=== PATIENT | male | born 1975 | race Caucasian/White ===

== ENCOUNTER 2020-03-30 16:48 | Emergency (ER) | payer SELFPAY ==
[2020-03-30 16:49] VITALS: BP 132/79; PULSE 85; RESP 17; TEMP 36.9; O2SAT 99; BMI 22.1
--- NOTE | 2020-03-30 17:17 | RAD_ITS ---
STUDY: X-RAY - RIGHT TIBIA AND FIBULA REASON FOR EXAM: Male, 44 years old. Distal leg pain TECHNIQUE: 2 view(s) of the tibia and fibula were obtained. COMPARISON: None. FINDINGS: Normal visualized tibia. Normal visualized fibula. The soft tissue structures are unremarkable. RAD/Tibia & Fibula 2 Views IMPRESSION: Normal x-ray examination of the tibia and fibula. Electronically Signed: Hany Santana MD at 18:23 EDT , Service support ,
[2020-03-30] MEDS: HYDROcodone Bitartrate/Apap 5/325 Tablet PO (17:20)
--- NOTE | 2020-03-30 17:36 | RAD_ITS ---
STUDY: X-RAY - RIGHT FEMUR REASON FOR STUDY: Male, 44 years old. Pain TECHNIQUE: 4 view(s) of the femur. COMPARISON: None. FINDINGS: Normal visualized femur. Normal visualized soft tissue structure. RAD/Femur Min 2 Views IMPRESSION: Normal x-ray examination of the femur. Electronically Signed: Hany Santana MD at 18:06 EDT , Service support ,
--- NOTE | 2020-03-30 18:14 | ED.VISSUMM ---
- ER Visit Summary Date of Service: 03/30/20 Chief Complaint: Back pain, right hip pain, right leg pain History of Present Illness: The patient is a 44 M with no primary care physician. He reports that he is had multiple surgeries to his lumbar spine. States the last 2 of these have been spinal fusions by Dr. Marcus and he is spoken with the office and reports that they cannot do anything more for me. He states that his back pain is chronic and typically 3 out of 10 in severity. The past 2 weeks it is been 7 out of 10 in severity at worst and 5-10 currently. Scribes it is an aching pain that is worsened by nothing. Is taken Tylenol and ibuprofen with some relief. Patient reports that his right hip pain is been present for 2 months. It is 9 at 10 at worst and 5-10 currently. He describes it as a dull pain. Is increased with laying or sitting. Is decreased with walking. Patient reports that he is right lateral leg pain that is a sharp pain is 10 of 10 at worst and 7 out of 10 currently. It is increased with laying down and decreased with walking. He states this is not similar to when he is had sciatica in the past. Patient denies any radiation of his back pain into his legs. He denies any numbness or weakness in his legs. He denies any problems with his bowels or his bladder. No groin numbness. He denies any recent trauma. No fall, MVA or change in activity. Physical Examination: Vitals: Stable. Afebrile. General: A&O x 3. NAD. Cardiovascular exam: Regular rate and rhythm, no murmur, rub or gallop. Respiratory exam: Clear to auscultation bilaterally. No wheezes or stridor. Abdominal exam: Soft, nontender, nondistended, normal bowel sounds. No peritoneal signs. Back: Diffuse moderate tenderness to palpation over the lumbar spine and the paraspinous musculature in the lumbar region. No point tenderness. Negative straight leg bilaterally. 5/5 DF, PF, EHL bilaterally. Normal sensation to light touch throughout. Extremity: Distal third of his fibula. There is no erythema or warmth. He has a 2+ dorsalis pedis pulse bilaterally. No clubbing, cyanosis, or edema. Mild tenderness to palpation over the right greater trochanter. No pain with internal or external rotation of his leg. Moderate tenderness to palpation over the distal third of his right fibula. He has no pain over the lateral malleolus. He has a 2+ dorsalis pedis pulse bilaterally. Test Results: Clinical Impression(s) from Imaging Studies Tibia/Fibula X-Ray 03/30/20 17:17 IMPRESSION: Normal x-ray examination of the tibia and fibula. Electronically Signed: Hany Santana MD at 18:23 EDT , Service support , Femur X-Ray 03/30/20 17:36 IMPRESSION: Normal x-ray examination of the femur. Electronically Signed: Hany Santana MD at 18:06 EDT , Service support , Emergency Department Course and Treatment: An OARRS report was obtained which was negative. He was given a dose of [place] here. Treatment Plan: Discussed the patient I suspect that his hip and leg pain is due to him altering his gait because of his back pain. He will be discharged instructed to follow-up with Julee Ardon and/or Dr. Calvo in 1 to 2 weeks if not improving. He will be given a prescription for 10 [place]. Return to the emergency department for any worsening symptoms. Disposition: To home in improved and stable condition. Impression: 1. Low back pain, chronic. 2. Right hip pain, chronic. 3. Right leg pain. This note was generated with [employer] dictation software. It may contain incorrect words, spelling, and punctuation that were not noted in review of the chart prior to signing ED Disposition - Plan for ED Patient: Disposition: Home or Assisted Living Instructions: ED Osteoarthritis Prescriptions: Naproxen [Naprosyn] 500 mg PO BID #14 tab Prescription Printed Hydrocodone Bitart/Apap 5-325 [[place] 5MG-325MG] 1 tab PO Q4H PRN PRN 2 Days #10 tab PRN Reason: Pain Prescription Printed Referrals: Julee Shields [NON-STAFF] - 1 Week if not improving Veto Nielson DO [STAFF PHYSICIAN] - 1 Week if not improving
== END 2020-03-30 18:31 | disposition home or self-care (01) ==
LOC: ED 18:04
PROVIDERS: Emergency Provider Emergency Medicine
DX: M54.5 Low back pain (principal); G89.29 Other chronic pain; M25.551 Pain in right hip; M79.604 Pain in right leg; Z98.1 Arthrodesis status; Z72.0 Tobacco use
CPT/HCPCS: 73552; 73590; 99281; 99282

== ENCOUNTER 2020-04-14 05:36 | Emergency (ER) | payer SELFPAY ==
[2020-04-14 05:37] VITALS: BP 125/63; PULSE 62; RESP 19; TEMP 36.7; O2SAT 99; BMI 22.8
--- NOTE | 2020-04-14 05:49 | ED.DCSUM_ITS ---
History of Present Illness Chief Complaint: Back Informant: Patient Onset: Weeks - 2 Context: Gradual Onset Chronic pain exacerbated by: unk Timing: Continuous Quality: Aching, Burning Location: Lumbar, Right Leg Current Severity: Severe Maximum Severity: Severe Worsened by: improves with: - - sitting position Relieved by: Nothing Associated Symptoms: Numbness, Tingling, Radiation to Right Leg, - - No abdominal pain, dysuria, bowel or bladder dysfunction, perineal numbness Narrative: Patient seen here around 2 weeks ago with acute exacerbation of his low back pain that he has chronically since his back fusion with [facility] [address], states that within a couple of days after he was here he started having numbness and tingling down the right lower extremity to the foot as well and that has been persistent. He is able to get around but it is painful. States he was prescribed [place], took 1 or 2 a day to try to make them last, they were helping some with the pain but he is out and the pain is severe. He has a doctor's appointment tomorrow with primary care that he is trying to establish with, he has not yet called and try to follow-up with his back surgeon because the last time he spoke with them they told him nothing else we can do for you. Prior similar symptoms: Yes, With Prior Back Pain - But not recently with regards to the sciatica symptoms until now Past Medical History - Allergies and Home Meds Allergies/Adverse Reactions: Allergies hydromorphone HCl [From Dilaudid] Adverse Reaction (Verified 04/14/20 05:42) Upset Stomach Primary Care Physician: Care Physician,No Primary [Primary Care Provider] - Surgical History: - - back lumbar fusion Lives: With Family Smoking Status: Current every day smoker Review of Systems General: Denies: Chills, Fever, Sweats Gastrointestinal: Denies: Abdominal pain, Nausea, Vomiting, Diarrhea, Constipation, Melena, Hematochezia Genitourinary: Denies: Dysuria, Hematuria, Frequency, - - Denies incontinence or retention Musculoskeletal: Reports: Back pain, Extremity Pain. Denies: Neck pain Skin: Denies: Rash, Wounds Neurological: Reports: Numbness. Denies: Headache Physical Exam Vital Signs/Narrative: Vital Signs Temp Pulse Resp BP Pulse Ox 04/14/20 05:37 98.1 F 62 19 H 125/63 H 99 Inital Vital Signs reviewed: Yes General: Well nourished, Well developed, - - NAD but uncomfortable Head: Normocephalic, Atraumatic Eyes: Perrl, EOMI Abdomen: Soft, Nontender, Nondistended Back: Normal Inspection, Nontender, Surgical Scar, Well-Healed, Negative SLR - Right, Negative SLR - Left. Negative for: CVA tenderness Extremeties: Nontender, No edema Skin: Normal color, No rash, No Trauma Neuro: Alert, Oriented, Normal Strength, Normal Sensation, Normal Reflexes, - - Antalgic gait Psychological: Normal affect, Normal Mood Diagnostic/Tx/Re-eval - Medical Decision Making Patient is without signs or symptoms of cauda equina syndrome. I reviewed his oars report, he has a single entry from when he was here around 2 weeks ago in the past couple years. He seems to be legitimately in discomfort and is not asking for anything specific, I do not think he is malingering. He does not meet any criteria for emergent MRI, he will need to follow-up for that with either PCP or his back surgeon. Discussed that with him, treated his pain here, and give him a refill on his analgesic prescription. He took baclofen prior to coming here couple hours ago, so I am holding off on Norflex. He is getting morphine and Toradol. ED Disposition - Plan for ED Patient: Disposition: Home or Assisted Living Diagnosis: Acute exacerbation of chronic low back pain, Sciatica, right side Instructions: ED Back Pain Acute or Chronic Prescriptions: Hydrocodone Bitart/Apap 5-325 [[place]send 5MG-325MG] 1 - 2 tab PO Q4H PRN PRN 2 Days #12 tab PRN Reason: Pain Prescription Printed Referrals: Doctor,Your [STAFF PHYSICIAN] - Keep Hans appointment (and/or your back surgeon)
[2020-04-14] MEDS: Ketorolac 30 MG/ML Syringe IM (05:52)
[2020-04-14] MEDS: morphine 10 MG/ML Syringe 8 MG IM (05:52)
[2020-04-14 06:08] VITALS: BP 132/78; PULSE 84; RESP 17; O2SAT 98
== END 2020-04-14 06:10 | disposition home or self-care (01) ==
LOC: ED 06:02
PROVIDERS: Emergency Provider Emergency Medicine
DX: M54.41 Lumbago with sciatica, right side (principal); G89.29 Other chronic pain; F17.200 Nicotine dependence, unspecified, uncomplicated; Z98.1 Arthrodesis status
CPT/HCPCS: 96372; 99282

== ENCOUNTER 2020-05-05 15:05 | Emergency (ER) | payer OTHER, SELFPAY ==
[2020-05-05 15:06] VITALS: BP 145/81; PULSE 76; RESP 16; TEMP 36.4; O2SAT 97; BMI 20.7
--- NOTE | 2020-05-05 15:29 | ED.DCSUM_ITS ---
History of Present Illness Chief Complaint: Back Narrative: 45-year-old male presenting with back pain. He states that radiating down his right leg. This is not a new issue. He has been seen by his PCP who referred him to a back specialist and to pain management. He has had his first interview with the pain management nurse but is not fully integrated into their system and therefore they did not prescribe any pain medication. The spinal specialist also refused to give him pain medication until he got his MRI and x-rays done tomorrow. He has no loss of bladder or bowel control. No urinary retention. No saddle paresthesias. Past Medical History - Allergies and Home Meds Allergies/Adverse Reactions: Allergies hydromorphone HCl [From Dilaudid] Adverse Reaction (Verified 05/05/20 15:05) Upset Stomach Primary Care Physician: Care Physician,No Primary [Primary Care Provider] - Prior records reviewed: Yes Surgical History: - - back lumbar fusion Lives: Spouse/ Significant Other Smoking Status: Current every day smoker Alcohol: Occasional Review of Systems General: Denies: Fever Eyes: Denies: Visual changes - bilaterally, Diplopia ENT: Denies: Rhinorrhea, Sore throat Cardiovascular: Denies: Chest pain, Palpitations Respiratory: Denies: Dyspnea, Cough, Dyspnea on exertion Gastrointestinal: Denies: Abdominal pain, Nausea, Vomiting, Diarrhea, Melena, Hematochezia Genitourinary: Denies: Dysuria, Hematuria, Frequency Musculoskeletal: Reports: Back pain, Extremity Pain Skin: Denies: Rash, Abscess Neurological: Denies: Headache Psych: Denies: Depression, Anxiety Physical Exam Vital Signs/Narrative: Vital Signs Temp Pulse Resp BP Pulse Ox 05/05/20 15:06 97.6 F L 76 16 145/81 H 97 General: Well nourished, No Acute Distress Head: Normocephalic Cardiovascular: Regular rate, Regular rhythm Respiratory: No distress Back: - - Tenderness to palpation bilateral paraspinal muscular future. There is a midline scar which is well-healed from previous spinal fusion. Extremities: Nontender Skin: Normal color Neurological: Alert, Oriented x3 Psychological: Normal affect Diagnostic/Tx/Re-eval - Medical Decision Making She was seen and evaluated on arrival for back pain. This is a chronic issue. He was treated with morphine and Toradol in the ED. His OARRS report shows that he just received [place] 2 days ago #10 from [facility] emergency room. When I asked him about this he stated that he did not have a prescription that he just took some of his friend's Percocet. I then told him that I have a report that shows he did receive a prescription and fill it and then he recalled he received a them. 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 I did treat him in the ED. He has follow-up tomorrow for MRI and he can follow-up with pain management and command and control specialist. ED Disposition - Plan for ED Patient: Disposition: Home or Assisted Living Instructions: ED Back Pain Acute or Chronic Prescriptions: Oxycodone HCl/Acetaminophen [Percocet 5/325] 1 tab PO Q6H PRN PRN 3 Days #12 tab PRN Reason: Pain Prescription Printed Referrals: Care Physician,No Primary [Primary Care Provider] -
[2020-05-05] MEDS: morphine 8 MG/ML Syringe 6 MG SC (15:48)
[2020-05-05] MEDS: Ketorolac 30 MG/ML Syringe IM (15:49)
--- NOTE | 2020-05-05 16:31 | ED.RN ---
THE PT GIRLFRIEND INQUIRING ABOUT THE PERCOCET PRESCRIPTION THAT IS ON THE D/C INSTRUCTIONS. THIS NURSE SPOKE WITH DR LOBATO, PER DR LOBATO THE PT WAS NOT TRUTHFUL ABOUT THE PRESCRIPTION HE RECEIVED FROM ANOTHER HOSPITAL 2 DAYS AGO. UNABLE TO GIVE THE PT ANOTHER PRESCRIPTION FOR NARCOTICS
== END 2020-05-05 16:37 | disposition home or self-care (01) ==
PROVIDERS: Emergency Provider Student in an Organized Health Care Education/Training Program
DX: M54.9 Dorsalgia, unspecified (principal); F17.200 Nicotine dependence, unspecified, uncomplicated
CPT/HCPCS: 96372; 99282

== ENCOUNTER → 2020-05-06 13:19 | Outpatient (CLI) | payer OTHER, SELFPAY ==
[2020-04-14 05:37] VITALS: BMI 22.8
[2020-05-05 15:06] VITALS: BMI 20.7
--- NOTE | 2020-05-06 13:32 | MRI_ITS ---
STUDY: MRI LUMBAR SPINE WITH AND WITHOUT CONTRAST REASON FOR EXAM: Male, 45 years old. recurrent disc herniation, multiple back sx TECHNIQUE: Standardized fat and water weighted pulse sequences were obtained in the sagittal and axial planes. IV yes yes was administered for the contrast portion of the examination. COMPARISON: 10/29/2014 FINDINGS: T12-L1: Normal endplates. Normal disc height, hydration and morphology. Normal bilateral facet joints. Normal central canal and bilateral lateral recesses. Normal bilateral intervertebral neural foramina. Normal lumbar lordosis. There is no substantial scoliosis. Normal conus medullaris that terminates at the T12/L1. L1-2: Normal endplates. Normal disc height, hydration and morphology. Normal bilateral facet joints. Normal central canal and bilateral lateral recesses. Normal bilateral intervertebral neural foramina. L2-3: No change in a mild bilobed disc protrusion which produces a mild spinal stenosis and mild bilateral neural foraminal stenosis. L3-4: No change in the mild broad disc protrusion asymmetric to the right which produces mild spinal stenosis, mild right lateral recess stenosis and mild bilateral neural foraminal stenosis. L4-5: Continued mild broad disc protrusion but with interval development of a moderate-sized right paracentral and foraminal protrusion which produces a moderate spinal stenosis, severe right lateral recess stenosis with effacement of the right L5 nerve root and mild right neural foraminal stenosis. L5-S1: Interval discectomy and transpedicular fixation with anatomic alignment and no spinal stenosis or neural foraminal stenosis. Normal visualized sacral ala. Normal visualized paraspinous soft tissue structures. There is no demonstrated abnormal enhancement. MRI/Spine Lumbar W/WO Contrast IMPRESSION: Interval discectomy and transpedicular fixation at L5/S1 with development of a large right paracentral and foraminal protrusion at L4/L5 producing severe right lateral recess stenosis with effacement right L5 nerve root. Electronically Signed: Jonathan Brewer MD at 16:11 EDT Tel , Service support ,
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
== END ==
DX: M51.37 Other intervertebral disc degeneration, lumbosacral region (principal)
CPT/HCPCS: 72110; 72158; A9575

== ENCOUNTER 2023-06-24 11:48 | Emergency (ER) | payer BC, SELFPAY ==
[2023-06-24 11:49] VITALS: BP 124/74; PULSE 93; RESP 18; TEMP 35.5; O2SAT 97; BMI 23.6
[2023-06-24 12:35] VITALS: O2SAT 98
--- NOTE | 2023-06-24 12:35 | RAD_ITS ---
INDICATION: cough EXAMINATION/TECHNIQUE: X-RAY - XR Chest 2 Views COMPARISON: Prior study dated: December 08, 2016 FINDINGS: LINES/DEVICES: None. LUNGS: No consolidation, edema or effusion. No pneumothorax. MEDIASTINUM AND CARDIOVASCULAR STRUCTURES: Cardiac silhouette not enlarged. Central airways and mediastinal contour are unremarkable. BONES AND SOFT TISSUES: Unremarkable. RAD/Chest PA and Lateral IMPRESSION: No radiographic evidence of acute cardiopulmonary disease. Electronically Signed: Yana Webb MD at 13:13 EDT ,
--- NOTE | 2023-06-24 12:36 | EDS_ITS ---
<Statement entered by Christiane Hackett MD - 06/24/23 16:00> I have personally performed a face to face assessment of the patient and have reviewed the MECHELLE Note. Patient presents with continued cough and congestion after recently being seen in urgent care for similar. He does have a smoking history. Patient lying in bed no acute distress. Head and neck examination unremarkable. Heart is regular rate and rhythm. Lung sounds are grossly clear at this time. (I saw the patient after aerosols had already been given) Abdomen is soft and nontender. Neuro exam is normal Patient reports feeling improved after aerosols. Chest x-ray reveals no evidence of focal infiltrate. COVID and influenza test is negative. Patient be given prednisone, albuterol, and doxycycline. He likely is having a COPD exacerbation given his smoking history. Return instructions provided. HPI History of Present Illness Chief Complaint: Chest Other Narrative Narrative: Patient is a 48-year-old male with history of tobacco use 1 pack/day who presents to the emergency department with 1 week of worsening cough, body aches. Patient was seen at urgent care 3 to 4 days ago, he was also seen with his partner. They diagnosed him with a viral-like infection, the is getting be tter however the patient has not. Patient states the cough is getting worse, he is feeling more short of breath and is here for evaluation. Denies any other fever or chills. He states he does not bring up anything. He states his back is hurting secondary to the ongoing coughing. [facility] Medical History no medical history Home Medications ibuprofen 200 mg tablet 800 mg PO PRN PRN Pain 09/25/17 [History Last Taken 09/25/17] albuterol sulfate 1.25 mg/3 mL solution for nebulization 1.25 mg (3 mL) inhalation Q4H #75 mL 06/24/23 [Rx Last Taken Unknown] albuterol sulfate 90 mcg/actuation aerosol inhaler (Ventolin HFA) 2 puff inhalation Q4H PRN PRN Wheezing #6.7 grams 06/24/23 [Rx Last Taken Unknown] doxycycline hyclate 100 mg capsule 100 mg PO DAILY #14 caps 06/24/23 [Rx Last Taken Unknown] prednisone 50 mg tablet 50 mg PO DAILY #5 tabs 06/24/23 [Rx Last Taken Unknown] Allergy/AdvReac Type Severity Reaction Status Date / Time hydromorphone HCl AdvReac Upset Verified 06/24/23 11:50 [From Dilaudid] Stomach Social History Smoking Status: Current every day smoker tobacco type: cigarettes ROS ROS ED ROS Narrative Constitutional: Negative for fever, chills, weight loss, weakness Eyes: Negative for vision loss, vision change, double vision ENT: Negative for any sore throat, ear pain, congestion Cardiovascular: Negative for any chest pain, tightness, palpitations Respiratory: Negative for any sputum production, hemoptysis. Positive for cough, dyspnea, dyspnea on exertion, orthopnea Gastrointestinal: Negative for any abdominal pain, nausea, vomiting, diarrhea, constipation, blood in stool, blood in vomit : Negative for any urinary frequency, dysuria, retention, blood in urine Muscle skeletal: Negative for any muscle joint pain, stiffness, myalgias, arth ralgias, neck pain. Positive for back pain Neurological: Negative for any headache, syncope, numbness or tingling, dizziness Skin: Negative for any rashes, lumps, itching, abrasions, lacerations Psychiatric: Negative for any depression, anxiety, stress, suicidal ideation, homicidal ideation Hematologic: Negative for any easy bruising, excessive bruising, easy bleeding Allergies: Negative for any eczema, hives, rash EXAM Physical Exam Narrative Exam Narrative: Vital signs reviewed. Patient on initial examination did have multiple coughing fits. No sputum production. HEET: Head normocephalic atraumatic, TMs clear bilaterally. Posterior pharynx is clear, moist mucous membranes. Nares clear bilaterally. Neck: Supple with no lymphadenopathy or tenderness. No signs of meningismus, negative jolt sign. Cardiac: Regular rate and rhythm no murmurs gallops or rubs, equal peripheral pulses bilaterally. Respiratory: Inspiratory and expiratory wheezes, crackles to left lower lobe, worse on the left than the right. No chest tenderness. Abdomen: Soft, nontender, nondistended. No abdominal bruit or pulsatile masses. No hepatosplenomegaly Extremities: No peripheral edema, no signs of gross trauma or deformity. Active full range of motion of all extremities. Neuro: Cranial nerves II through XII intact, no focal neurological deficits. Skin: Clean dry and intact with no rash, purpura, petechiae, vesicles or pustules. Backs/flank: No CVA tenderness, no midline spinal tenderness, no deformity. Psych: Normal mood and affect. No SI, HI or acute psychosis. Const Vital Signs: 06/24/23 11:49 06/24/23 13:06 06/24/23 13:06 Temperature 96 F L Temperature Source Temporal Pulse Rate 93 Respiratory Rate 18 Respiratory Effort Short of Breath Respiratory Pattern Normal Blood Pressure 124/74 H Blood Pressure Mean 90 Pulse Ox 97 Oxygen Delivery Method Room Air 06/24/23 12:35 Temperature Temperature Source Pulse Rate Respiratory Rate Respiratory Effort Respiratory Pattern Blood Pressure Blood Pressure Mean Pulse Ox 98 Oxygen Delivery Method Room Air MDM MDM Radiography Diagnostic Testing: Clinical Impression(s) from Imaging Studies Chest X-Ray 06/24/23 12:35 IMPRESSION: No radiographic evidence of acute cardiopulmonary disease. Electronically Signed: Yana Webb MD at 13:13 EDT , Treatment and Re-Evaluation :: Patient, shortness of breath has been going on for 1 week. Patient is in no obvious respiratory distress, negative for any signs of sepsis. Patient will receive a respiratory work-up including a two-view chest x-ray concerning for any pneumonia, pleural effusion. Patient will receive breathing treatments as well as prednisone, differential diagnosis include pneumonia, COVID, influenza, COPD exacerbation. Patient is never been diagnosed with COPD however patient does have wheezing as well as smokes 1 pack/day for multiple years. Patient's chest x-ray two-view inter by ER physician shows no radiographic evidence of acute cardiopulmonary disease. Patient's COVID, influenza was negative. Patient with breathing treatments did improve. On reevaluation, the patient was doing much better. I do believe the patient is currently 7 from a COPD exacerbation. Patient be placed on a short course of steroids, doxycycline, he will be given albuterol inhaler, he will also be given albuterol nebulizer packet. The patient's does have nebulizer machine. Patient was instructed to quit smoking, as this could be worsening his lung disease. Patient verbally understands. He will be given return precautions. All questions answered, patient stable for discharge. At this time, patient does not require any admission secondary to no hypoxia. Discharge Plan Triage Chief Complaint: Chest Other Other Complaint: Cold Sx ED Midlevel Provider: Vaibhav Young ED Provider: Christiane Hackett Dx/Rx/DC Orders Clinical Impression: Cough, Acute exacerbation of chronic obstructive pulmonary disease Instructions: Asthma and COPD Prescriptions: New doxycycline hyclate 100 mg capsule 100 mg PO DAILY Qty: 14 0RF prednisone 50 mg tablet 50 mg PO DAILY Qty: 5 0RF albuterol sulfate [Ventolin HFA] 90 mcg/actuation HFA aerosol inhaler 2 puff inhalation Q4H PRN PRN (Reason: Wheezing) Qty: 6.7 0RF albuterol sulfate 1.25 mg/3 mL solution for nebulization 1.25 mg inhalation Q4H Qty: 75 0RF No Action ibuprofen 200 MG tablet 800 mg PO PRN PRN (Reason: Pain) Patient Comments: PT REPORTS TAKING 1200MG MOTRIN 1-4 TIMES A DAY. Primary Care Provider: Joshua Portillo Referrals: Care Physician,No Primary [Non-Staff] - Activity Restrictions/Additional Instructions: Please take antibiotics until finished. Use the albuterol inhaler as needed. Use the albuterol nebulizers every 6-8 hours. Try to quit smoking. Disposition Disposition: Home, Self Care
[2023-06-24] MEDS: predniSONE 20 MG Tablet 60 MG PO (12:44)
[2023-06-24] MEDS: Albuterol 2.5 MG/3 ML VIAL.NEB. INHALATION (12:49)
[2023-06-24] MEDS: Ipratropium/Albuterol Sulfate 3 ML AMPUL.NEB INHALATION (12:49)
[2023-06-24 14:44] VITALS: BP 144/90; PULSE 87; RESP 16; O2SAT 96
== END 2023-06-24 14:45 | disposition home or self-care (01) ==
PROVIDERS: Emergency Provider Emergency Medicine; PCP Internal Medicine; Visit Provider Emergency Medicine
DX: J44.1 Chronic obstructive pulmonary disease with (acute) exacerbation (principal); R05.9 Cough, unspecified; F17.210 Nicotine dependence, cigarettes, uncomplicated
CPT/HCPCS: 71046; 87428; 94640; 99282

== ENCOUNTER 2023-08-25 12:09 | Emergency (ER) | payer BC, SELFPAY ==
[2023-08-25 12:10] VITALS: BP 124/83; PULSE 67; RESP 16; TEMP 36.1; O2SAT 100; BMI 24.3
[2023-08-25] MEDS: Morphine 4 MG/ML Syringe IV (12:47)
[2023-08-25] MEDS: Ondansetron 4 MG/2 ML Vial IV (12:47)
[2023-08-25] MEDS: Ketorolac 15 MG/ML Vial IV (12:47)
--- NOTE | 2023-08-25 13:06 | EDS_ITS ---
HPI History of Present Illness Chief Complaint: Back Detail of Chief Complaint: Acute on chronic low back pain Informant: patient Onset/Context/Timing Onset: Days (Onset August 21, Monday) Context: Sudden Onset Timing: Continuous and Waxes and wanes Quality: Dull and Aching Location: Lumbar Current Severity: Severe Maximum Severity: Severe Worsened by: improves with Movement, Ambulation, Bending and Lifting Relieved by: Nothing Associated Symptoms Associated Symptoms: - (Denies saddle anesthesia or paresthesia, denies foot drop. Denies buckling of knees with going up or down steps.); Negative for Numbness, Tingling, Radiation to Right Leg, Radiation to Left Leg, Fever, Abdominal Pain, Dysuria, Unable to Ambulate, Unable to Transfer, Urinary Retention, Urinary Incontinence, Constipation or Fecal Incontinence Narrative Narrative: Patient is a 48-year-old male with chronic back pain. Last several days had increased pain. He denies fever, chills night sweats. Denies weight gain or weight loss. He denies radicular pain. He denies foot drop. Denies buckling of his knees going up or down steps. He denies saddle paresthesia or anes thesia. He denies recent dental procedure or any type of procedure. There is no history of direct trauma. He denies urologic symptoms i.e. dysuria, frequency, urgency or hematuria. Prior similar symptoms: Yes Recent Illness/Hospitalization: No PFSH PFSH Home Medications ibuprofen 200 mg tablet 800 mg PO PRN PRN Pain 09/25/17 [History Last Taken 09/25/17] albuterol sulfate 1.25 mg/3 mL solution for nebulization 1.25 mg (3 mL) inhalation Q4H #75 mL 06/24/23 [Rx Last Taken Unknown] albuterol sulfate 90 mcg/actuation aerosol inhaler (Ventolin HFA) 2 puff inhalation Q4H PRN PRN Wheezing #6.7 grams 06/24/23 [Rx Last Taken Unknown] Allergy/AdvReac Type Severity Reaction Status Date / Time hydromorphone HCl AdvReac Upset Verified 06/24/23 11:50 [From Dilaudid] Stomach Family History no significant family his Surgical History H/O hand surgery History of back surgery History of hernia surgery History of tonsillectomy Social History household members: spouse, family and children housing: house Smoking Status: Current every day smoker tobacco type: cigarettes ROS ROS ED Constitutional Constitutional ED: Denies chills, fever(s), subjective or sweats Eyes Eyes: Denies blurry vision, change in vision or diplopia ENT ENT ED: Denies ear pain, rhinorrhea or sore throat Cardiovascular Cardiovascular: Denies chest pain, orthopnea, palpitations or racing heartbeat Respiratory/Chest Respiratory/Chest: Denies dyspnea, dyspnea on exertion or orthopnea Gastrointestinal Gastrointestinal: Denies abdominal pain, constipation, diarrhea, melena, nausea or vomiting Genitourinary Genitourinary ED: Denies dysuria, hematuria or urinary frequency Musculoskeletal Musculoskeletal: Reports back pain; Denies arthralgias, myalgias or neck pain Integumentary Denies rash Neurologic Neurologic: Denies paresthesias or weakness Endocrine Endocrinology: Denies cold intolerance or heat intolerance Hematologic/Lymphatic Hematologic/Lymphatic: Denies easy bleeding, easy bruising or lymphadenopathy EXAM Physical Exam Const Vital Signs: 08/25/23 12:10 Temperature 97.0 F L Temperature Source Temporal Pulse Rate 67 Respiratory Rate 16 Blood Pressure 124/83 H Blood Pressure Mean 96 Pulse Ox 100 Oxygen Delivery Method Room Air Positive well nourished and well developed General Appearance ED: well developed; Negative for NAD or pallor HEENT Reports moist mucous membranes HEENT Narrative: Head is atraumatic and normocephalic. Nares patent. Posterior pharynx is normal Eyes PERRL and EOMs intact bilaterally General Eye ED: Negative for pale conjunctiva or scleral icterus Neck no lymphadenopathy, supple and no JVD Neck Narrative: There are no carotid bruits. Resp normal respiratory effort and clear to auscultation bilaterally Cardio regular rate, regular rhythm, S1 normal heart sound, S2 normal heart sound and no murmurs GI normal to inspection, nondistended, normoactive bowel sounds, soft to palpation, non-tender, non-distended and no masses Back/Spine normal to inspection; Negative for no thoracic nor lumbar tenderness Back/Spine Narrative: EHL is intact. 5/5 strength with plantar and dorsiflexion of the foot. Lumbar Spine / Lower Back: ROM limited and straight leg raise negative bilaterally Extremity normal to inspection and no clubbing, cyanosis or edema Neuro oriented x3 and no sensory deficits noted Neuro Narrative: DP and PT pulse are palpable. Sensorium / Orientation: alert Motor Exam: strength 5/5 throughout Deep Tendon Reflexes: Rt Patellar (L4): 1+, Lt Patellar (L4): 1+, Rt Ankle (S1): 1+ and Lt Ankle (S1): 1+ Deep Tendon Reflexes Back: Rt Patellar (L4): 1+, Lt Patellar (L4): 1+, Rt Ankle (S1): 1+ and Lt Ankle (S1): 1+ Plantar Reflex: Downgoing: bilateral (There is no clonus at the ankles.) Skin no rashes or lesions noted and no wounds General Skin Exam: Negative for jaundice or pallor MDM MDM MDM Narrative Medical decision making narrative: Patient with low back pain. Differential is muscle skeletal i.e. degenerative disc, myofascial strain, herniated disc, cauda equina, spontaneous epidural hematoma, epidural abscess. Need to also consider pathologic fracture due to steroid use for COPD. Based on patient's history and physical findings are consistent with myofascial strain. Since patient has a family member who can take him home he was ordered IV Toradol and morphine. Will reassess in 30 to 60 minutes after the administration of meds. Since there is no history of trauma imaging was not obtained. Since he has no constitutional symptoms specifically fever or chills laboratory studies were not obtained. History & Record Review Additional record(s) reviewed:: Prior ED visit (COPD exacerbation, and multiple visits for back pain.) Treatment and Re-Evaluation Narrative: Patient was reassessed at 1424. He had a 50% reduction in pain. Plan is to discharge with pain medicine. Patient was discharged home with appropriate home-going structure. His mother is here to drive him home since he was given opiate analgesic. Discharge Plan Triage Chief Complaint: Back ED Provider: Jose Howard Dx/Rx/DC Orders Clinical Impression: History of COPD, Acute exacerbation of chronic low back pain Instructions: ED Back Pain (Acute or Chronic) Prescriptions: No Action ibuprofen 200 MG tablet 800 mg PO PRN PRN (Reason: Pain) Patient Comments: PT REPORTS TAKING 1200MG MOTRIN 1-4 TIMES A DAY. albuterol sulfate [Ventolin HFA] 90 mcg/actuation HFA aerosol inhaler 2 puff inhalation Q4H PRN PRN (Reason: Wheezing) Qty: 6.7 0RF albuterol sulfate 1.25 mg/3 mL solution for nebulization 1.25 mg inhalation Q4H Qty: 75 0RF Primary Care Provider: Joshua Portillo Referrals: Joshua Portillo MD [Primary Care Provider] - 1 Week if not improving Disposition Disposition: Home, Self Care
[2023-08-25 14:34] VITALS: RESP 16
== END 2023-08-25 14:35 | disposition home or self-care (01) ==
PROVIDERS: Emergency Provider Emergency Medicine; PCP Internal Medicine; Visit Provider Emergency Medicine
DX: M54.50 Low back pain, unspecified (principal); J44.9 Chronic obstructive pulmonary disease, unspecified; G89.29 Other chronic pain; F17.210 Nicotine dependence, cigarettes, uncomplicated
CPT/HCPCS: 96374; 96375; 99284; A4216; J2405

== ENCOUNTER 2023-10-20 08:39 | Emergency (ER) | payer BC, SELFPAY ==
[2023-10-20 08:41] VITALS: BP 128/82; PULSE 87; RESP 14; TEMP 37.2; O2SAT 99; BMI 24.1
--- NOTE | 2023-10-20 08:54 | RAD_ITS ---
HISTORY: cough. TECHNIQUE: XR Chest 2 Views. COMPARISON: 06/24/2023. FINDINGS: CARDIOMEDIASTINAL BORDERS: Cardiac silhouette within normal limits in size. Mediastinal contour unremarkable. LUNGS: Radiographically clear. PLEURA: No pleural effusion or pneumothorax seen. OSSEOUS STRUCTURES: Unremarkable. RAD/Chest PA and Lateral IMPRESSION: No acute cardiopulmonary process identified. Electronically Signed: Daina Porter MD at 9:09 EST ,
--- NOTE | 2023-10-20 08:54 | EX.ED.VIS.UR ---
HPI HPI - URI History of Present Illness Chief Complaint: Headache Detail of Chief Complaint: URI symptoms with a cough for the last 5 days. Informant: patient Onset/Context/Timing Onset: Days Context: Gradual Onset Timing: Continuous Current Severity: Mild Maximum Severity: Moderate Associated Symptoms Associated Symptoms: Positive for Nasal Congestion, Headache, Myalgias and Nonproductive cough; Negative for Sinus Pressure, Nausea, Vomiting, Diarrhea, Shortness of Breath, Chest Pain, Hemoptysis or Productive Cough Narrative Narrative: Healthy 48-year-old male. Currently on no chronic medications. URI symptoms since Monday. Headache. Increased sleep. Nonproductive cough. Subjective fever and chills. No vomiting or diarrhea. No dysuria. No abdominal pain. Treated in urgent care on Monday placed on a cough medication. Called his primary care's office today who sent him to the emergency department. Prior similar symptoms: Yes Recent Illness/Hospitalization: No ROS ROS ED ROS Narrative Cough. Subjective fever and chills. Myalgias. Headache. Constitutional Constitutional ED: Reports chills, fever(s) and subjective Eyes Eyes: Denies blurry vision ENT ENT ED: Denies ear pain, rhinorrhea or sore throat Cardiovascular Cardiovascular: Denies chest pain or palpitations Respiratory/Chest Respiratory/Chest: Reports cough; Denies dyspnea Gastrointestinal Gastrointestinal: Denies abdominal pain, constipation, diarrhea, melena, nausea or vomiting Genitourinary Genitourinary ED: Denies dysuria or hematuria Musculoskeletal Musculoskeletal: Denies arthralgias or back pain Integumentary Denies abscess or Abrasions Neurologic Neurologic: Reports headache(s) Psychiatric Psychiatric: Denies anxiety Endocrine Endocrinology: Denies cold intolerance Hematologic/Lymphatic Hematologic/Lymphatic: Denies easy bleeding, easy bruising or lymphadenopathy Allergic/Immunologic Allergic/Immunologic ED: Denies mouth swelling, tongue swelling or urticaria PFSH PFSH Medical History no medical history no medical history Home Medications ibuprofen 200 mg tablet 800 mg PO PRN PRN Pain 09/25/17 [History Last Taken 09/25/17] albuterol sulfate 1.25 mg/3 mL solution for nebulization 1.25 mg (3 mL) inhalation Q4H #75 mL 06/24/23 [Rx Last Taken Unknown] albuterol sulfate 90 mcg/actuation aerosol inhaler (Ventolin HFA) 2 puff inhalation Q4H PRN PRN Wheezing #6.7 grams 06/24/23 [Rx Last Taken Unknown] hydrocodone-acetaminophen 5-325mg 5mg-325mg 1 tab PO Q6H PRN PRN Pain 3 days #10 TABLETS 08/25/23 [Rx Last Taken Unknown] naproxen 500 mg tablet 500 mg PO BID #14 tabs 08/25/23 [Rx Last Taken Unknown] Allergy/AdvReac Type Severity Reaction Status Date / Time hydromorphone HCl AdvReac Upset Verified 10/20/23 08:40 [From Dilaudid] Stomach Family History no significant family his Surgical History H/O hand surgery History of back surgery History of hernia surgery History of tonsillectomy Social History household members: spouse, family and children housing: house Smoking Status: Current every day smoker tobacco type: cigarettes EXAM Physical Exam Narrative Exam Narrative: Well-appearing middle-age male. Vital signs stable afebrile. Pulse ox 99% on room air no hypoxia. H EENT exam atraumatic. Pupils round react to light. Moist mucous membranes. Posterior pharynx unremarkable. No trouble swallowing or breathing. TMs normal. Neck nontender no lymphadenopathy. He is able to touch his chin to his chest. No meningismus. Lungs coarse breath sounds bilaterally. No wheezing. Equal symmetrical. Heart regular rhythm rate about 85 no murmur. Chest wall and ribs nontender. Abdomen soft nontender. Back nontender. Moving all 4 extremities. 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 Dorsi plantarflexion intact. He is awake and alert. Skin no rashes. Const Vital Signs: 10/20/23 08:41 Temperature 98.9 F Temperature Source Temporal Pulse Rate 87 Respiratory Rate 14 Blood Pressure 128/82 H Blood Pressure Mean 97 Pulse Ox 99 Oxygen Delivery Method Room Air Positive well nourished and well developed; Negative for obese, cachectic or contractures General Appearance ED: well developed and NAD; Negative for cachectic, contractures, cyanotic, diaphoretic or pallor Nutritional Appearance: Negative for cachectic or obese HEENT Reports moist mucous membranes; Denies dry mucous membranes normocephalic and atraumatic; Negative for scalp tenderness Face and Sinus: Negative for sinus tenderness or maxillary instability Mouth ED: No dry mucous membranes Mouth: No dry mucous membranes Teeth and Gingiva: Negative for caries Throat: posterior oropharynx normal Eyes PERRL and EOMs intact bilaterally General Eye ED: Negative for pale conjunctiva, scleral icterus or other Neck no lymphadenopathy, supple, no meningeal signs and no JVD General: Negative for anterior neck swelling or lymphadenopathy Resp normal respiratory effort and No clear to auscultation bilaterally Resp Narrative: Coarse breath sounds bilaterally. Effort and Inspection: Negative for retractions Auscultation: Negative for rales, wheezes or diminished lung sounds Cardio S1 normal heart sound, S2 normal heart sound and no murmurs Rate: regular rate; Negative for bradycardia or tachycardic Rhythm: regular rhythm; Negative for abnormal rhythm GI non-tender, non-distended and no masses Inspection: Negative for abdominal distention Auscultation: normoactive bowel sounds Palpation: soft; Negative for tender or guarding Percussion: Negative for other Back/Spine Negative for no CVA tenderness General Back: Negative for CVA tenderness Cervical Spine: Negative for cervical spine tenderness Thoracic Spine / Upper Back: Negative for thoracic spinal tenderness Lumbar Spine / Lower Back: Negative for lumbar spinal tenderness Sacrum: Negative for tenderness Extremity normal to inspection and full ROM General Extremety ED: Negative for cyanosis or tenderness General Extremity: Negative for cyanosis Neuro oriented x3 and CN's II-XII intact bilaterally Sensorium / Orientation: alert, oriented to person, oriented to place and oriented to time; Negative for orientation impaired, lethargic or stuporous Motor Exam: strength 5/5 throughout Psych mental status grossly normal Appearance: Negative for other Attitude: No agitated Mood & Affect: Negative for depressed, anxious or tearful Skin General Skin Exam: Negative for jaundice or pallor Lesions: no lesions Rashes: no rashes Trauma: Negative for abrasion or laceration MDM MDM MDM Narrative Medical decision making narrative: 48-year-old male URI symptoms for 5 days. Chest x-ray to rule out pneumonia. COVID and flu and RSV PCR. He is not vomiting. He does not look dehydrated. I do not think he needs IV fluids or lab work otherwise. Repeat exam patient is doing well at 10:35 AM. We discussed his test results. He will be discharged home. Fluids. Rest. Tylenol Motrin. Follow-up as needed. Return if worse. History & Record Review Discussion w/independent historian: Patient Additional record(s) reviewed:: Prior inpatient record, Prior outpatient record, Prior ED visit and Prior labs Lab Data Attestation: I reviewed the patient's lab results. Lab results narrative: Flu a positive. Negative COVID and RSV. Chest x-ray negative. Radiography Chest X-Ray - ED: 2 View, Read by ED Physician, Read by Radiologist, Heart, Lungs, Mediastinum, Bony Structures and No Acute Disease Diagnostic Testing: Clinical Impression(s) from Imaging Studies Chest X-Ray 10/20/23 08:54 IMPRESSION: No acute cardiopulmonary process identified. Electronically Signed: Daina Porter MD at 9:09 EST , Chest x-ray, 2 views, AP and lateral, interpreted by myself and the radio shows no acute abnormality. Normal cardiac silhouette. Normal lung mauro. No pneumonia. Discharge Plan Triage Chief Complaint: Headache ED Provider: Steve Ojeda Dx/Rx/DC Orders Clinical Impression: Influenza A Instructions: ED Influenza (Adult) Prescriptions: No Action ibuprofen 200 MG tablet 800 mg PO PRN PRN (Reason: Pain) Patient Comments: PT REPORTS TAKING 1200MG MOTRIN 1-4 TIMES A DAY. albuterol sulfate [Ventolin HFA] 90 mcg/actuation HFA aerosol inhaler 2 puff inhalation Q4H PRN PRN (Reason: Wheezing) Qty: 6.7 0RF albuterol sulfate 1.25 mg/3 mL solution for nebulization 1.25 mg inhalation Q4H Qty: 75 0RF hydrocodone-acetaminophen [hydrocodone-acetaminophen] 5-325 mg tablet 1 tab PO Q6H PRN PRN (Reason: Pain) 3 Days Qty: 10 0RF naproxen 500 mg tablet 500 mg PO BID Qty: 14 0RF Primary Care Provider: Joshua Portillo Referrals: Joshua Portillo MD [Primary Care Provider] - 1 Week if not improving Activity Restrictions/Additional Instructions: You have influenza A. Plenty of fluids. Rest. Alternate Tylenol Motrin for body aches and fever. This will take several days even a week to get over. Follow-up with your doctor if not improving. Disposition Disposition: Home, Self Care
--- OUTSIDE RECORDS SUMMARY | 2023-10-20 10:25 | XMS RPT_ITS | CCD ---
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 Name Role Phone Joshua Washington MD Primary Care Provider [phone] NO, PHYSICIAN Primary Care Unavailable BUCK SWEENEY Attending Unavailable Joshua Washington MD Primary Care Provider [phone] JOSHUA WASHINGTON Primary Care Unavailable JAZMIN BHAKTA Referring Unavailable JOSHUA WASHINGTON Primary Care Unavailable JAZMIN BHAKTA Attending Unavailable JOSHUA WASHINGTON Primary Care Unavailable ELEANOR BARTLETT Referring Unavailable ESETFANÍA BLAKE Attending Unavailable ESTEFANÍA BLAKE Admitting Unavailable MARK MCLEOD Attending Unavailable JOSHUA WASHINGTON Primary Care Unavailable JOSHUA WASHINGTON Primary Care Unavailable GINGER ANDERSEN Referring Unavailable GINGER ANDERSEN Attending Unavailable JOSHUA WASHINGTON Primary Care Unavailable Allergies Allergy Classification Reported Allergen(s) Allergy Type Date of Onset Reaction(s) Facility (20 sources) HYDROmorphone; Translations: [HYDROMORPHONE (BULK)] Drug Allergy 4 Vomiting, GI Upset [facility] (1 source) HYDROmorphone; Translations: [HYDROMORPHONE] Drug Allergy 3 [facility] Repository Medications Current Medications Medication Drug Class(es) Dates Sig (Normalized) Sig (Original) methylPREDNISolone (2 sources) Corticosteroid Start: 08-30-2023 End: 09-04-2023 methylPREDNISolone (MEDROL, REBECCA,) 4 mg Dose-Pack Indications: Spondylolisthesis, lumbar region As Instructed per package 1 tablet 0 08/30/2023 09/04/2023 Active Completed/Discontinued Medications Medication Drug Class(es) Dates Sig (Normalized) Sig (Original) acetaminophen 500 mg oral tablet (11 sources) take 1 tablet by mouth every eight hours as needed acetaminophen (TYLENOL) 500 mg tablet Take 500 mg by mouth every 8 hours as needed. 0 Active Problems Active Problems Problem Classification Problem Date Documented Da te Episodic/Chronic Allergic reactions (1 source) Actinic cheilitis; Translations: [Other specified acute skin changes due to ultraviolet radiation] Episodic Contraceptive and procreative management (1 source) Encounter for other general counseling and advice on contraception; Translations: [Vasectomy evaluation] Onset: 09-25-2023 Episodic Open wounds of head; neck; and trunk (2 sources) Laceration without foreign body of scalp, initial encounter; Translations: [Laceration without foreign body of scalp, initial encounter] Onset: 06-07-2023 Episodic Other and unspecified benign neoplasm (1 source) Multiple benign melanocytic nevi ; Translations: [Melanocytic nevi, unspecified] Episodic Other and unspecified benign neoplasm (1 source) Senile angioma; Translations: [Hemangioma of skin and subcutaneous tissue] Episodic Other circulatory disease (1 source) Elevated blood-pressure reading without diagnosis of hypertension; Translations: [Elevated blood-pressure reading, without diagnosis of hypertension] 09-25-2023 Episodic Other circulatory disease (1 source) Elevated blood-pressure reading, without diagnosis of hypertension; Translations: [Elevated blood pressure reading without diagnosis of hypertension] Onset: 09-25-2023 Episodic Other connective tissue disease (1 source) History of lumbar fusion; Translations: [Arthrodesis status] 08-30-2023 Episodic Other connective tissue disease (1 source) Arthrodesis status; Translations: [Status post lumbar spinal fusion] Onset: 08-30-2023 Episodic Other injuries and conditions due to external causes (2 sources) Unspecified injury of head, initial encounter; Translations: [Unspecified injury of head, initial encounter] Onset: 06-07-2023 Episodic Other screening for suspected conditions (not mental disorders or infectious disease) (5 sources) Patient encounter status; Translations: [Encounter for screening for malignant neoplasm of colon] Onset: 09-22-2022 Episodic Other skin disorders (1 source) Actinic keratosis; Translations: [Actinic keratosis] Episodic Other skin disorders (1 source) Seborrheic keratosis; Translations: [Other seborrheic keratosis] Episodic Other skin disorders (1 source) Solar lentigo; Translations: [Other melanin hyperpigmentation] Episodic Spondylosis; intervertebral disc disorders; other back problems (1 source) Lumbar radiculopathy; Translations: [Radiculopathy, lumbar region] 08-29-2023 Episodic Substance-related disorders (11 sources) Tobacco user; Translations: [Nicotine dependence, unspecified, uncomplicated] Onset: 03-24-2021 03-24-2021 Chronic Viral infection (2 sources) Genital warts; Translations: [Anogenital (venereal) warts] Onset: 09-25-2023 09-25-2023 Episodic Past or Other Problems Problem Classification Problem Date Documented Da te Episodic/Chronic Headache; including migraine (13 sources) Cervicogenic headache; Translations: [Cervicogenic headache] Onset: 08-17-2022 Episodic Other acquired deformities (12 sources) Lumbar spondylolisthesis; Translations: [Spondylolisthesis, lumbar region] Onset: 05-21-2020 05-25-2020 Episodic Other acquired deformities (1 source) Spondylolisthesis, lumbar region; Translations: [Spondylolisthesis, lumbar region] Onset: 05-25-2020 Episodic Other lower respiratory disease (12 sources) Multiple nodules of lung; Translations: [Other nonspecific abnormal finding of lung field] Onset: 04-09-2021 04-09-2021 Episodic Other lower respiratory disease (1 source) Other nonspecific abnormal finding of lung field; Translations: [Lung nodules] Onset: 04-09-2021 Episodic Results Test Name Value Interpretation Reference Range Facil ity Vital Signs Date Time Vital Sign Value Performing Clinician Faci lity 09-25-2023 14:59-0500 Body height 174.6 cm Mark Mcleod APRN.CNP, DNP Work Phone: [facility] 09-25-2023 14:59-0500 Body temperature 99 [degF] Mark Mcleod APRN.CNP, DNP Work Phone: [facility] 09-25-2023 14:59-0500 Body weight 74.84 kg Mark Blaz TRAVELING CLERK.CLEARING HAND, DNP Work Phone: [facility] 09-25-2023 14:59-0500 Diastolic blood pressure 96 mm[Hg] Mark Mcleod TRAVELING CLERK.CLEARING HAND, DNP Work Phone: [facility] 09-25-2023 14:59-0500 Heart rate 84 /min Mark Mcleod TRAVELING CLERK.CLEARING HAND, DNP Work Phone: [facility] 09-25-2023 14:59-0500 SaO2% (BldA) [Mass fraction] 98 % Mark Mcleod TRAVELING CLERK.CLEARING HAND, DNP Work Phone: [facility] 09-25-2023 14:59-0500 Systolic blood pressure 140 mm[Hg] Mark Mcleod TRAVELING CLERK.CLEARING HAND, DNP Work Phone: [facility] 08-30-2023 13:49-0500 Body height 175.3 cm Jazmin Jolleygatsj TRAVELING CLERK.CLEARING HAND Work Phone: [facility] 08-30-2023 13:49-0500 Body weight 75.2 kg Jazmin Fegatelli TRAVELING CLERK.CLEARING HAND Work Phone: [facility] 08-30-2023 13:49-0500 Diastolic blood pressure 82 mm[Hg] Jazmin Fegatelli TRAVELING CLERK.CLEARING HAND Work Phone: [facility] 08-30-2023 13:49-0500 Heart rate 77 /min Jazmin Fegatelli TRAVELING CLERK.CLEARING HAND Work Phone: [facility] 08-30-2023 13:49-0500 SaO2% (BldA) [Mass fraction] 98 % Jazmin Fegatelli TRAVELING CLERK.CLEARING HAND Work Phone: [facility] 08-30-2023 13:49-0500 Systolic blood pressure 124 mm[Hg] Jazmin Fegatelli TRAVELING CLERK.CLEARING HAND Work Phone: [facility] 09-13-2022 13:09-0500 Body height 175.3 cm Nuno Lisa RN [facility] 09-13-2022 13:09-0500 Body weight 74.84 kg Nuno Lisa RN [facility] 08-30-2022 09:19-0500 Body temperature 98.1 [degF] Eleanor Dhruv PA-C Work Phone: [facility] 08-30-2022 09:19-0500 Body weight 76.66 kg Eleanor [place] PA-C Work Phone: [facility] 08-30-2022 09:19-0500 Diastolic blood pressure 62 mm[Hg] Eleanor [place] PA-C Work Phone: [facility] 08-30-2022 09:19-0500 Heart rate 76 /min Eleanor [place] PA-C Work Phone: [facility] 08-30-2022 09:19-0500 Respiratory rate 14 /min Eleanor Dhruv PA-C Work Phone: [facility] 08-30-2022 09:19-0500 SaO2% (BldA) [Mass fraction] 99 % Eleanor [place] PA-C Work Phone: [facility] 08-30-2022 09:19-0500 Systolic blood pressure 112 mm[Hg] Eleanor Dhruv PA-C Work Phone: [facility] 08-19-2022 09:00-0400 Diastolic blood pressure 78 mm[Hg] Joaquín Golias PT Work Phone: [facility] 08-19-2022 09:00-0400 Systolic blood pressure 114 mm[Hg] Joaquín Golias PT Work Phone: [facility] Encounters Encounter Date Encounter Type Care Provider Facility Start: 09-25-2023 End: 09-26-2023 ambulatory MARK MCLEOD Facility:[facility] Start: 09-25-2023 End: 09-25-2023 Patient encounter procedure Mark Mcleod TRAVELING CLERK.CLEARING HAND, DNP Work Phone: Urology Procedures Date Procedure Procedure Detail Performing Clinician Start: 07-13-2023 Ct thorax w/o contra st material Ginger Torres APRNRichelleCLEARING HAND Work Phone: Start: 09-30-2022 CRYOTHERAPY SKIN LESION Lina Sweeney PA-C Work Phone: Start: 03-24-2021 Lipid 1996 panel - S josé miguel or Plasma Ct (I-Stat) Work Phone: Plan of Treatment Date Care Activity Detail Author Start: 07-01-2026 Urine microalbumin profile [facility] Immunizations Immunization Date Immunization Notes Care Provider Fa dangty 02-12-2021 COVID-19 original vaccine, full dose, monovalent (MODERNA) Joaquín [employer] PT Work Phone: [facility] Work Phone: 05-24-2016 tetanus and diphther ia toxoids, adsorbed, preservative free, for adult use (2 Lf of tetanus toxoid and 2 Lf of diphtheria toxoid) Joaquín Golias PT Work Phone: [facility] 05-24-2016 tetanus toxoid, redu nikolas diphtheria toxoid, and acellular pertussis vaccine, adsorbed Joaquín [employer] PT Work Phone: [facility] Work Phone: Payers Date Payer Category Payer Worker's Compensation [id number] 2023 Unknown [employer] PPO OOS [id number] 2023-Present [phone] [address] [place] [address] PPO [id number] 2023 Unknown [id number] 1975 Unknown [id number] Social History Date Type Detail Facility Start: 10-16-2000 Tobacco smoking stat us [facility] Smokes tobacco daily [facility] Work Phone: Start: 10-16-2000 History of tobacco use Cigarette Smo ker [facility] Work Phone: Start: 08-17-2022 End: 06-29-2023 Cigarettes smoked current (pack per day) - Reported 1 [facility] Work Phone: Start: 08-17-2022 Tobacco use and exposure Smokeless tobacco non-user [facility] Work Phone: Start: 08-17-2022 End: 08-30-2023 Alcohol intake Current drinker of alcohol (finding) [facility] Start: 05-22-2020 History SDOH Financial 5 [facility] Start: 05-22-2020 History SDOH Food Worry 1 [facility] Start: 05-22-2020 History SDOH Transpo rt Med 2 [facility] Start: 08-17-2022 Alcohol Comment 1-3 beers ever y 2-3 months. [facility] Start: 1975 Sex Assigned At Not on file [facility] Start: 08-07-2022 End: 09-13-2022 Exposure to SARS-CoV-2 (event) Not sure [facility] Work Phone: Start: 05-22-2020 End: 06-29-2023 Tobacco use panel [facility] Work Phone: How hard is it for y ou to pay for the very basics like food, housing, medical care, and heating Not hard at all [facility] Work Phone: (I/We) worried wheadan er (my/our) food would run out before (I/we) got money to buy more. Never true [facility] Work Phone: Start: 09-25-2023 Alcohol intake Ex-drinker (finding) [facility] Medical Equipment Procedure Code Equipment Code Equipment Origin al Text Equipment Identifier Dates Substitute Mastergraft Calcium Phosphate Collagen Bone Graft Putty Void - [id number] Start: 05-21-2020 Substitute Mastergraft 10cm Bone Graft Strip 12ml Spine - [id number] Start: 05-21-2020 Rau-Yx-Q-Kind Im plant - [id number] Start: 04-27-2016 Dev Bul Sasha 9x10 x23 5 Dg - [id number] Start: 05-21-2020 Stephen Viper 2 Lord otic Titanium 60mm Spinal Mis - [id number] Start: 05-21-2020 Screw Viper 6mm Titanium 45mm Bone Fix Polyaxial Fenestrate Cannulated 5.5 [id number] Start: 05-21-2020 Clinical Notes 06-16-2020 to 09-25-2023 Patient InstructionsMark Mcleod APRN.BRANDY GRAHAM - 09/25/2023 3:00 PM Jazmin Weinstein APRN.CNP - 08/30/2023 2:00 PM Anne Asencio RT(R) - 07/13/2023 3:40 PM EDTPatient Instructions Note Date & Type Note Facility 09-25-2023 Note HNO ID: [id number] Author: Mark Mcleod APRN.BRANDY GRAHAM Service: ? Author Type: Nurse Practitioner Type: Progress Notes Filed: 09/25/2023 3:55 PM Note Text: Cristela Mcnally Referred by: SELF Vasectomy (Voluntary Sterilization) Consult [facility] Vasectomy Video: [email or web address] 09/25/[facility]23 CC: Desires permanent sterilization HPI: 48 year old male states he desire permanent surgical sterilization. Reports fathering 5 children and expressly states he does not desire to father children in the future. Genitourinary history: Hx undescended testis: none Hx stone disease: none Hx UTI/prostatitis/epididimitis/STI: none - no abnormalities in sexual development - history of left inguinal hernia repair. - No genital or scrotal injury and/or surgery. - no history of urology procedures. - no history of easy bleeding or easy bruising. ROS: Sexual frequency/libido: intact, no ED Urinary sx: none Hematuria: none Several lumbar back surgeries: last one being 2019. PAST MEDICAL HISTORY Diagnosis Date Actinic cheilitis Actinic keratosis Disc degeneration, lumbar 07/30,12/28,01/24,12/22 Left inguinal hernia 12/22/2015 Low back pain with right-sided sciatica 06/16/2020 Lung nodules 04/09/2021 Spinal stenosis Spondylolisthesis, lumbar region 05/21/2020 Status post lumbar spinal fusion Tobacco use disorder 03/24/2021 PAST SURGICAL HISTORY Procedure Laterality Date CARPAL TUNNEL 1998 w/ laceration repair COLONOSCOPY SCREENING 09/22/2022 repeat in 3 years LOW BACK DISK SURGERY 05/21/2020 PAST SURGICAL HISTORY OF 07/30,12/28,01/24,12/22 HERNIATED DISC SURGERIES X 2, L4-L5 PAST SURGICAL HISTORY OF 2009 tonsil abscess RPR 1ST INGUN HRNA AGE 6 YRS/> REDUCIBLE Left 04/27/2016 TONSILLECTOMY HX 01/2016 Current Outpatient Medications Medication Sig acetaminophen (TYLENOL) 500 mg tablet Take 500 mg by mouth every 8 hours as needed. ibuprofen (MOTRIN) 200 mg tablet Take 200 mg by mouth every 6 hours as needed. Benzonatate 200 mg capsule Take 1 capsule by mouth three times daily as needed. (Patient not taking: Reported on 09/25/2023) Fluorouracil (EFUDEX) 5 % cream Apply a thin layer to the affected areas on the hands and arms twice daily for 4-6 weeks. May take a break if needed. If not red after using for the suggested length of time, please use for an additional 2 weeks. (Patient not taking: Reported on 09/25/2023) imiquimod (ALDARA) 5 % cream Apply Imiquimod 5% to the bottom lip 3 times a week for 4-6 weeks. The cream should be applied at night, ideally at least one hour before bedtime, and washed off after eight hours. (Patient not taking: Reported on 09/25/2023) No current facility-administered medications for this visit. Allergies: Dilaudid [Hydromorphone (Bulk)] and Dilaudid [Hydromorphone (Bulk)] Family Hx: Denies family history of genitourinary malignancy Social History Tobacco Use Smoking status: Every Day Packs/day: 1.00 Years: 20.00 Additional pack years: 0.00 Total pack years: 20.00 Types: Cigarettes Start date: 10/16/2000 Smokeless tobacco: Never Vaping Use Vaping Use: Former Quit date: 04/27/2020 Substance Use Topics Alcohol use: Not Currently Comment: 1-3 beers every 2-3 months. Drug use: Not Currently Types: Marijuana Review of Systems: Constitutional: No weakness, fever/chills, unexplained weight change Psychiatric: Stable mood Skin: No rashes or lesions HEENT: No blurred or double vision. No headaches. Sense of smell intact Neck: No masses or pain Chest: No SOB or cough. CVS: No chest pains or palpatations. No hx of cardiovascular disease. GI: No nausea, vomiting or abdominal pain Neurologic: No weakness or sensory changes : see HPI Musculoskeletal: chronic back pain with some Lower back limited ROM BP 140/96 (BP Site: Right Arm, BP Position: Sitting, BP Cuff Size: Regular Adult) Pulse 84 Temp 37.2 ?C (99 ?F) (Temporal) Ht 174.6 cm (5' 8.75 ) Wt 74.8 kg (165 lb) SpO2 98% BMI 24.54 kg/m? PE: General: well masculinized, well nourished male Psych: euthymic, NAD Neuro: AANDOx3 Resp: normal effort, reg rate, no wheezing Abdomen: soft, NT, no mass Inguinal: No lesions, adenopathy, or hernias Phallus: normal, circumcised, no lesions Meatus: orthotopic, patent, no discharge Scrotum: no lesions, normal rugae. Two small genital warts near the base of the penis. Vas deferens: palpable bilaterally: Right: normal palpable vas def Left: normal palpable vas def Testes: Descended, nontender, no masses bilaterally. Epididymides: Right palp,nontender Left palp,nontender Varicocele: None ASSESSMENT/PLAN: 1. Vasectomy evaluation - ICD9: V25.09, ICD10: Z30.09 (primary diagnosis) Assessment: 49 year old male desires vasectomy. - VASECTOMY Plan: Proceed to Office Based Vasectomy The patient attests that (more content not included)... [facility] 09-25-2023 Instructions Mark Mcleod, JENNIFER.SANTOS, BRANDY - 09/25/2023 3:15 PM EST May use Aldara cream for genital warts: Instructions: Apply to affected area 3x per week leave on for 6-10 hours. Do not use more than 16 weeks total. Our [facility] Scheduling Team will call you to schedule your Vasectomy Surgery appointment. Vasectomy instructions: Stop all NSAIDs, aspirin and other blood thinners 5 days prior to the vasectomy. Shave entire front of scrotum to the base of the penis the morning of the vasectomy. Risks, benefits and adverse effects of the procedure extensively discussed. Most men recover completely in less than a week. He should take the day after surgery off. Every day activities can be resumed 2 days after surgery unless the activities or your occupation is unusually vigorous or physical. You can resume sexual activity a week after vasectomy but take precautions against until sperm counts show that your semen is not free of sperm. Generally the semen is checked for sperm analysis 8 to 12 weeks after vasectomy. Your Urology Surgeon will provide you instructions on post vasectomy semen collection at your Vasectomy procedure appointment. Postvasectomy symptoms are not unusual and should subside within 72 hours of surgery. Post procedure, it is recommended to wear supportive briefs (compression briefs or jock strap) for several days after the vasectomy for scrotal support. Intermittent ice packs in the first 48-72 hours will help keep swelling and pain to a minimum. However if you experience an unusual amount of pain large swelling of the scrotum continued bleeding or fever call your surgeon or physician. Use alternative form of control until notified that his postprocedure semen analysis contained no sperm. Postprocedure care, expectations, and limitations were discussed. He voiced understanding of these instructions and stated his questions were answered. documented in this encounter [facility] 09-25-2023 History of Present illness Narrative Images from the original note were not included. Cristela Mcnally Referred by: SELF Vasectomy (Voluntary Sterilization) Consult [facility] Vasectomy Video: [email or web address] 09/25/2023 CC: Desires permanent sterilization HPI: 48 year old male states he desire permanent surgical sterilization. Reports fathering 5 children and expressly states he does not desire to father children in the future. Genitourinary history: Hx undescended testis: none Hx stone disease: none Hx UTI/prostatitis/epididimitis/STI: none - no abnormalities in sexual development - history of left inguinal hernia repair. - No genital or scrotal injury and/or surgery. - no history of urology procedures. - no history of easy bleeding or easy bruising. ROS: Sexual frequency/libido: intact, no ED Urinary sx: none Hematuria: none Several lumbar back surgeries: last one being 2019. PAST MEDICAL HISTORY Diagnosis Date Actinic cheilitis Actinic keratosis Disc degeneration, lumbar 07/30,12/28,01/24,12/22 Left inguinal hernia 12/22/2015 Low back pain with right-sided sciatica 06/16/2020 Lung nodules 04/09/2021 Spinal stenosis Spondylolisthesis, lumbar region 05/21/2020 Status post lumbar spinal fusion Tobacco use disorder 03/24/2021 PAST SURGICAL HISTORY Procedure Laterality Date CARPAL TUNNEL 1998 w/ laceration repair COLONOSCOPY SCREENING 09/22/2022 repeat in 3 years LOW BACK DISK SURGERY 05/21/2020 PAST SURGICAL HISTORY OF 07/30,12/28,01/24,12/22 HERNIATED DISC SURGERIES X 2, L4-L5 PAST SURGICAL HISTORY OF 2009 tonsil abscess RPR 1ST INGUN HRNA AGE 6 YRS/> REDUCIBLE Left 04/27/2016 TONSILLECTOMY HX 01/2016 Current Outpatient Medications Medication Sig acetaminophen (TYLENOL) 500 mg tablet Take 500 mg by mouth every 8 hours as needed. ibuprofen (MOTRIN) 200 mg tablet Take 200 mg by mouth every 6 hours as needed. Benzonatate 200 mg capsule Take 1 capsule by mouth three times daily as needed. (Patient not taking: Reported on 09/25/2023) Fluorouracil (EFUDEX) 5 % cream Apply a thin layer to the affected areas on the hands and arms twice daily for 4-6 weeks. May take a break if needed. If not red after using for the suggested length of time, please use for an additional 2 weeks. (Patient not taking: Reported on 09/25/2023) imiquimod (ALDARA) 5 % cream Apply Imiquimod 5% to the bottom lip 3 times a week for 4-6 weeks. The cream should be applied at night, ideally at least one hour before bedtime, and washed off after eight hours. (Patient not taking: Reported on 09/25/2023) No current facility-administered medications for this visit. Allergies: Dilaudid [Hydromorphone (Bulk)] and Dilaudid [Hydromorphone (Bulk)] Family Hx: Denies family history of genitourinary malignancy Social History Tobacco Use Smoking status: Every Day Packs/day: 1.00 Years: 20.00 Additional pack years: 0.00 Total pack years: 20.00 Types: Cigarettes Start date: 10/16/2000 Smokeless tobacco: Never Vaping Use Vaping Use: Former Quit date: 04/27/2020 Substance Use Topics Alcohol use: Not Currently Comment: 1-3 beers every 2-3 months. Drug use: Not Currently Types: Marijuana Review of Systems: Constitutional: No weakness, fever/chills, unexplained weight change Psychiatric: Stable mood Skin: No rashes or lesions HEENT: No blurred or double vision. No headaches. Sense of smell intact Neck: No masses or pain Chest: No SOB or cough. CVS: No chest pains or palpatations. No hx of cardiovascular disease. GI: No nausea, vomiting or abdominal pain Neurologic: No weakness or sensory changes : see HPI Musculoskeletal: chronic back pain with some Lower back limited ROM BP 140/96 (BP Site: Right Arm, BP Position: Sitting, BP Cuff Size: Regular Adult) Pulse 84 Temp 37.2 C (99 F) (Temporal) Ht 174.6 cm (5' 8.75 ) Wt 74.8 kg (165 lb) SpO2 98% BMI 24.54 kg/m PE: General: well masculinized, well nourished male Psych: euthymic, NAD Neuro: A&Ox3 Resp: normal effort, reg rate, no wheezing Abdomen: soft, NT, no mass Inguinal: No lesions, adenopathy, or hernias Phallus: normal, circumcised, no lesions Meatus: orthotopic, patent, no discharge Scrotum: no lesions, normal rugae. Two small genital warts near the base of the penis. Vas deferens: palpable bilaterally: Right: normal palpable vas def Left: normal palpable vas def Testes: Descended, nontender, no masses bilaterally. Epididymides: Right palp,nontender Left palp,nontender Varicocele: None ASSESSMENT/PLAN: 1. Vasectomy evaluation - ICD9: V25.09, ICD10: Z30.09 (primary diagnosis) Assessment: 49 year old male desires vasectomy. - VASECTOMY Plan: Proceed to Office Based Vasectomy The patient attests that he watched and understood the [facility] Vasectomy video and read and understood the No-Scalpel Vasectomy pamphlet. He was instructed to stop all NSAIDs, aspirin and other blood thinners 5 days prior to the vasectomy. He was instructed to shave entire front of scrotum to the base of the penis the morning of the vasectomy. RBA of the procedure extensively discussed. Postprocedure care, expectations, and limitations were discussed. He voiced understanding of these instructions and stated his questions were answered. I personally counseled this patient about the following and he voiced understanding: a) Vasectomy is a permanent and irreversible form of sterilization b) 1:1,000 rate of recanalization which can results in the return of sperm into the ejaculate after vasectomy c) Patient must use alternative form of control until he is notified that his postprocedure semen analysis contained no sperm. - VASECTOMY 2. Elevated blood pressure reading without diagnosis of hypertension - ICD9: 796.2, ICD10: R03.0 - Denies SOB or CP. Feeling well. - Encouraged dietary sodium restriction/DASH diet - Recommended regular aerobic exercise. - Recommend home blood pressure monitoring, to bring results in on next visit - Follow up in 1 month for BP recheck with PCP. - Goal of BP <130/80 3. Genital warts - ICD9: 078.11, ICD10: A63.0 - has been treating this with OTC wart cream. - He has a Rx for Aldara which I recommended he switch to. Apply 3x week for no more than 6 weeks. - Continue to monitor. - RTC if they do not resolve. RTC for any worsening of symptoms. I spent a total of 35 minutes on the date of the service which included preparing to see the patient, [id number] patient care, completing clinical documentation, performing a medically appropriate examination, counseling and educating the patient/family/caregiver and ordering medications, tests, or procedures. Mark Mcleod DNP, CNP Department of Urology [facility] documented in this encounter [facility] 08-30-2023 Note HNO ID: [id number] Author: Jazmin Bhakta APRN.CNP Service: ? Author Type: Nurse Practitioner Type: Progress Notes Filed: 08/30/2023 2:47 PM Note Text: NEUROSURGERY FOLLOW UP OFFICE NOTE Jazmin Bhakta APRN.CNP Date of visit: August 30, 2023 Patient Name: Mr.Thomas Zeina Mcnally Date of : 1975 Current Age: [age] year old Sex: male MRN/E# [id number] Last Office Visit: January 26, 2021 CHIEF COMPLAINT: Patient presents with: Established Patient HPI: The patient presents for a follow up with imaging (XR L-spine) for evaluation. This is a 48-year-old male with a PMHx of low back issues and a history of multiple lumbar spinal surgeries . He is a former patient of Dr. Anderson and was seen by him in the office in January 2021. He had undergone another lumbar fusion and was seen for a postoperative visit. He reported improvement of his preoperative symptoms with residual low back pain that worsened at the end of the day. He continued to have numbness and tingling in the lateral aspect of the right calf and toes which was unchanged. X-rays were reviewed and showed no evidence of hardware complication. Overall he was pleased with his surgical outcome. Given his chronic low back pain recommendation was to be seen by pain management and to follow-up in 6 months with repeat x-rays. Today he states he developed right-sided low back pain 2 weeks ago after putting up [place] lights. He reports the following day he felt a lump on the right side of his low back that was tender to touch. There was no redness, drainage, temperature change. Since then lump has resolved but he continues to have tenderness to the site. He reports persistent paresthesias to the right lower extremity with weakness. He denies any new bowel or bladder issues or ambulation problems. He presents for image review, evaluation and plan of care. SYMPTOMS: Right-sided low back pain PREVIOUS CONSERVATIVE TREATMENTS: OTC NSAIDs - Ibuprofen PREVIOUS SURGERY: SURGERY #1: L5-S1 microdiscectomy per Dr. Batres in 12/22. SURGERY #2: Re-do L5-S1 microdiscectomy per Dr. Batres in 01/24. SURGERY #3: L5-S1 transforaminal lumbar interbody fusion per Dr. Batres in 12/28. SURGERY #4: Re-do L5-S1 TLIF wit ALIF for non-fusion in [address] Batres. SURGERY #5: Lumbar reexploration, removal of hardware, L4- L5 TLIF with PSF L4-S1 on 05/21/[address] Anderson. 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 PAIN EVALUATION 08/30/2023 1347 Pain Level: 7 Pain Location: Back-Lower Description: Spasm;Aching;Tightness;Throbbing Duration Units: Weeks Frequency: Continuous Intervention/Comfort measure: Medication PAST MEDICAL HISTORY Diagnosis Date Disc degeneration, lumbar 07/30,12/28,01/24,12/22 Left inguinal hernia 12/22/2015 Low back pain with right-sided sciatica 06/16/2020 Lung nodules 04/09/2021 Spinal stenosis Spondylolisthesis, lumbar region 05/21/2020 Tobacco use disorder 03/24/2021 PAST SURGICAL HISTORY Procedure Laterality Date CARPAL TUNNEL 1998 w/ laceration repair COLONOSCOPY SCREENING 09/22/2022 repeat in 3 years LOW BACK DISK SURGERY 05/21/2020 PAST SURGICAL HISTORY OF 07/30,12/28,01/24,12/22 HERNIATED DISC SURGERIES X 2, L4-L5 PAST SURGICAL HISTORY OF 2009 tonsil abscess RPR 1ST INGUN HRNA AGE 6 YRS/> REDUCIBLE Left 04/27/2016 TONSILLECTOMY HX 01/2016 FAMILY HISTORY Problem Relation Age of Onset No Known Problems Mother Prostate Cancer Father 40 age 60 Skin Cancer Brother Lung Cancer Paternal Grandmother ALLERGIES Allergen Reactions Dilaudid [Hydromorp* Vomiting Dilaudid [Hydromorp* GI Upset vomit Current Outpatient Medications Medication Sig Dispense Refill albuterol HFA (PROVENTIL HFA, VENTOLIN HFA) 90 mcg/actuation inhaler EVERY 4 HOURS NEEDED Fjlnlnqarkzvhcx-Fjqdtttty-ZR 2-30-10 mg/5 mL syrup Take 10 mL (Oral) every 4-6 hours for 5 days doxycycline hyclate (VIBRAMYCIN) 100 mg capsule Take 1 capsule by mouth every afternoon. Benzonatate 200 mg capsule Take 1 capsule by mouth three times daily as needed. 21 capsule 0 Fluorouracil (EFUDEX) 5 % cream Apply a thin layer to the affected areas on the hands and arms twice daily for 4-6 weeks. May take a break if needed. If not red after using for the suggested length of time, please use for an additional 2 weeks. 40 g 3 imiquimod (ALDARA) 5 % cream Apply Imiquimod 5% to the bottom lip 3 times a week for 4-6 weeks. The cream should be applied at night, ideally at least one hour before bedtime, and washed off after eight hours. 12 Each 3 acetaminophen (TYLENOL) 500 mg tablet Take 500 mg by mouth every 8 hours as needed. ibuprofen (MOTRIN) 200 mg tablet Take 200 mg by mouth every 6 hours as needed. methylPREDNISolone (MEDROL, REBECCA,) 4 mg Dose-Pack As Instructed per package 1 tablet 0 No current facility-administered med (more content not included)... [facility] 08-30-2023 History of Present illness Narrative NEUROSURGERY FOLLOW UP OFFICE NOTE Jazmin Bhakta APRN.CNP Date of visit: August 30, 2023 Patient Name: Mr.Thomas Zeina Mcnally Date of : 1975 Current Age: [age] year old Sex: male MRN/E# [id number] Last Office Visit: January 26, 2021 CHIEF COMPLAINT: Patient presents with: Established Patient HPI: The patient presents for a follow up with imaging (XR L-spine) for evaluation. This is a 48-year-old male with a PMHx of low back issues and a history of multiple lumbar spinal surgeries . He is a former patient of Dr. Anderson and was seen by him in the office in January 2021. He had undergone another lumbar fusion and was seen for a postoperative visit. He reported improvement of his preoperative symptoms with residual low back pain that worsened at the end of the day. He continued to have numbness and tingling in the lateral aspect of the right calf and toes which was unchanged. X-rays were reviewed and showed no evidence of hardware complication. Overall he was pleased with his surgical outcome. Given his chronic low back pain recommendation was to be seen by pain management and to follow-up in 6 months with repeat x-rays. Today he states he developed right-sided low back pain 2 weeks ago after putting up [place] lights. He reports the following day he felt a lump on the right side of his low back that was tender to touch. There was no redness, drainage, temperature change. Since then lump has resolved but he continues to have tenderness to the site. He reports persistent paresthesias to the right lower extremity with weakness. He denies any new bowel or bladder issues or ambulation problems. He presents for image review, evaluation and plan of care. SYMPTOMS: Right-sided low back pain PREVIOUS CONSERVATIVE TREATMENTS: OTC NSAIDs - Ibuprofen PREVIOUS SURGERY: SURGERY #1: L5-S1 microdiscectomy per Dr. Batres in 12/22. SURGERY #2: Re-do L5-S1 microdiscectomy per Dr. Batres in 01/24. SURGERY #3: L5-S1 transforaminal lumbar interbody fusion per Dr. Batres in 12/28. SURGERY #4: Re-do L5-S1 TLIF wit ALIF for non-fusion [place] [address] Batres. SURGERY #5: Lumbar reexploration, removal of hardware, L4- L5 TLIF with PSF L4-S1 on 05/21/[address] Anderson. 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 PAIN EVALUATION 08/30/2023 1347 Pain Level: 7 Pain Location: Back-Lower Description: Spasm;Aching;Tightness;Throbbing Duration Units: Weeks Frequency: Continuous Intervention/Comfort measure: Medication PAST MEDICAL HISTORY Diagnosis Date Disc degeneration, lumbar 07/30,12/28,01/24,12/22 Left inguinal hernia 12/22/2015 Low back pain with right-sided sciatica 06/16/2020 Lung nodules 04/09/2021 Spinal stenosis Spondylolisthesis, lumbar region 05/21/2020 Tobacco use disorder 03/24/2021 PAST SURGICAL HISTORY Procedure Laterality Date CARPAL TUNNEL 1998 w/ laceration repair COLONOSCOPY SCREENING 09/22/2022 repeat in 3 years LOW BACK DISK SURGERY 05/21/2020 PAST SURGICAL HISTORY OF 07/30,12/28,01/24,12/22 HERNIATED DISC SURGERIES X 2, L4-L5 PAST SURGICAL HISTORY OF 2009 tonsil abscess RPR 1ST INGUN HRNA AGE 6 YRS/> REDUCIBLE Left 04/27/2016 TONSILLECTOMY HX 01/2016 FAMILY HISTORY Problem Relation Age of Onset No Known Problems Mother Prostate Cancer Father 40 age 60 Skin Cancer Brother Lung Cancer Paternal Grandmother ALLERGIES Allergen Reactions Dilaudid [Hydromorp* Vomiting Dilaudid [Hydromorp* GI Upset vomit Current Outpatient Medications Medication Sig Dispense Refill albuterol HFA (PROVENTIL HFA, VENTOLIN HFA) 90 mcg/actuation inhaler EVERY 4 HOURS NEEDED Dzozhrwfnhtanmp-Wrraopdmp-NA 2-30-10 mg/5 mL syrup Take 10 mL (Oral) every 4-6 hours for 5 days doxycycline hyclate (VIBRAMYCIN) 100 mg capsule Take 1 capsule by mouth every afternoon. Benzonatate 200 mg capsule Take 1 capsule by mouth three times daily as needed. 21 capsule 0 Fluorouracil (EFUDEX) 5 % cream Apply a thin layer to the affected areas on the hands and arms twice daily for 4-6 weeks. May take a break if needed. If not red after using for the suggested length of time, please use for an additional 2 weeks. 40 g 3 imiquimod (ALDARA) 5 % cream Apply Imiquimod 5% to the bottom lip 3 times a week for 4-6 weeks. The cream should be applied at night, ideally at least one hour before bedtime, and washed off after eight hours. 12 Each 3 acetaminophen (TYLENOL) 500 mg tablet Take 500 mg by mouth every 8 hours as needed. ibuprofen (MOTRIN) 200 mg tablet Take 200 mg by mouth every 6 hours as needed. methylPREDNISolone (MEDROL, REBECCA,) 4 mg Dose-Pack As Instructed per package 1 tablet 0 No current facility-administered medications for this visit. REVIEW OF SYSTEMS: Review of Systems Constitutional: Negative for chills, diaphoresis (Negative for night sweats.) and fever. HENT: Negative for ear discharge and rhinorrhea. Eyes: Negative for discharge. Respiratory: Negative for cough, shortness of breath and wheezing. Cardiovascular: Negative for chest pain, palpitations and leg swelling. Gastrointestinal: Negative for constipation, diarrhea, nausea and vomiting. Endocrine: Negative for cold intolerance and heat intolerance. Genitourinary: Negative for frequency. Negative for urinary incontinence and urinary retention. Musculoskeletal: Positive for back pain and gait problem. Negative for joint swelling, myalgias and neck pain. Skin: Negative for rash (Negative for hives and skin lesions.). Allergic/Immunologic: Negative for environmental allergies and food allergies. Negative for contact allergy, seasonal allergies. Neurological: Positive for numbness (Negative for numbness in extremities.). Negative for dizziness, seizures, syncope, weakness, light-headedness and headaches. Hematological: Does not bruise/bleed easily. Psychiatric/Behavioral: The patient is not nervous/anxious. Negative for depression. OBJECTIVE: BP 124/82 Pulse 77 Ht 5' 9 (1.75m) Wt 165 lb 12.6 oz (75.2kg) SpO2 98% BMI 24.47 kg/(m^2). PHYSICAL EXAM: Mental State : Alert, memory function unremarkable. Attention span and concentration normal for patient's age. Speech normal, no receptive or expressive speech deficit. Recent and remote memory normal. Orientation : Oriented to person, place and time. Higher Cortical Function : Intact speech and language. Spontaneous speech and comprehension normal. Fund of knowledge intact for pt level of education. Cranial Nerves : II: No visual field cut no blurring, Makes and sustains eye contact III, IV, : Normal, no double vision or drooping. Pupils equal and reactive to light. Extraocular muscles intact. No nystagmus V: Normal sensation on the face, normal jaw movements VII: No paresis on either side VIII: No gross hearing deficit IX: Good and equal shoulder shrugs XII: Tongue midline, no fasciculations Sensory: SILT. Normal Sensation in upper and lower extremities and trunk to touch and noxious stimuli. Motor: Normal muscle tone and bulk. No tremor or uncontrollable movements. No spasticity or tremor. Strength: Upper Extremities : R L Deltoid 5/5 5/5 Biceps 5/5 5/5 Triceps 5/5 5/5 Wrist Ext 5/5 5/5 Wrist Flx 5/5 5/5 Hand Int 5/5 5/5 Lower Extremities : Hip Flexors 4/5 4.5/5 Hip Extensors 4/5 5/5 Hip Abductors 4/5 5/5 Straight leg Pos 20 deg Pos 35 deg Ankle dorsiflex 5/5 5/5 Ankle Plantar 5/5 5/5 Heel Walking intact intact Toe Walking intact intact Reflexes : Biceps 2+ 2+ Triceps 2+ 2+ Wrist 2+ 2+ Patellar 2+ 2+ Achilles 2+ 2+ Park's Neg Neg Tinel's Neg Neg Phalen's Neg Neg Cerebellar Function : Normal finger to nose. Normal rapid alternating movements. No ataxia. Negative Romberg. Gait and Station: Antalgic gait. No assistive device usage. Pulmonary: Lungs without cough, audible wheeze. Respirations unlabored. Cardiac: Regular rate and rhythm. No murmer, gallop or rub. DATA REVIEW: IMAGING STUDIES: XR L-spine 4V performed today 08/30/23 demonstrates: In process no evidence of hardware complication. Personal review of medical records: I reviewed with the patient, history, physical exam, the images and the chart. ASSESSMENT/PLAN: (M43.16) Spondylolisthesis, lumbar region (primary encounter diagnosis) (Z98.1) Status post lumbar spinal fusion Comment: The patient presents today for a follow-up with x-rays of the lumbar spine. He is a former patient of Dr. Anderson and has a history of multiple spinal surgeries with fusion. His most recent surgery was in May 2020. He has always had chronic low back pain with numbness and tingling to the right lower extremity in the L4-L5 distribution. Today he states he developed recurrent back issues when tempting to put [place] lights up 2 weeks ago. Symptoms have not resolved which prompted a visit to an outside ED. No new imaging was obtained and he was treated with oral and IV medications with some benefit. Today he states he continues to have this right-sided low back pain. Neurologically he is noted to have weakness in the bilateral lower extremities with the right being worse than the left however this may be pain related. He is able to ambulate with an antalgic gait without an assistive device. Visually I do not see any evidence of edema, erythema or drainage on his lumbar spine. X-rays were reviewed and showed no evidence of hardware complication. Given his persistent pain I will provide him with with a prescription for an oral steroid. I told him to contact me early next week and if his symptoms have not improved we will consider going forward with an MRI to rule out nerve impingement or disc reherniation. All of his questions and concerns were addressed in detail. Plan: methylPREDNISolone (MEDROL, REBECCA,) 4 mg Dose-Pack Jazmin Bhakta APRN-SANTOS Neurosurgery Nurse Practitioner [facility] FOLLOW UP: Return for new or worsening symptoms. Please Note: This note has been partially generated using [employer], a speech recognition software program, and may contain errors including punctuation, grammar, spelling, gender, and inappropriate words or phrases that pertain to the system. documented in this encounter [facility] 07-13-2023 Note HNO ID: [id number] Author: Anne Pearson RT(R) Service: ? 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 FALL SCREENING: Has the patient had 2 falls in the last year or 1 fall with injury or currently using an Ambulatory Assistive Device (Walker, Cane, Wheelchair, Crutches, etc.)? No PATIENT GENDER DATA: Male PATIENT RELEVANT IMPLANT DATA REVIEWED: Yes RADIOLOGY DEPARTMENT: CT; Exam(s) Completed: Chest PERIPHERAL IV DATA: Not applicable SIGNED BY: RT Mary Carmen(R) July 13, 2023 4:03 PM [facility] 07-13-2023 History of Present illness Narrative Radiology Service Progress Note PATIENT NAME: Cristela Mcnally DATE OF SERVICE: July 13, 2023 TIME: 4:03 PM PATIENT IDENTITY VERIFICATION COMPLETED USING TWO (2) IDENTIFIERS: Name and Date of confirmed by patient verbally. FALL SCREENING: Has the patient had 2 falls in the last year or 1 fall with injury or currently using an Ambulatory Assistive Device (Walker, Cane, Wheelchair, Crutches, etc.)? No PATIENT GENDER DATA: Male PATIENT RELEVANT IMPLANT DATA REVIEWED: Yes RADIOLOGY DEPARTMENT: CT; Exam(s) Completed: Chest PERIPHERAL IV DATA: Not applicable SIGNED BY: RT Mary Carmen(R) July 13, 2023 4:03 PM documented in this encounter [facility] 06-29-2023 Note HNO ID: [id number] Author: Ginger Torres APRN.CLEARING HAND Service: ? Author Type: Nurse Practitioner Type: Progress Notes Filed: 06/29/2023 8:56 AM Note Text: CC: Patient presents with: ER F/U: [facility] Monday/ SOB, cough HPI Cristela Mcnally is a 48 year old male who presents today for above. Patient was seen in [facility] ER on 06/24 for cough and SOB x 1 week that was worsening. Chest x-ray ws negative. COVID and flu negatie. There was improvement with nebulizer. He smokes 1 PPD for years so he was treated as possible COPD exacerbation with prednisone 50 mg x 5 days, nebulizer, Doxycycline and cough syrup. Today patient reports minimal improvement in body aches and cough. Still SOB, mostly with coughing fits. Nebulizer helps a little but cough syrup does not. He denies fever, chills, sweats, chest pain, edema, palpitations. REVIEW OF SYSTEMS See HPI PAST MEDICAL HISTORY Diagnosis Date Disc degeneration, lumbar 07/30,12/28,01/24,12/22 Left inguinal hernia 12/22/2015 Low back pain with right-sided sciatica 06/16/2020 Lung nodules 04/09/2021 Spinal stenosis Spondylolisthesis, lumbar region 05/21/2020 Tobacco use disorder 03/24/2021 PAST SURGICAL HISTORY Procedure Laterality Date CARPAL TUNNEL 1998 w/ laceration repair COLONOSCOPY SCREENING 09/22/2022 repeat in 3 years LOW BACK DISK SURGERY 05/21/2020 PAST SURGICAL HISTORY OF 07/30,12/28,01/24,12/22 HERNIATED DISC SURGERIES X 2, L4-L5 PAST SURGICAL HISTORY OF 2009 tonsil abscess RPR 1ST INGUN HRNA AGE 6 YRS/> REDUCIBLE Left 04/27/2016 TONSILLECTOMY HX 01/2016 ALLERGIES Dilaudid [Hydromorphone (Bulk)] and Dilaudid [Hydromorphone (Bulk)] MEDICATIONS acetaminophen (TYLENOL) 500 mg tablet Take 500 mg by mouth every 8 hours as needed. ibuprofen (MOTRIN) 200 mg tablet Take 200 mg by mouth every 6 hours as needed. Fluorouracil (EFUDEX) 5 % cream Apply a thin layer to the affected areas on the hands and arms twice daily for 4-6 weeks. May take a break if needed. If not red after using for the suggested length of time, please use for an additional 2 weeks. (Patient not taking: Reported on 06/29/2023) imiquimod (ALDARA) 5 % cream Apply Imiquimod 5% to the bottom lip 3 times a week for 4-6 weeks. The cream should be applied at night, ideally at least one hour before bedtime, and washed off after eight hours. (Patient not taking: Reported on 06/29/2023) FAMILY HISTORY Problem Relation Age of Onset No Known Problems Mother Prostate Cancer Father 40 age 60 Skin Cancer Brother Lung Cancer Paternal Grandmother Social History Tobacco Use Smoking status: Every Day Packs/day: 1.00 Years: 20.00 Additional pack years: 0.00 Total pack years: 20.00 Types: Cigarettes Start date: 10/16/2000 Smokeless tobacco: Never Vaping Use Vaping Use: Former Quit date: 04/27/2020 Substance Use Topics Alcohol use: Yes Comment: 1-3 beers every 2-3 months. Drug use: No PHYSICAL EXAM BP 114/76 Pulse 85 Temp 36.3 ?C (97.3 ?F) Resp 18 Wt 74.8 kg (165 lb) SpO2 98% BMI 24.37 kg/m? Physical Exam Constitutional: General: He is not in acute distress. Appearance: He is ill-appearing. Cardiovascular: Rate and Rhythm: Normal rate and regular rhythm. Pulses: Normal pulses. Heart sounds: Normal heart sounds. No murmur heard. Pulmonary: Effort: Pulmonary effort is normal. No tachypnea, accessory muscle usage or respiratory distress. Breath sounds: No decreased air movement. Wheezing present. No rhonchi or rales. Comments: Diffuse wheezing posterior lung mauro. Musculoskeletal: Right lower leg: No edema. Left lower leg: No edema. Neurological: Mental Status: He is alert. DATA REVIEWED: Outside chart from [facility] ER reviewed. ASSESSMENT/PLAN: 1. Respiratory infection - ICD9: 519.8, ICD10: J98.8 (primary diagnosis) Differentials include COPD exacerbation (although never formally evaluated for this), pneumonia, bronchitis - start treatment with Zithromax - continue with Doxycycline and nebulizers - Tessalon Perles as needed, also recommend Mucinex OTC - follow-up in 2-3 days if no improvement or sooner if worsening 2. Lung nodules - ICD9: 793.19, ICD10: R91.8 CT chest 09/2021 showing lung nodules, he was supposed to have repeat in one year but never scheduled - check CT CHEST WO IVCON Prescription instructions reviewed with patient as applicable. Potential red flag symptoms discussed with the patient. Reviewed appropriate action plan to take if red flag symptoms occur. Patient agreeable to treatment plan. Ginger Torres APRN.CLEARING HAND [facility] 10-21-2022 Miscellaneous Notes Called and left message for patient to call office back for results from colonoscopy done by Dr Blake. See note below. HM, History and recall letter done. Please let patient know pathology returned as a tubular adenoma-benign, but premalignant type of polyp. Recommend repeat colonoscopy in 3 years based on size and pathology of polyp. Please update HM and surg history and generate a recall letter Patient had colonoscopy 09/22/2022 with specimens taken. Patient did not keep follow up appointments to discuss results. Please review and advise. Thank you. Lorin Delcid LPN documented in this encounter [facility] 09-30-2022 Instructions Lina Sweeney PA-C - 09/30/2022 11:14 AM EST [facility] DERMATOLOGY DEPARTMENT Preventing harmful UV exposure is joya to reducing your chances of skin cancer. Recommend avoiding unecessary sun exposure, seeking shade where possible, wearing protective clothing and applying sunscreen regularly. Recommend daily use of Broad Spectrum sunscreen at least SPF 30+. Sunscreen should be reapplied every 2 hours you are out in the sun. It should be reapplied every hour if you are sweating or swimming. This will help protect against sunburn, skin cancer and premature aging. Monthly self-examinations are recommended. Should any moles change in size, shape or color, bleed or become tender, or if you see a spot that looks suspicious, please contact the office for evaluation sooner than your interval appointment. Sun protection You need to protect your skin from the sun every day, even when it's cloudy. That's because the sun's damaging ultraviolet A (UVA) and ultraviolet B (UVB) rays go right through clouds. Too much sun can make your skin wrinkly and might even give you skin cancer. To protect yourself: Use sunscreen with a sun protection factor (SPF) 30 or above and reapply every 2 hours Sunscreens are not an alternative to clothing and shade, rather they offer additional protection. No sunscreen will provide 100% protection. Look for a sunscreen that protects you from both UVA and UVB rays. When a sunscreen protects against both, the bottle should say the sunscreen offers broad-spectrum sun protection (if you want to make sure, ingredients should include zinc oxide or avobenzone). If you have eczema or sensitive skin a mineral sunscreen would be ideal for your skin type (should include zinc oxide and titanium dioxide) Always make sure the bottle hasn t , as sunscreens loose efficacy when Additional sun protection can be achieved by wearing a rash guards, hat, sunglasses, and clothes that cover your arms and legs. You can make your own clothes sun protective with Sun Guard Laundry Treatment UV Protectant (for sale on [employer]), just with one laundry cycle with Sun Guard gives clothing sun protection for 20 future washes and does not change the way your clothes look or feel. Seek shade when the sun's rays are strongest, between 10 a.m. and 2 p.m. Do not use tanning beds Keep babies and young children out of direct sunlight. Children should use rash guards during outdoor activities. Check out: www.[employer] - sun protective clothing and hats with built in UV protection Efudex General Information: Efudex is used as treatment to selectively destroy pre-cancerous lesions (sun-damaged cells) in the skin while retaining the normal healthy skin cells. Efudex will cause inflammation in the skin. This can include redness, soreness, oozing, crusting and scabs. After completion of treatment, this type of reaction should resolve over a few weeks. If you have severe sun-damage, additional courses of treatment may be required in the future. Efudex Application Instructions: 1) Cleanse affected area with gentle cleanser (Neutrogena or Cetaphil) 2) Dry with a clean towel 3) Apply a thin layer of Efudex cream to the entire treatment area 4) Wash hands thoroughly after application 5) After 20 minutes, you may apply moisturizers and/or make up as part of your usual skin routine Repeat this twice daily (Morning and at Night) for 2-4 weeks, as tolerated. Helpful Tips: You may discontinue use of the medication for a day or two off if the area becomes too painful. Once the skin settles, pelase continue twice daily application in order to complete the course of treatment. You may use Vaseline/Aquaphor as needed during the day for sores or scaly skin. You may apply ice packs to the area to assist with any swelling that is the product of Efudex use. Efudex makes your skin more sensitive to the sun and may cause a blistering, painful reaction if it becomes exposed to sun. AVOID SUN EXPOSURE on the treated areas by limiting sun exposure, wearing protective clothing, and frequent use of sunscreens. If you experience a severe reaction, there is a risk of prolonged inflammation and delayed healing. There is also a small risk of changes in skin pigmentation and scarring. Signs of fluorouracil systemic toxicity include fever and chills, nausea and vomiting, diarrhea, anemia, neutropenia, thrombocytopenia, abdominal pain, generalized pain, and discomfort. If you have concerns about the severity of the treatment site reaction or if you are unsure if you should continue treatment, please contact the office. Follow up will be needed, generally 4 weeks following the last application of the cream. Imiquimod Instructions How to use? Read the Patient Information Leaflet provided by your pharmacist before you start using imiquimod and each time you get a refill If you have any questions, ask your doctor or pharmacist Use this medication on the skin only Apply this medication to the affected area(s) as directed by your doctor, usually just before you go to sleep for the night If you are using the single-use packets, use a new packet for each dose If you are using the pump, prime the pump as directed before using it for the first time Before applying, wash your hands and the area to be treated with mild soap and water Dry the area well Apply a thin layer of medication on the affected area(s) as directed and rub in Wash your hands with soap and water after each application Do not cover the treated area with bandages or waterproof coverings However, you may cover the area with cotton gauze, or wear cotton underwear if treating the genital area Leave the cream on overnight, usually for about 8 hours if treating actinic keratoses or basal cell carcinoma, or 6 to 10 hours for warts Do not shower or bathe during this time In the morning, wash the treated area with soap and water to remove the cream Do not leave imiquimod cream on longer than prescribed The dosage and length of treatment is based on your medical condition and response to treatment When treating actinic keratoses, this medication is usually applied twice a week for 16 weeks When treating superficial basal cell carcinoma, this medication is usually applied 5 times a week for 6 weeks When treating warts, this medication is usually applied 3 times a week for up to 16 weeks Use this medication regularly to get the most benefit from it To help you remember, it may help to [place] your calendar Do not apply this medication in the eyes, nose, mouth, rectum, or vagina If you get this medication in those areas, flush with plenty of water If irritation occurs, contact your doctor right away Tell your doctor if your condition lasts or gets worse, or if new growths appear during treatment. documented in this encounter [facility] 09-30-2022 History of Present illness Narrative Consultation requested by Dr. Joshua Washington for an opinion regarding the evaluation and treatment of changing pigmented skin lesion. My final recommendations will be communicated back to the requesting physician by way of shared medical record or letter via [place] mail. SKIN EXAM NEW CC: This patient is a 47 year old male. Patient presents with: Waist Up Skin Check HPI: Patient presents today for a waist up skin check. 1) Lesion of concern on the chest Present for ~ 6 months, has resolved since making appointment Associated symptoms: none Changing in color: no Changing in size no Patient has no other concerns today. -Personal history of skin cancer or atypical moles: No -Personal history of skin disease: No -History of blistering sunburns/tanning bed use: Yes, tanning bed use years ago -Family history of skin cancer: Yes, paternal uncle (unknown type) -History of organ transplant/immunosuppressed: No -Pacemaker or defibrillator: No Last visit to a business process analyst: New SOC: Social History Tobacco Use Smoking status: Every Day Packs/day: 1.00 Years: 20.00 Pack years: 20.00 Types: Cigarettes Start date: 10/16/2000 Smokeless tobacco: Never Vaping Use Vaping Use: Former Quit date: 04/27/2020 Substance Use Topics Alcohol use: Yes Comment: 1-3 beers every 2-3 months. Drug use: No MEDS: Current outpatient prescriptions: Current Outpatient Medications on File Prior to Visit Medication Sig acetaminophen (TYLENOL) 500 mg tablet Take 500 mg by mouth every 8 hours as needed. ibuprofen (MOTRIN) 200 mg tablet Take 200 mg by mouth every 6 hours as needed. No current facility-administered medications on file prior to visit. ALLERGY: ALLERGIES Allergen Reactions Dilaudid [Hydromorp* Vomiting Dilaudid [Hydromorp* GI Upset vomit REVIEW OF SYSTEMS: Patient feels well and denies any recent fevers, chills, or nightsweats. PHYSICAL EXAM: The patient is a pleasant male in no distress. Patient appears healthy, well developed, well nourished and in otherwise good health. Alert and oriented x 3. A skin exam was done of the scalp, face including eyelids and lips, ears, neck, chest, back, abdomen, bilateral upper extremities including digits. Saunders Skin Type: II IMPRESSION: Left Forearm - Posterior, Left Hand - Posterior, Left Wrist - Posterior, Right Forearm - Posterior, Right Hand - Posterior, Right Wrist - Posterior [place] scaly papules scattered throughout Mid [place] Lip Scaly papules Few scattered brown stuck on papules and plaques on the head, trunk and upper extremities Regular and symmetric brown macules and papules on the head, trunk and upper extremities Scattered reticulated light lewis macules in sun distribution Scattered small angel red papules throughout A/P: 1. Actinic keratosis (8) Left Wrist - Posterior; Right Wrist - Posterior; Left Hand - Posterior; Right Hand - Posterior; Left Forearm - Posterior; Right Forearm - Posterior; Right Forehead (2) Discussed etiology and possibility of AK transformation to SCC. Discussed treatment with 5-fluorouracil (efudex) - patient is agreeable. Treatment: - Fluorouracil (EFUDEX) 5 % cream - Left Forearm - Posterior, Left Hand - Posterior, Left Wrist - Posterior, Right Forearm - Posterior, Right Hand - Posterior, Right Wrist - Posterior Apply a thin layer to the affected areas on the hands and arms twice daily for 4-6 weeks. May take a break if needed. If not red after using for the suggested length of time, please use for an additional 2 weeks. R/b/a for the medication(s) including possible side effects discussed and reviewed with patient. Discussed side effects including expected redness, crusting and irritation; advised to discontinue and contact office if skin becomes painful or ulcerated. Advised patient to avoid sun exposure, wear sun protective clothing and sunscreen. CRYOTHERAPY SKIN LESION - Right Forehead (2) Complexity: simple Destruction method: cryotherapy Informed consent: discussed and consent obtained Timeout: patient name, date of , surgical site, and procedure verified Lesion destroyed using liquid nitrogen: Yes Region frozen until ice ball extended beyond lesion: Yes Cryotherapy cycles: 2 Outcome: patient tolerated procedure well with no complications Post-procedure details: wound care instructions given 2. 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 Treatment: - imiquimod (ALDARA) 5 % cream - Mid [place] Lip Apply Imiquimod 5% to the bottom lip 3 times a week for 4-6 weeks. The cream should be applied at night, ideally at least one hour before bedtime, and washed off after eight hours. R/b/a for the medication(s) including possible side effects discussed and reviewed with patient. 3. Skin cancer screening - seborrheic keratoses, multiple benign nevi, solar lentigines, angel angiomas Discussed etiology, educated and reassured. Sunscreen (SPF 30 or higher) and sun protection recommended. Should any areas change in size, shape or color, bleed or become tender, the patient will contact the office for evaluation sooner than their interval appointment. Patient verbalizes understanding and agrees with treatment plan. Follow up 6 weeks after finishing treatment with Efudex, for a FBSE in 1 year and PRN. Intake completed by [place]ia Varela LPN I agree with the Chief Complaint, ROS, and Past Histories independently gathered by the clinical direct support staff and the remaining scribed note accurately describes my personal service to the patient. Lina Sweeney PA-C September 30, 2022 12:34 PM documented in this encounter [facility] 09-22-2022 Note HNO ID: [id number] Author: Greg Brian RN Service: ? Author Type: Registered Nurse Type: Nursing Progress Note Filed: 09/22/2022 4:19 PM Note Text: Discharge instructions given to patient and his Julia with voiced understanding. [facility] 09-06-2022 History of Present illness Narrative Episode Visit Count: 3 Therapist That Will Accept/Oversee The Plan Of Care: Joaquín Torres PT Start of Care Date: 08/19/22 Onset Date: 02/16/22 Patient Identified by Name and Date of : Yes REHABILITATION AND SPORTS THERAPY PHYSICAL THERAPY TREATMENT NOTE ASSESSMENT: Cristela Mcnally tolerated the session with decreased symptoms. He demonstrated improvements in pain and headache. The patient will continue to benefit from ongoing skilled physical therapy to progress toward set goals. PLAN FOR NEXT VISIT: Review, correct and progress HEP to tolerance. Continue with postural stretching and strengthening for cervical ROM, pain control and strength. Continue use of manual therapy prn pending effectiveness of today's session. SUBJECTIVE: Patient Reason for Visit: Pt reports that overall he is feeling approximately the same. He reports that he had a really bad week last week without explanation. He reports that last week his back went out and he was unable to do his HEP. He reports that he had increased headaches as well. He reports that prior to last week he was doing HEP 2x day. He reports feeling better for several hours after last treatment session when manual therapy was done. He reports that he is working on his posture. Pain: Pain Pain Level: 6 Pain Location: Head - Left;Head - Right;Neck - Right;Neck - Left Description: Aching Frequency: Intermittent Post Treatment Pain Post Treatment Pain Level: 3 Post Treatment Pain Location: Head - Left;Head - Right;Neck - Right;Neck - Left Post Treatment Pain Description: (better) Post Treatment Symptoms: After session, pt reported improvements with pain decreased from 6/10 to 3/10 OBJECTIVE MEASURES WITH LEVEL OF FUNCTION: TREATMENT: Therapeutic Exercise: 1: UBE UEs only seat #6 x6 minutes without added resistance. (Pt provided an update on his condition and subjective collected) 2: seated B UT stretch 3x30 seconds 3: seated B levator scapulae stretch 3x30 seconds 4: seated cervical retraction 3x10 5: seated scapular retraction in front of mirror to avoid elevation 3x10 6: corner pectoral stretch 3x30 seconds 7: seated scapular retraction with orange t-band 3x10 8: standing in front of mirror orange t-band scapular retraction with GH ER 3x10 elbows flexed 90 degrees 9: HEP reviewed, corrected and continuation encouraged to tolerance. He was advised to resume normal frequency when he is able. Skilled Intervention: Patient was educated in proper exercise technique and purpose for exercises. Skilled judgment was provided in selection of appropriate interventions. Correct performance of therapeutic exercises was facilitated with verbal, visual, and tactile cuing. Patient education as noted. Manual Therapy: 1: After therex, manual therapy completed with pt supine. All treatment force done to pt tolerance. Techniques utilized: general massage, muscle bending, trigger point release, sub-occipital release and passive B UT stretching. Total time with manual therapy was 17 minutes. Skilled Intervention: Manual skills to improve joint mobility, ROM, and decrease pain. Utilized anatomy knowledge of the therapist, and assessment of patient's response to intervention. Billing Therapeutic Exercise Treatment Minutes: 28 Manual TherapyTreatment Minutes: 17 Total Treatment Time Minutes (timed/untimed): 45 Joaquín Torres PT documented in this encounter [facility] 08-30-2022 History of Present illness Narrative HISTORY AND PHYSICAL Cristela Pastrana Dali 1975 REFERRING PHYSICIAN: Self CHIEF COMPLAINT: New Patient (Colonoscopy consult) HPI: The patient is a 47 year old male referred for endoscopy. Patient denies any change in bowel habits, weight changes, black tarry stools or abdominal pain. He does note a few instances of some bright red blood with wiping directly following a bowel movement. Denies family history of colon issues. The patient notes no upper GI complaints. Cristela has not undergone prior endoscopy. Patient denies chest pain, shortness of breath or recent hospitalizations. Denies problems with sedation in the past. PAST MEDICAL HISTORY Diagnosis Date Disc degeneration, lumbar 07/30,12/28,01/24,12/22 Left inguinal hernia 12/22/2015 Low back pain with right-sided sciatica 06/16/2020 Lung nodules 04/09/2021 Spinal stenosis Spondylolisthesis, lumbar region 05/21/2020 Tobacco use disorder 03/24/2021 PAST SURGICAL HISTORY Procedure Laterality Date CARPAL TUNNEL 98 w/ laceration repair LOW BACK DISK SURGERY 05/21/2020 PAST SURGICAL HISTORY OF 07/30,12/28,01/24,12/22 HERNIATED DISC SURGERIES X 2, L4-L5 PAST SURGICAL HISTORY OF 2009 tonsil abscess RPR 1ST INGUN HRNA AGE 6 YRS/> REDUCIBLE Left 04-27-16 TONSILLECTOMY HX 01/2016 Current Outpatient Medications Medication Sig acetaminophen (TYLENOL) 500 mg tablet Take 500 mg by mouth every 8 hours as needed. ibuprofen (MOTRIN) 200 mg tablet Take 200 mg by mouth every 6 hours as needed. No current facility-administered medications for this visit. ALLERGIES: Dilaudid [Hydromorphone (Bulk)] and Dilaudid [Hydromorphone (Bulk)] PERSONAL HISTORY: Social History Tobacco Use Smoking status: Every Day Packs/day: 1.00 Years: 20.00 Pack years: 20.00 Types: Cigarettes Start date: 10/16/2000 Smokeless tobacco: Never Vaping Use Vaping Use: Former Quit date: 04/27/2020 Substance Use Topics Alcohol use: Yes Comment: 1-3 beers every 2-3 months. Drug use: No FAMILY HISTORY: FAMILY HISTORY Problem Relation Age of Onset No Known Problems Mother Prostate Cancer Father 40 age 60 Skin Cancer Brother Lung Cancer Paternal Grandmother REVIEW OF SYMPTOMS: The review of systems data was entered by the nurse and reviewed by ca Nursing Notes: Nazanin Patel LPN 08/30/2022 9:52 AM Sign at exiting of workspace REVIEW OF SYSTEMS: General: The patient notes fatigue, denies weight loss, denies weight gain, denies feeling hot, and denies feelings of cold. Eyes: The patient denies glaucoma, denies eye injury/surgery, wears glasses or contacts. Ear/Nose/Throat: The patient denies allergies, denies hayfever, denies ear infections, and denies bloody noses. Cardiovascular: The patient denies chest pain, denies heart disease, denies high blood pressure,denies cardiac stent, denies prior heart attack, denies irregular heart beat, denies high cholesterol, denies poor circulation, denies heart failure, other cardiac issues, denies claudication, denies cold feet, denies peripheral arterial stent. Respiratory: The patient denies tuberculosis, denies pneumonia, notes frequent cough, denies pulmonary embolism, denies shortness of breath, and denies coughing up blood. Gastrointestinal: The patient denies difficulty swallowing, denies acid reflux, denies ulcers, denies vomiting, denies jaundice/hepatitis, denies gallbladder problems, denies black or tarry stools, denies hemorrhoids, notes bleeding from rectum, denies diverticulitis, denies constipation, denies diarrhea, denies loss of stool control, and denies hernias. Kidney/Bladder: The patient denies kidney stones, denies urine infections, and denies bloody urine. Skin: The patient denies a history of skin cancer, denies bleeding/changing moles, and denies a history of skin rash. Neurologic: The patient denies a history of epilepsy/convulsions, notes headaches, notes head/spinal injuries, and denies stroke/TIA. Psychiatric: The patient denies psychiatric medications, denies depression, and denies voices, denies substance abuse. Endocrine: The patient denies thyroid disorders, denies diabetes, and denies hormonal problems. Hematologic: The patient denies a history of bruising, denies bleeding, and denies anemia, denies blood clots. Infections: The patient denies a history of measles and mumps, denies rheumatic fever, and denies sexually transmitted diseases. Musculoskeletal: The patient notes back pain/injury, notes back problems, notes sciatica, denies knee/foot trouble, notes arthritis, or denies gout. When was patient's last Mammogram screening? N/A Last Colonoscopy: N/A Nazanin Patel LPN I have confirmed and edited as necessary, the PFSH and ROS obtained by others. Eleanor Bartlett PA-C PHYSICAL EXAMINATION: General: The patient is 47 year old male, well nourished, well hydrated in no acute distress. The patient is oriented to time, place, and person. VITALS: Blood pressure 112/62, pulse 76, temperature 36.7 C (98.1 F), resp. rate 14, weight 76.7 kg (169 lb), SpO2 99 %. Body mass index is 24.25 kg/m . HEENT: Normal cephalic, ataumatic, pupils are equally round, sclera are anicteric, mucous membranes are moist, oropharynx is clear. Neck has no masses, asymmetry or lymphadenopathy. Respiratory: Clear to auscultation and percussion. Normal respiratory excursion and pattern. Cardiac: Examination is regular rate and rhythm. Normal S1/S2 Abdominal exam: Soft, nontender, with no palpable masses. No hepatosplenomegaly. No palpable hernias. Extremities: no clubbing, cyanosis or edema. No adenopathy. LABORATORY VALUES: As Noted RADIOLOGIC STUDIES: As Noted Assessment IMPRESSION: encounter for screening colonoscopy. History of a few episodes of bright red blood with wiping-suspect hemorrhoidal PLAN: I have reviewed my findings with the surgeon. Will plan for lower endoscopy. We discussed the risks and benefits of the planned endoscopy. I have informed the patient that complications can occur including failure to complete the endoscopy and perforation. The patient had the opportunity to ask questions concerning the planned endoscopy. My staff has also explained the procedure to the patient in understandable terms and has given the patient printed material concerning the procedure. The patient freely consents to surgery. The patient was offered a surgery/procedure at a [facility] facility. I have counseled the patient regarding the risk of exposure to and/or potential harm posed by the COVID-19 virus with having a surgery/procedure at this time versus the risk of delaying the surgery/procedure. It is not possible to know either the risk of delaying the surgery or procedure or chance of getting an infection with perfect accuracy, but a joint decision was made between the patient and myself to proceed at this time with endoscopy. I plan to use Golytely bowel preparation I have explained to the patient the difference between IV conscious sedation and MAC anesthesia - and I have offered either, according to the patient's wishes. I have explained that with IV conscious sedation there is no anesthesia provider available and therefore there is a limitation of the amount of IV medications that can be given and that the patient may wake up in the middle of the procedure and/or experience pain/discomfort during the procedure. Further discussion was done and the patient was given the opportunity to ask questions and all questions were answered. The patient chooses MAC anesthesia Diagnoses: (Z12.11) Encounter for screening for malignant neoplasm of colon (primary encounter diagnosis) Consultation requested by Dr. Washington for an opinion regarding screening colonoscopy. My final recommendations will be communicated back to the requesting physician by way of shared Medical record or letter to requesting physician via [place] mail. Eleanor Bartlett PA-C documented in this encounter [facility] 08-30-2022 Nurse Note REVIEW OF SYSTEMS: General: The patient notes fatigue, denies weight loss, denies weight gain, denies feeling hot, and denies feelings of cold. Eyes: The patient denies glaucoma, denies eye injury/surgery, wears glasses or contacts. Ear/Nose/Throat: The patient denies allergies, denies hayfever, denies ear infections, and denies bloody noses. Cardiovascular: The patient denies chest pain, denies heart disease, denies high blood pressure,denies cardiac stent, denies prior heart attack, denies irregular heart beat, denies high cholesterol, denies poor circulation, denies heart failure, other cardiac issues, denies claudication, denies cold feet, denies peripheral arterial stent. Respiratory: The patient denies tuberculosis, denies pneumonia, notes frequent cough, denies pulmonary embolism, denies shortness of breath, and denies coughing up blood. Gastrointestinal: The patient denies difficulty swallowing, denies acid reflux, denies ulcers, denies vomiting, denies jaundice/hepatitis, denies gallbladder problems, denies black or tarry stools, denies hemorrhoids, notes bleeding from rectum, denies diverticulitis, denies constipation, denies diarrhea, denies loss of stool control, and denies hernias. Kidney/Bladder: The patient denies kidney stones, denies urine infections, and denies bloody urine. Skin: The patient denies a history of skin cancer, denies bleeding/changing moles, and denies a history of skin rash. Neurologic: The patient denies a history of epilepsy/convulsions, notes headaches, notes head/spinal injuries, and denies stroke/TIA. Psychiatric: The patient denies psychiatric medications, denies depression, and denies voices, denies substance abuse. Endocrine: The patient denies thyroid disorders, denies diabetes, and denies hormonal problems. Hematologic: The patient denies a history of bruising, denies bleeding, and denies anemia, denies blood clots. Infections: The patient denies a history of measles and mumps, denies rheumatic fever, and denies sexually transmitted diseases. Musculoskeletal: The patient notes back pain/injury, notes back problems, notes sciatica, denies knee/foot trouble, notes arthritis, or denies gout. When was patient's last Mammogram screening? N/A Last Colonoscopy: N/A Nazanin Patel LPN documented in this encounter [facility] 08-19-2022 History of Present illness Narrative Episode Visit Count: 1 Therapist That Will Accept/Oversee The Plan Of Care: Joaquín Torres PT Start of Care Date: 08/19/22 Onset Date: 02/16/22 Patient Identified by Name and Date of : Yes [facility] PHYSICAL THERAPY EVALUATION PLAN OF CARE: Assessment: Cristela Mcnally presents with chief complaint of neck pain and headaches that interferes with sleeping;driving (prolonged sitting) . He presents with impairments in ADL's, independence in exercise, overall function, range of motion, strength , symptom management, and tissue tenderness. Prognosis for therapy is Good due to: current objective clinical presentation;good overall health status;good support system/ coping skills. He will benefit from skilled therapy services to meet the goals established for this plan of care as noted below. Goals for Episode of Care: created on 08/19/22 through 09/30/22 Independent in a Home Exercise Program. Patient will decrease pain to 0/10 at rest and with functional activities to allow patient to improve sleeping and prolonged positions. Restore pain free cervical ROM to WFL to allow for improved driving tolerance. Drive with no aggravation of pain/symptoms. Sleep throughout the night without pain/symptoms. Patient will increase strength of postural muscles to WFL to allow for improve ability to maintain proper posture, improve mechanics, and decrease pain. Patient Goals: eliminate neck pain and headaches. Planned Interventions, Frequency, and Duration: Current Frequency: 2x/week Duration: 6 weeks Total Number of Visits Planned: 12 Planned Treatment Interventions: Therapeutic exercise (43095);Neuromuscular re-education (43303);Manual therapy (03226);Self-group home management (83203);Patient/Family/Caregiver Education;Body Mechanics Training PLAN FOR NEXT VISIT: Review, correct and progress HEP to tolerance. Continue with postural stretching and strengthening for cervical ROM, pain control and strength. Consider use of manual therapy prn but vertebral artery test will need completed prior to tractoin being completed. Patient demonstrates good understanding of plan of care and treatment. The above goals and plan of care were discussed and agreed upon by patient/family. SUBJECTIVE: Cristela Mcnally is a 47 year old male seen today for intermittent pain in posterior neck that also has headaches that radiate up the back of head and up over the top. He reports that headaches come and go but are fequent and daily. Patient Goals: eliminate neck pain and headaches. Functional Limitations: sleeping;driving (prolonged sitting) Prior Level of Function: Independent with restrictions Independent with the following restrictions: chronic lumbar spine issues and limitations in LEs but no issues with neck or headaches Relevant History Past Relevant Surgical Conditions: Spine fusion - Lumbar (3 separate lumbar fusion surgeries) Spine Fusion - Lumbar Comments: last lumbar surgery was 05/21/2020 Right or Left Handed: Right Employment: Unemployed Home Environment Patient Lives With: Spouse;Family (kids ages: 14, 8 and 6) Assistance Available: PRN Intake Information: Prescription present Previous Treatment: None Red Flags Vertebral Fracture Clinical Reasoning: No identified risk factors Cancer Clinical Reasoning: No identified risk factors. Infection Clinical Reasoning: No identified risk factors. Cervical Arterial Dysfunction Clinical Reasoning: No identified risk factors Cervical Myelopathy Diagnostic Rule: No identified risk factors. Red Flags - Cervical Cancer Clinical Reasoning: No identified risk factors. Infection Clinical Reasoning: No identified risk factors. Cervical Arterial Dysfunction Clinical Reasoning: No identified risk factors Cervical Myelopathy Diagnostic Rule: No identified risk factors. Spine History Symptoms Location at Onset: Headache;Neck Symptoms Since Onset: Worsening Pain is Worse Always: Sitting;Driving;Prolonged positions;Lying Pain is Better Sometimes: (OTC medication) Previous Episodes: No Sleeping Position: Side lying right;Prone - head left;Supine Sleep Affected by Pain: Pain awakens;Pain keeps from falling asleep (occasional but not frequent) Pain: Pain Pain Level: 5 Pain Location: Neck;Head - Right;Head - Left Description: Aching;Dull Frequency: Intermittent (frequent but not constant) Detailed Pain Score: Yes Worst Pain Level: 10 Average Pain Level: 5 Best Pain Level: 3 Post Treatment Pain Post Treatment Pain Level: 6 Post Treatment Pain Location: Neck Post Treatment Pain Description: (slightly worse) Post Treatment Symptoms: After today's session, pt reported that his neck pain was slightly increased from start of visit. He reported an increase from 5/10 to 6/10. PROMIS Scales T-scores: mean of general population = 50. 5 points is clinically meaningfully difference Percentiles provide an indication of how the patient's score ranks in relation to the general population. Higher percentile rankings indicate better function/quality of life. 50th percentile is the average of the general population and indicates half of respondents had a worse score. T-scores: mean of general population = 50. 5 points is clinically meaningfully difference Percentiles provide an indication of how the patient's score ranks in relation to the general population. Higher percentile rankings indicate better function/quality of life. 50th percentile is the average of the general population and indicates half of respondents had a worse score. OBJECTIVE MEASURES WITH LEVEL OF FUNCTION: Posture / Alignment Posture: Fair;Forward head;Rounded shoulders Sitting Posture: Fair Reflexes - Upper Extremity R Brachioradialis : Normal R Biceps: Normal L Brachioradialis : Normal L Biceps: Normal Spine Observations R Cervical Spine Palpation Tenderness: Upper trapezius;Levator scapulae L Cervical Spine Palpation Tenderness: Upper trapezius;Levator scapulae Sensation - Cervical Spine Cervical Spine Sensation: Grossly Intact Cervical Spine ROM Cervical ROM : Measurement AROM Cervical Flexion AROM (degrees) : 42 Degrees Cervical Extension AROM (degrees) : 40 Degrees Cervical Side-Bend Right AROM (degrees): 48 Degrees Cervical Side-Bend Left AROM (degrees) : 45 Degrees Cervical Rotation Right AROM (degrees) : 68 Degrees Cervical Rotation Left AROM (degrees) : 78 Degrees UE and Cervical Strength Strength Tested: Cervical Cervical Strength: The reported chronicity of symptoms and reported functional difficulties, especially with prolonged positions indicate that he will benefit from increased postural strength. Special Tests - Cervical Cervical Special Tests: Cervical Compression;Cervical Distraction;Spurling Cervical Compression: Negative Cervical Distraction: Negative Spurling: Right Negative;Left Negative Education: Education Learning Preferences: Demonstration;Explanation;Perform ance;Printed Materials Barriers: None Learning/educational needs: Plan of Care;Home exercise program;Posture;Body Mechanics Education Provided: Yes, see treatment interventions for education provided Education Provided To: Patient Education Mode/Type: Demonstration;Explanation/Discuss ion;Literature/Printed Materials;Performance Response to Education/Teach Back: States/Identifies;Requires Review/Additional Education;Return Demonstration TREATMENT: PT Treatment Interventions: Therapeutic Exercise Evaluation Therapeutic Exercise: 1: Pt was educated on the anatomy of symptomatic area, likely source of symptoms and rationale for proposed treatment plan. Pictures were used to clarify all education, especially anatomy. He was educated on postural correction and it's importance. A handout was provided on postural correction. He was advised to stop any exercise that causes an increase in pain and proper intensity with stretching emphasized. 2: *seated B UT stretch 3x30 seconds 3: *seated B levator scapulae stretch 3x30 seconds Skilled Intervention: Patient was educated in proper exercise technique and purpose for exercises. Reviewed and educated patient on additions/changes for home exercise program as above (*). Skilled judgment was provided in selection of appropriate interventions. Provided written instruction for home exercise program to facilitate proper performance and compliance. Correct performance of therapeutic exercises was facilitated with verbal, visual, and tactile cuing. Patient education as noted. Billing * Evaluation Moderate Complexity: 1 Unit Therapeutic Exercise Treatment Minutes: 15 Total Treatment Time Minutes (timed/untimed): 45 Joaquín Torres PT documented in this encounter [facility] documented as of this encounter (statuses as of 08/19/2022) [facility]09-01-2020 History of Past illness Narrative* Problem Noted Date Resolved Date Low back pain with right-sided sciatica 06/16/2008/17/2022 Left inguinal hernia 12/22/2015 08/17/2022 documented as of this encounter (statuses as of 08/30/2022) [facility]2020 History of Past illness Narrative* Problem Noted Date Resolved Date Low back pain with right-sided sciatica 06/16/2008/17/2022 Left inguinal hernia 12/22/2015 08/17/2022 documented as of this encounter (statuses as of 09/06/2022) [facility]2020 History of Past illness Narrative* Problem Noted Date Resolved Date Low back pain with right-sided sciatica 06/16/2008/17/2022 Left inguinal hernia 12/22/2015 08/17/2022 documented as of this encounter (statuses as of 09/13/2022) [facility] History of Past illness Narrative* Problem Noted Date Resolved Date Low back pain with right-sided sciatica 09/01/20 20 08/17/2022 Left inguinal hernia 12/22/2015 08/17/2022 documented as of this encounter (statuses as of 09/30/2022) [address]01-2020 History of Past illness Narrative* Problem Noted Date Resolved Date Low back pain with right-sided sciatica 06/16/2008/17/2022 Left inguinal hernia 12/22/2015 08/17/2022 documented as of this encounter (statuses as of 10/21/2022) [address]01-2020 History of Past illness Narrative* Problem Noted Date Diagnosed Date Resolved Date Low back pain with right-sided sciatica 06/16/2020 08/17/2022 Left inguinal hernia 12/22/2015 022 documented as of this encounter (statuses as of 08/20/2023) [address]01-2020 History of Past illness Narrative* Problem Noted Date Diagnosed Date Resolved Date Low back pain with right-sided sciatica 06/16/2020 08/17/2022 Left inguinal hernia 12/22/2015 022 documented as of this encounter (statuses as of 08/30/2023) [address]-2020 History of Past illness Narrative* Problem Noted Date Diagnosed Date Resolved Date Low back pain with right-sided sciatica 06/16/2020 08/17/2022 Left inguinal hernia 12/22/2015 022 documented as of this encounter (statuses as of 08/30/2023) [facility]2020 History of Past illness Narrative* Problem Noted Date Diagnosed Date Resolved Date Low back pain with right-sided sciatica 06/16/2020 08/17/2022 Left inguinal hernia 12/22/2015 022 documented as of this encounter (statuses as of 08/31/2023) [address] History of Past illness Narrative* Problem Noted Date Diagnosed Date Resolved Date Low back pain with right-sided sciatica 06/16/2020 08/17/2022 Left inguinal hernia 12/22/2015 022 documented as of this encounter (statuses as of 09/26/2023) [facility]- Primary [facility] Encounter for screening for malignant neoplasm of colon- Primary Special screening for malignant neoplasms, colon [facility] [place] [facility] Diagnosis Cervicogenic headache- Primary Headache documented in this encounter [facility] note* Diagnosis Actinic keratosis- Primary Multiple benign nevi Benign neoplasm of skin, site unspecified Seborrheic keratoses Other seborrheic keratosis Angel angioma Nevus, non-neoplastic Solar lentigo Other dyschromia Skin cancer screening Screening for malignant neoplasm of the skin Actinic cheilitis Acute dermatitis due to solar radiation documented in this encounter [facility] note* Diagnosis Lung nodules Other nonspecific abnormal finding of lung field documented in this encounter [facility] note* Diagnosis Lumbar radiculopathy- Primary Thoracic or lumbosacral neuritis or radiculitis, unspecified documented in this encounter [facility] note* Diagnosis Spondylolisthesis, lumbar region- Primary Status post lumbar spinal fusion Arthrodesis status documented in this encounter [facility] note* Diagnosis Vasectomy evaluation- Primary Other general counseling and advice for contraceptive management Elevated blood pressure reading without diagnosis of hypertension Genital warts Condyloma acuminatum documented in this encounter [facility] for referral (narrative)* Diagnostic Procedure Only (Routine) - Pending Review Specialty Diagnoses / Procedures Referred By Ionaac t Referred To Contact XR IMAGING Diagnoses Lumbar radiculopathy Procedures XR LUMBAR MOTION 4V AP/LAT/ FLEX/EXT RADEX SPINE LUMBOSACRAL MINIMUM 4 VIEWS Delfin Gordon DO [address] [place] [address] Xr Imaging [place] [address] Referral ID Status Reason Start Date Expiration Date Visits Requested Visits Authorized [id number] Pending Review Auto-Generat ed Referral 3 09/27/2024 1 1 [facility] for visit Narrative* Diagnostic Procedure Only (Routine) - Closed Specialty Diagnoses / Procedures Referred By Contac t Referred To Contact XR IMAGING Diagnoses Lumbar radiculopathy Procedures XR LUMBAR MOTION 4V AP/LAT/ FLEX/EXT RADEX SPINE LUMBOSACRAL MINIMUM 4 VIEWS Delfin Gordon DO [address] [place] [address] [place] [address] Referral ID Status Reason Start Date Expiration Date V isits Requested Visits Authorized [id number] Closed Auto-Generate d Referral 08/29/2023 09/27/2024 1 1 [facility] Summary Purpose Family History No Family History Records FoundNo Family History Records FoundNo Family History Records FoundNo Family History Records FoundNo Family History Records Found Advance Directives No Advanced Directives Records FoundNo Advanced Directives Records FoundNo Advanced Directives Records FoundNo Advanced Directives Records FoundNo Advanced Directives Records Found Reason for Referral Specialty Diagnoses / Procedures Referred By Contac t Referred To Contact CT IMAGING Diagnoses Lung nodules Procedures CT CHEST WO IVCON DIAGNOSTIC COMPUTED TOMOGRAPHY THORAX W/O CNTRST Older, Ginger, TRAVELING CLERK.CLEARING HAND [address] [place] [address] [place] [address] Referral ID Status Reason Start Date Expiration Date V isits Requested Visits Authorized [id number] Closed Auto-Generate d Referral 06/30/2023 10/15/2023 1 1 Additional Source Comments (unrecognized sect ion and content) No Status Records FoundNo Status Records FoundNo Status Records FoundNo Status Records FoundNo Status Records Found INFORMATION SOURCE (unrecogn ized section and content) DATE CREATED AUTHOR AUTHOR'S ORGANIZ ATION 07/03/2021 [facility] DATE CREATED AUTHOR AUTHOR'S ORGANIZ ATION 06/21/2023 [facility] DATE CREATED AUTHOR AUTHOR'S ORGANIZ ATION 09/01/2023 [facility] DATE CREATED AUTHOR AUTHOR'S ORGANIZ ATION 10/01/2023 [facility] Source Comments (unrecognize d section and content) In the event this informatio n is protected by the Federal Confidentiality of Alcohol and Drug Abuse Patient Records regulations: The Federal rules restrict any use of the information to criminally investigate or prosecute any alcohol or drug abuse patient.[facility] the event this information is protected by the Federal Confidentiality of Alcohol and Drug Abuse Patient Records regulations: The Federal rules restrict any use of the information to criminally investigate or prosecute any alcohol or drug abuse patient.[facility] the event this information is protected by the Federal Confidentiality of Alcohol and Drug Abuse Patient Records regulations: The Federal rules restrict any use of the information to criminally investigate or prosecute any alcohol or drug abuse patient.[facility] the event this information is protected by the Federal Confidentiality of Alcohol and Drug Abuse Patient Records regulations: The Federal rules restrict any use of the information to criminally investigate or prosecute any alcohol or drug abuse patient.[facility] the event this information is protected by the Federal Confidentiality of Alcohol and Drug Abuse Patient Records regulations: The Federal rules restrict any use of the information to criminally investigate or prosecute any alcohol or drug abuse patient.[facility] the event this information is protected by the Federal Confidentiality of Alcohol and Drug Abuse Patient Records regulations: The Federal rules restrict any use of the information to criminally investigate or prosecute any alcohol or drug abuse patient.[facility] the event this information is protected by the Federal Confidentiality of Alcohol and Drug Abuse Patient Records regulations: The Federal rules restrict any use of the information to criminally investigate or prosecute any alcohol or drug abuse patient.[facility] the event this information is protected by the Federal Confidentiality of Alcohol and Drug Abuse Patient Records regulations: The Federal rules restrict any use of the information to criminally investigate or prosecute any alcohol or drug abuse patient.[facility] the event this information is protected by the Federal Confidentiality of Alcohol and Drug Abuse Patient Records regulations: The Federal rules restrict any use of the information to criminally investigate or prosecute any alcohol or drug abuse patient.[facility] the event this information is protected by the Federal Confidentiality of Alcohol and Drug Abuse Patient Records regulations: The Federal rules restrict any use of the information to criminally investigate or prosecute any alcohol or drug abuse patient.[facility] the event this information is protected by the Federal Confidentiality of Alcohol and Drug Abuse Patient Records regulations: The Federal rules restrict any use of the information to criminally investigate or prosecute any alcohol or drug abuse patient.[facility] Reason for Visit (unrecogniz ed section and content) Specialty Diagnoses / Procedures Referred By Bennett latham Referred To Contact [facility] Department Diagnoses . Procedures . Self [facility] Dept Referral ID Status Reason Start Date Expiration Date Visits Requested Visits Authorized [id number] Authorized Financial Clearance Required - Self Pay Patient Cleared - Qualified HCAP/501/FA 2 11/13/2022 99 99 Reason Comments New Patient Colonoscopy consult Reason Comments PT Eval Reason Comments Physical Therapy Specialty Diagnoses / Procedures Referred By Bennett latham Referred To Contact [facility] Diagnoses Cervicogenic headache Procedures CONSULT TO PHYSICAL THERAPY PHYSICAL THERAPY EVALUATION HIGH COMPLEX 45 MINS Joshua Washington MD [address] [place] [address] [facility] [address] [place] [address] Referral ID Status Reason Start Date Expiration Date Visits Requested Visits Authorized [id number] Authorized Auto-Generate d Referral Patient Cleared - Qualified HCAP/501/FA 2 11/13/2022 99 99 Reason Comments Results Reason Comments Radiology CT Specialty Diagnoses / Procedures Referred By Bennett latham Referred To Contact CT IMAGING Diagnoses Lung nodules Procedures CT CHEST WO IVCON DIAGNOSTIC COMPUTED TOMOGRAPHY THORAX W/O CNTRST Older, Ginger, TRAVELING CLERK.CLEARING HAND [address] [place] [address] Ct Imaging [id number] Referral ID Status Reason Start Date Expiration Date V isits Requested Visits Authorized [id number] Closed Auto-Generate d Referral 06/30/2023 10/15/2023 1 1 Reason Comments Established Patient Reason Comments Consult Sterilization (Elective) Care Teams (unrecognized sec tion and content) Machine Operator Picker Relationship Specialty Start Date End Date Joshua Washington MD [address] [place] [id number] PCP - General Internal Medicine 03/24/21 Machine Operator Picker Relationship Specialty Start Date End Date Joshua Washington MD [address] [place] [id number] PCP - General Internal Medicine 03/24/21 Machine Operator Picker Relationship Specialty Start Date End Date Joshua Washington MD [facility] [place] [address] PCP - General Internal Medicine 03/24/21 Machine Operator Picker Relationship Specialty Start Date End Date Joshua Washington MD [address] [place] [id number] PCP - General Internal Medicine 03/24/21 Machine Operator Picker Relationship Specialty Start Date End Date Joshua Washington MD [address] [place] [id number] PCP - General Internal Medicine 03/24/21 Machine Operator Picker Relationship Specialty Start Date End Date Joshua Washington MD [address] [facility] [place] [address] PCP - General Internal Medicine 03/24/21 Machine Operator Picker Relationship Specialty Start Date End Date Joshua Washington MD [address] [facility] [place], [place] [address] PCP - General Internal Medicine 03/24/21 Machine Operator Picker Relationship Specialty Start Date End Date Joshua Washington MD [address] [facility], [place] [address] PCP - General Internal Medicine 03/24/21 Machine Operator Picker Relationship Specialty Start Date End Date Joshua Washington MD [address] [facility], [place] [id number] PCP - General Internal Medicine 03/24/21 Machine Operator Picker Relationship Specialty Start Date End Date Joshua Washington MD [address] [facility], [place] [address] PCP - General Internal Medicine 03/24/21 FOR RECORDS PERTAINING TO PATIENTS WHO ARE OR HAVE BEEN ENROLLED IN A CHEMICAL DEPENDENCY/SUBSTANCEABUSE PROGRAM, SOME INFORMATION MAY BE OMITTED. This clinical summary was aggregated from multiple sources. Caution should be exercised in using it in the provision of clinical care. This summary normalizes information from multiple sources, and as a consequence, information in this document may materially change the coding, format and clinical context of patient data. In addition, data may be omitted in some cases. CLINICAL DECISIONS SHOULD BE BASED ON THE PRIMARY CLINICAL RECORDS. [facility]. provides no warranty or guarantee of the accuracy or completeness of information in this document.
[2023-10-20 10:44] VITALS: BP 125/64; PULSE 58; RESP 16; O2SAT 96
== END 2023-10-20 10:45 | disposition home or self-care (01) ==
PROVIDERS: Emergency Provider Emergency Medicine; PCP Internal Medicine; Visit Provider Emergency Medicine
DX: J10.1 Influenza due to other identified influenza virus with other respiratory manifestations (principal); F17.210 Nicotine dependence, cigarettes, uncomplicated
CPT/HCPCS: 71046; 87631; 99282

== ENCOUNTER 2024-02-21 10:58 | Emergency (ER) | payer BC, SELFPAY ==
[2024-02-21 10:59] VITALS: BP 142/81; PULSE 71; RESP 16; TEMP 36.4; O2SAT 98; BMI 22.6
--- NOTE | 2024-02-21 11:10 | ED.RN ---
sensation different on left than right for arms and face. Pt feels the right now. Leg sensation normal
[2024-02-21] MEDS: 0.9% Normal Saline (1000mL) 1,000 ML 999 ML IV (11:53)
[2024-02-21] MEDS: Metoclopramide 10 MG/2 ML Vial IV (11:53)
[2024-02-21] MEDS: DiphenhydrAMINE 50 MG/ML Syringe 25 MG IV (11:53)
--- NOTE | 2024-02-21 11:57 | CT_ITS ---
STUDY: CT BRAIN WITHOUT CONTRAST REASON FOR EXAM: Male, 48 years old. Headaches. RADIATION DOSAGE (If Supplied By Facility): CTDIvol = ( 44.99 ) mGy, DLP = ( 829.85 ) mGycm TECHNIQUE: Transaxial CT imaging of the brain was performed without administration of intravenous contrast material. Individualized dose optimization techniques were used for this CT. COMPARISON: Comparison is made with prior study dated June 16, 2014. FINDINGS: Normal soft tissue structures. Normal calvarium. Normal size ventricles and extra-axial spaces for the patient''s age. Subtle 1.5 cm x 1.5 cm hypodensity in the posterior left frontal lobe. This is unchanged since prior study. This may be a normal variant. Correlation with an enhanced CT scan of the head recommended. Normal basal ganglia and thalami. Normal brainstem. Normal cerebellum. There is no intracranial hemorrhage. There are no findings of an acute ischemic infarction. Normal visualized paranasal sinuses. CT/Brain/Head without Contrast IMPRESSION: Subtle 1.5 cm x 1.5 cm hypodensity in the posterior left frontal lobe. Correlation with enhanced CT scan the brain recommended. Electronically Signed: Angel Leo MD at 12:32 EDT ,
[2024-02-21 12:01] VITALS: BP 128/87; PULSE 57; RESP 18; O2SAT 99
--- NOTE | 2024-02-21 12:51 | CT_ITS ---
STUDY: CT BRAIN WITH CONTRAST REASON FOR EXAM: Male, 48 years old. Headache RADIATION DOSAGE (If Supplied By Facility): CTDIvol = ( 44.99 ) mGy, DLP = ( 779.24 ) mGycm TECHNIQUE: Transaxial CT imaging of the brain was performed post contrast administration. The examination was performed with intravenous administration of IV 50mL Isovue-370. Individualized dose optimization techniques were used for this CT. COMPARISON: Comparison is made with prior unenhanced CT scan done earlier in the day. FINDINGS: Normal soft tissue structures. Normal calvarium. Normal size ventricles and extra-axial spaces for the patient''s age. Normal white matter tracts of the cerebral hemispheres. Normal basal ganglia and thalami. Normal brainstem. Normal cerebellum. There is no intracranial hemorrhage. There are no findings of an acute ischemic infarction. Normal visualized paranasal sinuses. CT/Brain/Head WITH Contrast IMPRESSION: Normal enhanced CT scan of the brain. Electronically Signed: Angel Leo MD at 14:24 EDT ,
[2024-02-21 13:00] VITALS: BP 112/82; PULSE 57; RESP 18; O2SAT 96
[2024-02-21 13:05] LABS: Absolute Lymphocyte Count 2.01 X10^3/uL (0.83-4.51); Basophil# 0.05 X10^3/uL; Basophil% 0.6 % (0-1); Eosinophil# 0.18 X10^3/uL; Eosinophils% 2.1 % (0-5); Hematocrit 43.3 % (40-54); Hemoglobin 14.1 g/dL (13.0-16.5); Lymphocyte # 2.01 X10^3/ul (0.83-4.51); Lymphocyte % 23.6 % (19-41); Mean Corp Hgb Conc 32.6 g/dL (32-36); Mean Corpuscular Volume 92.1 fL (80-94); Mean Platelet Vol. 12.6 fl (6.2-12.0); Monocyte# 0.29 X10^3/uL; Monocyte% 3.4 % (0-10); NRBC Flagged by Analyzer 0 % (0-5); Neutrophil # 5.96 X10^3/uL (2.7-7.7); Neutrophil % 69.9 % (47-70); Platelet Count 180 K/mm3 (150-450); RBC Distribution Width CV 13.6 % (11.6-14.6); RBC Distribution Width SD 46.5 fl (35.1-43.9); White Blood Count 8.5 K/mm3 (4.4-11.0)
[2024-02-21 13:19] LABS: Anion Gap 2 (5-15); BUN 12 mg/dL (7-18); BUN/Creat Ratio 15.3 RATIO (10-20); Calcium,Total 8.8 mg/dL (8.5-10.1); Chloride 106 mmol/L (98-107); Creatinine, Serum 0.78 mg/dL (0.70-1.30); EST Glomerular Filtration Rate 112 mL/min (>60); Est Glom Filt Rate - Afr Amer 136 mL/min (>60); Estimated Creatinine Clearance 114.85 ml/min; Glucose 87 mg/dL (74-106); Potassium 4.1 mmol/L (3.5-5.1); Sodium Level 137 mmol/L (136-145)
--- NOTE | 2024-02-21 13:29 | EX.ED.DYSGE1 ---
HPI History of Present Illness Chief Complaint: Numb/Ting PFSH PFSH Home Medications ibuprofen 200 mg tablet 800 mg PO PRN PRN Pain 09/25/17 [History Last Taken 09/25/17] naproxen 500 mg tablet 500 mg PO BID #14 tabs 08/25/23 [Rx Last Taken Unknown] Allergy/AdvReac Type Severity Reaction Status Date / Time hydromorphone HCl AdvReac Upset Verified 10/20/23 08:40 [From Dilaudid] Stomach Family History no significant family his Surgical History H/O hand surgery History of back surgery History of hernia surgery History of tonsillectomy Social History household members: spouse, family and children housing: house Smoking Status: Current every day smoker tobacco type: cigarettes EXAM Physical Exam Const Vital Signs: 02/21/24 10:59 02/21/24 12:01 02/21/24 13:00 Temperature 97.6 F L Temperature Source Temporal Pulse Rate 71 57 L 57 L Respiratory Rate 16 18 18 Blood Pressure 142/81 H 128/87 H 112/82 H Blood Pressure Mean 101 100 92 Pulse Ox 98 99 96 Oxygen Delivery Method Room Air Room Air Room Air 02/21/24 14:00 Temperature Temperature Source Pulse Rate 78 Respiratory Rate 14 Blood Pressure 131/76 H Blood Pressure Mean 94 Pulse Ox 97 Oxygen Delivery Method Room Air MDM MDM MDM Narrative Medical decision making narrative: Patient presenting with headache. Differential includes stress headache, migraine. He also is stating that he had morning headaches he also was stating that he had morning headaches for 6 months so tumor is in the differential as well. He does not have any temporal artery tenderness or palpable pain. He does admit to light sensitivity. IV line was established patient was given Reglan, Benadryl and on reevaluation his headache is better. I did obtain his basic lab work and his CBC and BMP are unremarkable. CT of the brain without contrast was ordered initially and the radiologist felt that he saw a 1.5 cm x 1.5 cm hypodensity in the posterior frontal lobe on the left. He recommended a IV contrasted CT scan which was performed and ultimately is negative. Patient still doing well on reevaluation. Discharged home with referral to neurology. Impression: 1. Headache Lab Data Attestation: I reviewed the patient's lab results. Labs: Laboratory Results - last 24 hr 02/21/24 11:50 WBC 8.5 RBC 4.70 Hgb 14.1 Hct 43.3 MCV 92.1 MCH 30.0 MCHC 32.6 RDW Std Deviation 46.5 H RDW Coeff of Joseph 13.6 Plt Count 180 MPV 12.6 H Immature Gran % (Auto) 0.400 Neut % (Auto) 69.9 Lymph % (Auto) 23.6 [place] % (Auto) 3.4 Eos % (Auto) 2.1 Baso % (Auto) 0.6 Absolute Neuts (auto) 6.0 Absolute Lymphs (auto) 2.01 Nucleated RBC % 0 Sodium 137 Potassium 4.1 Chloride 106 Carbon Dioxide 29.0 Anion Gap 2 L BUN 12 Creatinine 0.78 Estim Creat Clear Calc 114.85 Est GFR (MDRD) Af Amer 136 Est GFR (MDRD) Non-Af 112 BUN/Creatinine Ratio 15.3 Glucose 87 Calcium 8.8 Radiography Diagnostic Testing: Clinical Impression(s) from Imaging Studies Brain CT 02/21/24 11:57 IMPRESSION: Subtle 1.5 cm x 1.5 cm hypodensity in the posterior left frontal lobe. Correlation with enhanced CT scan the brain recommended. Electronically Signed: Angel Leo MD at 12:32 EDT , Brain CT 02/21/24 12:51 IMPRESSION: Normal enhanced CT scan of the brain. Electronically Signed: Angel Leo MD at 14:24 EDT , Discharge Plan Triage Chief Complaint: Numb/Ting ED Provider: Jefry Galloway Dx/Rx/DC Orders Prescriptions: No Action ibuprofen 200 MG tablet 800 mg PO PRN PRN (Reason: Pain) Patient Comments: PT REPORTS TAKING 1200MG MOTRIN 1-4 TIMES A DAY. naproxen 500 mg tablet 500 mg PO BID Qty: 14 0RF Primary Care Provider: Joshua Portillo Referrals: Tung Boyd MD [Non-Staff -Ordering Privileges] - As Needed Joshua Portillo MD [Primary Care Provider] - Disposition Disposition: Home, Self Care
[2024-02-21 14:00] VITALS: BP 131/76; PULSE 78; RESP 14; O2SAT 97
[2024-02-21 15:00] VITALS: BP 122/89; PULSE 66; RESP 16; TEMP 36.6; O2SAT 97
[2024-02-21 15:22] VITALS: BP 122/89; PULSE 66; RESP 16; TEMP 36.6; O2SAT 97
== END 2024-02-21 15:22 | disposition home or self-care (01) ==
PROVIDERS: Emergency Provider Student in an Organized Health Care Education/Training Program; PCP Internal Medicine; Visit Provider Student in an Organized Health Care Education/Training Program
DX: R51.9 Headache, unspecified (principal); R20.0 Anesthesia of skin; F17.210 Nicotine dependence, cigarettes, uncomplicated
CPT/HCPCS: 70450; 70460; 80048; 85025; 96361; 96374; 96375; 99283; J7030; Q9967; A4216

== ENCOUNTER 2025-01-09 18:35 | Emergency (ER) | payer BC, SELFPAY ==
[2025-01-09 18:36] VITALS: BP 139/118; PULSE 84; RESP 18; TEMP 36.6; O2SAT 99; BMI 22.1
--- NOTE | 2025-01-09 18:59 | EDS_ITS ---
HPI History of Present Illness Chief Complaint: Back PFSH PFSH Home Medications ?Medication ?Instructions ?Recorded ?Last Taken ?Type ibuprofen 200 mg tablet 800 mg PO PRN PRN Pain 09/2509/25/17 History naproxen 500 mg tablet 500 mg PO BID #14 tabs 08/25 Unknown Rx orphenadrine citrate 100 mg 100 mg PO BID PRN back edson n 3 days 01/09/25 Unknown Rx tablet,extended release #7 tabs oxycodone 5 mg tablet 5 mg PO Q6H PRN pain 3 days #12 01/09/25 Unknown Rx tabs prednisone 20 mg tablet 20 mg PO DAILY 5 days #5 tab s 01/09/25 Unknown Rx Allergy/AdvReac Type Severity Reaction Status Date / Time hydromorphone HCl (From AdvReac Upset Verified 10/20/23 08:40 Dilaudid) Stomach Family History no significant family his Surgical History H/O hand surgery History of back surgery History of hernia surgery History of tonsillectomy Social History household members: spouse, family and children housing: house Smoking Status: Current every day smoker tobacco type: cigarettes EXAM Physical Exam Const Vital Signs: 01/09/25 18:36 01/09/25 20:36 01/09/25 22:00 Temperature 97.8 F Temperature Source Temporal Pulse Rate 84 68 70 Respiratory Rate 18 18 Blood Pressure 139/118 H 116/78 130/80 H Blood Pressure Mean 125 90 96 Pulse Ox 99 100 98 MDM MDM MDM Narrative Medical decision making narrative: HISTORY OF PRESENT ILLNESS: 49-year-old male presents with chronic back pain. Notes history of 5 back surgeries. He states he is worsening pain and difficulty walking. Notes a fall 2 to 3 days ago. Which he landed on his back. No car accidents or other trauma noted. Notes since then his back's been bothering him. He notes chronic weakness mostly in right lower extremity. He notes he is having difficulty walking secondary to pain. Denies new focal weakness or loss of sensation or movement. He does note some increased frequency of urination. Denies blood in his urine or dysuria. Denies chest or abdominal pain. Patient denies any saddle anesthesia, urinary retention, bowel or bladder incontinence, lower extremity weakness, fever or IV drug use, no recent spinal manipulation or surgery, no recent urinary catheterization. REVIEW OF SYSTEMS: Pertinent positives: Back pain Pertinent negatives: As per HPI PHYSICAL EXAM: Nursing triage notes reviewed, Vital signs reviewed Constitutional: please see [facility] Abdomen: Soft, there is no tenderness, rigidity, rebound or guarding, no obvious peritoneal signs, no palpable pulsatile abdominal masses, no auscultated abdominal bruit : No CVAT Back: No midline step-offs or deformities. Left lower lumbar paraspinal TTP. No rashes or other lesions noted. Extremities: No edema Neuro: Intact sensation L1-S1 dermatomal distributions. Intact 5/5 strength in hip flexion (T12-L3). Knee extension (L2-L4). Ankle dorsiflexion (L4-L5). Ankle plantar flexion (S1). Great toe extension (L5). 2+ patellar and Achilles DTRs. Skin: No rash or lesions noted MEDICAL DECISION MAKING: Chief Complaint: Back pain External records reviewed: Reviewed prior imaging studies: Reviewed MRI from 2019 which showed interval discectomy Factors affecting care: Chronic back pain Social determinants of health: patient denies IV drug History obtained from others: none Consults: none [facility] Narrative: The patient was initially hemodynamically stable, afebrile and nontoxic- appearing. Exam without focal lower extremity neurologic abnormalities. The patient did have significant weakness in bilateral lower extremities it is difficult to ascertain this is acute or chronic given his history of back surgeries and chronic weakness. I considered the following differential diagnosis: Musculoskeletal back pain, space-occupying lesion of the spinal (epidural abscess, epidural hematoma), cauda equina, conus medullaris, fracture dislocation, AAA, nephrolithiasis, pyelonephritis, aortic dissection No back pain red flags on initial exam making , lesion of spine less likely. Abdomen soft nontender distal pulse abdominal masses or bruits noted. There is no flank pain or trouble with urination to suggest nephrolithiasis or pyelonephr itis. Given report of trauma did obtain image to rule out any bony injury perform a CT scan of the lumbar spine. I initially treated the patient with oral anti-inflammatories, muscle relaxers, narcotics and steroids. ALL IMAGES (IF OBTAINED) HAVE BEEN PERSONALLY REVIEWED AND INTERPRETED BY MYSELF. CT scan of the lumbar spine was negative Suspect acute on chronic back pain. Low suspicion for spinal emergency. No indication for transfer or emergent spine consultation. Will give a short course of steroids, muscle relaxers and narcotics. Will encourage him to follow with his spinal surgeon as well as pain management. The patient and/or family, caregivers express understanding. The patient and/or family, caregivers agrees with the plan. Shared decision making: I will have a discussion with the patient and or visitors regarding risk/benefits of further testing or admission. They will be made aware of of the risk/benefits inherent in this decision they will be given the opportunity to voice understanding. Total critical care time today provided was at least 0 minutes. This excludes separately billable procedures. Critical care time (if documented) is secondary to the patient having high probability of clinically significant/life threatening deterioration in the patient's condition which required my urgent intervention. Impression: 1. Acute on chronic low back pain Dispo: Discharge home This note was generated with [employer] dictation software. It may contain incorrect words, spelling, and punctuation that were not noted in review of the chart prior to signing. Radiography Diagnostic Testing: Clinical Impression(s) from Imaging Studies Lumbar Spine CT 01/09/25 19:47 IMPRESSION: NO ACUTE LUMBAR FRACTURE. DEGENERATIVE CHANGES. Reading Location: [facility] Discharge Plan Triage Chief Complaint: Back ED Provider: Devante Waite Dx/Rx/DC Orders Instructions: ED Back Pain (Acute or Chronic) Prescriptions: New oxycodone 5 mg tablet 5 mg PO Q6H PRN (Reason: pain) 3 Days Qty: 12 0RF orphenadrine citrate 100 mg tablet extended release 100 mg PO BID PRN (Reason: back pain) 3 Days Qty: 7 0RF prednisone 20 mg tablet 20 mg PO DAILY 5 Days Qty: 5 0RF No Action ibuprofen 200 MG tablet 800 mg PO PRN PRN (Reason: Pain) Patient Comments: PT REPORTS TAKING 1200MG MOTRIN 1-4 TIMES A DAY. naproxen 500 mg tablet 500 mg PO BID Qty: 14 0RF Stand Alone Forms: ED Work / School Excuse Primary Care Provider: Joshua Portillo Referrals: Mitchell Enriquez MD [Med Staff - Active Staff] - Joshua Portillo MD [Primary Care Provider] - Activity Restrictions/Additional Instructions: Thank you for trusting us with your care today! Your CT scan was negative for acute bony abnormalities. Please take Tylenol (2 pills, 650 mg), ibuprofen (2 pills, 400 mg) every 6 hours as needed for pain and fever control. Please take Norflex (muscle relaxer as prescribed. Please take prednisone (anti-inflammatory) as prescribed In addition to the above regimen please take oxycodone for breakthrough pain. Please return to the emergency department if your symptoms change or worsen. Please follow with your primary care physician and pain management for further outpatient evaluation and management. Print Language: Syriac Disposition Disposition: Home, Self Care
--- NOTE | 2025-01-09 19:47 | CT_ITS ---
PROCEDURE: SPINE LUMBAR WITHOUT CONTRAST 01/09/2025 REASON FOR EXAM: 49-year-old male, back pain after fall. Multiple prior spine surgeries. TECHNIQUE: Lumbar spine CT without contrast. Coronal and Sagittal reconstruction series were provided. One or more dose reduction techniques were used (e.g., Automated exposure control, adjustment of the mA and/or kV according to patient size, use of iterative reconstruction technique COMPARISON: Lumbar spine MRI 05/06/2020. RADIATION DOSE SUMMARY: CTDlvol: 14 mGy DLP: 500 mGycm FINDINGS: Vertebrae: Prior posterior instrumentation and spinal fixation of the L4-S1 vertebral bodies, L4-5 laminectomy and interbody disc spacers. No acute osseous fracture. Alignment: No traumatic subluxation. 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 No neural foraminal stenosis. Sacrum: Mild bilateral SI joint arthrosis. Minimal calcific plaque of the abdominal aorta. The visualized bowel loops are normal in caliber. CT/Spine Lumbar without Contrast IMPRESSION: NO ACUTE LUMBAR FRACTURE. DEGENERATIVE CHANGES. Reading Location: [id number]
[2025-01-09] MEDS: Orphenadrine 100 MG Tablet PO (20:15)
[2025-01-09] MEDS: oxyCODONE 5 MG Tablet PO (20:15)
[2025-01-09] MEDS: predniSONE 20 MG Tablet 40 MG PO (20:15)
[2025-01-09] MEDS: Ibuprofen 200 MG Tablet 400 MG PO (20:15)
[2025-01-09 20:36] VITALS: BP 116/78; PULSE 68; O2SAT 100
[2025-01-09 22:00] VITALS: BP 130/80; PULSE 70; RESP 18; O2SAT 98
== END 2025-01-09 22:45 | disposition home or self-care (01) ==
PROVIDERS: Emergency Provider Emergency Medicine; PCP Internal Medicine; Referring Provider Emergency Medicine; Visit Provider Emergency Medicine
DX: M54.50 Low back pain, unspecified (principal); G89.29 Other chronic pain; W19.XXXA Unspecified fall, initial encounter; R35.0 Frequency of micturition; R26.2 Difficulty in walking, not elsewhere classified; R29.898 Other symptoms and signs involving the musculoskeletal system; F17.210 Nicotine dependence, cigarettes, uncomplicated
CPT/HCPCS: 72131; 99283

== ENCOUNTER 2025-03-29 23:53 | Emergency (ER) | payer BC, SELFPAY ==
[2025-03-29 23:54] VITALS: BP 130/86; PULSE 67; RESP 18; TEMP 36.7; O2SAT 99; BMI 23.3
--- NOTE | 2025-03-30 00:10 | ED.VIS.LOWEX ---
HPI History of Present Illness Chief Complaint: Lower Extremity Injury Informant: patient Narrative Narrative: 49-year-old male states he was walking today around 10 hours ago, in a store, noticed that his left foot started hurting and it has been hurting significantly ever since and 1 particular spot in the medial aspect, hurts to walk on but he is able. He denies any injury that he can recall. He denies any systemic symptoms or fevers. PFSH PFSH Home Medications ?Medication ?Instructions ?Recorded ?Last Taken ?Type ibuprofen 200 mg tablet 800 mg PO PRN PRN Pain 09/25/17 09/25/17 History acetaminophen 500 mg tablet 1,000 mg PO Q6H PRN pain 03/29/25 Unknown History Allergy/AdvReac Type Severity Reaction Status Date / Time hydromorphone HCl (From AdvReac Upset Verified 10/20/23 08:40 Dilaudid) Stomach Family History no significant family his Surgical History H/O hand surgery History of back surgery History of hernia surgery History of tonsillectomy Social History household members: spouse, family and children housing: house Smoking Status: Current every day smoker tobacco type: cigarettes ROS ROS ED Constitutional Constitutional ED: Denies chills or fever(s) Musculoskeletal Musculoskeletal: Reports extremity pain; Denies neck pain Integumentary Denies Abrasions, rash or wounds Neurologic Neurologic: Denies paresthesias or weakness EXAM Physical Exam Const Vital Signs: 03/29/25 23:54 Temperature 98.1 F Temperature Source Oral Pulse Rate 67 Respiratory Rate 18 Blood Pressure 130/86 H Blood Pressure Mean 100 Pulse Ox 99 Oxygen Delivery Method Room Air Positive well nourished and well developed General Appearance ED: well developed and NAD Neck full ROM and supple Back/Spine normal ROM and normal to inspection Extremity Extremity Narrative: Patient has prominent navicular at the medial aspect of both feet. They look and feel symmetric, but he is extremely tender to palpate the 1 on the left. There is no other areas of significant tenderness in the left foot. The soft tissue is appear normal, there is no erythema or swelling or abscess or lymphangitis or problems moving the toes or the ankle. Neuro oriented x3, no focal motor deficits and no sensory deficits noted Sensorium / Orientation: alert Psych mental status grossly normal and thought process normal Skin no wounds Rashes: no rashes MDM MDM MDM Narrative Medical decision making narrative: Obtain three-view x-ray series of the left foot, there is an abnormality at the medial aspect of the navicular, exactly where he is having pain. However, it appears smooth-walled and not like an acute fracture on my interpretation. 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 Unclear why this is hurting him at this time. Differential includes accessory navicular syndrome, os naviculare pedis malacia, with or without stress fracture. I see no reason why he cannot be weightbearing as tolerated and follow-up with podiatry as an outpatient, he was given a dose of Naprosyn and if he is unable to bear weight safely he will be offered crutches. Radiography Diagnostic Testing: Clinical Impression(s) from Imaging Studies Foot X-Ray 03/30/25 00:18 IMPRESSION: 1. 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 2. Minimal inferior calcaneal spur. 3. No acute findings. 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 acetaminophen 500 mg tablet 1,000 mg PO Q6H PRN (Reason: pain) Primary Care Provider: Joshua Portillo Referrals: Chang Villasenor DPM [Med Staff - Active Staff] - Activity Restrictions/Additional Instructions: There is no sign of an acute fracture, you have an accessory navicular. Possibilities from having pain here is accessory navicular syndrome, stress fracture, vitamin deficiencies which we are not able to test for in the emergency department. Follow-up with podiatry initially, and if you have any footwear that is rubbing against this area, you may want to avoid it or change it. Weightbearing as tolerated is reasonable. Topical treatments such as Biofreeze, anti-inflammatories like Aleve or ibuprofen are reasonable. Print Language: Mongolian Disposition Disposition: Home, Self Care
--- OUTSIDE RECORDS SUMMARY | 2025-03-30 00:16 | XMS RPT_ITS | CCD ---
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 Name Role Phone Joshua Portillo MD Primary Care Provider [phone] NO, PHYSICIAN Primary Care Unavailable BUCK SWEENEY Attending Unavailable Joshua Portillo MD Primary Care Provider [phone] FELIX MEDINA, DR LUEVANO Primary Care Physician JOSHUA PORTILLO Primary Care Unavailable MARK BAKER Attending Unavailable JOSHUA PORTILLO Primary Care Unavailable GINGER TORRES Referring Unavailable JOSHUA PORTILLO Primary Care Unavailable GINGER TORRES Attending Unavailable JOSHUA PORTILLO Primary Care Unavailable MARK BAKER Referring Unavailable SULEIMAN TRUJILLO Attending Unavailable JOSHUA PORTILLO Referring Unavailable JOSHUA PORTILLO Primary Care Unavailable JOSHUA PORTILLO Attending Unavailable JOSHUA PORTILLO Primary Care Unavailable VICKI BURROWS MD Attending Unavailable FELIX MEDINA, DR LUEVANO Primary Care UnavailJoshua Love MD Primary Care Provider [phone] HALEY BHAKTA Referring Unavailable JOSHUA PORTILLO Primary Care Unavailable HALEY BHAKTA Attending Unavailable JOSHUA PORTILLO Primary Care Unavailable SULEIMAN TRUJILLO Referring Unavailable JOSHUA PORTILLO Primary Care Unavailable Dr. Joshua Portillo MD Primary Care Provider Dr. Devante Waite DO Referring Provider Dr. Devante Waite DO Emergency Provider Jefry Galloway Attending Unavailable Joshua Portillo Primary Care Unavailable Joshua Portillo Primary Care Unavailable Devante Waite Attending Unavailable Devante Waite Referring Unavailable Allergies Allergy Classification Reported Allergen(s) Allergy Type Date of Onset Reaction(s) Facility (20 sources) HYDROmorphone; Translations: [HYDROMORPHONE (BULK)] Drug Allergy 4 Vomiting, GI Upset [facility] (2 sources) HYDROmorphone; Translations: [HYDROMORPHONE] Drug Allergy 3 [facility] Repository (1 source) HYDROmorphone Drug Allergy 4 [facility] Repository Medications Current Medications Medication Drug Class(es) Dates Sig (Normalized) Sig (Original) acetaminophen 500 mg oral tablet (14 sources) take 1 tablet by mouth every eight hours as needed acetaminophen (TYLENOL) 500 mg tablet Take 500 mg by mouth every 8 hours as needed. Active Comment on above: Take 500 mg by mouth every 8 hours as needed. ibuprofen 200 mg oral tablet (19 sources) Nonsteroidal Anti-inflammatory Drug Start: 09-25-2017 Ibuprofen 200 MG tablet Active 800 mg PO NEEDED as needed for Pain September 25, 2017 1:00am Start: 09-25-2017 Ibuprofen Acti ve 800 MG PO NEEDED September 25, 2017 1:00am take 1 tablet by naeem th every six hours as needed ibuprofen (MOTRIN) 200 mg tablet Take 200 mg by mouth every 6 hours as needed. Active Comment on above: Take 200 mg by mouth every 6 hours as needed. meclizine hydrochloride 25 mg oral tablet (1 source) Antiemetic Start: 2023 End: 2023 meclizine 25 mg oral tablet Dose : 25 mg = 1 tab(s), PO, TID, As needed vertigo, X 5 day(s), # 15 tab(s), 0 Refill(s), 11/06/23 2:58:00 PM EST Start Date: 11/01/23 Stop Date: 11/06/23 Status: Ordered methylPREDNISolone (2 sources) Corticosteroid Start: 2022 End: 2022 methylPREDNISolone (MEDROL, REBECCA,) 4 mg Dose-Pack Indications: Spondylolisthesis, lumbar region As Instructed per package 1 tablet 0 08/30/2023 09/04/2023 Active Comment on above: As Instructed per rickey acevedo naproxen 500 mg oral tablet (8 sources) Nonsteroidal Anti-inflammatory Drug Start: 2022 take 1 tablet by mouth twice daily Naproxen 500 mg tablet Active 500 mg PO TWICE A DAY August 25, 2023 1:00am Start: 08-24-2013 End: 09-20-2013 take 1 tablet by mouth twice daily as needed for pain Naproxen 500 MG tablet Discontinued 500 mg PO TWICE DAILY NEEDED as needed for Pain August 24, 2013 1:00am September 20, 2013 2:22am with food ondansetron 4 mg disintegrating oral tablet (2 sources) Serotonin-3 Receptor Antagonist Start: 10-30-2023 take 1 tablet by mouth every eight hours as needed for nausea ondansetron orally disintegrating (ZOFRAN ODT) 4 mg disintegrating tablet Indications: Vertigo Take 1 tablet by mouth every 8 hours as needed for nausea/vomiting. 15 tablet 0 10/30/2023 Active Comment on above: Take 1 tablet by naeem th every 8 hours as needed for nausea/vomiting. 12 hr orphenadrine citrate 100 mg extended release oral tablet (1 source) Muscle Relaxant Start: 01-09-2025 take 1 tablet by mouth twice daily as needed for pain Orphenadrine Citrate 100 mg tablet extended release Active 100 mg PO TWICE A DAY as needed for back pain 7 January 09, 2025 10:18pm oxyCODONE hydrochloride 5 mg oral tablet (1 source) Opioid Agonist Start: 01-09-2025 take 1 tablet by mouth every six hours as needed for pain Oxycodone 5 mg tablet Active 5 mg PO EVERY 6 HOURS as needed for pain 12 January 09, 2025 predniSONE 20 mg oral tablet (6 sources) Start: 01-09-2025 take 1 tablet by mouth once daily Prednisone 20 mg tablet Active 20 mg PO DAILY 5 January 09, 2025 12:00am Start: 06-24-2023 End: 08-25-2023 take 1 tablet by mouth once daily Prednisone 50 mg tablet Discontinued 50 mg PO DAILY June 24, 2023 12:00am August 25, 2023 1:30pm Completed/Discontinued Medications Medication Drug Class(es) Dates Sig (Normalized) Sig (Original) acetaminophen 325 mg / HYDROcodone bitartrate 5 mg oral tablet (13 sources) Opioid Agonist Start: 08-25-2023 End: 02-21-2024 Hydrocodone-Acetami nophen 5-325 mg tablet Discontinued 1 {tbl} PO EVERY 6 HOURS NEEDED as needed for Pain 10 August 25, 2023 February 21, 2024 11:11am Start: 08-25-2023 End: 02-21-2024 take 1 tablet by mouth every six hours as needed Hydrocodone-Acetaminophen Discontinued 1 TABLET PO EVERY 6 HOURS NEEDED 10 August 25, 2023 February 21, 2024 11:11am Start: 04-14-2020 End: 04-16-2020 Hydrocodone-Acetaminophen 1 TABLET tablet Discontinued 1 - 2 {tbl} PO EVERY 4 HOURS NEEDED as needed for Pain 12 April 14, 2020 April 15, 2020 12:00am April 16, 2020 12:02am Start: 04-14-2020 End: 04-16-2020 take 1 tablet by mouth every four hours as needed Hydrocodone-Acetaminophen Discontinued 1 - 2 TABLET PO EVERY 4 HOURS NEEDED 12 April 14, 2020 April 16, 2020 12:02am Start: 03-30-2020 End: 04-01-2020 Hydrocodone-Acetaminophen 1 TABLET tablet Discontinued 1 {tbl} PO EVERY 4 HOURS NEEDED as needed for Pain 10 March 30, 2020 March 31, 2020 12:00am April 01, 2020 12:02am Start: 03-30-2020 End: 04-01-2020 take 1 tablet by mouth every four hours as needed Hydrocodone-Acetaminophen Discontinued 1 TABLET PO EVERY 4 HOURS NEEDED 10 March 30, 2020 April 01, 2020 12:02am acetaminophen 325 mg / oxyCODONE hydrochloride 5 mg oral tablet (5 sources) Opioid Agonist Start: 05-05-2020 End: 05-08-2020 Oxycodone-Acetaminophen 1 TABLET tablet Discontinued 1 {tbl} PO EVERY 6 HOURS NEEDED as needed for Pain 12 May 05, 2020 May 07, 2020 12:00am May 08, 2020 12:03am Start: 05-05-2020 End: 05-08-2020 take 1 tablet by mouth every six hours as needed Oxycodone-Acetaminophen Discontinued 1 TABLET PO EVERY 6 HOURS NEEDED 12 May 05, 2020 May 08, 2020 12:03am [id number] 200 actuat albuterol 0.09 mg/actuat metered dose inhaler (14 sources) beta2-Adrenergic Agonist Start: 06-24-2023 End: 12-11-2023 albuterol HFA (PROVENTIL HFA, VENTOLIN HFA) 90 mcg/actuation inhaler EVERY 4 HOURS NEEDED 0 06/24/2023 09/25/2023 Discontinued (Course of therapy completed) Start: 06-24-2023 End: 08-30-2023 albuterol HFA (PROVENTIL HFA , VENTOLIN HFA) 90 mcg/actuation inhaler Inhale 1.25 mg as instructed. 0 06/24/2023 08/30/2023 Discontinued (Duplicate Entry) Start: 06-24-2023 End: 02-21-2024 take 1.25 mg by inhalation every four hours Albuterol Sulfate 1.25 mg/3 mL solution for nebulization Discontinued 1.25 mg INHALATION Q4H 75 June 24, 2023 12:00am February 21, 2024 11:11am Start: 06-24-2023 End: 02-21-2024 Albuterol Sulfate (Ventolin Hfa) 90 mcg/actuation HFA aerosol inhaler Discontinued 2 NMA INHALATION EVERY 4 HOURS NEEDED as needed for Wheezing 6.7 June 24, 2023 12:00am February 21, 2024 11:11am Start: 06-24-2023 End: 02-21-2024 take 1 puff(s) by inhalation every four hours as needed Albuterol Sulfate (Ventolin Hfa) 90 mcg/actuation HFA aerosol inhaler Discontinued 2 PUFF INHALATION EVERY 4 HOURS NEEDED 6.7 June 24, 2023 12:00am February 21, 2024 11:11am Comment on above: EVERY 4 HOURS NEE DED Inhale 1.25 mg as in structed. azithromycin 250 mg oral tablet (5 sources) Macrolide Antimicrobial Start: 013 End: take 1 tablet by mouth once daily Azithromycin 250 MG tablet Discontinued 250 mg PO DAILY 4 August 24, 2013 1:00am September 20, 2013 2:22am benzonatate 200 mg oral capsule (5 sources) Non-narcotic Antitussive Start: 023 take 1 capsule by mouth every eight hours as needed Benzonatate 200 mg capsule Take 1 capsule by mouth three times daily as needed. 21 capsule 0 06/29/2023 Active Comment on above: Take 1 capsule by mo uth three times daily as needed. brompheniramine maleate 0.4 mg/ml / dextromethorphan hydrobromide 2 mg/ml / pseudoephedrine hydrochloride 6 mg/ml oral solution (3 sources) alpha-Adrenergic Agonist, Uncompetitive K-wwgqcv-W-aspartate Receptor Antagonist, Sigma-1 Agonist Start: End: take 10 mL by mouth every four to six hours Brompheniramine-Pse udoeph-DM 2-30-10 mg/5 mL syrup Take 10 mL (Oral) every 4-6 hours for 5 days 0 06/20/2023 09/25/2023 Discontinued (Course of therapy completed) Comment on above: Take 10 mL (Oral) ev hiro 4-6 hours for 5 days doxycycline hyclate 100 mg oral capsule (8 sources) Tetracycline-class Drug Start: End: take 1 capsule by mouth once daily Doxycycline Hyclate 100 mg capsule Discontinued 100 mg PO DAILY June 24, 2023 12:00am August 25, 2023 1:30pm Comment on above: Take 1 capsule by [facility] every afternoon. fluorouracil 50 mg/ml topical cream (7 sources) Nucleoside Metabolic Inhibitor Start: Fluorouracil (EFUDEX) 5 % cream Indications: Actinic keratosis Apply a thin layer to the affected areas on the hands and arms twice daily for 4-6 weeks. May take a break if needed. If not red after using for the suggested length of time, please use for an additional 2 weeks. 40 g 3 09/30/2022 Active Comment on above: Apply a thin layer t o the affected areas on the hands and arms twice daily for 4-6 weeks. May take a break if needed. If not red after using for the suggested length of time, please use for an additional 2 weeks. imiquimod 50 mg/ml topical cream (7 sources) Start: imiquimod (ALDARA) 5 % cream Indications: Actinic cheilitis Apply Imiquimod 5% to the bottom lip 3 times a week for 4-6 weeks. The cream should be applied at night, ideally at least one hour before bedtime, and washed off after eight hours. 12 Each 3 09/30/2022 Active Comment on above: Apply Imiquimod 5% t o the bottom lip 3 times a week for 4-6 weeks. The cream should be applied at night, ideally at least one hour before bedtime, and washed off after eight hours. Problems Active Problems Problem Classification Problem Date Documented Da te Episodic/Chronic Allergic reactions (1 source) Actinic cheilitis; Translations: [Other specified acute skin changes due to ultraviolet radiation] Episodic Chronic obstructive pulmonary disease and bronchiectasis (5 sources) Acute exacerbation of chronic obstructive airways disease; Translations: [Chronic obstructive pulmonary disease with (acute) exacerbation] 06-24-2023 Chronic Conditions associated with dizziness or vertigo (2 sources) Dizziness and giddiness; Translations: [Dizziness and giddiness] Onset: 10-31-2023 Episodic Contraceptive and procreative management (2 sources) Encounter for other general counseling and advice on contraception; Translations: [Encounter for sterilization] Onset: 09-25-2023 Episodic Diabetes mellitus without complication (1 source) Hyperglycemia; Translations: [Hyperglycemia, unspecified] Onset: 11-01-2023 Episodic Essential hypertension (1 source) Essential hypertension; Translations: [Essential (primary) hypertension] Onset: 11-01-2023 Chronic Headache; including migraine (17 sources) Cervicogenic headache; Translations: [Cervicogenic headache] Onset: 08-17-2022 Episodic Influenza (3 sources) Influenza due to Influenza A virus; Translations: [Influenza due to other identified influenza virus with other respiratory manifestations] 10-20-2023 Episodic Nonspecific chest pain (5 sources) Atypical chest pain; Translations: [Other chest pain] 06-28-2014 Episodic Open wounds of head; neck; and [...] fusion; Translations: [Arthrodesis status] 08-30-2023 Episodic Other injuries and conditions due to external causes (2 sources) Unspecified injury of head, initial encounter; Translations: [Unspecified injury of head, initial encounter] Onset: 06-07-2023 Episodic Other lower respiratory disease (5 sources) Cough; Translations: [Cough] 06-24-2023 Episodic Other lower respiratory disease (4 sources) History of chronic obstructive airway disease; Translations: [Personal history of other diseases of the respiratory system] 08-25-2023 Episodic Other nervous system disorders (5 sources) Paresthesia of lower extremity; Translations: [Paresthesia of skin] 08-30-2015 Episodic Other nervous system disorders (1 source) Anesthesia of skin; Translations: [Anesthesia of skin] Onset: 11-25-2024 Episodic Other screening for suspected conditions (not mental disorders or infectious disease) (5 sources) Patient encounter status; Translations: [Encounter for screening for malignant neoplasm of colon] Episodic Other skin disorders (1 source) Actinic keratosis; Translations: [Actinic keratosis] Episodic Other skin disorders (1 source) Seborrheic keratosis; Translations: [Other seborrheic keratosis] Episodic Other skin disorders (1 source) Solar lentigo; Translations: [Other melanin hyperpigmentation] Episodic Spondylosis; intervertebral disc disorders; other back problems (20 sources) Sciatica; Translations: [Sciatica, right side] Onset: 06-16-2020 Resolved: 08-17-2022 04-15-2020 Episodic Substance-related disorders (14 sources) Tobacco user; Translations: [Nicotine dependence, unspecified, uncomplicated] Onset: 03-24-2021 03-24-2021 Chronic Superficial injury; contusion (5 sources) Abrasion of left middle finger; Translations: [Abrasion of left middle finger, initial encounter] 05-25-2016 Episodic Viral infection (2 sources) Genital warts; Translations: [Anogenital (venereal) warts] Onset: 09-25-2023 09-25-2023 Episodic Past or Other Problems Problem Classification Problem Date Documented Da te Episodic/Chronic Abdominal hernia (2 sources) Left inguinal hernia ; Translations: [Unilateral inguinal hernia, without obstruction or gangrene, not specified as recurrent] Onset: 12-22-2015 Resolved: 08-17-2022 08-17-2022 Episodic Other acquired deformities (15 sources) Lumbar spondylolisthesis; Translations: [Spondylolisthesis, lumbar region] Onset: 05-21-2020 05-25-2020 Episodic Other acquired deformities (1 source) Spondylolisthesis, lumbar region; Translations: [Spondylolisthesis, lumbar region] Onset: 05-25-2020 Episodic Other connective tissue disease (1 source) Arthrodesis status; Translations: [Status post lumbar spinal fusion] Onset: 08-30-2023 Episodic Other lower respiratory disease (15 sources) Multiple nodules of lung; Translations: [Other nonspecific abnormal finding of lung field] Onset: 04-09-2021 04-09-2021 Episodic Other lower respiratory disease (1 source) Other nonspecific abnormal finding of lung field; Translations: [Lung nodules] Onset: 04-09-2021 Episodic Results Test Name Value Interpretation Reference Range Facility Emergency Department Summary on 01-09-2025 Emergency Department Summary [facility] Medical Records Department [address] [place] [address] Emergency Department Summary 01/09/25 MR#: [id number] Acct: [id number] Name: CRISTELA MCNALLY Rep #: [id number] : 1975 49 From: Devante Waite DO PCP: Dr. Joshua Portillo MD Status:REG ER Location: ED HPI History of Present Illness Chief Complaint: Back PFSH PFSH Home Medications ???Medication ???Instructions ???Recorded ???Last Taken ???Type ibuprofen 200 mg tablet 800 mg PO PRN PRN Pain 09/25/17 History naproxen 500 mg tablet 500 mg PO BID #14 tabs 08/25/23 Un known Rx orphenadrine citrate 100 mg 100 mg PO BID PRN back pain 3 days 01/09/25 Unknown Rx tablet,extended release #7 tabs oxycodone 5 mg tablet 5 mg PO Q6H PRN pain 3 days #12 Unknown Rx tabs prednisone 20 mg tablet 20 mg PO DAILY 5 days #5 tabs 12/15 05/09 Unknown Rx Allergy/AdvReac Type Severity Reaction Status Date / Time hydromorphone HCl (From AdvReac Upset Verified 10/20/23 08:40 Dilaudid) Stomach Family History no significant family his Surgical History H/O hand surgery History of back surgery History of hernia surgery History of tonsillectomy Social History household members: spouse, family and children housing: house Smoking Status: Current every day smoker tobacco type: cigarettes EXAM Physical Exam Const Vital Signs: 01/09/25 18:36 01/09/25 20:36 01/09/25 22:00 Temperature 97.8 F Temperature Source Temporal Pulse Rate 84 68 70 Respiratory Rate 18 18 Blood Pressure 139/118 H 116/78 130/80 H Blood Pressure Mean 125 90 96 Pulse Ox 99 100 98 MDM MDM MDM Narrative Medical decision making narrative: HISTORY OF PRESENT ILLNESS: 49-year-old male presents with chronic back pain. Notes history of 5 back surgeries. He states he is worsening pain and difficulty walking. Notes a fall 2 to 3 days ago. Which he landed on his back. No car accidents or other trauma noted. Notes since then his back's been bothering him. He notes chronic weakness mostly in right lower extremity. He notes he is having difficulty walking secondary to pain. Denies new focal weakness or loss of sensation or movement. He does note some increased frequency of urination. Denies blood in his urine or dysuria. Denies chest or abdominal pain. Patient denies any saddle anesthesia, urinary retention, bowel or bladder incontinence, lower extremity weakness, fever or IV drug use, no recent spinal manipulation or surgery, no recent urinary catheterization. REVIEW OF SYSTEMS: Pertinent positives: Back pain Pertinent negatives: As per HPI PHYSICAL EXAM: Nursing triage notes reviewed, Vital signs reviewed Constitutional: please see mdm Abdomen: Soft, there is no tenderness, rigidity, rebound or guarding, no obvious peritoneal signs, no palpable pulsatile abdominal masses, no auscultated abdominal bruit : No CVAT Back: No midline step-offs or deformities. Left lower lumbar paraspinal TTP. No rashes or other lesions noted. Extremities: No edema Neuro: Intact sensation L1-S1 dermatomal distributions. Intact 5/5 strength in hip flexion (T12- L3). Knee extension (L2-L4). Ankle dorsiflexion (L4-L5). Ankle plantar flexion (S1). Great toe extension (L5). 2+ patellar and Achilles DTRs. Skin: No rash or lesions noted MEDICAL DECISION MAKING: Chief Complaint: Back pain External records reviewed: Reviewed prior imaging studies: Reviewed MRI from 2019 which showed interval discectomy Factors affecting care: Chronic back pain Social determinants of health: patient denies IV drug History obtained from others: none Consults: none [facility] Narrative: The patient was initially hemodynamically stable, afebrile and nontoxic-appearing . Exam without focal lower extremity neurologic abnormalities. The patient did have significant weakness in bilateral lower extremities it is difficult to ascertain this is acute or chronic given his history of back surgeries and chronic weakness. I considered the following differential diagnosis: Musculoskeletal back pain, space-occupying lesion of the spinal (epidural abscess, epidural hematoma), cauda equina, conus medullaris, fracture dislocation, AAA, nephrolithiasis, pyelonephritis, aortic dissection No back pain red flags on initial exam making , lesion of spine less likely. Abdomen soft nontender distal pulse abdominal masses or bruits noted. There is no flank pain or trouble with urination to suggest nephrolithiasis or pyelonephritis. Given report of trauma did obtain image to rule out any bony injury perform a CT scan of the lumbar spine. I initially treated the patient with oral (more content not included)... Normal [facility] Spine Lumbar without Contras ton 01-09-2025 Spine Lumbar without Contrast [facility] Imaging Services [address] [place], [place] [address] Spine Lumbar without Contrast MR#: [id number] Acct: [id number] Name: CRISTELA MCNALLY Rep #: [id number] : 1975 M 49 From: Alison Schofield nd, MD PCP: Dr. Joshua Portillo MD Status: REG ER Study: Spine Lumbar without Contrast Date of Exam: Exam# [id number] Ordering Dr: Devante Waite DO PROCEDURE: SPINE LUMBAR WITHOUT CONTRAST 01/09/2025 REASON FOR EXAM: 49-year-old male, back pain after fall. Multiple prior spine surgeries. TECHNIQUE: Lumbar spine CT without contrast. Coronal and Sagittal reconstruction series were provided. One or more dose reduction techniques were used (e.g., Automated exposure control, adjustment of the mA and/or kV according to patient size, use of iterative reconstruction technique COMPARISON: Lumbar spine MRI 05/06/2020. RADIATION DOSE SUMMARY: CTDlvol: 14 mGy DLP: 500 mGycm FINDINGS: Vertebrae: Prior posterior instrumentation and spinal fixation of the L4-S1 vertebral bodies, L4-5 laminectomy and interbody disc spacers. No acute osseous fracture. Alignment: No traumatic subluxation. 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 No neural foraminal stenosis. Sacrum: Mild bilateral SI joint arthrosis. Minimal calcific plaque of the abdominal aorta. The visualized bowel loops are normal in caliber. CT/Spine Lumbar without Contrast IMPRESSION: NO ACUTE LUMBAR FRACTURE. DEGENERATIVE CHANGES. Reading Location: [id number] CC: Dr. Devante Waite DO; Dr. Joshua Portillo MD Supervisor Hanging And Trimming: Signed Normal [facility] CNOVon 03-06-2024 CNOV Office Visit (ANDRBA) -------- CRISTELA MCNALLY ([id number]) 1975 M Date Time Provider Department 03/06/24 2:00 PM ANDROLOGY RADIATION CONTROL WORKER BATH ANDRBA During your visit today, we recorded the following information about you: Sammy Galvan 03/06/2024 2:43 PM Signed Post vasectomy semen analysis. Sammy Galvan Referring Provider: SULEIMAN TRUJILLO [[id number]] Allergies As of Date: 03/06/2024 Noted Allergy Reaction DILAUDID (HYDROMORPHONE (BULK)) 06/23/2014 11 - Vomiting DILAUDID (HYDROMORPHONE (BULK)) 03/06/2015 8 - GI Upset Comments: vomit Date Reviewed: 12/01/2023 Reviewed by: Romie Sims MA - Fully Assessed Visit Diagnosis:Encounte r for sterilization [Z30.2] Order(s):POST VASEC SCREEN [SQSEPOST] Order #: [id number]. #:[id number] ty: 1 Prescriptions as of 03/06/2024 - ondansetron orally disintegrating (ZOFRAN ODT) 4 mg disintegrating tablet Take 1 tablet by mouth every 8 hours as needed for nausea/vomiting. - acetaminophen (TYLENOL) 500 mg tablet Take 500 mg by mouth every 8 hours as needed. - ibuprofen (MOTRIN) 200 mg tablet Take 200 mg by mouth every 6 hours as needed. Meds Comments as of 03/24/2021: Ibuprofen/tylenol OTC PRN March 24, 2021 Mirella Marks MA Problem List As Of Date 03/06/2024 Noted Resolved Left inguinal hernia [K40.90] 12/22/2015 08/17/2022 Spondylolisthesis, lumbar region [M43.16] 05/21/2020 Low back pain with right-sided sciatica [M54.41]06/16/2020 08/17/2022 Tobacco use disorder [F17.200] 03/24/2021 Lung nodules [R91.8] 04/09/2021 Cervicogenic headache [G44.86] 08/17/2022 Encounter Status:Closed by SAMMY GALVAN on 03/06/24 [facility] POST VASEC SCREENon 03-06-20 Collection time (Wilmer) [Date/time] 1:55 Normal [facility] Comment on above: Order Comment: Speci men Type: SEMINAL FLUID SPECIMEN Ordering Facility: [facility] Address: [facility] [place] [address] Result Comment: 2:18 Performed By: #### S EPOST #### [facility] CLIA [id number] [place] [address] Color (Wilmer) Clear Normal [facility] Comment on above: Order Comment: Speci men Type: SEMINAL FLUID SPECIMEN Ordering Facility: [facility] Address: [address] [place] [address] Performed By: #### S EPOST #### [facility] [place] [id number] [address] [place] [address] POST VASECTOMY SCREEN Pass per AUA guidelines (<=100,000 non-motile sperm/mL ) Normal Pass per AUA guidelines (<=100,000 non-motile sperm/mL ) [facility] Comment on above: Order Comment: Speci men Type: SEMINAL FLUID SPECIMEN Ordering Facility: [facility] Address: [address] [place] [address] Performed By: #### S EPOST #### [facility] [place] [id number] [facility] [facility] [place] [address] Sexual abstinence duration [Time] 3.0 Days Normal [facility] Comment on above: Order Comment: Speci men Type: SEMINAL FLUID SPECIMEN Ordering Facility: [facility] Address: [address] [place] [address] Performed By: #### S EPOST #### [facility] [place] [id number] [facility] [place] [address] Specimen volume (Wilmer) 7.20 mL Normal >=1.50 [facility] Comment on above: Order Comment: Speci men Type: SEMINAL FLUID SPECIMEN Ordering Facility: [facility] Address: [address] [place] [address] Performed By: #### S EPOST #### [facility] [place] [id number] [facility] [place] [address] SPERM CONCENTRATION, POST VASECTOMY 1500 non-motile sperm/mL Normal <=[id number] [facility] Comment on above: Order Comment: Speci men Type: SEMINAL FLUID SPECIMEN Ordering Facility: [facility] Address: [address] [place] [address] Result Comment: 3 no n-motile sperm per 2ul Performed By: #### S EPOST #### [facility] CLIA [id number] [address] [place] [address] Spermatozoa Motile/100 spermatozoa (Wilmer) No motile sperm seen Normal No motile sperm seen [facility] Comment on above: Order Comment: Speci men Type: SEMINAL FLUID SPECIMEN Ordering Facility: [facility] Address: [address] [place] [address] Performed By: #### S EPOST #### [facility] CLIA [id number] [address] [facility] [place] [address] TIME TO ANALYSIS 23 Minutes Normal 0-60 [facility] Comment on above: Order Comment: Speci men Type: SEMINAL FLUID SPECIMEN Ordering Facility: [facility] Address: [address] [place] [address] Performed By: #### S EPOST #### [facility] CLIA [id number] [address] [place] [address] Collection time (Wilmer) [Date/time] 1:55 [facility] Collection time (Wilmer) [Date/time] 2:18 [facility] Color (Wilmer) Clear [facility] Post Vasectomy Screen Pass per AUA guidelines (<=100,000 non-motile sperm/mL ) Pass per AUA guidelines (<=100,000 non-motile sperm/mL ) [facility] Sexual abstinence duration [Time] 3.0 Days [facility] Specimen volume (Wilmer) 7.20 mL 1.50 - PINF mL [facility] Sperm Concentration, Post Vasectomy 1500 NINF [facility] Comment on above: 3 non-motile sperm p er 2ul Sper[place] Motile/100 spermatozoa (Wilmer) No motile sperm seen No motile sperm seen [facility] Time to Analysis 23 [facility] Absolute lymphocyte countOrd ered By: Jefry Galloway on 02-21-2024 Lymphocytes Auto (Unsp spec) [#/Vol] 2.01 10*3/uL 0.83-4.51 [facility] Automated lymphocyte count a s percentage of total leukocytesOrdered By: Jefry Galloway on 02-21-2024 Lymphocytes/100 WBC Auto (Unsp spec) 23.6 % 19-41 [facility] Basic Metabolic Profile (BMP )on 02-21-2024 BUN/CRE 15.3 RATIO Normal 10-20 [facility] Comment on above: Performed By: #### L 100.0100, L500.2500 #### [facility] [address] [place], [address] CA,Total 8.8 mg/dL Normal 8.5-10.1 [facility] Comment on above: Performed By: #### L 100.0100, L500.2500 #### [facility] [address] [place], [address] Chloride [Moles/Vol] 106 mmol/L Normal 98-107 [facility] Comment on above: Performed By: #### L 100.0100, L500.2500 #### [facility] [address] [place], [address] CO2 [Moles/Vol] 29.0 mmol/L Normal 21.0-32.0 [facility] Comment on above: Performed By: #### L 100.0100, L500.2500 #### [facility] [address] [place], [address] Creatinine [Mass/Vol] 0.78 mg/dL Normal 0.70-1.30 [facility] Comment on above: Result Comment: The validity of the calculated GFR GFRAA in patients over 70 years has not been determined. Clinical correlation is essential. Performed By: #### L 100.0100, L500.2500 #### [facility] [address] [place], [address] ECRCL 114.85 ml/min Normal [facility] Comment on above: Performed By: #### L 100.0100, L500.2500 #### [facility] [address] [place], [address] EST GFR - AA 136 mL/min Normal >60 [facility] Comment on above: Result Comment: Afri can Italian GFR Calc Performed By: #### L 100.0100, L500.2500 #### [facility] [address] [place], [address] GAP 2 Low 5-15 [facility] Comment on above: Performed By: #### L 100.0100, L500.2500 #### [facility] [address] [place], [address] GFR/1.73 sq M.predicted among non-blacks MDRD (S/P/Bld) [Vol rate/Area] 112 mL/min/{1.73_m2} Normal >60 [facility] Comment on above: Result Comment: Non- GFR Calc Performed By: #### L 100.0100, L500.2500 #### [facility] [address] [place], [address] Glucose [Mass/Vol] 87 mg/dL Normal 74-106 [facility] Comment on above: Performed By: #### L 100.0100, L500.2500 #### [facility] [address] [place], [address] Potassium [Moles/Vol] 4.1 mmol/L Normal 3.5-5.1 [facility] Comment on above: Performed By: #### L 100.0100, L500.2500 #### [facility] [address] [place], [address] Sodium [Moles/Vol] 137 mmol/L Normal 136-145 [facility] Comment on above: Performed By: #### L 100.0100, L500.2500 #### [facility] [address] [place], [address] Urea nitrogen [Mass/Vol] 12 mg/dL Normal 7-18 [facility] Comment on above: Performed By: #### L 100.0100, L500.2500 #### [facility] [address] [place], [address] Basophil percentageOrdered B y: Jefry Galloway on 02-21-2024 Basophils/100 WBC (Bld) 0.6 % 0-1 [facility] Chloride [Moles/Vol] 106 mmol/L 98-107 [facility] Eosinophils/100 WBC (Bld) 2.1 % 0-5 [facility] Glucose [Mass/Vol] 87 mg/dL 74-106 [facility] Hemoglobin (Bld) [Mass/Vol] 14.1 g/dL 13.0-16.5 [facility] Monocytes/100 WBC (Bld) 3.4 % 0-10 [facility] Neutrophils (Bld) [#/Vol] 6.0 10*3/uL 2.0-7.7 [facility] Neutrophils/100 WBC (Bld) 69.9 % 47-70 [facility] Potassium [Moles/Vol] 4.1 mmol/L 3.5-5.1 [facility] Sodium [Moles/Vol] 137 mmol/L 136-145 [facility] WBC (Bld) [#/Vol] 8.5 10*3/uL 4.4-11.0 [facility] Brain/Head WITH Contraston 0 - Brain/Head WITH Contrast [facility] Imaging Services [address] [place] [address] Brain/Head WITH Contrast MR#: [id number] Acct: [id number] Name: CRISTELA MCNALLY Rep #: [id number] : 1975 M 48 From: Angel betts MD PCP: Dr. Joshua Portillo MD Status: REG ER Study: Brain/Head WITH Contrast Date of Exam: 4 Exam# [id number] Ordering Dr: Jefry Galloway DO [id number] STUDY: CT BRAIN WITH CONTRAST REASON FOR EXAM: Male, 48 years old. Headache RADIATION DOSAGE (If Supplied By Facility): CTDIvol = ( 44.99 ) mGy, DLP = ( 779.24 ) mGycm TECHNIQUE: Transaxial CT imaging of the brain was performed post contrast administration. The examination was performed with intravenous administration of IV 50mL Isovue-370. Individualized dose optimization techniques were used for this CT. COMPARISON: Comparison is made with prior unenhanced CT scan done earlier in the day. FINDINGS: Normal soft tissue structures. Normal calvarium. Normal size ventricles and extra-axial spaces for the patient''s age. Normal white matter tracts of the cerebral hemispheres. Normal basal ganglia and thalami. Normal brainstem. Normal cerebellum. There is no intracranial hemorrhage. There are no findings of an acute ischemic infarction. Normal visualized paranasal sinuses. CT/Brain/Head WITH Contrast IMPRESSION: Normal enhanced CT scan of the brain. Electronically Signed: Angel Leo MD at 14:24 EDT Reading Location ID and State: [address] [place] [address] , Service support , CC: Dr. Jefry Galloway DO; Dr. Joshua Portillo MD Supervisor Hanging And Trimming: Signed Normal [facility] Brain/Head without Contrasto n 02-21-2024 Brain/Head without Contrast [facility] Imaging Services [address] [place], [place] [address] Brain/Head without Contrast MR#: [id number] Acct: [id number] Name: CRISTELA MCNALLY Rep #: [id number] : 1975 M 48 From: Angel betts MD PCP: Dr. Joshua Portillo MD Status: [facility] Study: Brain/Head without Contrast Date of Exam: 06/08 Exam# [id number] Ordering Dr: Jefry Galloway DO [id number] STUDY: CT BRAIN WITHOUT CONTRAST REASON FOR EXAM: Male, 48 years old. Headaches. RADIATION DOSAGE (If Supplied By Facility): CTDIvol = ( 44.99 ) mGy, DLP = ( 829.85 ) mGycm TECHNIQUE: Transaxial CT imaging of the brain was performed without administration of intravenous contrast material. Individualized dose optimization techniques were used for this CT. COMPARISON: Comparison is made with prior study dated June 16, 2014. FINDINGS: Normal soft tissue structures. Normal calvarium. Normal size ventricles and extra-axial spaces for the patient''s age. Subtle 1.5 cm x 1.5 cm hypodensity in the posterior left frontal lobe. This is unchanged since prior study. This may be a normal variant. Correlation with an enhanced CT scan of the head recommended. Normal basal ganglia and thalami. Normal brainstem. Normal cerebellum. There is no intracranial hemorrhage. There are no findings of an acute ischemic infarction. Normal visualized paranasal sinuses. CT/Brain/Head without Contrast IMPRESSION: Subtle 1.5 cm x 1.5 cm hypodensity in the posterior left frontal lobe. Correlation with enhanced CT scan the brain recommended. Electronically Signed: Angel Leo MD at 12:32 EDT Reading Location ID and State: [facility] [facility] [place] , Service support , CC: Dr. Jefry Galloway DO; Dr. Joshua Portillo MD Supervisor Hanging And Trimming: Signed Normal [facility] CBC W/Diff, Automatedon 05-0 Absolute Lymph 2.01 X10 3/uL Normal 0.83-4.51 [facility] Comment on above: Performed By: #### L 100.0100, L500.2500 #### [facility] [address] [place], [place], [id number] Absolute Neut 6.0 X10 3/uL Normal 2.0-7.7 [facility] Comment on above: Performed By: #### L 100.0100, L500.2500 #### [facility] [address] [place], [address] Basophils/100 WBC (Bld) 0.6 % Normal 0-1 [facility] Comment on above: Performed By: #### L 100.0100, L500.2500 #### [facility] [address] [place], [address] Eosinophils/100 WBC (Bld) 2.1 % Normal 0-5 [facility] Comment on above: Performed By: #### L 100.0100, L500.2500 #### [facility] [address] [place], [address] Erythrocyte distribution width (RBC) [Ratio] 13.6 % Normal 11.6-14.6 [facility] Comment on above: Performed By: #### L 100.0100, L500.2500 #### [facility] [address] [place], [address] Hematocrit (Bld) [Volume fraction] 43.3 % Normal 40-54 [facility] Comment on above: Performed By: #### L 100.0100, L500.2500 #### [facility] [address] [place], [address] Hemoglobin (Bld) [Mass/Vol] 14.1 g/dL Normal 13.0-16.5 [facility] Comment on above: Performed By: #### L 100.0100, L500.2500 #### [facility] [address] [place], [address] IG% 0.400 Normal 0.0-0.9 [facility] Comment on above: Result Comment: IG% - Immature Granulocytes (promyelocytes, myelocytes and metamyelocytes) > 1% indicates that a LEFT SHIFT is Present. Performed By: #### L 100.0100, L500.2500 #### [facility] [address] [place], [address] Lymphocytes/100 WBC (Bld) 23.6 % Normal 19-41 [facility] Comment on above: Performed By: #### L 100.0100, L500.2500 #### [facility] [address] [place], [address] MCH (RBC) [Entitic mass] 30.0 pg Normal 27.0-32.0 [facility] Comment on above: Performed By: #### L 100.0100, L500.2500 #### [facility] [address] [place], [address] MCHC (RBC) [Mass/Vol] 32.6 g/dL Normal 32-36 [facility] Comment on above: Performed By: #### L 100.0100, L500.2500 #### [facility] [address] [place], [address] MCV (RBC) [Entitic vol] 92.1 fL Normal 80-94 [facility] Comment on above: Performed By: #### L 100.0100, L500.2500 #### [facility] [address] [place], [address] Monocytes/100 WBC (Bld) 3.4 % Normal 0-10 [facility] Comment on above: Performed By: #### L 100.0100, L500.2500 #### [facility] [address] [place], [address] Neutrophils/100 WBC (Bld) 69.9 % Normal 47-70 [facility] Comment on above: Performed By: #### L 100.0100, L500.2500 #### [facility] [address] [place], [address] Nucleated RBC (Bld) [#/Vol] 0 10*3/uL Normal 0-5 [facility] Comment on above: Performed By: #### L 100.0100, L500.2500 #### [facility] [address] [place], [address] Platelet mean volume (Bld) [Entitic vol] 12.6 fL High 6.2-12.0 [facility] Comment on above: Performed By: #### L 100.0100, L500.2500 #### [facility] [address] [place], [address] Platelets (Bld) [#/Vol] 180 10*3/uL Normal 150-450 [facility] Comment on above: Performed By: #### L 100.0100, L500.2500 #### [facility] [address] [place], [address] RBC (Bld) [#/Vol] 4.70 10*6/uL Normal 4.6-6.2 [facility] Comment on above: Performed By: #### L 100.0100, L500.2500 #### [facility] [address] [place], [address] RDW SD 46.5 fl High 35.1-43.9 [facility] Comment on above: Performed By: #### L 100.0100, L500.2500 #### [facility] [address] [place], [address] WBC (Bld) [#/Vol] 8.5 10*3/uL Normal 4.4-11.0 [facility] Comment on above: Performed By: #### L 100.0100, L500.2500 #### [facility] [address] [place], [address] Determination of erythrocyte mean corpuscular volume (MCV)Ordered By: Jefry Galloway on 02-21-2024 MCV (RBC) [Entitic vol] 92.1 fL 80-94 [facility] Emergency Department Summary on 02-21-2024 Emergency Department Summary [facility] Medical Records Department [address] [place] [address] Emergency Department Summary 02/21/24 MR#: [id number] Acct: [id number] Name: CRISTELA MCNALLY Rep #: [id number] : 1975 48 From: Jefry Galloway DO PCP: Dr. Joshua Portillo MD Status:REG ER Location: ED HPI History of Present Illness Chief Complaint: Numb/Ting PFSH PFSH Home Medications ibuprofen 200 mg tablet 800 mg PO PRN PRN Pain 09/25/17 [History Last Taken 09/25/17] naproxen 500 mg tablet 500 mg PO BID #14 tabs 08/25/23 [Rx Last Taken Unknown] Allergy/AdvReac Type Severity Reaction Status Date / Time hydromorphone HCl AdvReac Upset Verified 10/20/23 08:40 [From Dilaudid] Stomach Family History no significant family his Surgical History H/O hand surgery History of back surgery History of hernia surgery History of tonsillectomy Social History household members: spouse, family and children housing: house Smoking Status: Current every day smoker tobacco type: cigarettes EXAM Physical Exam Const Vital Signs: 02/21/24 10:59 02/21/24 12:01 02/21/24 13:00 Temperature 97.6 F L Temperature Source Temporal Pulse Rate 71 57 L 57 L Respiratory Rate 16 18 18 Blood Pressure 142/81 H 128/87 H 112/82 H Blood Pressure Mean 101 100 92 Pulse Ox 98 99 96 Oxygen Delivery Method Room Air Room Air Room Air 02/21/24 14:00 Temperature Temperature Source Pulse Rate 78 Respiratory Rate 14 Blood Pressure 131/76 H Blood Pressure Mean 94 Pulse Ox 97 Oxygen Delivery Method Room Air MDM MDM MDM Narrative Medical decision making narrative: Patient presenting with headache. Differential includes stress headache, migraine. He also is stating that he had morning headaches he also was stating that he had morning headaches for 6 months so tumor is in the differential as well. He does not have any temporal artery tenderness or palpable pain. He does admit to light sensitivity. IV line was established patient was given Reglan, Benadryl and on reevaluation his headache is better. I did obtain his basic lab work and his CBC and BMP are unremarkable. CT of the brain without contrast was ordered initially and the radiologist felt that he saw a 1.5 cm x 1.5 cm hypodensity in the posterior frontal lobe on the left. He recommended a IV contrasted CT scan which was performed and ultimately is negative. Patient still doing well on reevaluation. Discharged home with referral to neurology. Impression: 1. Headache Lab Data Attestation: I reviewed the patient's lab results. Labs: Laboratory Results - last 24 hr 02/21/24 11:50 WBC 8.5 RBC 4.70 Hgb 14.1 Hct 43.3 MCV 92.1 MCH 30.0 MCHC 32.6 RDW Std Deviation 46.5 H RDW Coeff of Joseph 13.6 Plt Count 180 MPV 12.6 H Immature Gran % (Auto) 0.400 Neut % (Auto) 69.9 Lymph % (Auto) 23.6 [place] % (Auto) 3.4 Eos % (Auto) 2.1 Baso % (Auto) 0.6 Absolute Neuts (auto) 6.0 Absolute Lymphs (auto) 2.01 Nucleated RBC % 0 Sodium 137 Potassium 4.1 Chloride 106 Carbon Dioxide 29.0 Anion Gap 2 L BUN 12 Creatinine 0.78 Estim Creat Clear Calc 114.85 Est GFR (MDRD) Af Amer 136 Est GFR (MDRD) Non-Af 112 BUN/Creatinine Ratio 15.3 Glucose 87 Calcium 8.8 Radiography Diagnostic Testing: Clinical Impression(s) from Imaging Studies Brain CT 02/21/24 11:57 IMPRESSION: Subtle 1.5 cm x 1.5 cm hypodensity in the posterior left frontal lobe. Correlation with enhanced CT scan the brain recommended. Electronically Signed: Angel Leo MD at 12:32 EDT , Brain CT 02/21/24 12:51 IMPRESSION: Normal enhanced CT scan of the brain. Electronically Signed: Angel Leo MD at 14:24 EDT , Discharge Plan Triage Chief Complaint: Numb/Ting ED Provider: Jefry Galloway Dx/Rx/DC Orders Prescriptions: No Action ibuprofen 200 MG tablet 800 mg PO PRN PRN (Reason: Pain) Patient Comments: PT REPORTS TAKING 1200MG MOTRIN 1-4 TIMES A DAY. naproxen 500 mg tablet 500 mg PO BID Qty: 14 0RF Primary Care Provider: Joshua Portillo Referrals: Tung Boyd MD [Non-Staff -Ordering Privileges] - As Needed Joshua Portillo MD [Primary Care Provider] - Disposition Disposition: Home, Self Care What to do if you have Problems For any increased pain, shortness of breath, bleeding, (more content not included)... Normal [facility] Erythrocyte distribution wid th ratioOrdered By: Jefry Galloway on 02-21-2024 Erythrocyte distribution width (RBC) [Ratio] 13.6 % 11.6-14.6 [facility] Erythrocyte distribution wid th standard deviationOrdered By: Jefry Galloway on 02-21-2024 Erythrocyte distribution width (RBC) [Entitic vol] 46.5 fL 35.1-43.9 [facility] Hematocrit Auto (Bld) [Volum e fraction]Ordered By: Jefry Galloway on 02-21-2024 Hematocrit (Bld) [Volume fraction] 43.3 % 40-54 [facility] Immature granulocytes/100 WB C Auto (Bld)Ordered By: Jefry Galloway on 02-21-2024 Immature granulocytes/100 WBC (Bld) 0.400 % 0.0-0.9 [facility] Comment on above: IG% - Immature Granu locytes (promyelocytes, myelocytes and metamyelocytes) > 1% indicates that a LEFT SHIFT is Present. Laboratory - Chemistry and C hemistry - challengeOrdered By: Jefry Galloway on 02-21-2024 CO2 [Moles/Vol] 29.0 mmol/L 21.0-32.0 [facility] Urea nitrogen/Creatinine [Mass ratio] 15.3 mg/mg 10-20 [facility] Laboratory - Hematology and Cell countsOrdered By: Jefry Galloway on 02-21-2024 MCH (RBC) [Entitic mass] 30.0 pg 27.0-32.0 [facility] MCHC (RBC) [Mass/Vol] 32.6 g/dL 32-36 [facility] Nucleated RBC/100 WBC (Bld) [Ratio] 0 % 0-5 [facility] Platelet mean volume (Bld) [Entitic vol] 12.6 fL 6.2-12.0 [facility] Platelets (Bld) [#/Vol] 180 10*3/uL 150-450 [facility] No Panel InformationOrdered By: Jefry Galloway on 02-21-2024 Estimated Creatinine Clearance Calc 114.85 ml/min [facility] Estimated GFR (MDRD) Amer 136 mL/min >60 [facility] Comment on above: GFR Calc Estimated GFR (MDRD) Non-Af Amer 112 mL/min >60 [facility] Comment on above: Non- GFR Calc RBC Auto (Bld) [#/Vol]Ordere d By: Jefry Galloway on 02-21-2024 RBC (Bld) [#/Vol] 4.70 10*6/uL 4.6-6.2 [facility] Serum or plasma calcium isis urement (mass/volume)Ordered By: Jefry Galloway on 02-21-2024 Calcium [Mass/Vol] 8.8 mg/dL 8.5-10.1 [facility] Serum or plasma creatinine m easurement (mass/volume)Ordered By: Jefry Galloway on 02-21-2024 Creatinine [Mass/Vol] 0.78 mg/dL 0.70-1.30 [facility] Comment on above: The validity of the calculated GFR & GFRAA in patients over 70 years has not been determined. Clinical correlation is essential. Serum or plasma urea nitroge n measurement (mass/volume)Ordered By: Jefry Galloway on 02-21-2024 Urea nitrogen [Mass/Vol] 12 mg/dL 7-18 [facility] Thin prep Papanicolaou smear with manual screeningOrdered By: Jefry Galloway on 02-21-2024 Thin prep Papanicolaou smear with manual screening 2 5-15 [facility] CNOVon 12-01-2023 CNOV Office Visit (UROLMD) -------- CRISTELA MCNALLY ([id number]) 1975 M Date Time Provider Department 12/01/23 2:00 PM SULEIMAN TRUJILLO During your visit today, we recorded the following information about you: Pulse Respiration Blood pressure Weight 85/minute 16/minute 137/93 74.4 kg Height 1.753 m Suleiman Trujillo MD 12/01/2023 2:45 PM Signed Cristela Mcnally [id number] 12/01/2023 UNIVERSAL PROTOCOL / SAFETY CHECKLIST Procedure to be Performed: vasectomy Sign In: A Moment of CARE was completed. Personnel directly involved with the procedure wore the appropriate PPE (Personal Protective Equipment). Patient/Surrogate Stated/Verified: PATIENT VERIFIED(optional for EMERGENT procedures): Patient name, Date of , Relevant allergies, and The intended procedure Time Out Communication: Intended patient and procedure match the source documents. Consent documented and matches the intended procedure. Sign Out: SIGN OUT (optional for EMERGENT procedures): All specimen containers correctly labeled. Suleiman Trujillo MD HPI: 48 year old male reports for vasectomy. He again confirms he desires permanent sterilization and has no desire to father children in the future. Operation: Vasectomy Anatomic Site: Vas Deferens Approach: Percutaneous Device: None Qualifier: None PMHx/PSHx: see above, otherwise unchanged Rx: No scheduled NSAIDs or blood thinner for past 5 days. ROS: No new or inguinal complaints Labs: None Imaging: None PE: General: Well masculinized, well nourished male Psych: euthymic, NAD Neuro: AANDOx3 exam: see below. Procedure: Vasectomy Patient?s identity was confirmed, written informed consent was obtained, and the time out performed before the procedure was initiated The patient was placed in a supine position and the genitalia were prepped and draped in a sterile manner. Examination revealed no scrotal lesions, descended testicles bilaterally without masses and readily palpable vasa deferens. The right scrotal skin and cord structures was anesthetized with 5 cc of 2% lidocaine without epinephrine. A No-scapel technique was used to isolated and remove a small portion of the vas deferens. The vasal ends were secured with clips and hemostasis was ensured. The skin edges were closed with an absorbable suture. The procedure was repeated on the patient?s left side. The patient tolerated the procedure well. Postoperative care, limitations, and expectations were reviewed with the patient. He was again instructed to use an alternate form of control until he is notified that his postprocedure semen analysis reveals no sperm. Imp: S/p vasectomy P: 1) Semen Analysis in 3 months 2) post-procedure instructions given to pt with verbalization of understanding. MD Levi Browne Ma, Romie Joiner 12/01/2023 2:50 PM Signed HOME GOING/DISCHARGE INSTRUCTIONS FOR VASECTOMY PATIENTS Please call the following numbers with any questions or concerns: [facility] Offices: #[phone], and also #[phone] [facility] patients: [phone] M-F 8am-5pm, after hours [phone] ACTIVITIES Avoid strenuous physical exercise and heavy lifting for 10 days (as in bearing down, squatting or heavy weight lifting) NO bouncing, bumping or jarring NO contact sports, no exercising, no golf, no vacations/trips NO swimming, bathing or engaging in sexual activity NO going out to dinner or shopping Avoid lifting children or pets for 7-[address] them on your lap Rest with your legs elevated in a reclining chair Avoid sexual stimulation for ten days. After this time, you may return to sexual activity. A METHOD OF CONTROL should be used until your semen analysis showed negative results for sperm x 2. It is normal to notice blood or a brown color in the semen during the first few weeks after the procedure. You may go back to work in 2-3 days PRECAUTIONS Follow the usual precautions against until the results of the semen analysis are known. If sperm are detected, it may be necessary to continue precautions until another sample is submitted at a later date. You will need to come back for Follow up appointment in the time advised by your Provider with a semen specimen in the cup provided. Make sure to continue precautions until negative specimens by provider. DIET Resume your previous diet MEDICATIONS Use Acetaminophen for mild pain or discomfort Avoid Aspirin or Aspirin-containing products for 5 days WOUND CARE Apply ice packs to the scrotal area over the underwear every 8 hours for the first 1-2 days for not more than 30 minutes at a time. Use a jock strap (scrotal support) for 10 days. A small amount of oozing of blood, tenderness, and mild swelling are expected and should subside in a few days. If a smal (more content not included)... Normal [facility] SURGICAL PATHOLOGYon 024 CASE REPORT Normal [facility] Comment on above: Order Comment: Speci men Type: TISSUE SPECIMEN Ordering Facility: [facility] Address: [address] [place] [address] Result Comment: Surg [facility] Pathology Report Case: [id number] Authorizing Provider: Suleiman Trujillo MD Collected: 12/01/2023 02:50 PM Ordering Location: Urology Received: 12/01/2023 03:48 PM Pathologist: Bethel Simms MD Specimens: A) - VAS DEFERENS LEFT, 1 B) - VAS DEFERENS RIGHT, 1 Performed By: #### S #### [facility] CLIA [id number] [address] [place] [address] STATES OF [facility] CLINICAL HISTORY ENCOUNTER FOR VASECTOMY Normal [facility] Comment on above: Order Comment: Speci men Type: TISSUE SPECIMEN Ordering Facility: [facility] Address: [address] [place] [address] Performed By: #### S #### [facility] CLIA [id number] [address] [place] [address] STATES OF [place] FINAL DIAGNOSIS Normal [facility] Comment on above: Order Comment: Speci men Type: TISSUE SPECIMEN Ordering Facility: [facility] Address: [address] [place] [address] Result Comment: A. V as deferens, left, vasectomy: - Complete cross-section of vas deferens. B. Vas deferens, right, vasectomy: - Complete cross-section of vas deferens. Performed By: #### S #### [facility] CLIA [id number] [address] [place] [address] STATES OF [place] FINAL PERFORMING LAB Normal [facility] Comment on above: Order Comment: Speci men Type: TISSUE SPECIMEN Ordering Facility: [facility] Address: [address] [place] [address] Result Comment: Diag nostic interpretation performed at [facility], [address] [place] [address] CLIA# [id number] Machine Room Operator: Joselito Vargas M.D. Performed By: #### S #### [facility] CLIA [id number] [address] [place] [address] OF [facility] GROSS DESCRIPTION Normal [facility] Comment on above: Order Comment: Speci men Type: TISSUE SPECIMEN Ordering Facility: [facility] Address: [address] [place] [address] Result Comment: A. V DEFERENS LEFT Received in formalin labeled vas deferens left is a tubular segment of lewis-pink soft tissue measuring 0.7 x 0.3 x 0.3 cm. A lumen is grossly identified. The specimen is totally submitted in 1 cassette. B. VAS DEFERENS RIGHT Received in formalin labeled vas deferens right is a tubular segment of lewis-pink soft tissue measuring 0.6 x 0.3 x 0.3 cm. A lumen is grossly identified. The specimen is totally submitted in 1 cassette. [place] [address] CLIA# [id number] MSL/MLG 12/04/23 9:03 AM Performed By: #### S #### [facility] CLIA [id number] [address] [place] [address] OF [place] .Auto Diffon 11-01-2023 Basophil, Absolute 0.1 10 3/mcL Normal 0.0-0.2 [facility] ([place]) Comment on above: Performed By: #### G FR, ADIFF, CRP, CBC, MDW, MG, ANEU, CMP, TSH #### [address] [address] Basophils/100 WBC (Bld) 0.6 % Normal 0.0-2.5 A [facility] ([place]) Comment on above: Performed By: #### G FR, ADIFF, CRP, CBC, MDW, MG, ANEU, CMP, TSH #### [address] [address] Eosinophil, Absolute 0.1 10 3/mcL Normal 0.0-0.4 [facility] ([place]) Comment on above: Performed By: #### G FR, ADIFF, CRP, CBC, MDW, MG, ANEU, CMP, TSH #### [address] [address] Eosinophils/100 WBC (Bld) 0.5 % Normal 0.0-7.0 [facility] ([place]) Comment on above: Performed By: #### G FR, ADIFF, CRP, CBC, MDW, MG, ANEU, CMP, TSH #### [address] [address] Lymphocyte, Absolute 1.8 10 3/mcL Normal 0.8-3.9 [facility] ([place]) Comment on above: Performed By: #### G FR, ADIFF, CRP, CBC, MDW, MG, ANEU, CMP, TSH #### [address] [address] Lymphocytes/100 WBC (Bld) 17.9 % Normal 10.0-50.0 [facility] ([place]) Comment on above: Performed By: #### G FR, ADIFF, CRP, CBC, MDW, MG, ANEU, CMP, TSH #### [address] [address] Monocyte, Absolute 0.3 10 3/mcL Normal 0.2-1.0 [facility] ([place]) Comment on above: Performed By: #### G FR, ADIFF, CRP, CBC, MDW, MG, ANEU, CMP, TSH #### [address] [address] Monocytes/100 WBC (Bld) 2.7 % Normal 1.7-13.0 A [facility] ([place]) Comment on above: Performed By: #### G FR, ADIFF, CRP, CBC, MDW, MG, ANEU, CMP, TSH #### [address] [address] Neutrophils/100 WBC (Bld) 78.3 % Normal 37.0-80.0 [facility] ([place]) Comment on above: Performed By: #### G FR, ADIFF, CRP, CBC, MDW, MG, ANEU, CMP, TSH #### [address] [address] .GFRon 11-01-2023 GFR 96 ml/min/1.73sqm Normal [facility] ([place]) Comment on above: Result Comment: GFR Population mean for , Non- Americans Ages 20-29 = 116 mL/min/1.73 sq.m. Ages 30-39 = 107 mL/min/1.73 sq.m. Ages 40-49 = 99 mL/min/1.73 sq.m. Ages 50-59 = 93 mL/min/1.73 sq.m. Ages 60-69 = 85 mL/min/1.73 sq.m. Ages 70+ = 75 mL/min/1.73 sq.m. Chronic Kidney Disease: Less than 60 mL/min/1.73 square meters End Stage Renal Disease: Less than 15 mL/min/1.73 square meters Performed By: #### G FR, ADIFF, CRP, CBC, MDW, MG, ANEU, CMP, TSH #### [address] [address] GFR Non- 79 ml/min/1.73sqm Normal [facility] ([place]) Comment on above: Result Comment: GFR Population mean for , Non- Americans Ages 20-29 = 116 mL/min/1.73 sq.m. Ages 30-39 = 107 mL/min/1.73 sq.m. Ages 40-49 = 99 mL/min/1.73 sq.m. Ages 50-59 = 93 mL/min/1.73 sq.m. Ages 60-69 = 85 mL/min/1.73 sq.m. Ages 70+ = 75 mL/min/1.73 sq.m. Chronic Kidney Disease: Less than 60 mL/min/1.73 square meters End Stage Renal Disease: Less than 15 mL/min/1.73 square meters Performed By: #### G FR, ADIFF, CRP, CBC, MDW, MG, ANEU, CMP, TSH #### [address] [address] .MDWon 11-01-2023 Monocyte Distribution Width 14.85 Normal 0.00-20.00 [facility] ([place]) Comment on above: Result Comment: For ED adult patients suspected of sepsis, MDW<=20.0 does not rule out sepsis or risk of sepsis Performed By: #### G FR, ADIFF, CRP, CBC, MDW, MG, ANEU, CMP, TSH #### [place] [address] .NEUABSon 11-01-2023 Neutrophil, Absolute 7.7 10 3/mcL High 2.9-6.2 [facility] ([place]) Comment on above: Performed By: #### G FR, ADIFF, CRP, CBC, MDW, MG, ANEU, CMP, TSH #### [place] [address] A1Con 11-01-2023 HbA1c (Bld) [Mass fraction] 5.5 % Normal 4.3-6.4 [facility] ([place]) Comment on above: Performed By: #### G FR, ADIFF, CRP, CBC, MDW, MG, ANEU, CMP, TSH #### [place] [address] CBCon 11-01-2023 Erythrocyte distribution width (RBC) [Ratio] 14.3 % Normal 11.5-14.5 [facility] ([place]) Comment on above: Performed By: #### G FR, ADIFF, CRP, CBC, MDW, MG, ANEU, CMP, TSH #### [address] [address] Hematocrit (Bld) [Volume fraction] 43.1 % Normal 42.0-52.0 [facility] ([place]) Comment on above: Performed By: #### G FR, ADIFF, CRP, CBC, MDW, MG, ANEU, CMP, TSH #### [place] [address] Hgb 14.8 G/dL Normal 14.0-18.0 [facility] ([place]) Comment on above: Performed By: #### G FR, ADIFF, CRP, CBC, MDW, MG, ANEU, CMP, TSH #### [place] [address] MCH (RBC) [Entitic mass] 30.8 pg Normal 27.0-31.2 [facility] ([place]) Comment on above: Performed By: #### G FR, ADIFF, CRP, CBC, MDW, MG, ANEU, CMP, TSH #### [place] [address] MCHC 34.5 G/dL Normal 31.8-35.4 [facility] ([place]) Comment on above: Performed By: #### G FR, ADIFF, CRP, CBC, MDW, MG, ANEU, CMP, TSH #### [place] [address] MCV (RBC) [Entitic vol] 89.5 fL Normal 80.0-94.0 A [facility] ([place]) Comment on above: Performed By: #### G FR, ADIFF, CRP, CBC, MDW, MG, ANEU, CMP, TSH #### [place] [address] Platelet 178 10 3/mcL Normal 130-400 [facility] ([place]) Comment on above: Performed By: #### G FR, ADIFF, CRP, CBC, MDW, MG, ANEU, CMP, TSH #### [place] [address] Platelet mean volume (Bld) [Entitic vol] 9.7 fL Normal 7.4-10.4 [facility] ([place]) Comment on above: Performed By: #### G FR, ADIFF, CRP, CBC, MDW, MG, ANEU, CMP, TSH #### [place] [id number] RBC 4.81 10 6/mcL Normal 4.04-6.13 [facility] ([place]) Comment on above: Performed By: #### G FR, ADIFF, CRP, CBC, MDW, MG, ANEU, CMP, TSH #### [address] [address] WBC 9.8 10 3/mcL Normal 4.6-10.8 [facility] ([place]) Comment on above: Performed By: #### G FR, ADIFF, CRP, CBC, MDW, MG, ANEU, CMP, TSH #### [address] [address] CMPon 11-01-2023 Albumin Level 3.8 G/dL Normal 3.5-5.0 [facility] ([place]) Comment on above: Performed By: #### G FR, ADIFF, CRP, CBC, MDW, MG, ANEU, CMP, TSH #### [address] [address] Albumin/Globulin [Mass ratio] 1.0 {ratio} Low 1.1-2.5 [facility] ([place]) Comment on above: Performed By: #### G FR, ADIFF, CRP, CBC, MDW, MG, ANEU, CMP, TSH #### [address] [address] ALP [Catalytic activity/Vol] 71 U/L Normal 40-135 [facility] ([place]) Comment on above: Performed By: #### G FR, ADIFF, CRP, CBC, MDW, MG, ANEU, CMP, TSH #### [address] [address] ALT [Catalytic activity/Vol] 39 U/L Normal 16-63 [facility] ([place]) Comment on above: Performed By: #### G FR, ADIFF, CRP, CBC, MDW, MG, ANEU, CMP, TSH #### [address] [address] AST [Catalytic activity/Vol] 19 U/L Normal 10-40 [facility] ([place]) Comment on above: Performed By: #### G FR, ADIFF, CRP, CBC, MDW, MG, ANEU, CMP, TSH #### [address] [address] Bili Total 0.3 mg/dL Normal 0.2-1.0 [facility] ([place]) Comment on above: Result Comment: Use of this assay is not recommended for patients undergoing treatment with eltrombopag due to the potential for falsely elevated results. Performed By: #### G FR, ADIFF, CRP, CBC, MDW, MG, ANEU, CMP, TSH #### [address] [address] BUN/Creatinine Ratio 18 ratio Normal 7-27 [facility] ([place]) Comment on above: Performed By: #### G FR, ADIFF, CRP, CBC, MDW, MG, ANEU, CMP, TSH #### [address] [address] Calcium [Mass/Vol] 8.8 mg/dL Normal 8.4-10.2 [facility] ([place]) Comment on above: Performed By: #### G FR, ADIFF, CRP, CBC, MDW, MG, ANEU, CMP, TSH #### [address] [address] Chloride [Moles/Vol] 102 mmol/L Normal 98-107 [facility] ([place]) Comment on above: Performed By: #### G FR, ADIFF, CRP, CBC, MDW, MG, ANEU, CMP, TSH #### [address] [address] CO2 [Moles/Vol] 26 mmol/L Normal 22-29 [facility] ([place]) Comment on above: Performed By: #### G FR, ADIFF, CRP, CBC, MDW, MG, ANEU, CMP, TSH #### [address] [address] Creatinine [Mass/Vol] 1.01 mg/dL Normal 0.70-1.30 [facility] ([place]) Comment on above: Performed By: #### G FR, ADIFF, CRP, CBC, MDW, MG, ANEU, CMP, TSH #### [address] [address] Electrolyte Balance 10.0 mEq/L Normal 4.0-15.0 [facility] ([place]) Comment on above: Performed By: #### G FR, ADIFF, CRP, CBC, MDW, MG, ANEU, CMP, TSH #### [address] [address] Globulin 3.7 G/dL Normal [facility] ([place]) Comment on above: Performed By: #### G FR, ADIFF, CRP, CBC, MDW, MG, ANEU, CMP, TSH #### [address] [address] Glucose [Mass/Vol] 156 mg/dL High 70-105 [facility] ([place]) Comment on above: Performed By: #### G FR, ADIFF, CRP, CBC, MDW, MG, ANEU, CMP, TSH #### [address] [address] Potassium [Moles/Vol] 3.8 mmol/L Normal 3.5-5.1 [facility] ([place]) Comment on above: Performed By: #### G FR, ADIFF, CRP, CBC, MDW, MG, ANEU, CMP, TSH #### [address] [address] Sodium [Moles/Vol] 138 mmol/L Normal 136-145 [facility] ([place]) Comment on above: Performed By: #### G FR, ADIFF, CRP, CBC, MDW, MG, ANEU, CMP, TSH #### [address] [address] Total Protein 7.5 G/dL Normal 6.4-8.2 [facility] ([place]) Comment on above: Performed By: #### G FR, ADIFF, CRP, CBC, MDW, MG, ANEU, CMP, TSH #### [address] [address] Urea nitrogen [Mass/Vol] 18 mg/dL Normal 7-18 [facility] ([place]) Comment on above: Performed By: #### G FR, ADIFF, CRP, CBC, MDW, MG, ANEU, CMP, TSH #### [place] [address] [place], [place] [address] CRPon 11-01-2023 C-Reactive Protein 0.1 mg/dL Normal 0.0-0.3 [facility] ([place]) Comment on above: Performed By: #### G FR, ADIFF, CRP, CBC, MDW, MG, ANEU, CMP, TSH #### [place] [id number] [place], [place] [address] CT HEAD OR BRAIN W/O CONTRAS Ton 11-01-2023 CT HEAD OR BRAIN W/O CONTRAST ORIGINAL EXAMINATION: CT HEAD TECHNIQUE: Axial CT images from skull base to vertex without IV contrast. This exam was performed according to our departmental dose optimization program, and includes the following measures where applicable: automated exposure control, adjustment of the mAs and/or kVp according to patient size and/or exam, and an iterative reconstruction algorithm. COMPARISON: None HISTORY: ORDERING SYSTEM PROVIDED HISTORY: Reason for Exam: dizziness FINDINGS: Parenchyma: No acute intracranial hemorrhage, midline shift, mass effect or acute ischemic infarct is demonstrated. The mclean-white matter junctions are preserved. No space occupying intra-axial masses or extra-axial fluid collections are seen. Mild parenchymal volume loss most pronounced in the frontal lobes and posterior fossa is noted. Small foci of decreased attenuation near the left genu of the internal capsule and left subcortical parietal lobe are seen. Nonspecific Ventricles: No evidence of hydrocephalus or ventricular effacement. Vessels: No significant atherosclerotic calcifications. Orbits: Unremarkable. Calvarium: Unremarkable. Paranasal sinuses: Clear. Mastoid sinuses: Clear. IMPRESSION: 1. No acute intracranial pathology. 2. Nonspecific small foci of decreased attenuation possibly reflecting mild chronic microvascular white matter ischemic disease. Further characterization with nonemergent MRI advised. Interpreted by: Warner Bryan MD Preliminary Report By: Warner Bryan MD Electronically signed By Warner Bryan MD Dictated Date: 11/01/2023 2:05:29 PM Prelim Date: 11/01/2023 2:11:06 PM Sign Date: 11/01/2023 2:11:06 PM Ordering Provider: VICKI Perry [facility] ([place]) LABORATORYOrdered By: SYSTEM SYSTEM on 11-01-2023 Albumin BCP dye [Mass/Vol] 3.8 G/dL Normal 3.5 - 5.0 G/dL AO ADM SS Albumin/Globulin [Mass ratio] 1.0 {ratio} Low 1.1 - 2.5 ratio AO ADM SS ALP [Catalytic activity/Vol] 71 U/L Normal 40 - 135 U/L AO ADM SS ALT With P-5'-P [Catalytic activity/Vol] 39 U/L Normal 16 - 63 U/L AO ADM SS AST With P-5'-P [Catalytic activity/Vol] 19 U/L Normal 10 - 40 U/L AO ADM SS Basophil, Absolute 0.1 103/mcL Normal 0.0 - 0.2 10^3/mcL AO Workflow SS Basophils/100 WBC (Bld) 0.6 % Normal 0.0 - 2.5 % AO Workflow SS Bilirubin [Mass/Vol] 0.3 mg/dL Normal 0.2 - 1 .0 mg/dL AO ADM SS Comment on above: Interpretive Data: U se of this assay is not recommended for patients undergoing treatment with eltrombopag due to the potential for falsely elevated results. Calcium [Mass/Vol] 8.8 mg/dL Normal 8.4 - 10. 2 mg/dL AO ADM SS Chloride [Moles/Vol] 102 mmol/L Normal 98 - 10 7 mmol/L AO ADM SS CO2 [Moles/Vol] 26 mmol/L Normal 22 - 29 mmol/L AO ADM SS Creatinine [Mass/Vol] 1.01 mg/dL Normal 0.70 - 1.30 mg/dL AO ADM SS CRP [Mass/Vol] 0.1 mg/dL Normal 0.0 - 0.3 mg/dL AO ADM SS Electrolyte Balance 10.0 mEq/L Normal 4.0 - 15 .0 mEq/L AO ADM SS Eosinophil, Absolute 0.1 103/mcL Normal 0.0 - 0 .4 10^3/mcL AO Workflow SS Eosinophils/100 WBC (Bld) 0.5 % Normal 0.0 - 7.0 % AO Workflow SS Erythrocyte distribution width (RBC) [Ratio] 14.3 % Normal 11.5 - 14.5 % AO Workflow SS GFR/1.73 sq M.predicted among blacks MDRD (S/P/Bld) [Vol rate/Area] 96 ml/min/1.73sqm Invalid Interpretation Code AO Chemistry S Comment on above: Interpretive Data: GFR Population mean for , Non- Americans Ages 20-29 = 116 mL/min/1.73 sq.m. Ages 30-39 = 107 mL/min/1.73 sq.m. Ages 40-49 = 99 mL/min/1.73 sq.m. Ages 50-59 = 93 mL/min/1.73 sq.m. Ages 60-69 = 85 mL/min/1.73 sq.m. Ages 70+ = 75 mL/min/1.73 sq.m. Chronic Kidney Disease: Less than 60 mL/min/1.73 square meters End Stage Renal Disease: Less than 15 mL/min/1.73 square meters GFR/1.73 sq M.predicted among non-blacks MDRD (S/P/Bld) [Vol rate/Area] 79 ml/min/1.73sqm Invalid Interpretation Code AO Chemistry S Comment on above: Interpretive Data: GFR Population mean for , Non- Americans Ages 20-29 = 116 mL/min/1.73 sq.m. Ages 30-39 = 107 mL/min/1.73 sq.m. Ages 40-49 = 99 mL/min/1.73 sq.m. Ages 50-59 = 93 mL/min/1.73 sq.m. Ages 60-69 = 85 mL/min/1.73 sq.m. Ages 70+ = 75 mL/min/1.73 sq.m. Chronic Kidney Disease: Less than 60 mL/min/1.73 square meters End Stage Renal Disease: Less than 15 mL/min/1.73 square meters Globulin 3.7 G/dL Invalid Interpretation Code AO ADM SS Glucose [Mass/Vol] 156 mg/dL High 70 - 105 mg/dL AO ADM SS HbA1c (Bld) [Mass fraction] 5.5 % Normal 4.3 - 6.4 % AO ADM SS Hematocrit (Bld) [Volume fraction] 43.1 % Normal 42.0 - 52.0 % AO Workflow SS Hemoglobin (Bld) [Mass/Vol] 14.8 G/dL Normal 14.0 - 18.0 G/dL AO Workflow SS Lymphocyte, Absolute 1.8 103/mcL Normal 0.8 - 3 .9 10^3/mcL AO Workflow SS Lymphocytes/100 WBC (Bld) 17.9 % Normal 10.0 - 50.0 % AO Workflow SS Magnesium [Mass/Vol] 2.0 mg/dL Normal 1.8 - 2 .4 mg/dL AO ADM SS MCH (RBC) [Entitic mass] 30.8 pg Normal 27. 0 - 31.2 pg AO Workflow SS MCHC 34.5 G/dL Normal 31.8 - 35.4 G/dL AO Workflow SS MCV (RBC) [Entitic vol] 89.5 fL Normal 80.0 - 94.0 fL AO Workflow SS Monocyte distribution width Auto (Bld) [Entitic vol] 14.85 1 Normal 0.00 - 20.00 AO Workflow SS Comment on above: Result Comment: For ED adult patients suspected of sepsis, MDW<=20.0 does not rule out sepsis or risk of sepsis Monocyte, Absolute 0.3 103/mcL Normal 0.2 - 1.0 10^3/mcL AO Workflow SS Monocytes/100 WBC (Bld) 2.7 % Normal 1.7 - 13.0 % AO Workflow SS Neutrophil, Absolute 7.7 103/mcL High 2.9 - 6 .2 10^3/mcL AO Workflow SS Neutrophils/100 WBC (Bld) 78.3 % Normal 37.0 - 80.0 % AO Workflow SS Platelet mean volume (Bld) [Entitic vol] 9.7 fL Normal 7.4 - 10.4 fL AO Workflow SS Platelets (Bld) [#/Vol] 178 103/mcL Normal 130 - 400 10^3/mcL AO Workflow SS Potassium [Moles/Vol] 3.8 mmol/L Normal 3.5 - 5.1 mmol/L AO ADM SS Protein [Mass/Vol] 7.5 G/dL Normal 6.4 - 8.2 G/dL AO ADM SS RBC (Bld) [#/Vol] 4.81 106/mcL Normal 4.04 - 6.1 3 10^6/mcL AO Workflow SS Sodium [Moles/Vol] 138 mmol/L Normal 136 - 145 mmol/L AO ADM SS Troponin I.cardiac DL <= 0.01 ng/mL [Mass/Vol] 7.0 ng/L Normal 0.0 - 76.2 ng/L AO ADM SS TSH Qn 1.29 m[IU]/L Normal 0.36 - 3.74 mcIU/mL AO ADM SS Urea nitrogen [Mass/Vol] 18 mg/dL Normal 7 - 18 mg/d L AO ADM SS Urea nitrogen/Creatinine [Mass ratio] 18 ratio Normal 7 - 27 ratio AO ADM SS WBC (Bld) [#/Vol] 9.8 103/mcL Normal 4.6 - 10.8 10^3/mcL AO Workflow SS LABORATORYOrdered By: Trice Guzman on 11-01-2023 Appearance (U) Clear (11/01/23 12:13 PM) Normal Clear AO Auto Urine SS Bilirubin Ql (U) Negative (11/01/23 12:13 PM) Normal Negative AO Auto Urine SS Color (U) Yellow (11/01/23 12:13 PM) Normal AO Auto Urine SS Glucose Test strip (U) [Mass/Vol] Negative Normal Negative AO Auto Urine SS Hemoglobin Auto test strip (U) [Mass/Vol] Negative (11/01/23 12:13 PM) Normal Negative AO Auto Urine SS Ketones Ql (U) Negative Normal Negative AO Auto Ur ine SS UA Leuk Est Negative (11/01/23 12:13 PM) Normal Negative AO Auto Urine SS UA Nitrite Negative (11/01/23 12:13 PM) Normal Negative AO Auto Urine SS UA pH 5.5 (11/01/23 12:13 PM) Normal 5.0 - 8.0 AO Auto Urine SS UA Protein Negative Normal Negative AO Auto Urine SS UA Spec Grav >=1.030 *ABN* (11/01/23 12:13 PM) Invalid Interpretation Code 1.015-1.025 AO Auto Urine SS UA Specimen Type Clean Catch (11/01/23 12:13 PM) Normal AO Auto Urine SS UA Urobilinogen 0.2 E.U./dL Normal 0.2-1.0 AO Auto Urine SS MGon 11-01-2023 Magnesium [Mass/Vol] 2.0 mg/dL Normal 1.8-2.4 [facility] ([place]) Comment on above: Performed By: #### G FR, ADIFF, CRP, CBC, MDW, MG, ANEU, CMP, TSH #### Nancy [address] 01-17-2024 Troponin I High Sensitivity 7.0 ng/L Normal 0.0-76.2 [facility] ([place]) Comment on above: Performed By: #### G FR, ADIFF, CRP, CBC, MDW, MG, ANEU, CMP, TSH #### [place] [address] TSHon 11-01-2023 TSH Qn 1.29 m[IU]/L Normal 0.36-3.74 [facility] ([place]) Comment on above: Performed By: #### G FR, ADIFF, CRP, CBC, MDW, MG, ANEU, CMP, TSH #### [place] [address] UAon 11-01-2023 Color (U) Yellow Normal [facility] ([place]) Comment on above: Performed By: #### G FR, ADIFF, CRP, CBC, MDW, MG, ANEU, CMP, TSH #### [place] [address] Glucose (U) [Mass/Vol] Negative Normal Negative [facility] ([place]) Comment on above: Performed By: #### G FR, ADIFF, CRP, CBC, MDW, MG, ANEU, CMP, TSH #### [place] [address] Ketones Ql (U) Negative Normal Negative [facility] ([place]) Comment on above: Performed By: #### G FR, ADIFF, CRP, CBC, MDW, MG, ANEU, CMP, TSH #### [place] [address] UA Appear Clear Normal Clear [facility] ([place]) Comment on above: Performed By: #### G FR, ADIFF, CRP, CBC, MDW, MG, ANEU, CMP, TSH #### [place] [address] UA Blood Negative Normal Negative [facility] ([place]) Comment on above: Performed By: #### G FR, ADIFF, CRP, CBC, MDW, MG, ANEU, CMP, TSH #### [place] [id number] UA Leuk Est Negative Normal Negative [facility] ([place]) Comment on above: Performed By: #### G FR, ADIFF, CRP, CBC, MDW, MG, ANEU, CMP, TSH #### [place] [address] UA Nitrite Negative Normal Negative [facility] ([place]) Comment on above: Performed By: #### G FR, ADIFF, CRP, CBC, MDW, MG, ANEU, CMP, TSH #### [place] [address] UA pH 5.5 Normal 5.0 - 8.0 [facility] ([place]) Comment on above: Performed By: #### G FR, ADIFF, CRP, CBC, MDW, MG, ANEU, CMP, TSH #### [place] [address] UA Protein Negative Normal Negative [facility] ([place]) Comment on above: Performed By: #### G FR, ADIFF, CRP, CBC, MDW, MG, ANEU, CMP, TSH #### [place] [address] UA Spec Grav >=1.030 Abnormal 1.015-1.025 [facility] ([place]) Comment on above: Performed By: #### G FR, ADIFF, CRP, CBC, MDW, MG, ANEU, CMP, TSH #### [place] [address] UA Specimen Type Clean Catch Normal [facility] ([place]) Comment on above: Performed By: #### G FR, ADIFF, CRP, CBC, MDW, MG, ANEU, CMP, TSH #### [place] [address] UA Urobilinogen 0.2 E.U./dL Normal 0.2-1.0 [facility] ([place]) Comment on above: Performed By: #### G FR, ADIFF, CRP, CBC, MDW, MG, ANEU, CMP, TSH #### [place] [address] [place], [place] [address] Urobilinogen (U) [Mass/Vol] Negative Normal Negative [facility] ([place]) Comment on above: Performed By: #### G FR, ADIFF, CRP, CBC, MDW, MG, ANEU, CMP, TSH #### [place] [address] [place], [place] [address] XR CHEST 1 VIEWon 11-01-2023 XR CHEST 1 VIEW ORIGINAL EXAMINATION: ONE XRAY VIEW OF THE CHEST11/01/2023 1:51 pm XR Chest portable upright COMPARISON: 08/03/2018 HISTORY: ORDERING SYSTEM PROVIDED HISTORY: Reason for Exam: chest pain, FINDINGS: No suspicious nodule, acute infiltrate, consolidation,mass , pneumothorax, pleural fluid, or vascular congestion is seen. Heart size and mediastinal contours are within normal limits for age and projection. No acute skeletal abnormality. IMPRESSION: No acute cardiopulmonary process. Interpreted by: Patrick Parnell MD Preliminary Report By: Patrick Parnell MD Electronically signed By Patrick Parnell MD Dictated Date: 11/01/2023 1:57:30 PM Prelim Date: 11/01/2023 1:57:49 PM Sign Date: 11/01/2023 1:57:49 PM Ordering Provider: VICKI BURROWS Normal [facility] ([place]) CBC panel Auto (Bld)on 10-31 Erythrocyte distribution width (RBC) [Ratio] 13.5 % Normal 11.5-15.0 [facility] Comment on above: Order Comment: Speci men Type: BLOOD SPECIMEN Ordering Facility: [facility] Address: [address] [place] [address] Performed By: #### 5 8410-2 #### [facility] CLIA [id number] [address] [place] [address] [place] Hematocrit (Bld) [Volume fraction] 49.9 % Normal 39.0-51.0 [facility] Comment on above: Order Comment: Speci men Type: BLOOD SPECIMEN Ordering Facility: [facility] Address: [address] [place] [id number] Performed By: #### 5 8410-2 #### [facility] CLIA [id number] [address] [place] [address] [place] Hemoglobin (Bld) [Mass/Vol] 16.0 g/dL Normal 13.0-17.0 [facility] Comment on above: Order Comment: Speci men Type: BLOOD SPECIMEN Ordering Facility: [facility] Address: [address] [place] [address] Performed By: #### 5 8410-2 #### [facility] CLIA [id number] [facility] [place] [address] [place] MCH (RBC) [Entitic mass] 29.9 pg Normal 26.0-34.0 [facility] Comment on above: Order Comment: Speci men Type: BLOOD SPECIMEN Ordering Facility: [facility] Address: [address] [place] [address] Performed By: #### 5 8410-2 #### [facility] CLIA [id number] [address] [place] [address] [place] MCHC (RBC) [Mass/Vol] 32.1 g/dL Normal 30.5-36.0 [facility] Comment on above: Order Comment: Speci men Type: BLOOD SPECIMEN Ordering Facility: [facility] Address: [address] [place] [address] Performed By: #### 5 8410-2 #### [facility] CLIA [id number] [address] [place] [address] [place] MCV (RBC) [Entitic vol] 93.1 fL Normal 80.0-100.0 [facility] Comment on above: Order Comment: Speci men Type: BLOOD SPECIMEN Ordering Facility: [facility] Address: [address] [place] [address] Performed By: #### 5 8410-2 #### [facility] CLIA [id number] [address] [place] [address] [place] Nucleated RBC (Bld) [#/Vol] 10*3/uL Normal <0.01 [facility] Comment on above: Order Comment: Speci men Type: BLOOD SPECIMEN Ordering Facility: [facility] Address: [address] [place] [address] Performed By: #### 5 8410-2 #### [facility] CLIA [id number] [address] [place] [address] [place] Platelet mean volume (Bld) [Entitic vol] 12.6 fL Normal 9.0-12.7 [facility] Comment on above: Order Comment: Speci men Type: BLOOD SPECIMEN Ordering Facility: [facility] Address: [address] [place] [address] Performed By: #### 5 8410-2 #### [facility] CLIA [id number] [address] [place] [address] [place] Platelets (Bld) [#/Vol] 212 10*3/uL Normal 150-400 [facility] Comment on above: Order Comment: Speci men Type: BLOOD SPECIMEN Ordering Facility: [facility] Address: [address] [place] [address] Performed By: #### 5 8410-2 #### [facility] CLIA [id number] [address] [place] [address] [place] RBC (Bld) [#/Vol] 5.36 10*6/uL Normal 4.20-6.00 [facility] [place] Comment on above: Order Comment: Speci men Type: BLOOD SPECIMEN Ordering Facility: [facility] Address: [address] [place] [address] Performed By: #### 5 8410-2 #### [facility] CLIA [id number] [address] [place] [address] [place] WBC (Bld) [#/Vol] 9.44 10*3/uL Normal 3.70-11.00 [facility] [place] Comment on above: Order Comment: Speci men Type: BLOOD SPECIMEN Ordering Facility: [facility] Address: [address] [place] [address] Performed By: #### 5 8410-2 #### [facility] CLIA [id number] [address] [place] [address] [place] Comprehensive metabolic 2000 panelon 10-31-2023 Albumin [Mass/Vol] 4.5 g/dL Normal 3.9-4.[address] [facility] Comment on above: Order Comment: Speci men Type: BLOOD SPECIMEN Ordering Facility: [facility] Address: [address] [place] [address] Performed By: #### 2 4323-8 #### [facility] CLIA [id number] [address] [place] [address] [place] ALP [Catalytic activity/Vol] 67 U/L Normal 38-113 [facility] Comment on above: Order Comment: Speci men Type: BLOOD SPECIMEN Ordering Facility: [facility] Address: [address] [place] [address] Performed By: #### 2 4323-8 #### [facility] CLIA [id number] [address] [place] [address] [place] ALT [Catalytic activity/Vol] 25 U/L Normal 10-54 [facility] Comment on above: Order Comment: Speci men Type: BLOOD SPECIMEN Ordering Facility: [facility] Address: [address] [place] [address] Performed By: #### 2 4323-8 #### [facility] CLIA [id number] [address] [place] [address] [place] Anion gap [Moles/Vol] 9 mmol/L Normal 9-18 [facility] Comment on above: Order Comment: Speci men Type: BLOOD SPECIMEN Ordering Facility: [facility] Address: [address] [place] [address] Performed By: #### 2 4323-8 #### [facility] CLIA [id number] [address] [place] [address] [place] AST [Catalytic activity/Vol] 20 U/L Normal 14-40 [facility] Comment on above: Order Comment: Speci men Type: BLOOD SPECIMEN Ordering Facility: [facility] Address: [address] [place] [address] Performed By: #### 2 4323-8 #### [facility] CLIA [id number] [address] [place] [address] [place] Bilirubin [Mass/Vol] 0.4 mg/dL Normal 0.2-1.3 [facility] Comment on above: Order Comment: Speci men Type: BLOOD SPECIMEN Ordering Facility: [facility] Address: [address] [place] [address] Performed By: #### 2 4323-8 #### [facility] CLIA [id number] [address] [place] [address] [place] Calcium [Mass/Vol] 9.4 mg/dL Normal 8.5-10.[address] [facility] Comment on above: Order Comment: Speci men Type: BLOOD SPECIMEN Ordering Facility: [facility] Address: [address] [place] [address] Performed By: #### 2 4323-8 #### [facility] CLIA [id number] [address] [place] [address] [place] Chloride [Moles/Vol] 102 mmol/L Normal 97-105 [facility] Comment on above: Order Comment: Speci men Type: BLOOD SPECIMEN Ordering Facility: [facility] Address: [address] [place] [address] Performed By: #### 2 4323-8 #### [facility] CLIA [id number] [address] [place] [address] [place] CO2 [Moles/Vol] 26 mmol/L Normal 22-30 [facility] Comment on above: Order Comment: Speci men Type: BLOOD SPECIMEN Ordering Facility: [facility] Address: [address] [place] [address] Performed By: #### 2 4323-8 #### [facility] CLIA [id number] [address] [place] [id number] [place] Creatinine [Mass/Vol] 0.90 mg/dL Normal 0.73-1.22 [facility] Comment on above: Order Comment: Rodrigo arias Type: BLOOD SPECIMEN Ordering Facility: [facility] Address: [address] [place] [address] Performed By: #### 2 4323-8 #### [facility] CLIA [id number] [address] [place] [address] [place] Creatinine and Glomerular filtration rate.predicted panel (S/P/Bld) 106 mL/min/1.73m??? Normal >=60 [facility] Comment on above: Order Comment: Rodrigo arias Type: BLOOD SPECIMEN Ordering Facility: [facility] Address: [address] [place] [address] Result Comment: Cary mated Glomerular Filtration Rate (eGFR) is calculated using the 2020 CKD-EPI creatinine equation. This equation utilizes serum creatinine, sex, and age as parameters. The creatinine assay has traceable calibration to isotope dilution-mass spectrometry. Refer to KDIGO guidelines for clinical interpretation. In patients with unstable renal function, e.g. those with acute kidney injury, the eGFR may not accurately reflect actual GFR. Performed By: #### 2 4323-8 #### [facility] CLIA [id number] [address] [place] [address] [place] Glucose [Mass/Vol] 98 mg/dL Normal 74-[address] [facility] Comment on above: Order Comment: Rodrigo arias Type: BLOOD SPECIMEN Ordering Facility: [facility] Address: [address] [place] [address] Result Comment: The [place] Diabetes Association (ADA) provides guidance for cutoff values for fasting glucose and random glucose. The ADA defines fasting as no caloric intake for at least 8 hours. Fasting plasma glucose results between 100 to 125 mg/dL indicate increased risk for diabetes (prediabetes). Fasting plasma glucose results greater than or equal to 126 mg/dL meet the criteria for diagnosis of diabetes. In the absence of unequivocal hyperglycemia, results should be confirmed by repeat testing. In a patient with classic symptoms of hyperglycemia or hyperglycemic crisis, random plasma glucose results greater than or equal to 200 mg/dL meet the criteria for diagnosis of diabetes. Reference: Standards of Medical Care in Diabetes 2016, [place] Diabetes Association. Diabetes Care. 2016.39(Suppl 1). Performed By: #### 2 4323-8 #### [facility] CLIA [id number] [address] [place] [address] [place] Potassium [Moles/Vol] 4.6 mmol/L Normal 3.7-5.1 [facility] Comment on above: Order Comment: Speci men Type: BLOOD SPECIMEN Ordering Facility: [facility] Address: [address] [place] [address] Performed By: #### 2 4323-8 #### [facility] CLIA [id number] [address] [place] [address] [place] Protein [Mass/Vol] 7.4 g/dL Normal 6.3-8.[address] [facility] Comment on above: Order Comment: Speci men Type: BLOOD SPECIMEN Ordering Facility: [facility] Address: [address] [place] [address] Performed By: #### 2 4323-8 #### [facility] CLIA [id number] [address] [place] [address] [place] Sodium [Moles/Vol] 137 mmol/L Normal 136-[address] [facility] Comment on above: Order Comment: Speci men Type: BLOOD SPECIMEN Ordering Facility: [facility] Address: [address] [place] [address] Performed By: #### 2 4323-8 #### [facility] CLIA [id number] [address] [place] [address] [place] Urea nitrogen [Mass/Vol] 17 mg/dL Normal 9-24 [facility] Comment on above: Order Comment: Speci men Type: BLOOD SPECIMEN Ordering Facility: [facility] Address: [address] [place] [address] Performed By: #### 2 4323-8 #### [facility] CLIA [id number] [address] [place] [address] [id number] [id number] [facility] [place] CNOVon 10-30-2023 CNOV Office Visit (INTMWS) -------- CRISTELA MCNALLY ([id number]) 1975 M Date Time Provider Department 10/30/23 7:00 PM JOSHUA PORTILLO INTMWS During your visit today, we recorded the following information about you: Temperature Pulse Blood pressure Weight 98.8 degrees 70/minute 113/76 73.9 kg Joshua Portillo MD 10/31/2023 12:53 PM Signed This note was created using [employer]. Subjective Cristela Mcnally is a 48 year old male here here with spouse for nausea, dizziness, and increased headaches since 10/16/23. He started feeling ill after they celebrated s [place]. She did not get ill. He felt something was off inside his head and had sensations of spinning when he moved his head. 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 He tested negative for Covid at a local urgent care center and was advised cough medication. He was not better and went to the [place] 10/20 where his chest X-ray was negative, but flu assay was positive. Supportive measures were recommended. He had the first episode of emesis today. Dizziness was more recurrent, and not constant. Review of Systems Constitutional: Positive for appetite change and unexpected weight change. Negative for chills, diaphoresis, fatigue and fever. HENT: Negative for congestion, hearing loss, sinus pressure, sinus pain, sore throat and tinnitus. Eyes: Negative for pain and visual disturbance. Respiratory: Negative for cough, shortness of breath and wheezing. Cardiovascular: Negative for chest pain, palpitations and leg swelling. Gastrointestinal: Negative for abdominal pain and diarrhea. Genitourinary: Negative for difficulty urinating and dysuria. Neurological: Negative for syncope and speech difficulty. Psychiatric/Behavi oral: Negative for confusion. ACTIVE PROBLEM LIST Spondylolisthesis, Lumbar Region Tobacco Use Disorder Lung Nodules Cervicogenic Headache Social History Tobacco Use Smoking status: Every Day Packs/day: 1.00 Years: 20.00 Additional pack years: 0.00 Total pack years: 20.00 Types: Cigarettes Start date: 10/16/2000 Smokeless tobacco: Never Vaping Use Vaping Use: Former Quit date: 04/27/2020 Substance Use Topics Alcohol use: Not Currently Comment: 1-3 beers every 2-3 months. Drug use: Not Currently Types: Marijuana Current Outpatient Medications Medication Sig acetaminophen (TYLENOL) 500 mg tablet Take 500 mg by mouth every 8 hours as needed. ibuprofen (MOTRIN) 200 mg tablet Take 200 mg by mouth every 6 hours as needed. No current facility-administe red medications for this visit. Objective BP 113/76 (BP Site: Left Arm, BP Position: Supine, BP Cuff Size: Large Adult) Pulse 70 Temp 37.1 ?C (98.8 ?F) (Temporal) Wt 73.9 kg (163 lb) BMI 24.25 kg/m? Physical Exam Constitutional: General: He is not in acute distress. Appearance: He is ill-appearing and diaphoretic. HENT: Head: Atraumatic. Right Ear: Tympanic membrane normal. Left Ear: Tympanic membrane normal. Nose: Congestion present. No rhinorrhea. Right Sinus: No maxillary sinus tenderness or frontal sinus tenderness. Left Sinus: No maxillary sinus tenderness or frontal sinus tenderness. Mouth/Throat: Mouth: Mucous membranes are dry. Pharynx: Oropharynx is clear. Eyes: Extraocular Movements: Right eye: Nystagmus present. Left eye: Nystagmus present. Cardiovascular: Rate and Rhythm: Normal rate and regular rhythm. Heart sounds: No murmur heard. No gallop. Pulmonary: Effort: No respiratory distress. Breath sounds: No wheezing or rales. Abdominal: Palpations: Abdomen is soft. Tenderness: There is no abdominal tenderness. Musculoskeletal: Right lower leg: No edema. Left lower leg: No edema. Neurological: General: No focal deficit present. Mental Status: He is alert. Cranial Nerves: No cranial nerve deficit. Sensory: No sensory deficit. Motor: No weakness. Coordination: Romberg sign negative. Coordination normal. [place]qa-Gdaf-Doccec Test and Heel to Slaughter Test normal. Gait: Gait abnormal. Comments: Wide gait stance which spouse indicated was chronic. + dizziness lying down, turning supine. Psychiatric: Attention and Perception: Attention normal. Mood and Affect: Mood is anxious. Assessment and Plan 1. Vertigo - ICD9: 780.4, ICD10: R42 Discussed medication dosage, usage, goals of therapy, and side effects. Hyrdration stressed. - CBC - COMP METABOLIC PANEL - PREDNISONE 10 MG TABLET - ONDANSETRON 4 MG DISINTEGRATING TABLET Joshua Portillo MD Allergies As of Date: 10/30/2023 Noted Allergy Reaction DILAUDID (HYDROMORPHONE (BULK)) 06/23/2014 11 - Vomiting DILAUDID (HYDROMORPHONE (BULK)) 03/06/2015 8 - GI Upset Comments: vomit Date Reviewed: 10/30/2023 Reviewed by: Dianne Garcia LPN - Fully Assessed Reason for Visit: Dizziness [36] Primary Visit Diagnosis:Vertigo [R42] (more content not included)... Normal [facility] - Microbiology an d Antimicrobial susceptibilityOrdered By: Steve Ojeda on 10-20-2023 SARS-CoV-2 (COVID-19) RNA HETAL+probe Ql (Unsp spec) Influenzae [facility] CNOVon 09-25-2023 CNOV Office Visit (UROLWS) -------- CRISTELA MCNALLY ([id number]) 1975 M Date Time Provider Department 09/25/23 3:00 PM MARK BAKER During your visit today, we recorded the following information about you: Temperature Pulse Blood pressure Weight 99 degrees 84/minute 140/96 74.8 kg Height 1.746 m Mark Baker APRN.[employer], DNP 09/25/2023 3:55 PM Signed Cristela Mcnally Referred by: SELF Vasectomy (Voluntary Sterilization) Consult [facility] Vasectomy Video: [email or web address] ation 09/25/2023 CC: Desires permanent sterilization HPI: 48 year old male states he desire permanent surgical sterilization. Reports fathering 5 children and expressly states he does not desire to father children in the future. Genitourinary history: Hx undescended testis: none Hx stone disease: none Hx UTI/prostatitis/ep ididimitis/STI: none - no abnormalities in sexual development [...] Actinic cheilitis Actinic keratosis Disc degeneration, lumbar 07/30,12/28,01/24, Left inguinal hernia 12/22/2015 Low back pain with right-sided sciatica 06/16/2020 Lung nodules 04/09/2021 Spinal stenosis Spondylolisthesis, lumbar region 05/21/2020 Status post lumbar spinal fusion Tobacco use disorder 03/24/2021 PAST SURGICAL HISTORY Procedure Laterality Date CARPAL TUNNEL 1998 w/ laceration repair COLONOSCOPY SCREENING 09/22/2022 repeat in 3 years LOW BACK DISK SURGERY 05/21/2020 PAST SURGICAL HISTORY OF 07/30,12/28,01/24, HERNIATED DISC SURGERIES X 2, L4-L5 PAST [...] not taking: Reported on 09/25/2023) No current facility-administe red medications for this visit. Allergies: Dilaudid [Hydromorphone [...] (99 ?F) (Temporal) Ht 174.6 cm (5' 8.75) Wt 74.8 kg (165 lb) SpO2 98% [...] Descended, nontender, no masses bilaterally. Epididymides: Right palp,nonten (more content not included)... Normal [facility] CNOVon 08-30-2023 CNOV Office Visit (NEAGCLM) -------- CRISTELA MCNALLY ([id number]) 1975 M Date Time Provider Department 08/30/23 2:00 PM HALEY BHAKTA During your visit today, we recorded the following information about you: Pulse Blood pressure Weight Height 77/minute 124/82 75.2 kg 1.753 m Haley Bhakta APRN.CNP 08/30/2023 2:47 PM Signed NEUROSURGERY FOLLOW UP OFFICE NOTE Haley Bhakta APRN.CNP Date of visit: August 30, 2023 Patient Name: Mr.Thomas Zeina Mcnally Date of : 1975 Current Age: [age] year old Sex: male MRN/E# [id number] Last Office Visit: January 26, 2021 CHIEF [...] pain 2 weeks ago after putting up [place] lights. 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 EVALUATION 08/30/2023 1347 Pain Level: 7 Pain Location: Back-Lower Description: Spasm;Aching;Tight ness;Throbbing Duration Units: Weeks Frequency: Continuous Intervention/Comfo rt measure: Medication PAST MEDICAL HISTORY Diagnosis Date Disc degeneration, lumbar 07/30,12/28,01/24, Left inguinal hernia 12/22/2015 Low back pain with right-sided sciatica 06/16/2020 Lung nodules 04/09/2021 Spinal stenosis Spondylolisthesis, lumbar region 05/21/2020 Tobacco use disorder 03/24/2021 PAST SURGICAL HISTORY Procedure Laterality Date CARPAL TUNNEL 1998 w/ laceration repair COLONOSCOPY SCREENING 09/22/2022 repeat in 3 years LOW BACK DISK SURGERY 05/21/2020 PAST SURGICAL HISTORY OF 07/30,12/28,01/24, HERNIATED DISC SURGERIES X 2, L4-L5 PAST [...] 90 mcg/actuation inhaler EVERY 4 HOURS NEEDED Brompheniramine-Ps eudoeph-DM 2-30-10 mg/5 mL syrup Take 10 mL [...] (TYLENOL) 500 mg tablet Take 500 mg (more content not included)... Normal [facility] XR LUMBAR 4V AP/LAT/ FLEX/EX Ton 08-30-2023 XR LUMBAR 4V AP/LAT/ FLEX/EXT * * *Final Report* * * DATE OF EXAM: Aug 30 2023 1:44PM A1X 5231 - XR LUMBAR 4V AP/LAT/ FLEX/EXT / PROCEDURE REASON: Lumbar radiculopathy * * * * Physician Interpretation * * * * EXAM: LUMBAR SPINE, 4 VIEWS CLINICAL: 48-year-old male with lumbar radiculopathy status post fusion TECHNIQUE: AP, lateral, lateral flexion-extension COMPARISON: 01/26/2021 RESULTS: Counting reference: Anatomic Variant: None. L4-5 is considered the level of the iliac crest and assume there are 5 lumbar-type vertebrae. Posterior fusion with pedicle screw and lupe no 4 through S1 and interbody fusion at L4/L5 and L5/S1. Straightening of normal lumbar lordosis. Moderate to marked narrowing of L2/L3 and mild narrowing of L3/L4 disc spaces. Minimal retrolisthesis of L3 on L4. No instability with flexion-extension. IMPRESSION: L4/L5 AND L5/S1 FUSION AND DEGENERATIVE DISC DISEASE ARE UNCHANGED COMPARED TO THE PREVIOUS EXAM Supervisor Hanging And Trimming: PSCB Transcribe Date/Time: Aug 31 2023 10:00A Dictated by : LEROY RODNEY MD This examination was interpreted and the report reviewed and electronically signed by: LEROY RODNEY MD on Aug 31 2023 10:01AM EST [id number] IACN Normal [facility] CT CHEST WO IVCONon 07-13-[address] CHEST WO IVCON * * *Final Report* * * DATE OF EXAM: Jul 13 2023 4:01PM [facility] 0541 - CT CHEST WO IVCON / PROCEDURE REASON: Lung nodules * * * * Physician Interpretation * * * * EXAMINATION: CHEST CT WITHOUT CONTRAST CLINICAL HISTORY: Lung nodule. Technique: Spiral CT acquisition of the chest from the thoracic inlet to the upper abdomen without contrast. MQ: [id number] CT Radiation dose: Integrated Dose-length product (DLP) for this visit = 149 mGy*cm CT Dose Reduction Employed: Automated exposure control(AEC) and iterative recon Comparison: CT chest on 10/01/2021. RESULT: Limitations: None. Lines, tubes, and devices: None. Lung parenchyma and airways: The central airways are patent. Multiple nodules or nodular densities seen in the right lung measuring up to 1 cm, series 6 images 108, 109, 112 and 114. A similar elongated nodular density along the left major fissure, series 6 image 1 5. Smaller nodules also seen in the left lung, series 6 images 121 and 152. No new nodules identified. No masses. No consolidation. Pleural space: No pleural effusion. No pleural thickening. Lower neck, lymph nodes, and mediastinum: The imaged thyroid gland is normal. No lymphadenopathy in the supraclavicular, axillary, mediastinal, or hilar regions. Heart, pericardium, and thoracic vessels: The thoracic aorta and main pulmonary artery are normal in caliber. The cardiac chambers are normal in size. No coronary artery atherosclerotic calcifications are noted, although the study is not optimized for coronary assessment. No pericardial effusion or thickening. Bones and soft tissues: No destructive bone lesion. Chest wall is unremarkable. Upper abdomen: Limited study through the upper abdomen demonstrates no interval changes. Furniture Removalist'S Assistant (topogram) images: No additional findings. IMPRESSION: Stable bilateral nodules or nodular densities. No new or enlarging nodules identified. Supervisor Hanging And Trimming: PSCB Transcribe Date/Time: Jul 14 2023 12:48P Dictated by : PAULO QUINTANA MD This examination was interpreted and the report reviewed and electronically signed by: PAULO QUINTANA MD on Jul 14 2023 1:12PM EST [id number] IACN Normal [facility] CNOVon 06-29-2023 CNOV Office Visit (INTMWS) -------- CRISTELA MCNALLY ([id number]) 1975 M Date Time Provider Department 06/29/23 8:20 AM GINGER TORRES INTMWS During your visit today, we recorded the following information about you: Temperature Pulse Respiration Blood pressure 97.3 degrees 85/minute 18/minute 114/76 Weight 74.8 kg Ginger Torres APRN.SAS PROGRAMMER REMOTE 06/29/2023 8:56 AM Signed CC: Patient presents with: ER F/U: [facility] Monday/ SOB, cough HPI Cristela Pastrana Dali is a 48 year old male who presents today for above. Patient was seen in [facility] ER on 06/24 for cough and [...] MEDICAL HISTORY Diagnosis Date Disc degeneration, lumbar 07/30,12/28,01/24, Left inguinal hernia 12/22/2015 Low back pain with right-sided sciatica 06/16/2020 Lung nodules 04/09/2021 Spinal stenosis Spondylolisthesis, lumbar region 05/21/2020 Tobacco use disorder 03/24/2021 PAST SURGICAL HISTORY Procedure Laterality Date CARPAL TUNNEL 1998 w/ laceration repair COLONOSCOPY SCREENING 09/22/2022 repeat in 3 years LOW BACK DISK SURGERY 05/21/2020 PAST SURGICAL HISTORY OF 07/30,12/28,01/24, HERNIATED DISC SURGERIES X 2, L4-L5 PAST [...] is alert. DATA REVIEWED: Outside chart from [facility] ER reviewed. ASSESSMENT/PLAN: 1. Respiratory infection [...] symptoms occur. Patient agreeable to treatment plan. NINO Calderon Naz, APRN.CNP 06/29/2023 8:34 AM Signed Mucinex extended release 12 hr tablet, take two tablets twice a (more content not included)... Normal [facility] Influenza virus A and B and SARS-CoV-2 (COVID-19) Ag panel - Upper respiratory specimOrdered By: Vaibhav Young on 06-24-2023 SARS-CoV-2 (COVID-19) RNA HETAL+probe Ql (Resp) [facility] SARS-CoV-2 (COVID-19) RNA HETAL+probe Ql (Resp) [facility] XR Cervical spine AP and Lat eral and obliqueon 08-18-2022 IMPRESSION: Multilevel cervical spondylosis as described. Supervisor Hanging And Trimming: SPENCER Transcribe Date/Time: Aug 18 2022 12:01P Dictated by : OSMANI GIL DO This examination was interpreted and the report reviewed and electronically signed by: OSMANI GIL DO on Aug 18 2022 12:06PM [facility] DIVISION OF RADIOLOGY * * *Final Report* * * DATE OF EXAM: Aug 17 2022 12:37PM WOX [id number] - XR CERVICAL 4V AP/LAT/OBL / PROCEDURE REASON: Cervicogenic headache * * * * Physician Interpretation * * * * EXAMINATION: XR CERVICAL 4V AP/LAT/OBL PATIENT/TECHNOLOGI ST PROVIDED HISTORY: headache radiating from neck CLINICAL INFORMATION: 47 years old Male with Cervicogenic headache TECHNIQUE: XR CERVICAL 4V AP/LAT/OBL Laterality: NOT APPLICABLE Number of different views (projections): 4 COMPARISON: None RESULT: Cervical spine: Counting reference: Craniocervical junction. Anatomic Variants: None. Post-op assessment: N/A Alignment: Straightening of the normal cervical lordosis. Mild retrolisthesis C3 on C4 and C5 on C6. Vertebral bodies: Vertebral body heights are maintained. Spine articulations: Mild-moderate disc space narrowing C3-C4 and C5-C6 and mild disc space narrowing C4-C5. Facet and uncovertebral degenerative changes contribute to; On the RIGHT: Severe foraminal stenosis C3-C4 and C5-C6. On the LEFT: Mild foraminal stenosis C3-C4 and moderate foraminal stenosis C5-C6. DIVISION OF RADIOLOGY Provider, [facility] [place] - 08/18/2022 * * *Final Report* * * DATE OF EXAM: Aug 17 2022 12:37PM WOX [id number] - XR CERVICAL 4V AP/LAT/OBL / PROCEDURE REASON: Cervicogenic headache * * * * Physician Interpretation * * * * EXAMINATION: XR CERVICAL 4V AP/LAT/OBL PATIENT/TECHNOLOGI ST PROVIDED HISTORY: headache radiating from neck CLINICAL INFORMATION: 47 years old Male with Cervicogenic headache TECHNIQUE: XR CERVICAL 4V AP/LAT/OBL Laterality: NOT APPLICABLE Number of different views (projections): 4 COMPARISON: None RESULT: Cervical spine: Counting reference: Craniocervical junction. Anatomic Variants: None. Post-op assessment: N/A Alignment: Straightening of the normal cervical lordosis. Mild retrolisthesis C3 on C4 and C5 on C6. Vertebral bodies: Vertebral body heights are maintained. Spine articulations: Mild-moderate disc space narrowing C3-C4 and C5-C6 and mild disc space narrowing C4-C5. Facet and uncovertebral degenerative changes contribute to; On the RIGHT: Severe foraminal stenosis C3-C4 and C5-C6. On the LEFT: Mild foraminal stenosis C3-C4 and moderate foraminal stenosis C5-C6. IMPRESSION IMPRESSION: Multilevel cervical spondylosis as described. Supervisor Hanging And Trimming: SPENCER Transcribe Date/Time: Aug 18 2022 12:01P Dictated by : OSMANI GIL DO This examination was interpreted and the report reviewed and electronically signed by: OSMANI GIL DO on Aug 18 2022 12:06PM EST [facility] XR Cervical spine AP and Lat eral and obliqueOrdered By: Ccf Provider on 08-18-2022 [facility] XR Cervical spine AP and Lat eral and obliqueon 08-17-2022 Radiology Study observation (narrative) [facility] XR LUMBAR 2V AP/LATon 2019 XR LUMBAR 2V AP/LAT Final Report DATE OF EXAM: Jul 17 2020 11:48AM [id number] - XR LUMBAR 2V AP/LAT / PROCEDURE REASON: Recurrent herniation of lumbar disc Physician Interpretation EXAM TITLE: XR LUMBAR 2V AP/LAT DATE: 07/17/2020 INDICATION: Back pain. Previous lumbar fusion. COMPARISON: Intraoperative CT scan of 05/21/2020 AP and lateral views of the lumbar spine show pedicle screws and stabilizing rods with interbody fusion material extending from L4 to S1. All hardware appears intact and in expected position. There is straightening of the normal lumbar lordosis. Delete that Vertebral body heights are maintained. Mild intervertebral disc space narrowing at L2-3. (Counting lumbar levels on this exam is based on L4-5 disc level as a reference level located at the top of the iliac crests.) IMPRESSION: Status post lumbar fixation/fusion. Supervisor Hanging And Trimming: PSCOpal Transcribe Date/Time: Jul 17 2020 1:58P Dictated by : CRISTELA GROSS MD This examination was interpreted and the report reviewed and electronically signed by: CRISTELA GROSS MD on Jul 17 2020 2:03PM EST Normal [facility] CRYOTHERAPY SKIN LESION [facility] Vital Signs Date Time Vital Sign Value Performing Clinician Facility 01-09-2025 22:00-0400 Diastolic blood pressure 80 mm[Hg] Dr. Joshua Portillo MD Work Phone: 8(896)[phone] [place] [address] 01-09-2025 22:00-0400 Heart rate 70 /min Dr. Joshua Portillo MD Work Phone: 2(543)507-690086 [place] [address] 01-09-2025 22:00-0400 Respiratory rate 18 /min Dr. Joshua Portillo MD Work Phone: 4(574)068-273286 [place] [address] 01-09-2025 22:00-0400 SaO2% (BldA) [Mass fraction] 98 % Dr. Joshua Portillo MD Work Phone: 2(399)[phone] [place] [address] 01-09-2025 22:00-0400 Systolic blood pressure 130 mm[Hg] Dr. Joshua Portillo MD Work Phone: 6([phone])656-046786 [place] [address] 01-09-2025 18:36-0400 Body height 175.[address] Joshua Portillo MD Work Phone: 2(219)541-319586 [place] [address] 01-09-2025 18:36-0400 Body mass index (BMI) [Ratio] 22.1 kg/m2 Dr. Joshua Portillo MD Work Phone: 2(414)839-790086 [place] [address] 01-09-2025 18:36-0400 Body temperature 97.8 [degF] Dr. Joshua Portillo MD Work Phone: 7(596)852-430786 [place] [address] 01-09-2025 18:36-0400 Body weight 68.[address] Joshua Portillo MD Work Phone: 0(991)327-908586 [place] [address] 02-21-2024 15:22-0400 Body temperature 97.9 [degF] [facility] 02-21-2024 15:22-0400 Diastolic blood pressure 89 mm[Hg] [facility] 02-21-2024 15:22-0400 Heart rate 66 /min [facility] 02-21-2024 15:22-0400 Respiratory rate 16 /min [facility] 02-21-2024 15:22-0400 SaO2% (BldA) [Mass fraction] 97 % [facility] 02-21-2024 15:22-0400 Systolic blood pressure 122 mm[Hg] [facility] 02-21-2024 10:59-0400 Body height 175.26 cm [facility] 02-21-2024 10:59-0400 Body mass index (BMI) [Ratio] 22.6 kg/m2 [facility] 02-21-2024 10:59-0400 Body weight 69.35 kg [facility] 12-01-2023 14:00-0500 Body height 175.3 cm Suleiman Trujillo MD Work Phone: [facility] 12-01-2023 14:00-0500 Body weight 74.39 kg Suleiman Trujillo MD Work Phone: [facility] 12-01-2023 14:00-0500 Diastolic blood pressure 93 mm[Hg] Suleiman Trujillo MD Work Phone: [facility] 12-01-2023 14:00-0500 Heart rate 85 /min Suleiman Trujillo MD Work Phone: [facility] 12-01-2023 14:00-0500 Respiratory rate 16 /min Suleiman Trujillo MD Work Phone: [facility] 12-01-2023 14:00-0500 Systolic blood pressure 137 mm[Hg] Suleiman Trujillo MD Work Phone: [facility] 11-01-2023 14:40-0500 Blood Pressure Method VICKI BURROWS MD [facility] [place] 11-01-2023 14:40-0500 Diastolic Blood Pressure Non-Invasive 76 mm[Hg] VICKI BURROWS MD [facility] 11-01-2023 14:40-0500 Heart rate 76 /min VICKI BURROWS MD [facility] 11-01-2023 14:40-0500 Mean blood pressure 87 mm[Hg] VICKI BURROWS MD [facility] 11-01-2023 14:40-0500 Respiratory rate 16 /min VICKI BURROWS MD [facility] 11-01-2023 14:40-0500 Systolic Blood Pressure Non-Invasive 119 mm[Hg] VICKI BURROWS MD [facility] 11-01-2023 13:00-0500 Diastolic Blood Pressure Non-Invasive 84 mm[Hg] VICKI BURROWS MD [facility] 11-01-2023 13:00-0500 Heart rate 90 /min VICKI BURROWS MD [facility] 11-01-2023 13:00-0500 Systolic Blood Pressure Non-Invasive 136 mm[Hg] VICKI BURROWS MD [facility] 11-01-2023 11:56-0500 Blood Pressure Method VICKI BURROWS MD [facility] 11-01-2023 11:56-0500 Body height 175.3 cm VICKI BURROWS MD [facility] 11-01-2023 11:56-0500 Body temperature 97.52 [degF] VICKI BURROWS MD [facility] 11-01-2023 11:56-0500 Body weight 74.6 kg VICKI BURROWS MD [facility] 11-01-2023 11:56-0500 Diastolic Blood Pressure Non-Invasive 79 mm[Hg] VICKI BURROWS MD [facility] 11-01-2023 11:56-0500 Heart rate 94 /min VICKI BURROWS MD [facility] 11-01-2023 11:56-0500 Respiratory rate 18 /min VICKI BURROWS MD [facility] 11-01-2023 11:56-0500 Systolic Blood Pressure Non-Invasive 144 mm[Hg] VICKI BURROWS MD [facility] 10-20-2023 10:44-0500 Diastolic blood pressure 64 mm[Hg] [facility] 10-20-2023 10:44-0500 Heart rate 58 /min [facility] 10-20-2023 10:44-0500 Respiratory rate 16 /min [facility] 10-20-2023 10:44-0500 SaO2% (BldA) [Mass fraction] 96 % [facility] 10-20-2023 10:44-0500 Systolic blood pressure 125 mm[Hg] [facility] 10-20-2023 08:41-0500 Body height 175.26 cm [facility] 10-20-2023 08:41-0500 Body mass index (BMI) [Ratio] 24.1 kg/m2 [facility] 10-20-2023 08:41-0500 Body temperature 98.9 [degF] [facility] 10-20-2023 08:41-0500 Body weight 74.1 kg [facility] 09-25-2023 14:59-0500 Body height 174.6 cm Mark Baker APRN.CNP, DNP Work Phone: [facility] 09-25-2023 14:59-0500 Body temperature 99 [degF] Mark Baker APRN.CNP, DNP Work Phone: [facility] 09-25-2023 14:59-0500 Body weight 74.84 kg Mark Baker FREIGHT AIR BRAKE FITTER.SAS PROGRAMMER REMOTE, DNP Work Phone: [facility] 09-25-2023 14:59-0500 Diastolic blood pressure 96 mm[Hg] Mark Blazhane FREIGHT AIR BRAKE FITTER.SAS PROGRAMMER REMOTE, DNP Work Phone: [facility] 09-25-2023 14:59-0500 Heart rate 84 /min Mark Baker FREIGHT AIR BRAKE FITTER.SAS PROGRAMMER REMOTE, DNP Work Phone: [facility] 09-25-2023 14:59-0500 SaO2% (BldA) [Mass fraction] 98 % Mark Baker FREIGHT AIR BRAKE FITTER.SAS PROGRAMMER REMOTE, DNP Work Phone: [facility] 09-25-2023 14:59-0500 Systolic blood pressure 140 mm[Hg] Mark Baker FREIGHT AIR BRAKE FITTER.SAS PROGRAMMER REMOTE, DNP Work Phone: [facility] 08-30-2023 13:49-0500 Body height 175.3 cm Haley Bhakta FREIGHT AIR BRAKE FITTER.SAS PROGRAMMER REMOTE Work Phone: [facility] 08-30-2023 13:49-0500 Body weight 75.2 kg Haley Samreengatelli FREIGHT AIR BRAKE FITTER.SAS PROGRAMMER REMOTE Work Phone: [facility] 08-30-2023 13:49-0500 Diastolic blood pressure 82 mm[Hg] Haley Fegatelli FREIGHT AIR BRAKE FITTER.SAS PROGRAMMER REMOTE Work Phone: [facility] 08-30-2023 13:49-0500 Heart rate 77 /min Haley Samreengatelli FREIGHT AIR BRAKE FITTER.SAS PROGRAMMER REMOTE Work Phone: [facility] 08-30-2023 13:49-0500 SaO2% (BldA) [Mass fraction] 98 % Haley Fegatelli FREIGHT AIR BRAKE FITTER.SAS PROGRAMMER REMOTE Work Phone: [facility] 08-30-2023 13:49-0500 Systolic blood pressure 124 mm[Hg] Haley Fegatelli FREIGHT AIR BRAKE FITTER.SAS PROGRAMMER REMOTE Work Phone: [facility] 08-25-2023 14:34-0500 Respiratory rate 16 /min [facility] 08-25-2023 12:10-0500 Body height 175.26 cm [facility] 08-25-2023 12:10-0500 Body mass index (BMI) [Ratio] 24.3 kg/m2 [facility] 08-25-2023 12:10-0500 Body temperature 97 [degF] [facility] 08-25-2023 12:10-0500 Body weight 74.61 kg [facility] 08-25-2023 12:10-0500 Diastolic blood pressure 83 mm[Hg] [facility] 08-25-2023 12:10-0500 Heart rate 67 /min [facility] 08-25-2023 12:10-0500 SaO2% (BldA) [Mass fraction] 100 % [facility] 08-25-2023 12:10-0500 Systolic blood pressure 124 mm[Hg] [facility] 06-24-2023 14:44-0400 Diastolic blood pressure 90 mm[Hg] [facility] 06-24-2023 14:44-0400 Heart rate 87 /min [facility] 06-24-2023 14:44-0400 Respiratory rate 16 /min [facility] 06-24-2023 14:44-0400 SaO2% (BldA) [Mass fraction] 96 % [facility] 06-24-2023 14:44-0400 Systolic blood pressure 144 mm[Hg] [facility] 06-24-2023 11:49-0400 Body height 175.26 cm [facility] 06-24-2023 11:49-0400 Body mass index (BMI) [Ratio] 23.6 kg/m2 [facility] 06-24-2023 11:49-0400 Body temperature 96 [degF] [facility] 06-24-2023 11:49-0400 Body weight 72.75 kg [facility] 09-13-2022 13:09-0500 Body height 175.3 cm Nuno Lisa RN [facility] 09-13-2022 13:09-0500 Body weight 74.84 kg Nuno Lisa RN [facility] 08-30-2022 09:19-0500 Body temperature 98.1 [degF] Sharifa Bartlett PA-C Work Phone: [facility] 08-30-2022 09:19-0500 Body weight 76.66 kg Sharifa Dhruv PA-C Work Phone: [facility] 08-30-2022 09:19-0500 Diastolic blood pressure 62 mm[Hg] Sharifa Dhruv PA-C Work Phone: [facility] 08-30-2022 09:19-0500 Heart rate 76 /min Sharifa Dhruv PA-C Work Phone: [facility] 08-30-2022 09:19-0500 Respiratory rate 14 /min Sharifa Dhruv PA-C Work Phone: [facility] 08-30-2022 09:19-0500 SaO2% (BldA) [Mass fraction] 99 % Sharifa Maricopa PA-C Work Phone: [facility] 08-30-2022 09:19-0500 Systolic blood pressure 112 mm[Hg] Sharifa Dhruv PA-C Work Phone: [facility] 08-19-2022 09:00-0400 Diastolic blood pressure 78 mm[Hg] Joaquín Golias PT Work Phone: [facility] 08-19-2022 09:00-0400 Systolic blood pressure 114 mm[Hg] Joaquín Golias PT Work Phone: [facility] Encounters Encounter Date Encounter Type Care Provider Facility Start: 01-09-2025 End: 01-09-2025 Emergency department patient visit Dr. Joshua Portillo MD Work Phone: -Emergency Department Work Phone: Start: 03-06-2024 End: 03-06-2024 ambulatory [facility] Start: 03-06-2024 End: 03-06-2024 Patient encounter procedure Andrology [facility] Work Phone: [facility] Comment on above: Encounter for steril ization Start: 02-21-2024 End: 02-21-2024 Emergency department patient visit [facility] Work Phone: Start: 12-01-2023 End: 12-01-2023 ambulatory JOSHUA PORTILLO Facility:[facility] Start: 12-01-2023 End: 12-01-2023 Patient encounter procedure Suleiman Trujillo MD Work Phone: Urology Comment on above: Encounter for steril ization (Primary Dx) Start: 11-01-2023 End: 11-01-2023 Emergency department patient visit VICKI BURROWS MD Facility:[facility] Start: 11-01-2023 End: 11-01-2023 Emergency department patient visit VICKI BURROWS MD [facility] Start: 10-31-2023 End: 11-01-2023 ambulatory JOSHUA PORTILLO Facility:[facility] Start: 10-30-2023 End: 10-30-2023 ambulatory JOSHUA PORTILLO Facility:[facility] Start: 10-20-2023 End: 10-20-2023 Emergency department patient visit [facility] Work Phone: Start: 09-25-2023 End: 09-26-2023 ambulatory JOSHUA PORTILLO Facility:[facility] Start: 09-25-2023 End: 09-25-2023 Patient encounter procedure Mark Baker APRN.SAS PROGRAMMER REMOTE, DNP Work Phone: Urology Comment on above: Vasectomy evaluation (Primary Dx); Elevated blood pressure reading without diagnosis of hypertension; Genital warts Start: 08-30-2023 End: 08-30-2023 ambulatory HALEY FEGATELLI Facility:[facility] Start: 08-30-2023 End: 08-30-2023 Patient encounter procedure Haley Samreengatsj FREIGHT AIR BRAKE FITTER.SAS PROGRAMMER REMOTE Work Phone: [facility] Comment on above: Spondylolisthesis, l umbar region (Primary Dx); Status post lumbar spinal fusion Start: 08-30-2023 End: 08-30-2023 Subsequent hospital visit by physician Xr [employer] Project Manager [facility] Comment on above: Lumbar radiculopathy [M54.16] Start: 08-29-2023 Orders Only Delfin Vic East on DO Work Phone: [facility] Comment on above: Lumbar radiculopathy (Primary Dx) Start: 08-25-2023 End: 08-25-2023 Emergency department patient visit [facility] Work Phone: Start: 07-13-2023 End: 07-13-2023 [facility] Start: 07-13-2023 End: 07-13-2023 Subsequent hospital visit by physician [facility] (I-Stat) Work Phone: Cat Scan Comment on above: Lung nodules [R91.8] Start: 06-29-2023 End: 06-29-2023 [facility] Start: 06-24-2023 End: 06-24-2023 Emergency department patient visit [facility] Work Phone: Start: 06-07-2023 End: 06-07-2023 Emergency department patient visit PHYSICIAN [facility] Start: 10-20-2022 Telephone encounter Raine Lee MD Work Phone: General Surgery Comment on above: Results Start: 09-30-2022 End: 09-30-2022 Patient encounter procedure Lina Sweeney PA-C Work Phone: Dermatology Comment on above: Actinic keratosis (P rimary Dx); Multiple benign nevi; Seborrheic keratoses; Miramontes angioma; Solar lentigo; Skin cancer screening; Actinic cheilitis Start: 09-13-2022 ambulatory Nuno Lisa RN L D SURGERY Start: 09-06-2022 End: 09-06-2022 ambulatory Joaquín Torres PT Work Phone: [facility] Physical Therapy Comment on above: Cervicogenic headach e (Primary Dx) Start: 08-30-2022 End: 08-30-2022 Patient encounter procedure Sharifa Bartlett PA-C Work Phone: General Surgery Comment on above: Encounter for screen ing for malignant neoplasm of colon (Primary Dx) Start: 08-19-2022 End: 08-19-2022 ambulatory Joaquín Golmartin PT Work Phone: [facility] Physical Therapy Comment on above: Cervicogenic headach e (Primary Dx) Start: 08-17-2022 End: 08-17-2022 Subsequent hospital visit by physician Xr [facility] Work Phone: Radiology Comment on above: Cervicogenic headach e [G44.86] Procedures Date Procedure Procedure Detail Performing Clinician Start: 01-09-2025 CT of lumbar spine Dr. Joshua Portillo MD Work Phone: Start: 03-06-2024 Semen analysis sperm presence&/motility helene Trujillo MD Work Phone: Start: 02-21-2024 CT of head with contrast Start: 02-21-2024 CT of head without contrast Start: 10-20-2023 SARS-CoV-2, Influenz a & RSV (PCR) Start: 10-20-2023 Plain chest X-ray Start: 07-13-2023 Ct thorax w/o contra st material Ginger Older FREIGHT AIR BRAKE FITTER.SAS PROGRAMMER REMOTE Work Phone: Start: 06-24-2023 SARS-CoV-2 & FLU Ant igen (Rapid) Start: 06-24-2023 Plain chest X-ray Start: 09-30-2022 CRYOTHERAPY SKIN LESION Lina Sweeney PA-C Work Phone: Start: 08-17-2022 Radex spine cervical 4 or 5 views Joshua Portillo MD Work Phone: Start: 03-24-2021 Lipid 1996 panel - S josé miguel or Plasma Ct (I-Stat) Work Phone: Back structure, excl uding neck (body structure) VICKI BURROWS MD Herniated structure (morphologic abnormality) VICKI BURROWS MD Tonsillectomy VICKI BURROWS MD Plan of Treatment Date Care Activity Detail Author Start: 10-31-2026 Diabetes Screening Diabetes Screenin g [facility] Start: 07-01-2026 Urine microalbumin profile [facility] Comment on above: Postponed from 05/24 (Postponed To Appropriate Date) Start: 03-24-2026 Lipid 1996 panel - S josé miguel or Plasma Lipid Screening [facility] Start: 03-24-2026 Lipid panel Lipid Screening [facility] Start: 03-24-2026 LIPID SCREEN LIPID SCREEN [facility] Start: 09-22-2025 Colonoscopy Colonoscopy [facility] Start: 09-22-2025 Colorectal Cancer Screening Colorectal Cancer Screening [facility] Start: 09-22-2025 Screening for malign ant neoplasm of colon [facility] Start: 01-09-2025 [facility] Start: 10-30-2024 Covid-19 Vaccine ( season) Covid-19 Vaccine () [facility] Comment on above: Postponed from 06/16 (Declined at this time) Start: 06-16-2024 Covid-19 Vaccine ( season) Covid-19 Vaccine ( season) [facility] Start: 06-16-2024 Influenza vaccination [facility] Start: 04-14-2024 Influenza vaccination Influenza Vacc ine (#1) [facility] Comment on above: Postponed from 06/16 (Declined at this time) Start: 03-24-2024 DIABETES SCREEN DIABETES SCREEN [facility] Start: 03-24-2024 Diabetes Screening Diabetes Screenin g [facility] Start: 02-29-2024 End: 12-01-2024 POST VASEC SCREEN POST VASEC SCREEN Andrology Routine Encounter for sterilization Expected: 02/29/2024, Expires: 12/01/2024 [facility] Work Phone: Comment on above: Expected: 02/29/2024 , Expires: 12/01/2024 Start: 02-21-2024 [facility] Start: 10-20-2023 [facility] Start: 10-16-2023 Behavioral Health Screening Behavioral Health Screening [facility] Start: 10-16-2023 Depression Assessment Depression Ass essment [facility] Start: 08-25-2023 [facility] Start: 08-17-2023 COVID-19 VACCINE (2 - Moderna series) COVID-19 VACCINE (2 - Moderna series) [facility] Comment on above: Postponed from 03/12 (Declined at this time) Start: 06-24-2023 [facility] Start: 06-16-2023 Covid-19 Vaccine ( season) Covid-19 Vaccine ( season) [facility] Start: 06-16-2023 Influenza vaccination Influenza Vacc ine (#1) [facility] Start: 04-14-2023 Influenza vaccination INFLUENZA (#1) [facility] Comment on above: Postponed from 06/16 (Declined at this time) Start: 10-16-2022 [facility]PRESSION [facility]MENT [facility] Start: 2021 COLOGUARD (FIT-DNA) COLOGUARD (FIT-D NA) [facility] Start: 2021 Colonoscopy COLONOSCOPY [facility] Start: 2021 COLORECTAL CANCER SCREENING COLORECTAL CANCER SCREENING [facility] Start: [address] COLONOGRAPHY [facility] Start: 2021 FECAL OCCULT BLOOD FECAL OCCULT BLOO D [facility] Start: 2021 Screening for malign ant neoplasm of colon [facility] Start: 2021 SIGMOIDOSCOPY SIGMOIDOSCOPY [facility] Start: 1995 Hepatitis B Vaccine (1 of 3 - 19+ 3-dose series) Hepatitis B Vaccine (1 of 3 - 19+ 3-dose series) [facility] Start: 1994 Anxiety Screening Anxiety Screening [facility] Start: 1994 Depression Screening Depression Scre ening [facility] Start: 1982 PNEUMOCOCCAL (1 - PCV) PNEUMOCOCCAL (1 - PCV) [facility] Start: 1982 Pneumococcal vaccination [facility] Start: 1976 HEPATITIS B (1 of 3 - 3-dose series) HEPATITIS B (1 of 3 - 3-dose series) [facility] Start: 1976 Hepatitis B Vaccine (1 of 3 - 3-dose series) Hepatitis B Vaccine (1 of 3 - 3-dose series) [facility] Patient Education [facility] Work Phone: Patient referral [facility] Work Phone: End: 09-27-2024 Radex spine lumbosacral minimum 4 views XR LUMBAR MOTION 4V AP/LAT/ FLEX/EXT Radiology Routine Lumbar radiculopathy 1 Occurrences starting 08/29/2023 until 09/27/2024 [facility] Work Phone: Comment on above: 1 Occurrences starti ng 08/29/2023 until 09/27/2024 Radex spine lumbosac ral minimum 4 views XR LUMBAR MOTION 4V AP/LAT/ FLEX/EXT Radiology Routine Lumbar radiculopathy 08/30/2023 1:44 PM EST [facility] Work Phone: SURGICAL PATHOLOGY SURGICAL PATH OLOGY Lab Routine Encounter for sterilization 12/01/2023 2:50 PM EST [facility] Work Phone: Vasectomy uni/bi spx w/postop semen exams VASECTOMY Procedures Routine Vasectomy evaluation Ordered: 09/25/2023 [facility] Work Phone: Comment on above: Ordered: 09/25/2023 [facility] Immunizations Immunization Date Immunization Notes Care Provider Alley ferreira 02-12-2021 COVID-19 original vaccine, full dose, monovalent (MODERNA) [employer] [employer] [facility] Work Phone: [facility] Work Phone: 05-24-2016 tetanus and diphther ia toxoids, adsorbed, preservative free, for adult use (2 Lf of tetanus toxoid and 2 Lf of diphtheria toxoid) Joaquín [employer] [facility] Work Phone: [facility] 05-24-2016 tetanus toxoid, redu nikolas diphtheria toxoid, and acellular pertussis vaccine, adsorbed Joaquín [employer] [facility] Work Phone: [facility] Work Phone: Payers Date Payer Category Payer Self-pay [id number] 2023 Worker's Compensation [phone] 2023 Unknown [employer] PPO OOS [id number] 2023-Present [phone] [address] [place] [address] PPO [id number] 2023 Unknown [id number] 1975 Unknown [id number] 1975 Unknown [id number] Medicaid MEDICAID [id number] Private Health Insurance [id number] Unknown [employer] [id number] Unknown [facility] [id number] Unknown [id number] Unknown [id number] Social History Date Type Detail Facility Start: 08-17-2022 End: 01-09-2025 Tobacco smoking status SDIS Smokes tobacco daily [facility] Work Phone: Start: 10-16-2000 History of tobacco use Cigarette Smoker [facility] Work Phone: Start: 09-21-2020 End: 08-17-2022 Cigarettes smoked current (pack per day) - Reported 1 [facility] Work Phone: Start: 08-17-2022 End: 12-01-2023 Tobacco use and exposure Smokeless tobacco non-user [facility] Work Phone: Start: 08-17-2022 End: 08-30-2023 Alcohol intake Current drinker of alcohol (finding) [facility] Start: 05-22-2020 History SDOH Financial 5 [facility] Start: 05-22-2020 History SDOH Food Worry 1 [facility] Start: 05-22-2020 History SDOH Transport Med 2 [facility] Start: 08-17-2022 Alcohol Comment 1-3 beers ever y 2-3 months. [facility] Start: 1975 Sex Assigned At Not on file [facility] Start: 08-07-2022 End: 09-13-2022 Exposure to SARS-CoV-2 (event) Not sure [facility] Work Phone: Start: 06-24-2023 End: 02-21-2024 Tobacco smoking status NHIS Unknown if ever smoked [facility] Start: 05-05-2020 Occasional [facility] Start: 05-05-2020 Spouse/ Signif icant Other [facility] Start: 04-14-2020 Cigarettes [facility] Start: 1975 Sex Assigned At Male W [facility] Start: 09-21-2020 End: 06-29-2023 Tobacco use panel [facility] Work Phone: How hard is it for you to pay for the very basics like food, housing, medical care, and heating Not hard at all [facility] Work Phone: (I/We) worried whether (my/our) food would run out before (I/we) got money to buy more. Never true [facility] Work Phone: Start: 09-25-2023 End: 12-01-2023 Alcohol intake Ex-drinker (finding) [facility] Sex Assigned At Sex [facility] Start: 01-09-2025 Sex Male (finding) [facility] NEGATED: Highlighted rowStart: NINF History of tobacco use Passive smoker [facility] Medical Equipment Procedure Code Equipment Code Equipment Origin al Text Equipment Identifier Dates Substitute Mastergraft Calcium Phosphate Collagen Bone Graft Putty Void - [id number] Start: 05-21-2020 Substitute Mastergraft 10cm Bone Graft Strip 12ml Spine - [id number] Start: 05-21-2020 Lkc-Tv-Z-Kind Im plant - [id number] Start: 04-27-2016 Dev Bul Sasha 9x10 x23 5 Dg - [id number] Start: 05-21-2020 Lupe Viper 2 Lord otic Titanium 60mm Spinal Mis - [id number] Start: 05-21-2020 Screw Viper 6mm Titanium 45mm Bone Fix Polyaxial Fenestrate Cannulated 5.5 [id number] Start: 05-21-2020 Set Titanium Scr ew 1 Inner Mis Spine - [id number] Start: 05-21-2020 Screw Viper 8mm Titanium 45mm Bone Fix Polyaxial Fenestrate Cannulated 5.5 [id number] Start: 05-21-2020 Viper Cortic Fix Fenestated Screw [id number] Start: 05-21-2020 Functional Status Date Assessment Result Facility 11-01-2023 Functional Status Independent [facility] Mental Status Date Assessment Result Facility 02-21-2024 Cognitive function Level Of Cons ciousness Awake;Alert;Appropriate;Follow s Commands [facility] Work Phone: 11-01-2023 Mental Status Orientation Oriented x 4 [facility] 10-20-2023 Cognitive function Level Of Cons ciousness Awake;Alert;Appropriate [facility] Work Phone: 06-24-2023 Cognitive function Level Of Cons ciousness Awake;Alert;Appropriate [facility] Work Phone: Clinical Notes 06-16-2020 to 01-09-2025 Note Date & Type Note Facility 01-09-2025 Discharge summary [facility] 01-09-2025 Radiology Diagnostic study note [facility] Imaging Services [address] [place] [address] Spine Lumbar without Contrast MR#: [id number] Acct: [id number] Name: CRISTELA MCNALLY Rep #: [id number] : 1975 M 49 From: Monet Phillips MD PCP: Dr. Joshua Portillo MD Status: R EG ER Study:Spine Lumbar without Contrast Date of E xam: 01/09/25 Exam# [id number] Ordering Dr: Duarte Waite DO PROCEDURE: SPINE LUMBAR WITHOUT CONTRAST 01/09/2025 REASON FOR EXAM: 49-year-old male, back pain after fall. Multiple prior spine surgeries. TECHNIQUE: Lumbar spine CT without contrast. Coronal and Sagittal reconstruction series were provided. One or more dose reduction techniques were used (e.g., Automated exposure control, adjustment of the mA and/or kV according to patient size, use of iterative reconstruction technique COMPARISON: Lumbar spine MRI 05/06/2020. RADIATION DOSE SUMMARY: CTDlvol: 14 mGy DLP: 500 mGycm FINDINGS: Vertebrae: Prior posterior instrumentation and spinal fixation of the L4-S1 vertebral bodies, L4-5 laminectomy and interbody disc spacers. No acute osseous fracture. Alignment: No traumatic subluxation. 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 No neural foraminal stenosis. Sacrum: Mild bilateral SI joint arthrosis. Minimal calcific plaque of the abdominal aorta. The visualized bowel loops are normal in caliber. CT/Spine Lumbar without Contrast IMPRESSION: NO ACUTE LUMBAR FRACTURE. DEGENERATIVE CHANGES. Reading Location: [id number] CC: Dr. Devante Waite DO; Dr. Joshua Portillo MD ~ Supervisor Hanging And Trimming: Signed [facility] 01-09-2025 Discharge summary Note Date/Time January 09, 2025 10:20pm [facility] Medical Records Department [address] [place] [address] Emergency Department Summary 01/09/25 MR#: [id number] Acct: [id number] Name: CRISTELA MCNALLY Rep #:[id number] : 1975 49 From: Devante Barrera PCP: Dr. oJshua Portillo MD Status:R EG ER Location: ED HPI History of Present Illness Chief Complaint: Back PFSH PFSH Home Medications ?Medication ?Instructions ?Recorded ?Last Taken ?Type ibuprofen 200 mg tablet 800 mg PO PRN PRN Pain 09/2509/25/17 History naproxen 500 mg tablet 500 mg PO BID #14 tabs 08/25 Unknown Rx orphenadrine citrate 100 mg 100 mg PO BID PRN back edson n 3 days 01/09/25 Unknown Rx tablet,extended release #7 tabs oxycodone 5 mg tablet 5 mg PO Q6H PRN pain 3 days #12 01/09/25 Unknown Rx tabs prednisone 20 mg tablet 20 mg PO DAILY 5 days #5 tab s 01/09/25 Unknown Rx Allergy/AdvReac Type Severity Reaction Status Date / Time hydromorphone HCl (From AdvReac Upset Verified 10/20/23 08:40 Dilaudid) Stomach Family History no significant family his Surgical History H/O hand surgery History of back surgery History of hernia surgery History of tonsillectomy Social History household members: spouse, family and children housing: house Smoking Status: Current every day smoker tobacco type: cigarettes EXAM Physical Exam Const Vital Signs: 01/09/25 18:36 01/09/25 20:36 01/09/25 22:00 Temperature 97.8 F Temperature Source Temporal Pulse Rate 84 68 70 Respiratory Rate 18 18 Blood Pressure 139/118 H 116/78 130/80 H Blood Pressure Mean 125 90 96 Pulse Ox 99 100 98 MDM MDM MDM Narrative Medical decision making narrative: HISTORY OF PRESENT ILLNESS: 49-year-old male presents with chronic back pain. Notes history of 5 back surgeries. He states he is worsening pain and difficulty walking. Notes a fall2 to 3 days ago. Which he landed on his back. No car accidents or other traumanoted. Notes since then his back's been bothering him. He notes chronic weakness mostly in right lower extremity. He notes he is having difficulty walking secondary to pain. Denies new focal weakness or loss of sensation or movement. He does note some increased frequency of urination. Denies blood in his urine or dysuria. Denies chest or abdominal pain. Patient denies any saddle anesthesia, urinary retention, bowel or bladder incontinence, lower extremity weakness, fever or IV drug use, no recent spinal manipulation or surgery, no recent urinary catheterization. REVIEW OF SYSTEMS: Pertinent positives: Back pain Pertinent negatives: As per HPI PHYSICAL EXAM: Nursing triage notes reviewed, Vital signs reviewed Constitutional: please see mdm Abdomen: Soft, there is no tenderness, rigidity, rebound or guarding, no obviousperitoneal signs, no palpable pulsatile abdominal masses, no auscultated abdominal bruit : No CVAT Back: No midline step-offs or deformities. Left lower lumbar paraspinal TTP. No rashes or other lesions noted. Extremities: No edema Neuro: Intact sensation L1-S1 dermatomal distributions. Intact 5/5 strength in hip flexion (T12-L3). Knee extension (L2-L4). Ankle dorsiflexion (L4-L5). Ankle plantar flexion (S1). Great toe extension (L5). 2+ patellar and AchillesDTRs. Skin: No rash or lesions noted MEDICAL DECISION MAKING: Chief Complaint: Back pain External records reviewed: Reviewed prior imaging studies: Reviewed MRI from 2019 which showed interval discectomy Factors affecting care: Chronic back pain Social determinants of health: patient denies IV drug History obtained from others: none Consults: none [facility] Narrative: The patient was initially hemodynamically stable, afebrile and nontoxic-appearing. Exam without focal lower extremity neurologic abnormalities. The patient did have significant weakness in bilateral lower extremities it is difficult to ascertain this is acute or chronic given his history of back surgeries and chronic weakness. I considered the following differential diagnosis: Musculoskeletal back pain, space-occupying lesion of the spinal (epidural abscess, epidural hematoma), cauda equina, conus medullaris, fracture dislocation, AAA, nephrolithiasis, pyelonephritis, aortic dissection No back pain red flags on initial exam making , lesion of spine less likely. Abdomen soft nontender distal pulse abdominal masses or bruits noted. There is no flank pain or trouble with urination to suggest nephrolithiasis or pyelonephritis. Given report of trauma did obtain image to rule out any bony injury perform a CTscan of the lumbar spine. I initially treated the patient with oral anti-inflammatories, muscle relaxers, narcotics and steroids. ALL IMAGES (IF OBTAINED) HAVE BEEN PERSONALLY REVIEWED AND INTERPRETED BY MYSELF. CT scan of the lumbar spine was negative Suspect acute on chronic back pain. Low suspicion for spinal emergency. No indication for transfer or emergent spine consultation. Will give a short course of steroids, muscle relaxers and narcotics. Will encourage him to follow with his spinal surgeon as well as pain management. The patient and/or family, caregivers express understanding. The patient and/orfamily, caregivers agrees with the plan. Shared decision making: I will have a discussion with the patient and or visitors regarding risk/benefits of further testing or admission. They will be made aware of of the risk/benefits inherent in this decision they will be given the opportunity to voice understanding. Total critical care time today provided was at least 0 minutes. This excludes separately billable procedures. Critical care time (if documented) is secondary to the patient having high probability of clinically significant/life threatening deterioration in the patient's condition which required my urgent intervention. Impression: 1. Acute on chronic low back pain Dispo: Discharge home This note was generated with [employer] dictation software. It may contain incorrectwords, spelling, and punctuation that were not noted in review of the chart prior to signing. Radiography Diagnostic Testing: Clinical Impression(s) from Imaging Studies Lumbar Spine CT 01/09/25 19:47 IMPRESSION: NO ACUTE LUMBAR FRACTURE. DEGENERATIVE CHANGES. Reading Location: [facility] Discharge Plan Triage Chief Complaint: Back ED Provider: Devante Waite Dx/Rx/DC Orders Instructions: ED Back Pain (Acute or Chronic) Prescriptions: New oxycodone 5 mg tablet 5 mg PO Q6H PRN (Reason: pain) 3 Days Qty: 12 0RF orphenadrine citrate 100 mg tablet extended release 100 mg PO BID PRN (Reason: back pain) 3 Days Qty: 7 0RF prednisone 20 mg tablet 20 mg PO DAILY 5 Days Qty: 5 0RF No Action ibuprofen 200 MG tablet 800 mg PO PRN PRN (Reason: Pain) Patient Comments: PT REPORTS TAKING 1200MG MOTRIN 1-4 TIMES A DAY. naproxen 500 mg tablet 500 mg PO BID Qty: 14 0RF Stand Alone Forms: ED Work / School Excuse Primary Care Provider: Joshua Portillo Referrals: Mitchell Enriquez MD [Med Staff - Active Staff] - Joshua Portillo MD [Primary Care Provider] - Activity Restrictions/Additional Instructions: Thank you for trusting us with your care today! Your CT scan was negative for acute bony abnormalities. Please take Tylenol (2 pills, 650 mg), ibuprofen (2 pills, 400 mg) every 6 hoursas needed for pain and fever control. Please take Norflex (muscle relaxer as prescribed. Please take prednisone (anti-inflammatory) as prescribed In addition to the above regimen please take oxycodone for breakthrough pain. Please return to the emergency department if your symptoms change or worsen. Please follow with your primary care physician and pain management for further outpatient evaluation and management. Print Language: Thai Disposition Disposition: Home, Self Care What to do if you have Problems For any increased pain, shortness of breath, bleeding, nausea or vomiting, chestpain, or any unexpected problems, contact your Primary Care Provider. Call [facility] ([phone]) or report to the closest Emergency Room. Call 911 if necessary. 01/09/252219 <Electronically signed by Devante Waite DO> Cosigner Signature (if applicable): CC: Dr. Joshua Portillo MD ~ Signed [facility] Work Phone: 1(938) 409-421905-22-2024 NoteHNO ID: [id number] Author: SAMMY GALVAN, ? Service: ? Author Type: Frame Gate Mortiser Operator Type: Progress Notes Filed: 03/06/2024 14:43 Note Text: [facility] of Present illness Narrative* Sammy Galvan - 03/06/2024 2:42 PM EDT Post vasectomy semen analysis. [facility]my Galvan [facility] Discharge summary Author Jefry Galloway [facility] February 21, 2024 3:09pm Note Date/Time February 21, 2024 1:30pm [facility] Medical Records Department [address] [place] [address] Emergency Department Summary 02/21/24 MR#: [id number] Acct: [id number] Name: CRISTELA MCNALLY Rep #:[id number] : 1975 48 From: Jefry Galloway DO PCP: Dr. Joshua Portillo MD Status:R EG ER Location: ED HPI History of Present Illness Chief Complaint: Numb/Ting PFSH PFSH Home Medications ibuprofen 200 mg tablet 800 mg PO PRN PRN Pain 09/25/17 [History Last Taken 09/25/17] naproxen 500 mg tablet 500 mg PO BID #14 tabs 08/25/23 [Rx Last Taken Unknown] Allergy/AdvReac Type Severity Reaction Status Date / Time hydromorphone HCl AdvReac Upset Verified 10/20/23 08:40 [From Dilaudid] Stomach Family History no significant family his Surgical History H/O hand surgery History of back surgery History of hernia surgery History of tonsillectomy Social History household members: spouse, family and children housing: house Smoking Status: Current every day smoker tobacco type: cigarettes EXAM Physical Exam Const Vital Signs: 02/21/24 10:59 02/21/24 12:01 02/21/24 13:00 Temperature 97.6 F L Temperature Source Temporal Pulse Rate 71 57 L 57 L Respiratory Rate 16 18 18 Blood Pressure 142/81 H 128/87 H 112/82 H Blood Pressure Mean 101 100 92 Pulse Ox 98 99 96 Oxygen Delivery Method Room Air Room Air Room Air 02/21/24 14:00 Temperature Temperature Source Pulse Rate 78 Respiratory Rate 14 Blood Pressure 131/76 H Blood Pressure Mean 94 Pulse Ox 97 Oxygen Delivery Method Room Air MDM MDM MDM Narrative Medical decision making narrative: Patient presenting with headache. Differential includes stress headache, migraine. He also is stating that he had morning headaches he also was stating that he had morning headaches for 6 months so tumor is in the differential as well. He does not have any temporal artery tenderness or palpable pain. He does admit to light sensitivity. IV line was established patient was given Reglan, Benadryl and on reevaluation his headache is better. I did obtain his basic lab work and his CBC and BMP are unremarkable. CT of the brain without contrast was ordered initially and the radiologist felt that he saw a 1.5 cm x 1.5 cm hypodensity in the posterior frontal lobe on the left. He recommended a IV contrasted CT scan which was performed and ultimately is negative. Patient still doing well on reevaluation. Discharged home with referral to neurology. Impression: 1. Headache Lab Data Attestation: I reviewed the patient's lab results. Labs: Laboratory Results - last 24 hr 02/21/24 11:50 WBC 8.5 RBC 4.70 Hgb 14.1 Hct 43.3 MCV 92.1 MCH 30.0 MCHC 32.6 RDW Std Deviation 46.5 H RDW Coeff of Joseph 13.6 Plt Count 180 MPV 12.6 H Immature Gran % (Auto) 0.400 Neut % (Auto) 69.9 Lymph % (Auto) 23.6 [place] % (Auto) 3.4 Eos % (Auto) 2.1 Baso % (Auto) 0.6 Absolute Neuts (auto) 6.0 Absolute Lymphs (auto) 2.01 Nucleated RBC % 0 Sodium 137 Potassium 4.1 Chloride 106 Carbon Dioxide 29.0 Anion Gap 2 L BUN 12 Creatinine 0.78 Estim Creat Clear Calc 114.85 Est GFR (MDRD) Af Amer 136 Est GFR (MDRD) Non-Af 112 BUN/Creatinine Ratio 15.3 Glucose 87 Calcium 8.8 Radiography Diagnostic Testing: Clinical Impression(s) from Imaging Studies Brain CT 02/21/24 11:57 IMPRESSION: Subtle 1.5 cm x 1.5 cm hypodensity in the posterior left frontal lobe. Correlation with enhanced CT scan the brain recommended. Electronically Signed: Angel Leo MD at 12:32 EDT , Brain CT 02/21/24 12:51 IMPRESSION: Normal enhanced CT scan of the brain. Electronically Signed: Angel Leo MD at 14:24 EDT , Discharge Plan Triage Chief Complaint: Numb/Ting ED Provider: Jefry Galloway Dx/Rx/DC Orders Prescriptions: No Action ibuprofen 200 MG tablet 800 mg PO PRN PRN (Reason: Pain) Patient Comments: PT REPORTS TAKING 1200MG MOTRIN 1-4 TIMES A DAY. naproxen 500 mg tablet 500 mg PO BID Qty: 14 0RF Primary Care Provider: Joshua Portillo Referrals: Tung Boyd MD [Non-Staff -Ordering Privileges] - As Needed Joshua Portillo MD [Primary Care Provider] - Disposition Disposition: Home, Self Care What to do if you have Problems For any increased pain, shortness of breath, bleeding, nausea or vomiting, chestpain, or any unexpected problems, contact your Primary Care Provider. Call [facility] [employer] [facility] ([phone]) or report to the closest Emergency Room. Call 911 if necessary. 02/21/24 1502 <Electronically signed by Jefry Galloway DO> Cosigner Signature (if applicable): CC: Dr. Joshua Portillo MD ~ Signed [facility] Work Phone: 1(445) 791-770702-16-2024 NoteHNO ID: [id number] Author: SULEIMAN TRUJILLO MD Service: ? Author Type: Physician Type: Progress Notes Filed: 12/01/2023 14:45 Note Text: Cristela Mcnally [id number] 12/01/2023 UNIVERSAL PROTOCOL / SAFETY CHECKLIST Procedure to be Performed: vasectomy Sign In: A Moment of CARE was completed. Personnel directly involved with the procedure wore the appropriate PPE (Personal Protective Equipment). Patient/Surrogate Stated/Verified: PATIENT VERIFIED(optional for EMERGENT procedures): Patient name, Date of , Relevant allergies, and The intended procedure Time Out Communication: Intended patient and procedure match the source documents. Consent documented and matches the intended procedure. Sign Out: SIGN OUT (optional for EMERGENT procedures): All specimen containers correctly labeled. Suleiman Trujillo MD HPI: 48 year old male reports for vasectomy. He again confirms he desires permanent sterilization and has no desire to father children in the future. Operation: Vasectomy Anatomic Site: Vas Deferens Approach: Percutaneous Device: None Qualifier: None PMHx/PSHx: see above, otherwise unchanged Rx: No scheduled NSAIDs or blood thinner for past 5 days. ROS: No new or inguinal complaints Labs: None Imaging: None PE: General: Well masculinized, well nourished male Psych: euthymic, NAD Neuro: AANDOx3 exam: see below. Procedure: Vasectomy Patient?s identity was confirmed, written informed consent was obtained, and the time out performed before the procedure was initiated The patient was placed in a supine position and the genitalia were prepped and draped in a sterile manner. Examination revealed no scrotal lesions, descended testicles bilaterally without masses and readily palpable vasa deferens. The right scrotal skin and cord structures was anesthetized with 5 cc of 2% lidocaine without epinephrine. A No-scapel technique was used to isolated and remove a small portion of the vas deferens. The vasal ends were secured with clips and hemostasis was ensured. The skin edges were closed with an absorbable suture. The procedure was repeated on the patient?s left side. The patient tolerated the procedure well. Postoperative care, limitations, and expectations were reviewed with the patient. He was again instructed to use an alternate form of control until he is notified that his postprocedure semen analysis reveals no sperm. Imp: S/p vasectomy P: 1) Semen Analysis in 3 months 2) post-procedure instructions given to pt with verbalization of understanding. Suleiman Trujillo, [facility]02-16-2024 Nurse Note* Romie Sims Ma - 12/01/2023 3:38 PM EST Vasectomy Procedure Pt ID verified with patient: Yes Procedure verified with patient: Yes Procedure confirmed with physician and field support technician: Yes Sign In History and Physical Exam reviewed and is unchanged. Primary Diagnosis: Voluntary Sterilization Informed Consent Discussed: YES Sign in Communication: Completed Time Out: Team Confirms the Correct Patient, Correct Procedure; Vasectomy, Correct Site and Site Marking, Correct Position (if applicable). Time: 14:00 PM Affirmation of Time Out: N/A Sign Out: Sign Out Discussion: Completed Details of Procedure: Encounter for sterilization Physician: Dr. Suleiman Trujillo Pre operative diagnosis: Elective Sterilization Post operative diagnosis: Elective Sterilization Operation: Bilateral Segmental Vasectomy Surgeon: Dr. Suleiman Trujillo Anesthesia: Local 2% plain Xylocaine Location: - The patient was placed supine on the table and his external genitalia were prepped and draped in the usual fashion. Next the right vas was manually manipulated and isolated in the sub-Dartos fascial space. The overlying skin was anesthetized with 2% plain Xylocaine local anesthesia at the site where the vas was isolated between the thumb and the index finger. A small scrotal skin incision was made with a sharp dissector. The vas was then dissected out with the sharp dissector until it could be controlled with the C-clamp. The vas was then elevated through the skin incision, and skeletonizedwith the 15 blade and sharp dissector until a central segment could be isolated. Hemostats were placed proximally and distally and a central segment of the vas was excised and passed of onto the backtable. The respective ends of the vas were cauterized and ligated with titanium clips and allowed to retract back into the scrotum. Hemostasis was obtained and the skin incision and dartus muscle wasclosed with 3.0 chromic catgut suture. An identical procedure was performed on the contra lateral side. The patient tolerated the procedure well and was discharged from the clinic in good condition. - Patient again informed of need to have S/A read negative before discontinuing alternative control. He is capable of paternity until this office confirms otherwise. - Patient instructed on ice packs use , need to limit activity postoperatively, and to report any problems to office. Romie Sims Ma December 01, 2023 documented in [facility]The [facility] Instructions* Patient Instructions* Romie Sims Ma - 12/01/2023 2:50 PM EST Images from the original note were not included. HOME GOING/DISCHARGE INSTRUCTIONS FOR VASECTOMY PATIENTS Please call the following numbers with any questions or concerns: [facility] Offices: #[phone], and also #[phone] [facility] patients: [phone] M-F 8am-5pm, after hours [phone] ACTIVITIES Avoid strenuous physical exercise and heavy lifting for 10 days (as in bearing down, squatting or heavy weight lifting) NO bouncing, bumping or jarring NO contact sports, no exercising, no golf, no vacations/trips NO swimming, bathing or engaging in sexual activity NO going out to dinner or shopping Avoid lifting children or pets for 7-[address] them on your lap Rest with your legs elevated in a reclining chair Avoid sexual stimulation for ten days. After this time, you may return to sexual activity. A METHODOF CONTROL should be used until your semen analysis showed negative results for sperm x 2. Itis normal to notice blood or a brown color in the semen during the first few weeks after the procedure. You may go back to work in 2-3 days PRECAUTIONS Follow the usual precautions against until the results of the semen analysis are known. If sperm are detected, it may be necessary to continue precautions until another sample is submitted at a later date. You will need to come back for Follow up appointment in the time advised by your Provider with a semen specimen in the cup provided. Make sure to continue precautions until negative specimens by provider. DIET Resume your previous diet MEDICATIONS Use Acetaminophen for mild pain or discomfort Avoid Aspirin or Aspirin-containing products for 5 days WOUND CARE Apply ice packs to the scrotal area over the underwear every 8 hours for the first 1-2 days for notmore than 30 minutes at a time. Use a jock strap (scrotal support) for 10 days. A small amount of oozing of blood, tenderness, and mild swelling are expected and should subside jarocho few days. If a small amount of bleeding occurs apply pressure to the area with a sterile gauze pad for 10 minutes. Do not apply ointments or creams. A small black dot in the scrotum or penis is normal and may subside in a few days. You may shower but do not rub the wound area or apply direct water stream to the scrotum. No soaking in a hot tub, bathtub, or swimming pool for 10 days. Dry the scrotum by blotting with a towel. DO NOT RUB. All stitches will dissolve by themselves; they do not need to be removed. WHEN TO CALL THE DOCTOR If severe pain, or large scrotal swelling or bleeding occur, excessive pain/swelling, purulent discharge from the incision or enlarging lump in the scrotum call the office [facility]([phone] or [phone]) Mateo ([phone]) or go the hospital emergency room documented in this encounterThe [facility]02[facility] History of Present illness Narrative* Suleiman Trujillo MD - 12/01/2023 2:16 PM EST Cristela Mcnally [id number] 12/01/2023 UNIVERSAL PROTOCOL / SAFETY CHECKLIST Procedure to be Performed: vasectomy Sign In: A Moment of CARE was completed. Personnel directly involved with the procedure wore the appropriate PPE (Personal Protective Equipment). Patient/Surrogate Stated/Verified: PATIENT VERIFIED(optional for EMERGENT procedures): Patient name, Date of , Relevant allergies, and The intended procedure Time Out Communication: Intended patient and procedure match the source documents. Consent documented and matches the intended procedure. Sign Out: SIGN OUT (optional for EMERGENT procedures): All specimen containers correctly labeled. Suleiman Trujillo MD HPI: 48 year old male reports for vasectomy. He again confirms he desires permanent sterilization and has no desire to father children in the future. Operation: Vasectomy Anatomic Site: Vas Deferens Approach: Percutaneous Device: None Qualifier: None PMHx/PSHx: see above, otherwise unchanged Rx: No scheduled NSAIDs or blood thinner for past 5 days. ROS: No new or inguinal complaints Labs: None Imaging: None PE: General: Well masculinized, well nourished male Psych: euthymic, NAD Neuro: A&Ox3 exam: see below. Procedure: Vasectomy Patient s identity was confirmed, written informed consent was obtained, and the time out performedbefore the procedure was initiated The patient was placed in a supine position and the genitalia were prepped and draped in a sterile manner. Examination revealed no scrotal lesions, descended testicles bilaterally without masses and readily palpable vasa deferens. The right scrotal skin and cord structures was anesthetized with 5 cc of 2% lidocaine without epinephrine. A No-scapel technique was used to isolated and remove a small portion of the vas deferens. The vasal ends were secured with clips and hemostasis was ensured. The skin edges were closed with anabsorbable suture. The procedure was repeated on the patient s left side. The patient tolerated the procedure well. Postoperative care, limitations, and expectations were reviewed with the patient. He was again instructed to use an alternate form of control until he is notified that his postprocedure semen analysis reveals no sperm. Imp: S/p vasectomy P: 1) Semen Analysis in 3 months 2) post-procedure instructions given to pt with verbalization of understanding. Suleiman Trujillo MD documented in [facility] encounterThe [facility]01[facility] Hospital Discharge instructions Patient Education 11/01/2023 14:58:34 Vertigo, Unspecified Vertigo (Unknown Cause) In addition to helping with hearing, the inner ear is part of the balance center of your body. Problems with the inner ear can a false feeling of motion. This is called vertigo. Often, it feels as ifyou or the room is spinning. A vertigo attack may cause sudden nausea, vomiting and heavy sweating.Severe vertigo causes a loss of balance and can cause you to fall. During vertigo, small head movements and changes in body position will often make the symptoms worse. You may also have ringing in the ears called tinnitus. An episode of vertigo may last seconds, minutes or hours. Once you are over the first episode, it may never come back. However, symptoms may return off and on. The cause of your vertigo is not yet known. Possible causes of vertigo include: Inflammation of the inner ear Disease of the nerves to the inner ear Movement of calcium particles in the inner ear Poor blood flow to the balance centers of the brain Migraine headaches In older adults, the use of more than one medicine along with some health conditions Home care If symptoms are severe, rest quietly in bed. Change positions very slowly. There is usually one position that will feel best, such as lying on one side or lying on your back with your head slightly raised on pillows. Until you have no symptoms, you are at a higher risk of falling. Let someone help you when you get up. Get rid of home hazards such as loose electrical cords and throw rugs. Don t walk in unfamiliar areas that are not lighted. Use night lights in bathrooms and kitchen areas. Do not drive a car or work with dangerous machinery until symptoms have been gone for at least one week. Take medicine as prescribed to relieve your symptoms. Unless another medicine was prescribed for symptoms of nausea, vomiting, and dizziness, you may use uyjn-cpe-spddzaf motion sickness pills. Ask your pharmacist for suggestions. Follow-up care Follow up with your healthcare provider or as directed. If you are referred to a specialist or for testing, make the appointment promptly. When to seek medical advice Call your healthcare provider if any of the following occur: Fever of 100.4 F (38 C) or higher, or as directed by your healthcare provider Vertigo worsens or is not controlled by prescribed medicine Repeated vomiting not relieved by prescribed medicine Severe headache Confusion Weakness of an arm or leg or 1 side of the face Difficulty with speech or vision Loss of consciousness Seizure [id number] [employer]. [address] [place] [address]. All rights reserved. This information is not intended as a substitute for professional medical care. Always follow [facility]'s instructions. 11/01/2023 14:58:30 Hypertension, Established Established High Blood Pressure High blood pressure (hypertension) is a chronic disease. Often, healthcare providers don t know what causes it. But it can be caused by certain health conditions and medicines. If you have high blood pressure, you may not have any symptoms. If you do have symptoms, they may include headache, dizziness, changes in your vision, chest pain, and shortness of breath. But even without symptoms, high blood pressure that s not treated raises your risk for heart attack, heart failure, and stroke. High blood pressure is a serious health risk and shouldn t be ignored. Blood pressure measurements are given as 2 numbers. Systolic blood pressure is the upper number. This is the pressure when the heart contracts. Diastolic blood pressure is the lower number. This is the pressure when the heart relaxes between beats. You will see your blood pressure readings written together. For example, a person with a systolic pressure of 118 and a diastolic pressure of 78 will have 118/78 written in the medical record. Blood pressure is categorized as normal, elevated, or stage 1 or stage 2 high blood pressure: Normal blood pressure is systolic of less than 120 and diastolic of less than 80 (120/80) Elevated blood pressure is systolic of 120 to 129 and diastolic less than 80 Stage 1 high blood pressure is systolic is 130 to 139 or diastolic between 80 to 89 Stage 2 high blood pressure is when systolic is 140 or higher or the diastolic is 90 or higher Home care If you have high blood pressure, follow these home care guidelines to help lower your blood pressure. If you are taking medicines for high blood pressure, these methods may reduce or end your need for medicines in the future. Start a weight-loss program if you are overweight. Cut back on how much salt you get in your diet. Here s how to do this: oDon t eat foods that have a lot of salt. These include olives, pickles, smoked meats, and salted potato chips. oDon t add salt to your food at the table. oUse only small amounts of salt when cooking. Start an exercise program. Talk with your healthcare provider about the type of exercise program that would be best for you. It doesn't have to be hard. Even brisk walking for 20 minutes 3 times a week is a good form of exercise. Don t take medicines that stimulate the heart. This includes many klyi-vis-ilwfdbb cold and sinus decongestant pills and sprays, as well as diet pills. Check the warnings about high blood pressure onthe label. Before buying any meen-rhr-xxptabs medicines or supplements, always ask the pharmacist about the product's potential interaction with your high blood pressure and your high blood pressure medicines. Stimulants such as amphetamine or cocaine could be deadly for someone with high blood pressure. Never take these. Limit how much caffeine you get in your diet. Switch to caffeine-free products. Stop smoking. If you are a long-time smoker, this can be hard. Talk to your healthcare provider about medicines and nicotine replacement options to help you. Also, enroll in a stop-smoking program tomake it more likely that you will quit for good. Learn how to handle stress. This is an important part of any program to lower blood pressure. Learnabout relaxation methods like meditation, yoga, or biofeedback. If your provider prescribed medicines, take them exactly as directed. Missing doses may cause your blood pressure get out of control. If you miss a dose or doses, check with your healthcare provider or pharmacist about what to do. Consider buying an automatic blood pressure machine to check your blood pressure at home. Ask your provider for a recommendation. You can get one of these at most pharmacies. The [employer] recommends the following guidelines for home blood pressure monitoring: Don't smoke or drink coffee for 30 minutes before taking your blood pressure. Go to the bathroom before the test. Relax for 5 minutes before taking the measurement. Sit with your back supported (don't sit on a couch or soft chair); keep your feet on the floor uncrossed. Place your arm on a solid flat surface (like a table) with the upper part of the arm at heartlevel. Place the middle of the cuff directly above the bend of the elbow. Check the monitor's instruction manual for an illustration. Take multiple readings. When you measure, take 2 to 3 readings one minute apart and record all of the results. Take your blood pressure at the same time every day, or as your healthcare provider recommends. Record the date, time, and blood pressure reading. Take the record with you to your next medical appointment. If your blood pressure monitor has a built-in memory, simply take the monitor with you to your next appointment. Call your provider if you have several high readings. Don't be frightened by a single high blood pressure reading, but if you get several high readings, check in with your healthcare provider. Note: When blood pressure reaches a systolic (top number) of 180 or higher OR diastolic (bottom number) of 110 or higher, seek emergency medical treatment. Follow-up care You will need to see your healthcare provider regularly. This is to check your blood pressure and to make changes to your medicines. Make a follow-up appointment as directed. Bring the record of yourhome blood pressure readings to the appointment. When to seek medical advice Call your healthcare provider right away if any of these occur: Blood pressure reaches a systolic (upper number) of 180 or higher OR a diastolic (bottom number) of110 or higher Chest pain or shortness of breath Severe headache Throbbing or rushing sound in the ears Nosebleed Sudden severe pain in your belly (abdomen) Extreme drowsiness, confusion, or fainting Dizziness or spinning sensation (vertigo) Weakness of an arm or leg or one side of the face You have problems speaking or seeing [id number] [employer]. [address] [place] [address], [place] [address]. All rights reserved. This information is not intended as a substitute for professional medical care. Always follow yourhealthcare professional's instructions. 11/01/2023 14:58:27 High Blood Sugar (Hyperglycemia) High Blood Sugar (Hyperglycemia) Too much sugar (glucose) in your blood is called high blood sugar (hyperglycemia). This can lead toa dangerous condition called ketoacidosis. In severe cases, it can lead to fluid loss (dehydration)and coma. Possible causes of high blood sugar Having a poor treatment plan for diabetes Being sick Being under stress Taking certain medicines, such as steroids Eating too much food, especially carbohydrates Being less active than normal Not taking enough diabetes medicine Symptoms of high blood sugar High blood sugar may not cause symptoms. If you do have symptoms, they may include: Thirst Frequent need to urinate Feeling tired or drowsy Nausea and vomiting Itchy, dry skin Blurry vision Fast breathing and breath that smells fruity Weakness Dizziness Wounds or skin infections that don t heal Unexplained weight loss if hyperglycemia lasts for more than a few days What to do Do the following: Check your blood sugar. Drink plenty of sugar-free, caffeine-free liquids such as water. Don t drink fruit juice. Check your blood sugar again every 4 hours. If you take insulin or diabetes medicines, follow your sick-day plan for taking medicine. Call your healthcare provider if you are not able to eat. Check your blood or urine for ketones as directed. Call your provider if your blood sugar and ketones don't go back to your target range. If the value is high, take your diabetes medicines as prescribed. And check your blood sugar more often. Doses of medicines such as insulin can be increased slightly if blood sugars stay high. But your provider must approve this. Preventing high blood sugar To help keep your blood sugar from getting too high: Control stress. When you're ill, follow your sick-day plan. Follow your meal plan. Eat only the amount of food on your meal plan. Stick to your exercise plan. Take your insulin or diabetes medicines as directed by your healthcare team. Also test your blood sugar as directed. If the plan is not working for you, discuss it with your healthcare provider. Other things to do Carry a medical ID card or a [employer] USB drive. Or wear a medical alert bracelet or necklace. It should say that you have diabetes. It should also say what to do in case you pass out or go into a coma. Make sure family, friends, and coworkers know the signs of high blood sugar. Tell them what to do if your blood sugar gets very high and you can t help yourself. Talk with your healthcare team about other things you can do to prevent high blood sugar. Special note: Drink plenty of sugar-free and caffeine-free liquids when you feel symptoms of hyperglycemia. Call your healthcare provider if you keep having episodes of high blood sugar. [phone] [employer]. [address] [place] [address]. All rights reserved. This information is not intended as a substitute for professional medical care. Always follow yourhealthcare professional's instructions. Follow Up Care 11/01/2023 11:46:37 With:RIGO BAER [address] [address] [phone] [facility] (1) When:2-4 days Comments:Schedule appointment as soon as possibleReturn to ED if symptoms worsenFollow-up for endoscopy if stomach upset after eating or drinking persists With:JOSHUA PORTILLO Address: [address] [place] [address]- Business (1) When:2-4 days Comments:Schedule appointment as soon as possibleReturn to ED if symptoms worsenFollow-up for blood pressureand if vertigo persistsIncrease fluidsSit to stand precautionsMeclizine as needed for dizziness follow-up for blood sugar recheck [facility] 01-17-[facility]24 Emergency department Discharge summary Discharge Instructions Thank you for allowing [facility] to assist you with your healthcare needs. The following is importantdischarge information regarding your hospital visit. Diagnosis from Today's Visit Dizziness Hyperglycemia Hypertension Vertigo Vomiting What to Do Next Instructions from Your Care Team No qualifying data available. Post Acute Orders No qualifying data available. You Need to Schedule the Following Appointments Follow Up with RIGO BAER When Within 2-4 days Why: Schedule appointment as soon as possible Return to ED if symptoms worsen Follow-up for endoscopy if stomach upset after eating or drinking persists Where: [address] [phone] [facility] (1) Follow Up with JOSHUA PORTILLO When Within 2-4 days Why: Schedule appointment as soon as possible Return to ED if symptoms worsen Follow-up for blood pressure and if vertigo persists Increase fluids Sit to stand precautions Meclizine as needed for dizziness follow-up for blood sugar recheck Where: [address] [facility] [place] [address]- Business (1) Allergies Dilaudid Medications Please ask your primary doctor or pharmacist before taking any other medication not listed, including over the counter drugs, herbal medications, vitamins and or supplements as they may interact withyour home medications. What How Much When Instructions Last Dose New meclizine (meclizine 25 mg oral tablet) 1 tab(s) by mouth Three (3) times a day Duration: 5 Days As needed vertigo Printed Prescription Please take this list to your next doctor s visit. Bring all medications you take, including over the counter medications, herbals and other supplements with you to your doctor s visit. Patients and families are reminded to discard old lists and to update any records with all medication providers or retail pharmacies. Education Materials Vertigo (Unknown Cause) In addition to helping with hearing, the inner ear is part of the balance center of your body. Problems with the inner ear can a false feeling of motion. This is called vertigo. Often, it feels as ifyou or the room is spinning. A vertigo attack may cause sudden nausea, vomiting and heavy sweating.Severe vertigo causes a loss of balance and can cause you to fall. During vertigo, small head movements and changes in body position will often make the symptoms worse. You may also have ringing in the ears called tinnitus. An episode of vertigo may last seconds, minutes or hours. Once you are over the first episode, it may never come back. However, symptoms may return off and on. The cause of your vertigo is not yet known. Possible causes of vertigo include: Inflammation of the inner ear Disease of the nerves to the inner ear Movement of calcium particles in the inner ear Poor blood flow to the balance centers of the brain Migraine headaches In older adults, the use of more than one medicine along with some health conditions Home care If symptoms are severe, rest quietly in bed. Change positions very slowly. There is usually one position that will feel best, such as lying on one side or lying on your back with your head slightly raised on pillows. Until you have no symptoms, you are at a higher risk of falling. Let someone help you when you get up. Get rid of home hazards such as loose electrical cords and throw rugs. Don t walk in unfamiliar areas that are not lighted. Use night lights in bathrooms and kitchen areas. Do not drive a car or work with dangerous machinery until symptoms have been gone for at least one week. Take medicine as prescribed to relieve your symptoms. Unless another medicine was prescribed for symptoms of nausea, vomiting, and dizziness, you may use wkyd-qrv-pzxwyti motion sickness pills. Ask your pharmacist for suggestions. Follow-up care Follow up with your healthcare provider or as directed. If you are referred to a specialist or for testing, make the appointment promptly. When to seek medical advice Call your healthcare provider if any of the following occur: Fever of 100.4 F (38 C) or higher, or as directed by your healthcare provider Vertigo worsens or is not controlled by prescribed medicine Repeated vomiting not relieved by prescribed medicine Severe headache Confusion Weakness of an arm or leg or 1 side of the face Difficulty with speech or vision Loss of consciousness Seizure [id number] [employer]. [address] [place] [address]. All rights reserved. This information is not intended as a substitute for professional medical care. Always follow yourhealthcare professional's instructions. Established High Blood Pressure High blood pressure (hypertension) is a chronic disease. Often, healthcare providers don t know what causes it. But it can be caused by certain health conditions and medicines. If you have high blood pressure, you may not have any symptoms. If you do have symptoms, they may include headache, dizziness, changes in your vision, chest pain, and shortness of breath. But even without symptoms, high blood pressure that s not treated raises your risk for heart attack, heart failure, and stroke. High blood pressure is a serious health risk and shouldn t be ignored. Blood pressure measurements are given as 2 numbers. Systolic blood pressure is the upper number. This is the pressure when the heart contracts. Diastolic blood pressure is the lower number. This is the pressure when the heart relaxes between beats. You will see your blood pressure readings written together. For example, a person with a systolic pressure of 118 and a diastolic pressure of 78 will have 118/78 written in the medical record. Blood pressure is categorized as normal, elevated, or stage 1 or stage 2 high blood pressure: Normal blood pressure is systolic of less than 120 and diastolic of less than 80 (120/80) Elevated blood pressure is systolic of 120 to 129 and diastolic less than 80 Stage 1 high blood pressure is systolic is 130 to 139 or diastolic between 80 to 89 Stage 2 high blood pressure is when systolic is 140 or higher or the diastolic is 90 or higher Home care If you have high blood pressure, follow these home care guidelines to help lower your blood pressure. If you are taking medicines for high blood pressure, these methods may reduce or end your need for medicines in the future. Start a weight-loss program if you are overweight. Cut back on how much salt you get in your diet. Here s how to do this: oDon t eat foods that have a lot of salt. These include olives, pickles, smoked meats, and salted potato chips. oDon t add salt to your food at the table. oUse only small amounts of salt when cooking. Start an exercise program. Talk with your healthcare provider about the type of exercise program that would be best for you. It doesn't have to be hard. Even brisk walking for 20 minutes 3 times a week is a good form of exercise. Don t take medicines that stimulate the heart. This includes many fxfr-orb-csmbjne cold and sinus decongestant pills and sprays, as well as diet pills. Check the warnings about high blood pressure onthe label. Before buying any uvem-kem-xmptmvt medicines or supplements, always ask the pharmacist about the product's potential interaction with your high blood pressure and your high blood pressure medicines. Stimulants such as amphetamine or cocaine could be deadly for someone with high blood pressure. Never take these. Limit how much caffeine you get in your diet. Switch to caffeine-free products. Stop smoking. If you are a long-time smoker, this can be hard. Talk to your healthcare provider about medicines and nicotine replacement options to help you. Also, enroll in a stop-smoking program tomake it more likely that you will quit for good. Learn how to handle stress. This is an important part of any program to lower blood pressure. Learnabout relaxation methods like meditation, yoga, or biofeedback. If your provider prescribed medicines, take them exactly as directed. Missing doses may cause your blood pressure get out of control. If you miss a dose or doses, check with your healthcare provider or pharmacist about what to do. Consider buying an automatic blood pressure machine to check your blood pressure at home. Ask your provider for a recommendation. You can get one of these at most pharmacies. The [employer] recommends the following guidelines for home blood pressure monitoring: Don't smoke or drink coffee for 30 minutes before taking your blood pressure. Go to the bathroom before the test. Relax for 5 minutes before taking the measurement. Sit with your back supported (don't sit on a couch or soft chair); keep your feet on the floor uncrossed. Place your arm on a solid flat surface (like a table) with the upper part of the arm at heartlevel. Place the middle of the cuff directly above the bend of the elbow. Check the monitor's instruction manual for an illustration. Take multiple readings. When you measure, take 2 to 3 readings one minute apart and record all of the results. Take your blood pressure at the same time every day, or as your healthcare provider recommends. Record the date, time, and blood pressure reading. Take the record with you to your next medical appointment. If your blood pressure monitor has a built-in memory, simply take the monitor with you to your next appointment. Call your provider if you have several high readings. Don't be frightened by a single high blood pressure reading, but if you get several high readings, check in with your healthcare provider. Note: When blood pressure reaches a systolic (top number) of 180 or higher OR diastolic (bottom number) of 110 or higher, seek emergency medical treatment. Follow-up care You will need to see your healthcare provider regularly. This is to check your blood pressure and to make changes to your medicines. Make a follow-up appointment as directed. [facility] the [facility] to the appointment. When to seek medical advice Call your healthcare provider right away if any of these occur: Blood pressure reaches a systolic (upper number) of 180 or higher OR a diastolic (bottom number) of110 or higher Chest pain or shortness of breath Severe headache Throbbing or rushing sound in the ears Nosebleed Sudden severe pain in your belly (abdomen) Extreme drowsiness, confusion, or fainting Dizziness or spinning sensation (vertigo) Weakness of an arm or leg or one side of the face You have problems speaking or seeing [phone] [employer]. [address] [place] [address]. All rights reserved. This information is not intended as a substitute for professional medical care. Always follow yourhealthcare professional's instructions. High Blood Sugar (Hyperglycemia) Too much sugar (glucose) in your blood is called high blood sugar (hyperglycemia). This can lead toa dangerous condition called ketoacidosis. In severe cases, it can lead to fluid loss (dehydration)and coma. Possible causes of high blood sugar Having a poor treatment plan for diabetes Being sick Being under stress Taking certain medicines, such as steroids Eating too much food, especially carbohydrates Being less active than normal Not taking enough diabetes medicine Symptoms of high blood sugar High blood sugar may not cause symptoms. If you do have symptoms, they may include: Thirst Frequent need to urinate Feeling tired or drowsy Nausea and vomiting Itchy, dry skin Blurry vision Fast breathing and breath that smells fruity Weakness Dizziness Wounds or skin infections that don t heal Unexplained weight loss if hyperglycemia lasts for more than a few days What to do Do the following: Check your blood sugar. Drink plenty of sugar-free, caffeine-free liquids such as water. Don t drink fruit juice. Check your blood sugar again every 4 hours. If you take insulin or diabetes medicines, follow your sick-day plan for taking medicine. Call your healthcare provider if you are not able to eat. Check your blood or urine for ketones as directed. Call your provider if your blood sugar and ketones don't go back to your target range. If the value is high, take your diabetes medicines as prescribed. And check your blood sugar more often. Doses of medicines such as insulin can be increased slightly if blood sugars stay high. But your provider must approve this. Preventing high blood sugar To help keep your blood sugar from getting too high: Control stress. When you're ill, follow your sick-day plan. Follow your meal plan. Eat only the amount of food on your meal plan. Stick to your exercise plan. Take your insulin or diabetes medicines as directed by your healthcare team. Also test your blood sugar as directed. If the plan is not working for you, discuss it with your healthcare provider. Other things to do Carry a medical ID card or a [address] drive. Or wear a medical alert bracelet or necklace. It should say that you have diabetes. It should also say what to do in case you pass out or go into a coma. Make sure family, friends, and coworkers know the signs of high blood sugar. Tell them what to do if your blood sugar gets very high and you can t help yourself. Talk with your healthcare team about other things you can do to prevent high blood sugar. Special note: Drink plenty of sugar-free and caffeine-free liquids when you feel symptoms of hyperglycemia. Call your healthcare provider if you keep having episodes of high blood sugar. [phone] [employer]. [address] [place] [address]. All rights reserved. This information is not intended as a substitute for professional medical care. Always follow yourhealthcare professional's instructions. Additional Information VACCINATE! IT SAVES LIVES! Members of the community who have not yet received the COVID-19 vaccine and would like to receive it can visit one of [facility] vaccine clinics. There are many vaccine clinic locations within the [facility]. For locations and available times, please visit www.gettheshot.coronavirus.[place].gov/. It is important to note that some COVID mobile vaccine clinics are held outdoors and may be canceled in rainy or stormy conditions. To learn more about pediatric vaccinations (ages 5-11), we invite you to visit the [facility] webpage. https://www.[facility].org/pages/1990-Nstem-Chmqujccluj-Fopgcloevj-Gswhn-Feq stions.htmlTo learn more about the COVID-19 vaccine, we invite you to visit the CDC website for a list of frequently asked questions. https://www.cdc.gov/coronavirus/2019-ncov/vaccines/faq.html [facility] Patient Portal Access Instructions: Stay connected with your healthcare team and access your personal medical information anytime with the [facility] Patient Portal. If you would like a full copy of your medical records please contact the [facility] Medical Records Department Monday through Monday between 8a.m. and 4:30p.m. Please follow the directions below to access the portal: 1.Access the email account you provided upon registration to the [facility].2.Look for an invitation email from [facility].3.Open the email and access the invitation link: Accept Invitation to [facility].Fill in the required mauro to create your account. Sign into [email or web address] with your username and password that you created in the above steps to stay up to date. You can then view a summary of results, a summary of your visits, and the ability to download your summaries to your computer or send the information securely to a physician. Remember that your healthcare information is confidential, so carefully consider who you will allow to register on the [facility] Patient Portal for access to your information. You can also access the [facility] Patient Portal on the [place]. Simply click on Health Records under [employer]_ and then click on the [employer] logo. HOW TO SAFELY DISPOSE OF PRESCRIPTION MEDICATIONS Please use one of the following methods to safely dispose of your unused medications. 1.Use a drug disposal kit: the drug disposal pouch allows you to safely discard your old and unuseddrugs. Ask your nurse to give you one when you are discharged.2.Visit a local take-back location: Many local pharmacies and police departments have programs that collect old and unwanted prescriptiondrugs. Call your local pharmacy or go to http://RABT.Estadeboda/8R0Hk2w to find one close to you.3.Make use of household items: Use cat litter or old coffee grounds to dispose medications if other options arenot available. Mix your drugs with these household products, seal them in an airtight container andthrow it into the garbage. Call [facility]: [phone] to be sure your drugs can be disposed of in this way. Some medicines may require a different approach.4.Never flush your medications down the toilet. IF YOU HAVE BEEN PRESCRIBED AN OPIOIDS FOR PAIN If you have been prescribed an opioid (such as hydrocodone, oxycodone or morphine), it is critical to understand the possible side effects and risks of opioid pain medications. Even when taken as directed, opioids can have several side effects including: Tolerance, meaning you might need to take more of a medication for the same pain relief. Nausea, vomiting and/or constipation. Sleepiness, dizziness, dry mouth, confusion, depression or itching. Physical dependence, meaning you have withdrawal symptoms when a medication is stopped ? this can develop within a few days. KNOW YOUR RESPONSIBILITIES It is important to know exactly how much and how often to take the opioid pain medications you are prescribed. Never take opioids in higher amounts or more often than prescribed. Do not combine opioids with alcohol or other drugs that cause drowsiness, such as benzodiazepines, also known as benzos,including diazepam and alprazolam, muscle relaxants or sleep aids. Never sell or share prescriptionopioids. This is illegal. Store opioids in a secure place and out of reach of others (including children, family, friends and visitors). The last page(s) of this document has been signed and retained as a CHART COPY Signatures Patient Education Materials Vertigo, Unspecified Hypertension, Established High Blood Sugar (Hyperglycemia) Medication Leaflets My discharge plan and instructions have been reviewed and explained to me and I,CRISTELA MCNALLY understand my current condition and have read and understand these discharge instructions. I have received a written copy of the plan/instructions. If I have questions, I am aware that I should contact my doctor. Patient/Director [place] Signature: Date/Time: Relationship to Patient: Witness Name/Signature: Date/Time: [facility]01-17-2024 Note ORIGINAL EXAMINATION: CT HEAD TECHNIQUE: Axial CT images from skull base to vertex without IV contrast. This exam was performed according to our departmental dose optimization program, and includes the following measures where applicable: automated exposure control, adjustment of the mAs and/or kVp according to patient size and/or exam, and an iterative reconstruction algorithm. COMPARISON: None HISTORY: ORDERING SYSTEM PROVIDED HISTORY: Reason for Exam: dizziness FINDINGS: Parenchyma: No acute intracranial hemorrhage, midline shift, mass effect or acute ischemic infarct is demonstrated. The mclean-white matter junctions are preserved. No space occupying intra-axial masses or extra-axial fluid collections are seen. Mild parenchymal volume loss most pronounced in the frontal lobes and posterior fossa is noted. Small foci of decreased attenuation near the left genu of the internal capsule and left subcortical parietal lobe are seen. Nonspecific Ventricles: No evidence of hydrocephalus or ventricular effacement. Vessels: No significant atherosclerotic calcifications. Orbits: Unremarkable. Calvarium: Unremarkable. Paranasal sinuses: Clear. Mastoid sinuses: Clear. IMPRESSION: 1. No acute intracranial pathology. 2. Nonspecific small foci of decreased attenuation possibly reflecting mild chronic microvascular white matter ischemic disease. Further characterization with nonemergent MRI advised. Interpreted by: Warner Bryan MD Preliminary Report By: Warner Bryan MD Electronically signed By Warner Bryan MD Dictated Date: 11/01/2023 2:05:29 PM Prelim Date: 11/01/2023 2:11:06 PM Sign Date: 11/01/2023 2:11:06 PM Ordering Provider: [facility]01-17-2024 Note ORIGINAL EXAMINATION: ONE XRAY VIEW OF THE CHEST11/01/2023 1:51 pm XR Chest portable upright COMPARISON: 08/03/2018 HISTORY: ORDERING SYSTEM PROVIDED HISTORY: Reason for Exam: chest pain, FINDINGS: No suspicious nodule, acute infiltrate, consolidation,mass, pneumothorax, pleural fluid, or vascular congestion is seen. Heart size and mediastinal contours are within normal limits for age and projection. No acute skeletal abnormality. IMPRESSION: No acute cardiopulmonary process. Interpreted by: Patrick Parnell MD Preliminary Report By: Patrick Parnell MD Electronically signed By Patrick Parnell MD Dictated Date: 11/01/2023 1:57:30 PM Prelim Date: 11/01/2023 1:57:49 PM Sign Date: 11/01/2023 1:57:49 PM Ordering Provider: [facility]01-15-2024 NoteHNO ID: [id number] Author: JOSHUA PORTILLO MD Service: ? Author Type: Physician Type: Progress Notes Filed: 10/31/2023 12:53 Note Text: This note was created using NoteWriter. Subjective Cristela Mcnally is a 48 year old male here here with spouse for nausea, dizziness, and increased headaches since 10/16/23. He started feeling ill after they celebrated 's [place]. She did not get ill. He felt something was off inside his head and had sensations of spinning when he moved his head. 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 He tested negative for Covid at a local urgent care center and was advised cough medication. He was not better and went to the [facility] 10/20 where his chest X-ray was negative, but flu assay was positive. Supportive measures were recommended. He had the first episode of emesis today. Dizziness was more recurrent, and not constant. Review of Systems Constitutional: Positive for appetite change and unexpected weight change. Negative for chills, diaphoresis, fatigue and fever. HENT: Negative for congestion, hearing loss, sinus pressure, sinus pain, sore throat and tinnitus. Eyes: Negative for pain and visual disturbance. Respiratory: Negative for cough, shortness of breath and wheezing. Cardiovascular: Negative for chest pain, palpitations and leg swelling. Gastrointestinal: Negative for abdominal pain and diarrhea. Genitourinary: Negative for difficulty urinating and dysuria. Neurological: Negative for syncope and speech difficulty. Psychiatric/Behavioral: Negative for confusion. ACTIVE PROBLEM LIST Spondylolisthesis, Lumbar Region Tobacco Use Disorder Lung Nodules Cervicogenic Headache Social History Tobacco Use Smoking status: Every Day Packs/day: 1.00 Years: 20.00 Additional pack years: 0.00 Total pack years: 20.00 Types: Cigarettes Start date: 10/16/2000 Smokeless tobacco: Never Vaping Use Vaping Use: Former Quit date: 04/27/2020 Substance Use Topics Alcohol use: Not Currently Comment: 1-3 beers every 2-3 months. Drug use: Not Currently Types: Marijuana Current Outpatient Medications Medication Sig acetaminophen (TYLENOL) 500 mg tablet Take 500 mg by mouth every 8 hours as needed. ibuprofen (MOTRIN) 200 mg tablet Take 200 mg by mouth every 6 hours as needed. No current facility-administered medications for this visit. Objective BP 113/76 (BP Site: Left Arm, BP Position: Supine, BP Cuff Size: Large Adult) Pulse 70 Temp 37.1 ?C (98.8 ?F) (Temporal) Wt 73.9 kg (163 lb) BMI 24.25 kg/m? Physical Exam Constitutional: General: He is not in acute distress. Appearance: He is ill-appearing and diaphoretic. HENT: Head: Atraumatic. Right Ear: Tympanic membrane normal. Left Ear: Tympanic membrane normal. Nose: Congestion present. No rhinorrhea. Right Sinus: No maxillary sinus tenderness or frontal sinus tenderness. Left Sinus: No maxillary sinus tenderness or frontal sinus tenderness. Mouth/Throat: Mouth: Mucous membranes are dry. Pharynx: Oropharynx is clear. Eyes: Extraocular Movements: Right eye: Nystagmus present. Left eye: Nystagmus present. Cardiovascular: Rate and Rhythm: Normal rate and regular rhythm. Heart sounds: No murmur heard. No gallop. Pulmonary: Effort: No respiratory distress. Breath sounds: No wheezing or rales. Abdominal: Palpations: Abdomen is soft. Tenderness: There is no abdominal tenderness. Musculoskeletal: Right lower leg: No edema. Left lower leg: No edema. Neurological: General: No focal deficit present. Mental Status: He is alert. Cranial Nerves: No cranial nerve deficit. Sensory: No sensory deficit. Motor: No weakness. Coordination: Romberg sign negative. Coordination normal. Whhkrz-Qdbd-Xbknwd Test and Heel to Slaughter Test normal. Gait: Gait abnormal. Comments: Wide gait stance which spouse indicated was chronic. + dizziness lying down, turning supine. Psychiatric: Attention and Perception: Attention normal. Mood and Affect: Mood is anxious. Assessment and Plan 1. Vertigo - ICD9: 780.4, ICD10: R42 Discussed medication dosage, usage, goals of therapy, and side effects. Hyrdration stressed. - CBC - COMP METABOLIC PANEL - PREDNISONE 10 MG TABLET - ONDANSETRON 4 MG DISINTEGRATING TABLET Joshua Portillo, [facility]12-11-2023 NoteHNO ID: [id number] Author: Mark Baker APRN.[employer]AS PROGRAMMER [employer], DNP Service: ? Author Type: Nurse Practitioner Type: Progress Notes Filed: 09/25/2023 3:55 PM Note Text: Cristela Mcnally Referred by: SELF Vasectomy (Voluntary Sterilization) Consult [facility] Vasectomy Video: [email or web address] on 09/25/2023 CC: Desires permanent sterilization HPI: [...] (99 ?F) (Temporal) Ht 174.6 cm (5' 8.75) Wt 74.8 kg (165 lb) SpO2 98% [...] The patient attests that (more content not included)...[facility]12-11-2023 Instructions* Patient Instructions* Mark Baker APRN.CNP, DNP - 09/25/2023 3:15 PM EST May use Aldara cream for genital warts: Instructions: Apply to affected area 3x per week leave on for 6-10 hours. Do not use more than 16 weeks total. Our [facility] Scheduling Team will call you to schedule your Vasectomy Surgery appointment. Vasectomy instructions: Stop all NSAIDs, aspirin and other blood thinners 5 days prior to the vasectomy. Shave entire frontof scrotum to the base of the penis [...] his questions were answered. documented in this encounterThe [facility] System12-11-2023 History of Present illness Narrative* Mark Baker APRN.BRANDY GRAHAM - 09/25/2023 3:00 PM EST Images from the original note were not included. Cristela Mcnally Referred by: SELF Vasectomy (Voluntary Sterilization) Consult [facility] Vasectomy Video: [email or web address] 09/25/2023 CC: Desires permanent sterilization HPI: 48 [...] 3 times a week for 4-6 weeks. Thecream should be applied at night, ideally at [...] BP Cuff Size: Regular Adult) Pulse 84 Temp37.2 C (99 F) (Temporal) Ht 174.6 cm (5' 8.75) Wt 74.8 kg (165 lb) SpO2 98% [...] vasectomy. RBA of the procedure extensively discussed. Postprocedurecare, expectations, and limitations were discussed. He voiced understanding of these instructions and stated his questions were answered. I personally counseled this patient about the following and he voiced understanding: a) Vasectomy is a permanent and irreversible form of sterilization b) 1:1,000 rate of recanalization which can results in the return of sperm into the ejaculate aftervasectomy c) Patient must use alternative form of [...] which included preparing to see the patient, huvj-pv-gqea patient care, completing clinical documentation, performing a medically appropriate examination, counseling and educating the patient/family/caregiver and ordering medications, tests, or procedures. Mark Baker DNP, CNP Department of Urology [facility] documented in this encounterThe [facility]11-15-2023 NoteHNO ID: [id number] Author: Haley Bhakta APRN.CNP Service: ? Author Type: Nurse Practitioner Type: Progress Notes Filed: 08/30/2023 2:47 PM Note Text: NEUROSURGERY FOLLOW UP OFFICE NOTE Haley Bhakta APRN.CNP Date of visit: August 30, 2023 Patient Name: Mr.Thomas Zeina Mcnally Date of : 1975 Current Age: [age] year old Sex: male MRN/E# [id number] Last Office Visit: January 26, 2021 CHIEF [...] pain 2 weeks ago after putting up [place] lights. 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 EVALUATION 08/30/2023 1347 Pain Level: [...] 90 mcg/actuation inhaler EVERY 4 HOURS NEEDED Vcnxubhqcoykgah-Tabynyeuq-PU 2-30-10 mg/5 mL syrup Take 10 mL [...] No current facility-administered med (more content not included)...[facility]11-15-2023 History of Present illness Narrative* Haley Bhakta APRN.CNP - 08/30/2023 2:00 PM EST NEUROSURGERY FOLLOW UP OFFICE NOTE Haley Bhakta APRN.CNP Date of visit: August 30, 2023 Patient Name: Mr.Thomas Zeina Mcnally Date of : 1975 Current Age: [age] year old Sex: male MRN/E# [id number] Last Office Visit: January 26, 2021 CHIEF [...] calf and toes which was unchanged. X-rays werereviewed and showed no evidence of hardware complication. Overall he was pleased with his surgical o utcome. Given his chronic low back pain recommendation [...] denies any new bowel or bladder issues orambulation problems. He presents for image review, evaluation [...] of hardware, L4- L5 TLIF with PSF L4- S1 on 05/21/[address] Anderson. 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 Thecream should be applied at night, ideally at [...] gait problem. Negative for joint swelling, myalgias andneck pain. Skin: Negative for rash (Negative for [...] speech and language. Spontaneous speech and comprehension normal.Fund of knowledge intact for pt level of education. Cranial Nerves : II: No visual field cut no blurring, Makes and sustains eye contact III, IV, : Normal, no double vision or drooping. Pupils equal and reactive to light. Extraocularmuscles intact. No nystagmus V: Normal sensation on [...] with the patient, history, physical exam, the imagesand the chart. ASSESSMENT/PLAN: (M43.16) Spondylolisthesis, lumbar region (primary encounter diagnosis) (Z98.1) Status post lumbar spinal fusion Comment: The patient presents today for a follow-up with x-rays of the lumbar spine. He is a formerpatient of Dr. Anderson and has a history of multiple spinal surgeries with fusion. His most recent surgery was in May 2020. He has always had chronic low back pain with numbness and tingling to the right lower extremity in the L4-L5 distribution. Today he states he developed recurrent back issues when tempting to put [place] lights up 2 weeks ago. Symptoms have not resolved which prompted a visit to an outside ED. No new imaging was obtained and he was treated with oral and IV medications with some benefit. Today he states he continues to have this right-sided low back pain. Neurologically he is noted to have weakness in the bilateral lower extremities with the right being worse thanthe left however this may be pain related. He is able to ambulate with an antalgic gait without an assistive device. Visually I do not see any evidence of edema, erythema or drainage on his lumbar spine. X-rays were reviewed and showed no evidence of hardware complication. Given his persistent painI will provide him with with a prescription for an oral steroid. I told him to contact me early next week and if his symptoms have not improved we will consider going forward with an MRI to rule out nerve impingement or disc reherniation. All of his questions and concerns were addressed in detail. Plan: methylPREDNISolone (MEDROL, REBECCA,) 4 mg Dose-Pack Haley Bhakta APRN-SANTOS Neurosurgery Nurse Practitioner [facility] FOLLOW UP: Return for new or worsening symptoms. Please Note: This note has been partially generated using [employer], a speech recognition software program, and may contain errors including punctuation, grammar, spelling, gender, and inappropriate words or phrases that pertain to the system. documented in this encounterThe [facility] System11-10-2023 Discharge summary Author Jose Howard [facility] August 25, 2023 2:30pm Note Date/Time August 25, 2023 1:07pm [facility] Medical Records Department [address] [place] [address] Emergency Department Summary 08/25/23 MR#: [id number] Acct: [id number] Name: CRISTELA MCNALLY Rep #:[id number] : 1975 48 From: Jose Howard MD PCP: Dr. Joshua Portillo MD Status:R ER Location: ED HPI History of Present Illness Chief Complaint: Back Detail of Chief Complaint: Acute on chronic low back pain Informant: patient Onset/Context/Timing Onset: Days (Onset August 21, Monday) Context: Sudden Onset Timing: Continuous and Waxes and wanes Quality: Dull and Aching Location: Lumbar Current Severity: Severe Maximum Severity: Severe Worsened by: improves with Movement, Ambulation, Bending and Lifting Relieved by: Nothing Associated Symptoms Associated Symptoms: - (Denies saddle anesthesia or paresthesia, denies foot drop. Denies buckling of knees with going up or down steps.); Negative for Numbness, Tingling, Radiation to Right Leg, Radiation to Left Leg, Fever, Abdominal Pain, Dysuria, Unable to Ambulate, Unable to Transfer, Urinary Retention, Urinary Incontinence, Constipation or Fecal Incontinence Narrative Narrative: Patient is a 48-year-old male with chronic back pain. Last several days had increased pain. He denies fever, chills night sweats. Denies weight gain or weight loss. He denies radicular pain. He denies foot drop. Denies buckling of his knees going up or down steps. He denies saddle paresthesia or anesthesia. He denies recent dental procedure or any type of procedure. There is no history of direct trauma. He denies urologic symptoms i.e. dysuria, frequency, urgency or hematuria. Prior similar symptoms: Yes Recent Illness/Hospitalization: No PFSH PFSH Home Medications ibuprofen 200 mg tablet 800 mg PO PRN PRN Pain 09/25/17 [History Last Taken 09/25/17] albuterol sulfate 1.25 mg/3 mL solution for nebulization 1.25 mg (3 mL) inhalation Q4H #75 mL 06/24/23 [Rx Last Taken Unknown] albuterol sulfate 90 mcg/actuation aerosol inhaler (Ventolin HFA) 2 puff inhalation Q4H PRN PRN Wheezing #6.7 grams 06/24/23 [Rx Last Taken Unknown] Allergy/AdvReac Type Severity Reaction Status Date / Time hydromorphone HCl AdvReac Upset Verified 06/24/23 11:50 [From Dilaudid] Stomach Family History no significant family his Surgical History H/O hand surgery History of back surgery History of hernia surgery History of tonsillectomy Social History household members: spouse, family and children housing: house Smoking Status: Current every day smoker tobacco type: cigarettes ROS ROS ED Constitutional Constitutional ED: Denies chills, fever(s), subjective or sweats Eyes Eyes: Denies blurry vision, change in vision or diplopia ENT ENT ED: Denies ear pain, rhinorrhea or sore throat Cardiovascular Cardiovascular: Denies chest pain, orthopnea, palpitations or racing heartbeat Respiratory/Chest Respiratory/Chest: Denies dyspnea, dyspnea on exertion or orthopnea Gastrointestinal Gastrointestinal: Denies abdominal pain, constipation, diarrhea, melena, nausea or vomiting Genitourinary Genitourinary ED: Denies dysuria, hematuria or urinary frequency Musculoskeletal Musculoskeletal: Reports back pain; Denies arthralgias, myalgias or neck pain Integumentary Denies rash Neurologic Neurologic: Denies paresthesias or weakness Endocrine Endocrinology: Denies cold intolerance or heat intolerance Hematologic/Lymphatic Hematologic/Lymphatic: Denies easy bleeding, easy bruising or lymphadenopathy EXAM Physical Exam Const Vital Signs: 08/25/23 12:10 Temperature 97.0 F L Temperature Source Temporal Pulse Rate 67 Respiratory Rate 16 Blood Pressure 124/83 H Blood Pressure Mean 96 Pulse Ox 100 Oxygen Delivery Method Room Air Positive well nourished and well developed General Appearance ED: well developed; Negative for NAD or pallor HEENT Reports moist mucous membranes HEENT Narrative: Head is atraumatic and normocephalic. Nares patent. Posterior pharynx is normal Eyes PERRL and EOMs intact bilaterally General Eye ED: Negative for pale conjunctiva or scleral icterus Neck no lymphadenopathy, supple and no JVD Neck Narrative: There are no carotid bruits. Resp normal respiratory effort and clear to auscultation bilaterally Cardio regular rate, regular rhythm, S1 normal heart sound, S2 normal heart sound and no murmurs GI normal to inspection, nondistended, normoactive bowel sounds, soft to palpation,non-tender, non-distended and no masses Back/Spine normal to inspection; Negative for no thoracic nor lumbar tenderness Back/Spine Narrative: EHL is intact. 5/5 strength with plantar and dorsiflexion of the foot. Lumbar Spine / Lower Back: ROM limited and straight leg raise negative bilaterally Extremity normal to inspection and no clubbing, cyanosis or edema Neuro oriented x3 and no sensory deficits noted Neuro Narrative: DP and PT pulse are palpable. Sensorium / Orientation: alert Motor Exam: strength 5/5 throughout Deep Tendon Reflexes: Rt Patellar (L4): 1+, Lt Patellar (L4): 1+, Rt Ankle (S1):1+ and Lt Ankle (S1): 1+ Deep Tendon Reflexes Back: Rt Patellar (L4): 1+, Lt Patellar (L4): 1+, Rt Ankle (S1): 1+ and Lt Ankle (S1): 1+ Plantar Reflex: Downgoing: bilateral (There is no clonus at the ankles.) Skin no rashes or lesions noted and no wounds General Skin Exam: Negative for jaundice or pallor MDM MDM MDM Narrative Medical decision making narrative: Patient with low back pain. Differential is muscle skeletal i.e. degenerative disc, myofascial strain, herniated disc, cauda equina, spontaneous epidural hematoma, epidural abscess. Need to also consider pathologic fracture due to steroid use for COPD. Based on patient's history and physical findings are consistent with myofascial strain. Since patient has a family member who can take him home he was ordered IV Toradol and morphine. Will reassess in 30 to 60minutes after the administration of meds. Since there is no history of trauma imaging was not obtained. Since he has no constitutional symptoms specifically fever or chills laboratory studies were not obtained. History & Record Review Additional record(s) reviewed:: Prior ED visit (COPD exacerbation, and multiple visits for back pain.) Treatment and Re-Evaluation Narrative: Patient was reassessed at 1424. He had a 50% reduction in pain. Plan is to discharge with pain medicine. Patient was discharged home with appropriate home-going structure. His mother is here to drive him home since he was given opiate analgesic. Discharge Plan Triage Chief Complaint: Back ED Provider: Jose Howard Dx/Rx/DC Orders Clinical Impression: History of COPD, Acute exacerbation of chronic low back pain Instructions: ED Back Pain (Acute or Chronic) Prescriptions: No Action ibuprofen 200 MG tablet 800 mg PO PRN PRN (Reason: Pain) Patient Comments: PT REPORTS TAKING 1200MG MOTRIN 1-4 TIMES A DAY. albuterol sulfate [Ventolin HFA] 90 mcg/actuation HFA aerosol inhaler 2 puff inhalation Q4H PRN PRN (Reason: Wheezing) Qty: 6.7 0RF albuterol sulfate 1.25 mg/3 mL solution for nebulization 1.25 mg inhalation Q4H Qty: 75 0RF Primary Care Provider: Joshua Portillo Referrals: Joshua Portillo MD [Primary Care Provider] - 1 Week if not improving Disposition Disposition: Home, Self Care What to do if you have Problems For any increased pain, shortness of breath, bleeding, nausea or vomiting, chestpain, or any unexpected problems, contact your Primary Care Provider. Call [facility] ([phone]) or report to the closest Emergency Room. Call 911 if necessary. 11/10/23 1430 <Electronically signed by Jose Howard MD> Cosigner Signature (if applicable): CC: Dr. Joshua Portillo MD ~ Signed [facility] Work Phone: 1(639) 837-544409-28-2023 NoteHNO ID: [id number] Author: Anne Pearson RT(Ankita) Service: ? Author Type: Frame Gate Mortiser Operator Type: Progress Notes Filed: 07/13/2023 4:03 PM [...] RT Mary Carmen(R) July 13, 2023 4:03 [facility]09-28-2023 History of Present illness Narrative* Anne Pearson RT(Ankita) - 07/13/2023 3:40 PM EDT Radiology Service Progress Note PATIENT NAME: Cristela Mcnally DATE OF SERVICE: July 13, 2023 TIME: 4:03 PM PATIENT IDENTITY VERIFICATION COMPLETED USING TWO (2) IDENTIFIERS: Name and Date of confirmedby patient verbally. FALL SCREENING: Has the patient had 2 falls in the last year or 1 fall with injury or currently using an Ambulatory Assistive Device (Walker, Cane, Wheelchair, Crutches, etc.)? No PATIENT GENDER DATA: Male PATIENT RELEVANT IMPLANT DATA REVIEWED: Yes RADIOLOGY DEPARTMENT: CT; Exam(s) Completed: Chest PERIPHERAL IV DATA: Not applicable SIGNED BY: RT Mary Carmen(Ankita) July 13, 2023 4:03 PM documented in this encounterCleveland [id number] NoteHNO ID: [id number] Author: Ginger Torres APRN.SAS PROGRAMMER REMOTE Service: ? Author Type: Nurse Practitioner Type: Progress Notes Filed: 06/29/2023 8:56 AM Note Text: CC: Patient presents with: ER F/U: [facility] Monday/ SOB, cough HPI Cristela Mcnally is a 48 year old male who presents today for above. Patient was seen in [facility] ER on 06/24 for cough and [...] is alert. DATA REVIEWED: Outside chart from [facility] ER reviewed. ASSESSMENT/PLAN: 1. Respiratory infection [...] never scheduled - check CT CHEST WO [facility] Prescription instructions reviewed with patient as applicable. Potential red flag symptoms discussed with the patient. Reviewed appropriate action plan to take if red flag symptoms occur. Patient agreeable to treatment plan. Ginger Torres APRN.[facility]09-09-2023 Hospital Discharge instructions Additional Instructions Please take antibiotics until finished. Use the albuterol inhaler as needed. Use the albuterol nebulizers every 6-8 hours. Try to quit smoking.[facility] Work Phone: [phone]) 283-748001-06-2023 Miscellaneous Notes* Telephone Encounter - Nat Gregorio LPN - 10/21/2022 2:59 PM EST Called and left message for patient to call office back for results from colonoscopy done by Dr Blake. See note below. HM, History and recall letter done. * Telephone Encounter - Sharifa Bartlett PA-C - 10/21/2022 12:07 PM EST Please let patient know pathology returned as a tubular adenoma-benign, but premalignant type of polyp. Recommend repeat colonoscopy in 3 years based on size and pathology of polyp. Please update HM and surg history and generate a recall letter * Telephone Encounter - Lorin Delcid LPN - 10/20/2022 4:28 PM EST Patient had colonoscopy 09/22/2022 with specimens taken. Patient did not keep follow up appointmentsto discuss results. Please review and advise. Thank you. Lorin Delcid LPN documented in this encounterThe [facility]12-16-2022 Instructions* Patient Instructions* Lina Sweeney PA-C - 09/30/2022 11:14 AM EST [facility] DERMATOLOGY DEPARTMENT Preventing harmful UV exposure [...] Laundry Treatment UV Protectant (for sale on [employer]), just with one laundry cycle with Sun [...] rash guards during outdoor activities. Check out: www.[employer] - sun protective clothing and hats with built in UV protection Efudex General Information: Efudex is used as treatment to selectively destroy pre-cancerous lesions (sun- damaged cells) in theskin while retaining the normal healthy skin cells. Efudex will cause inflammation in the skin. This can include redness, soreness, oozing, crusting and scabs. After completion of treatment, this type of reaction should resolve over a few weeks. If you have severe sun-damage, additional courses of t reatment may be required in the future. Efudex [...] may cause a blistering, painful reaction if itbecomes exposed to sun. AVOID SUN EXPOSURE on the treated areas by limiting sun exposure, wearing protective clothing, and frequent use of sunscreens. If you experience a severe reaction, there is a risk of prolonged inflammation and delayed healing.There is also a small risk of changes [...] or wear cotton underwear if treating the genitalarea Leave the cream on overnight, usually for about 8 hours if treating actinic keratoses or basal cellcarcinoma, or 6 to 10 hours for warts [...] growths appear during treatment. documented in this encounterThe [facility] System12-16-2022 History of Present illness Narrative* Lina Sweeney PA-C - 09/30/2022 11:12 AM EST Consultation requested by Dr. 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 A skin exam was done of thescalp, face including eyelids and lips, ears, neck, chest, back, abdomen, bilateral upper extremities including digits. Saunders Skin Type: II IMPRESSION: Left Forearm - Posterior, Left Hand - Posterior, Left Wrist - Posterior, Right Forearm - Posterior,Right Hand - Posterior, Right Wrist - Posterior Slaughter scaly papules scattered throughout Mid Lower [place] Lip Scaly papules Few scattered brown stuck on papules and plaques on the head, trunk and upper extremities Regular and symmetric brown macules and papules on the head, trunk and upper extremities Scattered reticulated light lewis macules in sun distribution Scattered small miramontes red papules throughout A/P: 1. Actinic keratosis [...] seborrheic keratoses, multiple benign nevi, solar lentigines, miramontes angiomas Discussed etiology, educated and reassured. Sunscreen [...] Past Histories independently gathered by the clinical field support technician and the remaining scribed note accurately describes my personal service to the patient. Lina Sweeney PA-C September 30, 2022 12:34 PM documented in this encounterThe [facility] System11-22-2022 History of Present illness Narrative* Joaquín Torres PT - 09/06/2022 3:38 PM EST Episode Visit Count: 3 Therapist That Will [...] continue to benefit from ongoing skilled physical therapyto progress toward set goals. PLAN FOR NEXT VISIT: Review, correct and progress HEP to tolerance. Continue with postural stretching and strengthening for cervical ROM, pain control and strength. Continue use of manual therapy prn pending effectiveness of today's session. SUBJECTIVE: Patient Reason for Visit: Pt reports that overall he is feeling approximately the same.He reports that he had a really bad [...] supine. All treatment force done to pt tolerance.Techniques utilized: general massage, muscle bending, trigger point [...] 46 Joaquín Torres PT documented in this encounterThe [facility]health System11-15-2022 History of Present illness Narrative* Sharifa Bartlett PA-C - 08/30/2022 9:52 AM EST HISTORY AND PHYSICAL Cristela Mcnally 1975 REFERRING PHYSICIAN: Self CHIEF COMPLAINT: New [...] INGUN HRNA AGE 6 YRS/> REDUCIBLE Left 04-27- TONSILLECTOMY HX 01/2016 Current Outpatient Medications Medication [...] entered by the nurse and reviewed by me Nursing Notes: Nazanin Patel BAILEE 08/30/2022 9:52 AM Sign at exiting of workspace REVIEW OF SYSTEMS: General: The patient notes fatigue, denies weight loss, denies weight gain, denies feeling hot, anddenies feelings of cold. Eyes: The patient denies [...] the PFSH and ROS obtained by others. Sharifa Bartlett PA-C PHYSICAL EXAMINATION: General: The patient is 47 year old male, well nourished, well hydrated in no acute distress. The patient is oriented to time, place, and person. VITALS: Blood pressure 112/62, pulse 76, temperature 36.7 C (98.1 F), resp. rate 14, weight 76.7 kg(169 lb), SpO2 99 %. Body mass index is 24.25 kg/m . HEENT: Normal cephalic, ataumatic, pupils are equally round, sclera are anicteric, mucous membranesare moist, oropharynx is clear. Neck has no [...] a few episodes of bright red blood withwiping-suspect hemorrhoidal PLAN: I have reviewed my findings with the surgeon. Will plan for lower endoscopy. We discussed therisks and benefits of the planned endoscopy. I have informed the patient that complications can occur including failure to complete the endoscopy and perforation. The patient had the opportunity to ask questions concerning the planned endoscopy. My staff has also explained the procedure to the patient in understandable terms and has given the patient printed material concerning the procedure. Thepatient freely consents to surgery. The patient was offered a surgery/procedure at a [facility] facility. I have counseled the patient regarding [...] wishes. I have explained that with IV conscioussedation there is no anesthesia provider available and [...] (primary encounter diagnosis) Consultation requested by Dr. Portillo for an opinion regarding screening colonoscopy. My final recommendations will be communicated back to the requesting physician by way of shared Medical record or letter to requesting physician via US mail. Sharifa Bartlett PA-C documented [facility] Nurse Note* Nazanin Patel LPN - 08/30/2022 9:22 AM EST REVIEW OF SYSTEMS: General: The patient notes fatigue, denies weight loss, denies weight gain, denies feeling hot, anddenies feelings of cold. Eyes: The patient denies [...] N/A Nazanin Patel LPN documented in [facility] History of Present illness Narrative* Joaquín Torres PT - 08/19/2022 11:29 AM EDT Episode Visit Count: 1 Therapist That Will Accept/Oversee The Plan Of Care: Joaquín Torres PT Start of Care Date: 08/19/22 Onset Date: 02/16/22 Patient Identified by Name and Date of : Yes [facility]ER[facility] PHYSICAL THERAPY EVALUATION PLAN OF CARE: Assessment: Cristela Mcnally presents with chief complaint of neck pain and headaches that interfereswith sleeping;driving (prolonged sitting) . He presents with [...] Planned: 12 Planned Treatment Interventions: Therapeutic exercise (67704);Neuromuscular re- education (19931);Manual therapy (40656);Self-prison management (21640);Patient/Family/Caregiver Education;Body Mechanics Training PLAN FOR NEXT VISIT: Review, correct and progress HEP to tolerance. Continue with postural stretching and strengthening for cervical ROM, pain control and strength. Consider use of manual therapy prnbut vertebral artery test will need completed prior to tractoin being completed. Patient demonstrates good understanding of plan of care and treatment. The above goals and plan of care were discussed and agreed upon by patient/family. SUBJECTIVE: Cristela Mcnally is a 47 year old male seen today for intermittent pain in posterior neckthat also has headaches that radiate up the back of head and up over the top. He reports that headaches come and go but are fequent and daily. Patient Goals: eliminate neck pain and headaches. Functional Limitations: sleeping;driving (prolonged sitting) Prior Level of Function: Independent with restrictions Independent with the following restrictions: chronic lumbar spine issues and limitations in LEs butno issues with neck or headaches Relevant History [...] Right Negative;Left Negative Education: Education Learning Preferences: Demonstration;Explanation;Performance;Printed Materials Barriers: None Learning/educational needs: Plan of Care;Home exercise program;Posture;Body Mechanics Education Provided: Yes, see treatment interventions for education provided Education Provided To: Patient Education Mode/Type: Demonstration;Explanation/Discussion;Literature/Printed Materials;Performance Response to Education/Teach Back: States/Identifies;Requires Review/Additional [...] 46 Joaquín Torres PT documented in this encounterThe [facility]11-[facility]-2022 Miscellaneous Notes* Result Encounter Note - Joshua Portillo MD - 08/17/2022 12:30 PM EDT Result(s) viewed by patient: Yes. For appointment:11/17/22. DJD. documented in this encounterThe [facility]11-02-2022 Progress note* Result Encounter Note - Joshua Portillo MD - 08/17/2022 12:30 PM EDT Result(s) viewed by patient: Yes. For appointment:11/17/22. DJD. [facility] History of Past illness Narrative* Problem Noted Date Resolved Date Low back pain with right-sided sciatica 06/16/2008/17/2022 Left inguinal hernia 12/22/2015 08/17/2022 documented as of this encounter (statuses as of 08/19/2022) [facility] History of Past illness Narrative* Problem Noted Date Resolved Date Low back pain with right-sided sciatica 06/16/2008/17/2022 Left inguinal hernia 12/22/2015 08/17/2022 documented as of this encounter (statuses as of 08/30/2022) [facility] History of Past illness Narrative* Problem Noted Date Resolved Date Low back pain with right-sided sciatica 06/16/20 20 08/17/2022 Left inguinal hernia 12/22/2015 08/17/2022 documented as of this encounter (statuses as of 09/06/2022) [facility] History of Past illness Narrative* Problem Noted Date Resolved Date Low back pain with right-sided sciatica 06/16/20 20 08/17/2022 Left inguinal hernia 12/22/2015 08/17/2022 documented as of this encounter (statuses as of 09/13/2022) [address]01-2020 History of Past illness Narrative* Problem Noted Date Resolved Date Low back pain with right-sided sciatica 06/16/2008/17/2022 Left inguinal hernia 12/22/2015 08/17/2022 documented as of this encounter (statuses as of 09/30/2022) [facility] of [facility] illness Narrative* Problem Noted Date Resolved Date Low back pain with right-sided sciatica 06/16/2008/17/2022 Left inguinal hernia 12/22/2015 08/17/2022 documented as of this encounter (statuses as of 10/21/2022) [facility] of Past illness Narrative* Problem Noted Date Diagnosed Date Resolved Date Low back pain with right-sided sciatica 06/16/2020 08/17/2022 Left inguinal hernia 12/22/2015 022 documented as of this encounter (statuses as of 08/20/2023) [facility] History of Past illness Narrative* Problem Noted Date Diagnosed Date Resolved Date Low back pain with right-sided sciatica 06/16/2020 08/17/2022 Left inguinal hernia 12/22/2015 022 documented as of this encounter (statuses as of 08/30/2023) [facility] History of Past illness Narrative* Problem Noted Date Diagnosed Date Resolved Date Low back pain with right-sided sciatica 06/16/2020 08/17/2022 Left inguinal hernia 12/22/2015 022 documented as of this encounter (statuses as of 08/30/2023) [facility] of Past illness Narrative* Problem Noted Date Diagnosed Date Resolved Date Low back pain with right-sided sciatica 06/16/2020 08/17/2022 Left inguinal hernia 12/22/2015 022 documented as of this encounter (statuses as of 08/31/2023) [facility] of Past illness Narrative* Problem Noted Date Diagnosed Date Resolved Date Low back pain with right-sided sciatica 06/16/2020 08/17/2022 Left inguinal hernia 12/22/20152 022 documented as of this encounter (statuses as of 09/26/2023) [facility] History of Past illness Narrative* Problem Noted Date Diagnosed Date Resolved Date Low back pain with right-sided sciatica 06/16/2020 08/17/2022 Left inguinal hernia 12/22/2015 022 documented as of this encounter (statuses as of 12/01/2023) [facility] Author Steve Ojeda [facility] October 20, 2023 10:38am Note Date/Time October 20, 2023 8: 59am [facility] Medical Records Department [address] [place] [address] Emergency Department Summary 10/20/23 MR#: [id number] Acct: [id number] Name: CRISTELA MCNALLY Rep #:[id number] : 1975 48 From: Steve Ojeda MD PCP: Dr. Joshua Portillo MD Status:R EG ER Location: ED HPI HPI - URI History of Present Illness Chief Complaint: Headache Detail of Chief Complaint: URI symptoms with a cough for the last 5 days. Informant: patient Onset/Context/Timing Onset: Days Context: Gradual Onset Timing: Continuous Current Severity: Mild Maximum Severity: Moderate Associated Symptoms Associated Symptoms: Positive for Nasal Congestion, Headache, Myalgias and Nonproductive cough; Negative for Sinus Pressure, Nausea, Vomiting, Diarrhea, Shortness of Breath, Chest Pain, Hemoptysis or Productive Cough Narrative Narrative: Healthy 48-year-old male. Currently on no chronic medications. URI symptoms since Monday. Headache. Increased sleep. Nonproductive cough. Subjective fever and chills. No vomiting or diarrhea. No dysuria. No abdominal pain. Treated in urgent care on Monday placed on a cough medication. Called his primary care's office today who sent him to the emergency department. Prior similar symptoms: Yes Recent Illness/Hospitalization: No ROS ROS ED ROS Narrative Cough. Subjective fever and chills. Myalgias. Headache. Constitutional Constitutional ED: Reports chills, fever(s) and subjective Eyes Eyes: Denies blurry vision ENT ENT ED: Denies ear pain, rhinorrhea or sore throat Cardiovascular Cardiovascular: Denies chest pain or palpitations Respiratory/Chest Respiratory/Chest: Reports cough; Denies dyspnea Gastrointestinal Gastrointestinal: Denies abdominal pain, constipation, diarrhea, melena, nausea or vomiting Genitourinary Genitourinary ED: Denies dysuria or hematuria Musculoskeletal Musculoskeletal: Denies arthralgias or back pain Integumentary Denies abscess or Abrasions Neurologic Neurologic: Reports headache(s) Psychiatric Psychiatric: Denies anxiety Endocrine Endocrinology: Denies cold intolerance Hematologic/Lymphatic Hematologic/Lymphatic: Denies easy bleeding, easy bruising or lymphadenopathy Allergic/Immunologic Allergic/Immunologic ED: Denies mouth swelling, tongue swelling or urticaria PFSH PFSH Medical History no medical history no medical history Home Medications ibuprofen 200 mg tablet 800 mg PO PRN PRN Pain 09/25/17 [History Last Taken 09/25/17] albuterol sulfate 1.25 mg/3 mL solution for nebulization 1.25 mg (3 mL) inhalation Q4H #75 mL 06/24/23 [Rx Last Taken Unknown] albuterol sulfate 90 mcg/actuation aerosol inhaler (Ventolin HFA) 2 puff inhalation Q4H PRN PRN Wheezing #6.7 grams 06/24/23 [Rx Last Taken Unknown] hydrocodone-acetaminophen 5-325mg 5mg-325mg 1 tab PO Q6H PRN PRN Pain 3 days #10TABLETS 08/25/23 [Rx Last Taken Unknown] naproxen 500 mg tablet 500 mg PO BID #14 tabs 08/25/23 [Rx Last Taken Unknown] Allergy/AdvReac Type Severity Reaction Status Date / Time hydromorphone HCl AdvReac Upset Verified 10/20/23 08:40 [From Dilaudid] Stomach Family History no significant family his Surgical History H/O hand surgery History of back surgery History of hernia surgery History of tonsillectomy Social History household members: spouse, family and children housing: house Smoking Status: Current every day smoker tobacco type: cigarettes EXAM Physical Exam Narrative Exam Narrative: Well-appearing middle-age male. Vital signs stable afebrile. Pulse ox 99% on room air no hypoxia. H EENT exam atraumatic. Pupils round react to light. Moist mucous membranes. Posterior pharynx unremarkable. No trouble swallowing or breathing. TMs normal. Neck nontender no lymphadenopathy. He is able to touch his chin to his chest. No meningismus. Lungs coarse breath sounds bilaterally. No wheezing. Equal symmetrical. Heart regular rhythm rate about 85 no murmur. Chest wall and ribs nontender. Abdomen soft nontender. Back nontender. Moving all 4 extremities. 5-5 petroleum supply specialist strength. Dorsi plantarflexion intact. He is awake and alert. Skin no rashes. Const Vital Signs: 10/20/23 08:41 Temperature 98.9 F Temperature Source Temporal Pulse Rate 87 Respiratory Rate 14 Blood Pressure 128/82 H Blood Pressure Mean 97 Pulse Ox 99 Oxygen Delivery Method Room Air Positive well nourished and well developed; Negative for obese, cachectic or contractures General Appearance ED: well developed and NAD; Negative for cachectic, contractures, cyanotic, diaphoretic or pallor Nutritional Appearance: Negative for cachectic or obese HEENT Reports moist mucous membranes; Denies dry mucous membranes normocephalic and atraumatic; Negative for scalp tenderness Face and Sinus: Negative for sinus tenderness or maxillary instability Mouth ED: No dry mucous membranes Mouth: No dry mucous membranes Teeth and Gingiva: Negative for caries Throat: posterior oropharynx normal Eyes PERRL and EOMs intact bilaterally General Eye ED: Negative for pale conjunctiva, scleral icterus or other Neck no lymphadenopathy, supple, no meningeal signs and no JVD General: Negative for anterior neck swelling or lymphadenopathy Resp normal respiratory effort and No clear to auscultation bilaterally Resp Narrative: Coarse breath sounds bilaterally. Effort and Inspection: Negative for retractions Auscultation: Negative for rales, wheezes or diminished lung sounds Cardio S1 normal heart sound, S2 normal heart sound and no murmurs Rate: regular rate; Negative for bradycardia or tachycardic Rhythm: regular rhythm; Negative for abnormal rhythm GI non-tender, non-distended and no masses Inspection: Negative for abdominal distention Auscultation: normoactive bowel sounds Palpation: soft; Negative for tender or guarding Percussion: Negative for other Back/Spine Negative for no CVA tenderness General Back: Negative for CVA tenderness Cervical Spine: Negative for cervical spine tenderness Thoracic Spine / Upper Back: Negative for thoracic spinal tenderness Lumbar Spine / Lower Back: Negative for lumbar spinal tenderness Sacrum: Negative for tenderness Extremity normal to inspection and full ROM General Extremety ED: Negative for cyanosis or tenderness General Extremity: Negative for cyanosis Neuro oriented x3 and CN's II-XII intact bilaterally Sensorium / Orientation: alert, oriented to person, oriented to place and oriented to time; Negative for orientation impaired, lethargic or stuporous Motor Exam: strength 5/5 throughout Psych mental status grossly normal Appearance: Negative for other Attitude: No agitated Mood & Affect: Negative for depressed, anxious or tearful Skin General Skin Exam: Negative for jaundice or pallor Lesions: no lesions Rashes: no rashes Trauma: Negative for abrasion or laceration MDM MDM MDM Narrative Medical decision making narrative: 48-year-old male URI symptoms for 5 days. Chest x-ray to rule out pneumonia. COVID and flu and RSV PCR. He is not vomiting. He does not look dehydrated. Jonel not think he needs IV fluids or lab work otherwise. Repeat exam patient is doing well at 10:35 AM. We discussed his test results. He will be discharged home. Fluids. Rest. Tylenol Motrin. Follow-up as needed. Return if worse. History & Record Review Discussion w/independent historian: Patient Additional record(s) reviewed:: Prior inpatient record, Prior outpatient record,Prior ED visit and Prior labs Lab Data Attestation: I reviewed the patient's lab results. Lab results narrative: Flu a positive. Negative COVID and RSV. Chest x-ray negative. Radiography Chest X-Ray - ED: 2 View, Read by ED Physician, Read by Radiologist, Heart, Lungs, Mediastinum, Bony Structures and No Acute Disease Diagnostic Testing: Clinical Impression(s) from Imaging Studies Chest X-Ray 10/20/23 08:54 IMPRESSION: No acute cardiopulmonary process identified. Electronically Signed: Daina Porter MD at 9:09 EST , Chest x-ray, 2 views, AP and lateral, interpreted by myself and the radio shows no acute abnormality. Normal cardiac silhouette. Normal lung mauro. No pneumonia. Discharge Plan Triage Chief Complaint: Headache ED Provider: Steve Ojeda Dx/Rx/DC Orders Clinical Impression: Influenza A Instructions: ED Influenza (Adult) Prescriptions: No Action ibuprofen 200 MG tablet 800 mg PO PRN PRN (Reason: Pain) Patient Comments: PT REPORTS TAKING 1200MG MOTRIN 1-4 TIMES A DAY. albuterol sulfate [Ventolin HFA] 90 mcg/actuation HFA aerosol inhaler 2 puff inhalation Q4H PRN PRN (Reason: Wheezing) Qty: 6.7 0RF albuterol sulfate 1.25 mg/3 mL solution for nebulization 1.25 mg inhalation Q4H Qty: 75 0RF hydrocodone-acetaminophen [hydrocodone-acetaminophen] 5-325 mg tablet 1 tab PO Q6H PRN PRN (Reason: Pain) 3 Days Qty: 10 0RF naproxen 500 mg tablet 500 mg PO BID Qty: 14 0RF Primary Care Provider: Joshua Portillo Referrals: Joshua Portillo MD [Primary Care Provider] - 1 Week if not improving Activity Restrictions/Additional Instructions: You have influenza A. Plenty of fluids. Rest. Alternate Tylenol Motrin for body aches and fever. This will take several days even a week to get over. Follow-up with your doctorif not improving. Disposition Disposition: Home, Self Care What to do if you have Problems For any increased pain, shortness of breath, bleeding, nausea or vomiting, chestpain, or any unexpected problems, contact your Primary Care Provider. Call [facility] ([phone]) or report to the closest Emergency Room. Call 911 if necessary. 10/20/23 1038 <Electronically signed by Steve Ojeda MD> Cosigner Signature (if applicable): CC: Dr. Joshua Portillo MD ~ Signed [facility] Work Phone: Evaluation + Plan note No data available for this section [facility] Evaluation note* Diagnosis Cervicogenic headache- Primary Headache [facility] Diagnosis Encounter for screening for malignant neoplasm of colon- Primary Special screening for malignant neoplasms, colon [facility] Diagnosis Cervicogenic headache- Primary Headache [facility]* Diagnosis Actinic keratosis- Primary Multiple benign nevi Benign neoplasm of skin, site unspecified Seborrheic keratoses Other seborrheic keratosis Miramontes angioma Nevus, non-neoplastic Solar lentigo Other dyschromia Skin cancer screening Screening for malignant neoplasm of the skin Actinic cheilitis Acute dermatitis due to solar radiation [facility] noteNo assessment information availableWTr[facility] Work Phone: Evaluation note* Diagnosis Lung nodules Other nonspecific abnormal finding of lung field documented in this encounter [facility] note* Diagnosis Lumbar radiculopathy- Primary Thoracic or lumbosacral neuritis or radiculitis, unspecified documented in this encounter [facility] note* Diagnosis Spondylolisthesis, lumbar region- Primary Status post lumbar spinal fusion Arthrodesis status documented in this encounter [facility] note* Diagnosis Vasectomy evaluation- Primary Other general counseling and advice for contraceptive management Elevated blood pressure reading without diagnosis of hypertension Genital warts Condyloma acuminatum documented in this encounter [facility] note* Diagnosis Encounter for sterilization- Primary Sterilization documented in this encounter [facility] note* Diagnosis Encounter for sterilization Sterilization documented in this encounter [facility] note* Diagnosis Cervicogenic headache Headache [facility] Additional Instructions You have influenza A. Plenty of fluids. Rest. Alternate Tylenol Motrin for body aches and fever. This will take several days even a week to get over. Follow-up with your doctor if not improving.[facility] Work Phone: Hospital Discharge instructions Additional Instructions Thank you for trusting us with your care today! Your CT scan was negative for acute bony abnormalities. Please take Tylenol (2 pills, 650 mg), ibuprofen (2 pills, 400 mg) every 6 hours as needed for pain and fever control. Please take Norflex (muscle relaxer as prescribed. Please take prednisone (anti-inflammatory) as prescribed In addition to the above regimen please take oxycodone for breakthrough pain. Please return to the emergency department if your symptoms change or worsen. Please follow with your primary care physician and pain management for further outpatient evaluation and management.[facility] Work Phone: Reason for referral (narrative)* Diagnostic Procedure Only (Routine) - Pending Review Specialty Diagnoses / Procedures Referred By Bennett latham Referred To Contact XR IMAGING Diagnoses Lumbar radiculopathy Procedures XR LUMBAR MOTION 4V AP/LAT/ FLEX/EXT RADEX SPINE LUMBOSACRAL MINIMUM 4 VIEWS Delfin Gordon, DO [address] [place] [address] [place] [address] Referral ID Status Reason Start Date Expiration Date Visits Requested Visits Authorized [id number] Pending Review Auto-Generat ed Referral 09/27/2024 1 1 [facility] (narrative)No reason for referral information availableWTrinity [facility] Work Phone: Reason for visit Narrative* Diagnostic Procedure Only (Routine) - Closed Specialty Diagnoses / Procedures Referred By Bennett latham Referred To Contact XR IMAGING Diagnoses Lumbar radiculopathy Procedures XR LUMBAR MOTION 4V AP/LAT/ FLEX/EXT RADEX SPINE LUMBOSACRAL MINIMUM 4 VIEWS Delfin Gordon, DO [address] [place] [address] [place] [address] Referral ID Status Reason Start Date Expiration Date V isits Requested Visits Authorized [id number] Closed Auto-Generate d Referral 08/29/2023 09/27/2024 1 1 [facility] Summary Purpose Family History No Family History Records FoundNo Family History Records Found No data available for this section No Family History Records FoundNo Family History Records FoundNo Family History Records FoundNo Family History Records Found Advance Directives No Advanced Directives Records Found Advance Directive Response Recorded Date/ Time Advance Directives No November 1:20am Living Will No June 24, 2 023 1:05pm Power of Engineering Design Manager No June 24, 2023 1:05pm Advance Directive Response Recorded Date/ Time Advance Directives No November 12:20am Living Will No August 25 023 12:27pm Power of Engineering Design Manager No August 25, 2023 12:27pm Advance Directive Response Recorded Date/ Time Advance Directives No November 12:20am Living Will No October 20 8:46am Power of Engineering Design Manager No October 20 024 8:46am Advance Directive Response Recorded Date/ Time Advance Directives No November 1:20am Living Will No February 21, 2024 11 :08am Power of Engineering Design Manager No February 21, 2024 11:08am Advance Directive Response Recorded Date/ Time Living Will No January 09, 2025 6:55pm Do you have a Healthcare Power of Engineering Design Manager? No January 09, 2025 6:55pm Advance Directives No November 1:20am Chief Complaint and Reason for Visit Chief Complaint CHEST OTHER Chief Complaint CHEST OTHER BACK PAIN Chief Complaint CHEST OTHER BACK PAIN AYERS Chief Complaint NUMBNESS Chief Complaint Admit Date back January 09, 2025 6:3 5pm Reason for Referral Specialty Diagnoses / Procedures Referred By Contac t Referred To Contact CT IMAGING Diagnoses Lung nodules Procedures CT CHEST WO IVCON DIAGNOSTIC COMPUTED TOMOGRAPHY THORAX W/O CNTRST Ginger Torres, FREIGHT [employer] BRAKE [employer]TER.[employer] [address] [place] [address] [place] [address] Referral ID Status Reason Start Date Expiration Date V isits Requested Visits Authorized [id number] Closed Auto-Generate d Referral 06/30/2023 10/15/2023 1 1 Specialty Diagnoses / Procedures Referred By Contac t Referred To Contact XR IMAGING Diagnoses Cervicogenic headache Procedures XR CERV OTHER 4V AP/LAT/OBL RADEX SPINE CERVICAL 4 OR 5 VIEWS Joshua Portillo MD [address] [place] [address] [place] [address] Referral ID Status Reason Start Date Expiration Date V isits Requested Visits Authorized [id number] Closed Financial Clearance Required - Self Pay Patient Cleared - Qualified HCAP/501/FA 08/15/2022 09/21/2022 99 99 Additional Source Comments (unrecognized sect ion and content) No Status Records FoundNo Status Records FoundNo Status Records FoundNo Status Records FoundNo Status Records FoundNo Status Records Found INFORMATION SOURCE (unrecogn ized section and content) DATE CREATED AUTHOR 07/03/2021 [facility] DATE CREATED AUTHOR AUTHOR'S ORGANIZ ATION 06/21/2023 [facility] DATE CREATED AUTHOR AUTHOR'S ORGANIZ ATION 12/14/2023 [facility] DATE CREATED AUTHOR AUTHOR'S ORGANIZ ATION 01/19/2024 [facility] ([place]) DATE CREATED AUTHOR AUTHOR'S ORGANIZ ATION 03/09/2024 [facility] DATE CREATED AUTHOR AUTHOR'S ORGANIZ ATION 01/15/2025 [facility] Source Comments (unrecognize d section and content) In the event this informatio n is protected by the Federal Confidentiality of Alcohol and Drug Abuse Patient Records regulations: The Federal rules restrict any use of the information to criminally investigate or prosecute any alcohol or drug abuse patient.[facility] the event this information is protected by the Federal Confidentiality of Alcohol and Drug Abuse Patient Records regulations: The Federal rules restrict any use of the information to criminally investigate or prosecute any alcohol or drug abuse patient.[facility]In the event this information is protected by the Federal Confidentiality of Alcohol and Drug Abuse Patient Records regulations: The Federal rules restrict any use of the information to criminally investigate or prosecute any alcohol or drug abuse patient.[facility] SystemIn the event this information is protected by the Federal Confidentiality of Alcohol and Drug Abuse Patient Records regulations: The Federal rules restrict any use of the information to criminally investigate or prosecute any alcohol or drug abuse patient.[facility] SystemIn the event this information is protected by the Federal Confidentiality of Alcohol and Drug Abuse Patient Records regulations: The Federal rules restrict any use of the information to criminally investigate or prosecute any alcohol or drug abuse patient.[facility] SystemIn the event this information is protected by the Federal Confidentiality of Alcohol and Drug Abuse Patient Records regulations: The Federal rules restrict any use of the information to criminally investigate or prosecute any alcohol or drug abuse patient.[facility] SystemIn the event this information is protected by the Federal Confidentiality of Alcohol and Drug Abuse Patient Records regulations: The Federal rules restrict any use of the information to criminally investigate or prosecute any alcohol or drug abuse patient.[facility] SystemIn the event this information is protected by the Federal Confidentiality of Alcohol and Drug Abuse Patient Records regulations: The Federal rules restrict any use of the information to criminally investigate or prosecute any alcohol or drug abuse patient.[facility] SystemIn the event this information is protected by the Federal Confidentiality of Alcohol and Drug Abuse Patient Records regulations: The Federal rules restrict any use of the information to criminally investigate or prosecute any alcohol or drug abuse patient.[facility] SystemIn the event this information is protected by the Federal Confidentiality of Alcohol and Drug Abuse Patient Records regulations: The Federal rules restrict any use of the information to criminally investigate or prosecute any alcohol or drug abuse patient.[facility] SystemIn the event this information is protected by the Federal Confidentiality of Alcohol and Drug Abuse Patient Records regulations: The Federal rules restrict any use of the information to criminally investigate or prosecute any alcohol or drug abuse patient.[facility] SystemIn the event this information is protected by the Federal Confidentiality of Alcohol and Drug Abuse Patient Records regulations: The Federal rules restrict any use of the information to criminally investigate or prosecute any alcohol or drug abuse patient.[facility] SystemIn the event this information is protected by the Federal Confidentiality of Alcohol and Drug Abuse Patient Records regulations: The Federal rules restrict any use of the information to criminally investigate or prosecute any alcohol or drug abuse patient.[facility] SystemIn the event this information is protected by the Federal Confidentiality of Alcohol and Drug Abuse Patient Records regulations: The Federal rules restrict any use of the information to criminally investigate or prosecute any alcohol or drug abuse patient.[facility] Reason for Visit (unrecogniz ed section and content) Reason Comments Waist Up Skin Check Specialty Diagnoses / Procedures Referred By Bennett latham Referred To Contact [facility] Department Diagnoses . Procedures . Self [facility] Referral ID Status Reason Start Date Expiration Date Visits Requested Visits Authorized [id number] Authorized Financial Clearance Required - Self Pay Patient Cleared - Qualified HCAP/501/FA 2 11/13/2022 99 99 Reason Comments New Patient Colonoscopy consult Reason Comments PT Eval Reason Comments Physical Therapy Specialty Diagnoses / Procedures Referred By Contac t Referred To Contact [facility] Diagnoses Cervicogenic headache Procedures CONSULT TO PHYSICAL THERAPY PHYSICAL THERAPY EVALUATION HIGH COMPLEX 45 MINS Joshua Portillo MD [address] [place] [address] [facility] [place] [address] [place] [address] Referral ID Status Reason Start Date Expiration Date Visits Requested Visits Authorized [id number] Authorized Auto-Generate d Referral Patient Cleared - Qualified HCAP/501/FA 11/13/2022 99 99 Reason Comments Results Reason Comments Radiology CT Specialty Diagnoses / Procedures Referred By Contac t Referred To Contact CT IMAGING Diagnoses Lung nodules Procedures CT CHEST WO IVCON DIAGNOSTIC COMPUTED TOMOGRAPHY THORAX W/O CNTRST Melissa, Ginger, FREIGHT [employer]RAKE [employer]TER.[employer] [address] [place] [address] Ct Imaging [place] [address] Referral ID Status Reason Start Date Expiration Date V isits Requested Visits Authorized [id number] Closed Auto-Generate d Referral 06/30/2023 10/15/2023 1 1 Reason Comments Established Patient Reason Comments Consult Sterilization (Elective) Reason Comments Vasectomy-1 Specialty Diagnoses / Procedures Referred By Contac t Referred To Contact [facility] DEPARTMENT Diagnoses . Procedures . [place] [address] Referral ID Status Reason Start Date Expiration Date V isits Requested Visits Authorized [id number] Closed Financial Clearance Required - Self Pay Patient Cleared - Qualified HCAP/501/FA 08/15/2022 11/13/2022 99 99 Care Teams (unrecognized sec tion and content) Used [employer] Make Ready Worker Relationship Specialty Start Date End Date Joshua Portillo MD [address] [place] [address] PCP - General Internal Medicine 03/24/21 Used [employer] Make Ready Worker Relationship Specialty Start Date End Date Joshua Portillo MD [address] [place] [address] PCP - General Internal Medicine 03/24/21 Used Car Make Ready Worker Relationship Specialty Start Date End Date Joshua Portillo MD [address] [place] [address] PCP - General Internal Medicine 03/24/21 Used Car Make Ready Worker Relationship Specialty Start Date End Date Joshua Portillo MD [address] [facility] [address] PCP - General Internal Medicine 03/24/21 Used Car Make Ready Worker Relationship Specialty Start Date End Date Joshua Portillo MD [address] [facility] [place] [address] PCP - General Internal Medicine 03/24/21 Used Car Make Ready Worker Relationship Specialty Start Date End Date Joshua Portillo MD [address] [facility] [place] [address] PCP - General Internal Medicine 03/24/21 Team Status: Active Member Role Status Dates No Primary Care Physician Family Provider Active Dr. Joshua Portillo MD Primary Care Provider Active Team Status: Inactive Member Role Status Dates Dr. Joshua Potrillo MD Primary Care Provider Active Dr. Christiane Hackett MD Emergency Provider Active Used [employer] Worker Relationship Specialty Start Date End Date Joshua Portillo MD [address] [facility] [place] [address] PCP - General Internal Medicine 03/24/21 Team Status: Inactive Member Role Status Dates Dr. Joshua Portillo MD Primary Care Provider Active Dr. Christiane Hackett MD Attending Provider, Emergency Provider Active Team Status: Inactive Member Role Status Dates Dr. Joshua Portillo MD Primary Care Provider Active Dr. Jose Howard MD Emergency Provider Active Used [employer] Worker Relationship Specialty Start Date End Date Joshua Portillo MD [address] [facility] [place] [place] [address] PCP - General Internal Medicine 03/24/21 Used Car Make Ready Worker Relationship Specialty Start Date End Date Joshua Portillo MD [address] [facility] [place] [address] PCP - General Internal Medicine 03/24/21 Used Car Make Ready Worker Relationship Specialty Start Date End Date Joshua Portillo MD [address] [facility] [place] [place] [address] PCP - General Internal Medicine 03/24/21 Used Car Make Ready Worker Relationship Specialty Start Date End Date Joshua Portillo MD [address] [facility] [place] [address] PCP - General Internal Medicine 03/24/21 Team Status: Inactive Member Role Status Dates Dr. Joshua Portillo MD Primary Care Provider Active Dr. Steve Ojeda MD Emergency Provider Active Team Status: Inactive Member Role Status Dates Dr. Joshua Portillo MD Primary Care Provider Active Dr. Jose Howard MD Attending Provider, Emergency Provi salvador Active Used [employer] Worker Relationship Specialty Start Date End Date Joshua Portillo MD [address] [facility] [place] [address] PCP - General Internal Medicine 03/24/21 Team Status: Inactive Member Role Status Dates Dr. Joshua Portillo MD Primary Care Provider Active Dr. Jefry Galloway DO Emergency Provider Active Used [employer] Ready Worker Relationship Specialty Start Date End Date Joshua Portillo MD [address] [facility] [place] [address] PCP - General Internal Medicine 03/24/21 Used Car Make Ready Worker Relationship Specialty Start Date End Date Joshua Portillo MD [address] [facility] [place] [address] PCP - General Internal Medicine 03/24/21 Team Status: Active Member Role Status Dates Dr. Joshua Portillo MD Primary Care Provider Active Team Status: Inactive Member Role Status Dates Dr. Joshua Portillo MD Primary Care Provider Active Start: January 09, 2025 End: January 09, 2025 Dr. Devante Waite DO Referring Provider Active Start: January 09, 2025 End: January 09, 2025 Dr. Devante Waite DO Emergency Provider Active Start: January 09, 2025 End: January 09, 2025 Goals (unrecognized section and content) Goals may be documented in a n alternate sectionGoals may be documented in an alternate sectionGoals may be documented in an alternate section No data available for this sectionGoals may be documented in an alternate sectionGoals may be documented in an alternate section FOR RECORDS PERTAINING TO PATIENTS WHO ARE [...] BE BASED ON THE PRIMARY CLINICAL RECORDS. [employer] [facility]. provides no warranty or guarantee of the accuracy or completeness of information in this document.
--- NOTE | 2025-03-30 00:18 | RAD_ITS ---
PROCEDURE: FOOT MIN 3 VIEWS 03/29/2025 REASON FOR EXAM: PAIN - ATTN MEDIAL MIDFOOT. Medial left foot pain. TECHNIQUE: FOOT MIN 3 VIEWS COMPARISON: None FINDINGS: Bones: Left foot appears intact. No acute fracture or dislocation. 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 Secondary ossification center at the proximal medial aspect of the navicular consistent with os naviculare. Minimal inferior calcaneal spur Alignment: Alignment appears anatomic. Soft tissues: No radiopaque foreign bodies. RAD/Foot min 3 Views IMPRESSION: 1. 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 2. Minimal inferior calcaneal spur. 3. No acute findings. Reading Location: [place]
[2025-03-30] MEDS: Naproxen 500 MG Tablet PO (01:02)
== END 2025-03-30 01:06 | disposition home or self-care (01) ==
PROVIDERS: Emergency Provider Emergency Medicine; PCP Internal Medicine; Visit Provider Emergency Medicine
DX: M25.572 Pain in left ankle and joints of left foot (principal); F17.210 Nicotine dependence, cigarettes, uncomplicated; M19.072 Primary osteoarthritis, left ankle and foot
CPT/HCPCS: 73630; 99282